=== PATIENT | female | born 1995 | race African-American/Black ===

== ENCOUNTER 2023-01-15 21:01 | Emergency (ER) | payer OTHER, SELFPAY ==
--- NOTE | 2023-01-15 21:02 | ECG_ITS ---
Test Reason : CP Blood Pressure : / mmHG Vent. Rate : 089 BPM Atrial Rate : 089 BPM P-R Int : 160 ms QRS Dur : 084 ms QT Int : 378 ms P-R-T Axes : 048 054 045 degrees QTc Int : 459 ms Normal sinus rhythm Normal ECG No previous ECGs available Referred By: Generic ED Physician Electronically Signed By:RONIT JAMES
--- NOTE | 2023-01-15 21:15 | MHC.EDTECH ---
EKG was obtained and pt brought back to waiting room
[2023-01-15 21:29] VITALS: BP 147/87; PULSE 88; RESP 16; TEMP 37; O2SAT 100; BMI 43.7
--- NOTE | 2023-01-15 21:47 | MHC.EDTECH ---
Patient was brought from waiting area,labs were obtained and sent to lab. Patient was brought back to waiting area.
[2023-01-15 21:56] LABS: Hematocrit 37.8 % (37.0-47.0); Hemoglobin 12.8 g/dl (12.0-16.0); Mean Corpuscular HGB Conc 33.9 g/dl (31.0-35.0); Mean Corpuscular Volume 85.5 fL (80.0-98.0); Mean Platelet Volume 11.5 fL (9.4-12.3); Platelet Count 242 X10*3/uL (160-400); Red Blood Count 4.42 X10*6/uL (4.20-5.50); Red Cell Distribution Width 12.5 % (11.0-16.0); White Blood Count 10.7 X10*3/uL (4.8-10.8)
[2023-01-15 22:13] LABS: Alanine Aminotransferase 15 U/L (0-31); Albumin Level 3.9 g/dL (3.5-5.0); Alkaline Phosphatase 79 U/L (39-117); Anion Gap 11 (12-20); Aspartate Amino Transferase 16 U/L (5-31); Bilirubin Total 0.1 mg/dL (0.0-1.0); Blood Urea Nitrogen 15 mg/dL (9-16); Calcium 8.8 mg/dL (8.4-10.2); Carbon Dioxide 28 mmol/L (22-29); Chloride 106 mmol/L (96-108); Creatinine Clr Calc Pharmacy 129.4; Estimated Glomerular Filt Rate > 60; Glucose Random 98 mg/dL (60-115); Potassium 3.5 mmol/L (3.3-5.1); Sodium 141 mmol/L (135-145); Total Protein 7.3 g/dL (6.5-8.0)
[2023-01-15 22:23] LABS: Troponin-I High Sensitivity < 2.7 ng/L (<3.5-17.0)
--- NOTE | 2023-01-15 22:57 | ED_ITS ---
HPI - Chest Pain General Chief Complaint: Chest Pain Stated Complaint: blurry vision, chest pain Time Seen by Provider: 01/15/23 22:56 Source: patient Mode of arrival: ambulatory Limitations: no limitations History of Present Illness HPI narrative: Patient with history of hypertension with well-controlled blood pressure complaining of frontal headache chest pain since earlier today no nausea no vomiting no photosensitivity patient never had headache before does have a family history of migraines in the mother no fever no chills no cough Related Data Previous Rx's Medication Instructions Recorded otcnjhdfzm-fkgptksgzxsnv-msyzawqu 1 tab PO Q6H PRN pain #20 tabs 01/16/23 50 mg-325 mg-40 mg tablet Allergies Allergy/AdvReac Type Severity Reaction Status Date / Time No Known Allergies Allergy Verified 01/15/23 21:28 Review of Systems Review of Systems: Yes all other systems are reviewed and are negative [facility] Past Medical History Medical History hypertension Social History Social History Alcohol intake: never Smoked in Last 30 Days: No Use of substances other than those prescribed or required for medical reasons: No Advance Directives: No Advance Directives Information Provided: No Patient : No Physical Exam Vital Signs: Vital Signs: Last Vital Signs Temp 98.5 F 01/16/23 00:33 Pulse 78 01/16/23 00:33 Resp 17 01/16/23 00:33 BP 118/72 01/16/23 00:33 Pulse Ox 97 01/16/23 00:33 O2 Del Method Room Air 01/16/23 00:33 BMI result Body Mass Index 43.7 Appearance: Alert. Oriented X3. No acute distress. Eyes: PERRLA, No Nystagmus ENT: Pharynx normal. Oral Mucosa moist no temporal artery tenderness no sinus tenderness Neck: Normal inspection. Neck supple. CVS: Normal heart rate and rhythm. Pulses normal. Respiratory: No respiratory distress. Equal air entry bilateral, no wheezing/rales/rhonchi chest wall tenderness+ Abdomen: Soft and nontender. Bowel sounds are present, Skin: Skin warm and dry. Normal skin color. Normal skin turgor. Extremities: No lower extremity edema. No calf tenderness Neuro: Oriented X 3. No motor deficit. No sensory deficit.No cerebellar signs , cranial nerves II-XII intact Medications Administered Discontinued Medications Generic Name Dose Route Start Last Admin Trade Name Chirag PRN Reason Stop Dose Admin Acetaminophen/Butalbital/Caffeine 1 tab 01/15/23 23:20 01/16/23 00:19 Butalb/Acetamin/Caff 50/325/40 Tablet PO 01/15/23 23:21 1 tab ONCE ONE Administration Ketorolac Tromethamine 60 mg 01/15/23 23:20 01/16/23 00:19 Ketorolac Tromethamine 60 Mg/2 Ml Vial IM 01/15/23 23:21 60 mg ONCE ONE Administration Medical Decision Making Medical Decision Making [facility] Narrative: Patient likely with migraine headache/tension atypical chest pain reproducible on palpation likely costochondritis patient feeling much better after Toradol will discharge patient home on Fioricet Lab Data [facility] Lab Attestation statement: I reviewed the patient's lab results. 01/15/23 21:46 01/15/23 21:46 Labs: Lab Results 01/15/23 01/15/23 01/15/23 Range/Units 21:46 21:46 21:46 WBC 10.7 (4.8-10.8) X10*3/uL RBC 4.42 (4.20-5.50) X10*6/uL Hgb 12.8 (12.0-16.0) g/dl Hct 37.8 (37.0-47.0) % MCV 85.5 (80.0-98.0) fL MCH 29.0 (27.0-33.0) pg MCHC 33.9 (31.0-35.0) g/dl RDW 12.5 (11.0-16.0) % Plt Count 242 (160-400) X10*3/uL MPV 11.5 (9.4-12.3) fL Absolute Nucleated RBC 0.000 (0.0-0.012) X10*3/uL Nucleated RBC % (auto) 0.0 (0.0-0.2) /100WBC Sodium 141 (135-145) mmol/L Potassium 3.5 (3.3-5.1) mmol/L Chloride 106 (96-108) mmol/L Carbon Dioxide 28 (22-29) mmol/L Anion Gap 11 L (12-20) BUN 15 (9-16) mg/dL Creatinine 0.80 (0.5-1.4) mg/dL Estim Creat Clear Calc 129.4 Estimated GFR > 60 Random Glucose 98 (60-115) mg/dL Calcium 8.8 (8.4-10.2) mg/dL Total Bilirubin 0.1 (0.0-1.0) mg/dL AST 16 (5-31) U/L ALT 15 (0-31) U/L Alkaline Phosphatase 79 (39-117) U/L Troponin I High Sens < 2.7 (<3.5-17.0) ng/L Total Protein 7.3 (6.5-8.0) g/dL Albumin 3.9 (3.5-5.0) g/dL Independent Interpretation I performed an independent interpretation of an: EKG Interpretation: Normal sinus rhythm heart rate 89 beats per minute normal interval normal axis no acute ST-T no acute ischemia Discharge Plan Discharge Clinical Impression: Headache, tension-type Patient Disposition: Home, Self-Care Instructions: Tension Headache (ED) Additional Instructions: Possibly you have tension headache/migraine headache Rest at home, sleeps well take medication as prescribed Prescriptions: New iggmsbcmvc-kldzeeelqwchx-xzfg 50-325-40 mg tablet 1 tab PO Q6H PRN (Reason: pain) Qty: 20 0RF
--- OUTSIDE RECORDS SUMMARY | 2023-01-15 23:15 | XMS_ITS | Continuity of Care Document ---
Author Name Unknown Organization [facility] Address [address], [address] [place] [address]- Care Team Providers Care Drawing In Machine Tender Helper Name Role Phone Rukhsana KAHN, Dolores Anderson Primary Care Physician Encounter [facility] [place] Date(s): 06/29/19 - 08/05/19 [facility] [address], [address] [place] [address]- Attending Physician: Yadi Lam MD Referring Physician: Giovanna Armando CNM Allergies, Adverse Reactions, Alerts Substance Reaction Severity Status NKA Active Immunizations Given and Recorded Vaccine Date Status Refusal Reason influenza virus vaccine, inactivated 06/29/19 Give n influenza virus vaccine, inactivated 1 04/15/14 Gi pinky influenza virus vaccine, inactivated 2 03/25/13 Gi pinky influenza virus vaccine, inactivated 3 03/20/12 Gi pinky hepatitis B adult vaccine 11/05/17 Given hepatitis B adult vaccine 02/10/15 Given Human Papillomavirus Vaccine 10/14/14 Given tetanus/diphtheria/pertussis, acel(Tdap) 06/13/10 Given 1Result Comment: [04/15/2014] Fluvirax [id number] 2Admin Note: vis given dated 12/25/12 3Admin Note: VIS 7-12 Medications Keflex monohydrate 500 mg oral capsule 1 capsule = 500 mg, By Mouth, Daily at bedtime, for 30 days, # 30 capsule, 6 Refills, Acute 01/25/20 13:02:00 EDT, 06/29/19 13:02:00 EST, Capsule, [id number], 162.56, cm, 06/29/19 9:45:00 EST, Height, 100.8, kg, 05/12/18 14:51:00 EST, Dry Weight Start Date: 06/29/19 Stop Date: 01/25/20 Status: Ordered [place] 0.65% nasal spray 2 sprays, Nares, Both, 4 times a day, # 1 each, 0 Refills, Maintenance, 04/14/19 10:38:11 EST, 2 sprays Nares, Both 4 times a day Start Date: 04/14/19 Status: Ordered Multivitamins with Folic Acid 1 mg oral tablet 1 tablet, By Mouth, Daily, # 90 tablet, 3 Refills, Maintenance, 03/30/19 14:41:49 EDT, Tablet, 1 tablet By Mouth Daily,x90 days Start Date: 03/30/19 Stop Date: 03/24/20 Status: Ordered Tylenol 325 mg oral capsule 2 capsule = 650 mg, By Mouth, Every 4 hours, PRN as needed for fever, # 20 capsule, 0 Refills, Maintenance, 06/29/19 9:47:00 EST, Capsule Start Date: 06/29/19 Status: Ordered Problem List Condition Effective Dates Status Health Status Inform ant ASCUS favor benign(Confirmed) Active Anxiety(Confirmed) 1 Active Chronic UTI(Confirmed) 2 Active Fatigue(Confirmed) Active Gastroenteritis(Confirmed) Active History of spontaneous (Confirmed) Active Headache(Confirmed) Active Herpes simplex with complication(Confirmed) 3 07/25/13 Active Migraines(Confirmed) Active 1was seeing therapist, not now, states anxiety is controlled. 2States gets them sanaz 2-3 months 3Involved the area inferior to her vulva Social History Social History Type Response Smoking Status Never (less than 100 in lifetime); Tobacco user in household: No entered on: 06/14/19 Sex
--- OUTSIDE RECORDS SUMMARY | 2023-01-15 23:15 | XMS_ITS | Continuity of Care Document ---
Author Name Unknown Organization [facility] Address [address] [place] [id number]- Care Team Providers Care Timber Setter Name Role Phone Dennis Cardoza DO Primary Care Physician [phone] Encounter [facility] Date(s): 07/19/21 - 08/18/21 [facility] [address] [place] [address]- Attending Physician: Oneil Jones Admitting Physician: AdmOneil raymundo Referring Physician: Admtr, ArBenja Allergies, Adverse Reactions, Alerts No Known Allergies Immunizations Given and Recorded Vaccine Date Status Refusal Reason SARS-CoV-2 (COVID-19) mRNA BNT-162b2 vac 02/23/21 Given SARS-CoV-2 (COVID-19) mRNA BNT-162b2 vac 02/01/21 Given tetanus/diphtheria/pertussis, acel(Tdap) 10/27/19 Given tetanus/diphtheria/pertussis, acel(Tdap) 06/13/10 Given influenza virus vaccine, inactivated 06/29/19 Give n influenza virus vaccine, inactivated 1 04/15/14 Gi pinky influenza virus vaccine, inactivated 2 03/25/13 Gi pinky influenza virus vaccine, inactivated 3 03/20/12 Gi pinky hepatitis B adult vaccine 11/05/17 Given hepatitis B adult vaccine 02/10/15 Given Human Papillomavirus Vaccine 10/14/14 Given 1Result Comment: [04/15/2014] Fluvirax [id number] 2Admin Note: vis given dated 12/25/12 3Admin Note: VIS 7-12 Medications chlorthalidone 25 mg oral tablet 1/2 tablet, By Mouth, Daily, TAKE 1/2 TABLET BY MOUTH DAILY, # 15 tablet, Refills 0, Tot. Refills 0, Maintenance, 06/22/21 15:47:00 EST, Route to Pharmacy Electronically, [id number], Partial fill upon patient request if the prescription is for... Start Date: 06/22/21 Status: Ordered [employer]e [email or web address] oral capsule 1 capsule, By Mouth, Daily, for 30 days, # 30 capsule, 11 Refills, Acute 06/30/22 15:54:00 EST, 07/05/21 15:54:00 EST, [id number], Partial fill upon patient request if the prescription is fora schedule II opioid drug., 1 capsule By Mouth Jose... Start Date: 07/05/21 Stop Date: 06/30/22 Status: Ordered flunisolide 25 mcg/inh nasal spray 2 puffs, Nares, Both, Daily, # 25 mL, 0 Refills, Maintenance, 07/19/21 15:37:00 EST, [place], [id number], Partial fill upon patient request if the prescription is for a schedule II opioid drug., 2 puffs Nares, Both Daily, 163, cm, 07/19/21 14:02... Start Date: 07/19/21 Status: Ordered ibuprofen 600 mg oral tablet 600 mg, 1, tablet, By Mouth, Every 6 hours, PRN, with food or milk, # 24 tablet, Refills 0, Tot. Refills 0, Maintenance, Pain , Moderate, 03/07/21 10:54:00 EDT, Route to Pharmacy Electronically, [id number], Partial fill upon patient request if... Start Date: 03/07/21 Status: Ordered Paragard IUD See Instructions, # 1 each, Maintenance, Inserted by Rosa Stokes MD. Lot [id number] Exp November 2025., 02/03/20 11:09:00 EDT, Supply, 162, cm, 01/03/20 13:13:00 EDT, Height, 106, kg, 12/23/19 23:02:00 EDT, Dry Weight Start Date: 02/03/20 Status: Ordered Tylenol Extra Strength 500 mg oral tablet 2 tablet = 1,000 mg, By Mouth, Every 6 hours, PRN as needed for fever, # 24 tablet, 0 Refills, Maintenance, 03/07/21 10:54:00 EDT, Tablet, [id number], Partial fill upon patient request if theprescription is for a schedule II opioid drug., 163... Start Date: 03/07/21 Status: Ordered Problem List Condition Effective Dates Status Health Status Inform ant Anxiety(Confirmed) 1 Active Choroid plexus cyst of fetus , left side [ ] MFM consult to be done at 32 week scan November 18 at 10:30(Confirmed) Active Chronic UTI(Confirmed) 2 Active Size>dates (34 cm at 24 weeks)(Confirmed) Active Fatigue(Confirmed) Active Mild bilateral intracranial ventriculomegaly on ultrasound. Right subsequently resolved. Left ventricle 12.9 mm (normal <10 mm) [ ] head ultrasound prior to discharge of baby(Confirmed) 3, 4 Active Genital herpes simplex(Confirmed) 5 12/23/19 Active High risk , antepartum(Confirmed) Active Migraines(Confirmed) Active Obese class II(Confirmed) Active Obesity(Confirmed) Active 1was seeing therapist, not now, states anxiety is controlled. 2States gets them sanaz 2-3 months 3MFM consult to be done at 32 week scan November 18 at 10:30 4Mild bilateral intracranial ventriculomegaly is seen. The right and left ventricle measured 10-11 mm (normal is < 10mm). A left sided choroid plexus cyst was seen. 5Problem added by Discern Expert Social History Social History Type Response Smoking Status Never (less than 100 in lifetime); Tobacco user in household: No entered on: 06/14/19 Sex
--- OUTSIDE RECORDS SUMMARY | 2023-01-15 23:15 | XMS_ITS | Continuity of Care Document ---
Author Name Unknown Organization [facility] Address [address] [place] [address], [address] [place] [address]- Care Team Providers Care Ratings Analyst Name Role Phone Magdalene KAHN, [facility] Primary Care Physician [phone] Encounter [facility] [place] Date(s): 01/06/20 - 01/13/20 [facility] [address] [facility], [address] [place] [address]- [facility] Attending Physician: Carole KAHN, Yadi High Allergies, Adverse Reactions, Alerts Substance Reaction Severity Status NKA Active Immunizations Given and Recorded Vaccine Date Status Refusal Reason tetanus/diphtheria/pertussis, acel(Tdap) 10/27/19 Given tetanus/diphtheria/pertussis, acel(Tdap) 06/13/10 Given influenza virus vaccine, inactivated 06/29/19 Give n influenza virus vaccine, inactivated 1 04/15/14 Gi pinky influenza virus vaccine, inactivated 2 03/25/13 Gi pinky influenza virus vaccine, inactivated 3 03/20/12 Gi pinky hepatitis B adult vaccine 11/05/17 Given hepatitis B adult vaccine 02/10/15 Given Human Papillomavirus Vaccine 10/14/14 Given 1Result Comment: [04/15/2014] Fluvirax [id number] 2Admin Note: vis given dated 12/25/12 3Admin Note: VIS 7-12 Medications Dispense 1 blood pressure cuff for monitoring BP daily and as needed. Dispense 1 blood pressure cuff for monitoring BP daily and as needed., See Instructions, # 1 each, Refills 0, Tot. Refills 0, Maintenance, Diagnosis: preeclampsia with severe features (O14.13), 12/28/19 12:03:00 EDT, Supply, Dry Weight Start Date: 12/28/19 Status: Ordered Ibuprofen Refills 0, Maintenance, 01/03/20 13:15:00 EDT Start Date: 01/03/20 Status: Ordered NIFEdipine 30 mg oral tablet, extended release 30 mg, 1, tablet, By Mouth, Daily, # 30 tablet, Refills 3, Tot. Refills 3, Maintenance, 01/03/20 14:11:00 EDT, Route to Pharmacy Electronically, [facility]/pharmacy #[id number], 162, cm, 01/03/20 13:13:00 EDT, Height, 106, kg, 12/23/19 23:02:00 EDT, Dry Weight Start Date: 01/03/20 Status: Ordered Problem List Condition Effective Dates [...] High risk , antepartum(Confirmed) Active Migraines(Confirmed) Active Obesity(Confirmed) Active 1was seeing therapist, not now, states anxiety is controlled. 2States gets them sanaz 2-3 months 3MFM consult to be done at 32 week scan November 18 at 10:30 4Mild bilateral intracranial ventriculomegaly is seen. The right and left ventricle measured 10-11 mm (normal is < 10mm). A left sided choroid plexus cyst was seen. 5Problem added by Discern Expert Vital Signs Most recent to oldest [Reference Range]: 1 Blood Pressure [90-138/55-84 mm Hg] 126/ 84mm Hg (01/06/20 10:45 AM) Blood pressure sites Arm, right (01/06/20 10:45 AM) Social History Social History Type Response Smoking Status Never (less than 100 in lifetime); Tobacco user in household: No entered on: 06/14/19 Sex
--- OUTSIDE RECORDS SUMMARY | 2023-01-15 23:15 | XMS_ITS | Continuity of Care Document ---
Author Name Unknown Organization [facility] Address [address], [address] [place] [address]- Care Team Providers Care Dental Assistant Teacher Name Role Phone Magdalene KAHN, Charmaine Primary Care Physician [place] [facility] [place] 03/04/20 [facility] [address], [address] [place] [address]- [facility] Attending Physician: Oneil Jones Admitting Physician: Oneil Joens Referring Physician: AdmtrOneil Allergies, Adverse Reactions, Alerts Substance Reaction Severity [...] Vaccine 10/14/14 Given 1Result Comment: [04/15/2014] Fluvirax [id number] 2Admin Note: vis given dated 12/25/12 3Admin Note: VIS 7-12 Medications Dispense 1 blood pressure cuff for monitoring BP daily and as needed. Dispense 1 blood pressure cuff for monitoring BP daily and as needed., See Instructions, # 1 each, Refills 0, Tot. Refills 0, Maintenance, Diagnosis: preeclampsia with severe features (O14.13), 12/28/19 12:03:00 EDT, Supply, Dry Weight Start Date: 12/28/19 Status: Ordered hydrOXYzine hydrochloride 50 mg oral tablet 1 tablet = 50 mg, By Mouth, 4 times a day, PRN for anxiety, # 60 tablet, 0 Refills, Maintenance, 02/11/20 14:54:00 EDT, Tablet, [facility]/pharmacy #[id number], 162, cm, 02/03/20 14:12:00 EDT, Height, 106, kg, 12/23/19 23:02:00 EDT, Dry Weight Start Date: 02/11/20 Status: Ordered Ibuprofen Refills 0, Maintenance, 01/03/20 13:15:00 EDT Start Date: 01/03/20 Status: Ordered NIFEdipine 30 mg oral tablet, extended release 30 mg, 1, tablet, By Mouth, Daily, # 30 tablet, Refills 3, Tot. Refills 3, Maintenance, 01/03/20 14:11:00 EDT, Route to Pharmacy Electronically, [facility]/pharmacy #[id number], 162, cm, 01/03/20 13:13:00 EDT, Height, 106, kg, 12/23/19 23:02:00 EDT, Dry Weight Start Date: 01/03/20 Status: Ordered Paragard IUD See Instructions, # 1 each, Maintenance, Inserted by Rosa Stokes MD. Lot [id number] Exp November 2025., 02/03/20 11:09:00 EDT, Supply, 162, cm, 01/03/20 13:13:00 EDT, Height, 106, kg, 12/23/19 23:02:00 EDT, Dry Weight Start Date: 02/03/20 Status: Ordered sertraline 50 mg oral tablet 1 tablet = 50 mg, By Mouth, Daily, # 90 tablet, 1 Refills, Maintenance, 02/11/20 14:53:00 EDT, Tablet, [facility]/pharmacy #[id number], 162, cm, 02/03/20 14:12:00 EDT, Height, 106, kg, 12/23/19 23:02:00 EDT, Dry Weight Start Date: 02/11/20 Status: Ordered Problem List Condition Effective Dates [...]
--- OUTSIDE RECORDS SUMMARY | 2023-01-15 23:15 | XMS_ITS | Continuity of Care Document ---
Author Name Unknown Organization [facility] Address [address] [place] [address]- Care Team Providers Care Supervisor Shop Name Role Phone Rukhsana KAHN, Dolores Anderson Primary Care Physician Encounter [facility] [place] Date(s): 06/29/19 - 08/05/19 [facility] [address] [address]- [facility] Attending Physician: Yadi Lam MD Admitting Physician: Yadi Lam MD Referring Physician: Giovanna [...] acel(Tdap) 06/13/10 Given 1Result Comment: [04/15/2014] Fluvirax [id number] 2Admin Note: vis given dated 12/25/12 3Admin [...] Date: 06/29/19 Stop Date: 01/25/20 Status: Ordered [place] 0.65% nasal spray 2 sprays, Nares, Both, [...]
--- OUTSIDE RECORDS SUMMARY | 2023-01-15 23:16 | XMS_ITS | Continuity of Care Document ---
Author Name Unknown Organization [facility] Address [address] [place] [address]- Care Team Providers Care Freight Engineer Name Role Phone Dennis Cardoza DO Primary Care Physician Encounter [facility] Date(s): 11/29/21 - 12/29/21 [facility] [address] [place] [id number] Allergies, Adverse Reactions, Alerts No Known Allergies Immunizations Given and Recorded Vaccine Date Status Refusal Reason SARS-CoV-2 (COVID-19) mRNA BNT-162b2 vac 10/18/21 Recorded SARS-CoV-2 (COVID-19) mRNA BNT-162b2 vac 02/23/21 Given [...] Vaccine 10/14/14 Given 1Result Comment: [04/15/2014] Fluvirax [id number] 2Admin Note: vis given dated 12/25/12 3Admin Note: VIS 7-12 Medications chlorthalidone 25 mg oral tablet 25 mg, 1, tablet, By Mouth, Daily, # 30 tablet, Refills 4, Tot. Refills 4, Maintenance, 12/21/21 10:51:00 EDT, Route to Pharmacy Electronically, [facility]/pharmacy #[id number], Partial fill upon patient request if the prescription is for a schedule II opioid drug... Start Date: 12/21/21 Stop Date: 05/20/22 Status: [facility] [employer] [facility] oral capsule 1 capsule, By Mouth, [...] mL, 0 Refills, Maintenance, 07/19/21 15:37:00 EST, [place], [facility]/pharmacy #[id number], Partial fill upon patient request if the prescription is for a schedule II opioid drug., 2 puffs Nares, Both Daily, 163, cm, 07/19/21 14:02... Start Date: 07/19/21 Status: Ordered FLUoxetine 10 mg oral tablet 2 tablet = 20 mg, By Mouth, Daily, Can increase to 2 tablets daily after 2 weeks, # 60 tablet, 2 Refills, Maintenance, 12/18/21 17:17:00 EDT, Tablet, [facility]/pharmacy #[id number], Partial fill upon patient request if the prescription is for a schedule II opioid... Start Date: 12/18/21 Stop Date: 03/18/22 Status: Ordered hydrOXYzine hydrochloride 25 mg oral tablet 1 tablet = 25 mg, By Mouth, 3 times a day, PRN for anxiety, for 30 days, # 90 tablet, 4 Refills, Acute 05/17/22 17:18:00 EST, 12/18/21 17:18:00 EDT, Tablet, [id number], Partial fill upon patient request if the prescription is for a schedule II... Start Date: 12/18/21 Stop Date: 05/17/22 Status: Ordered ibuprofen 600 mg oral tablet 600 mg, 1, tablet, By Mouth, Every 6 hours, PRN, with food or milk, # 24 tablet, Refills 0, Tot. Refills 0, Maintenance, Pain , Moderate, 03/07/21 10:54:00 EDT, Route to Pharmacy Electronically, [facility]/pharmacy #[id number], Partial fill upon patient request if... Start Date: 03/07/21 Status: Ordered Paragard IUD See Instructions, # 1 each, Maintenance, Inserted by Rosa Stokes MD. Lot [id number] Exp November 2025., 02/03/20 11:09:00 EDT, Supply, 162, cm, 01/03/20 13:13:00 EDT, Height, 106, kg, 12/23/19 23:02:00 EDT, Dry Weight Start Date: 02/03/20 Status: Ordered Tylenol Extra Strength 500 mg oral tablet 2 tablet = 1,000 mg, By Mouth, Every 6 hours, PRN as needed for fever, # 24 tablet, 0 Refills, Maintenance, 03/07/21 10:54:00 EDT, Tablet, [facility]/pharmacy #[id number], Partial fill upon patient request if [...] , antepartum(Confirmed) Active Migraines(Confirmed) Active Obesity(Confirmed) Active Severe obesity(Confirmed) Active 1was seeing therapist, not now, states [...]
--- OUTSIDE RECORDS SUMMARY | 2023-01-15 23:16 | XMS_ITS | Continuity of Care Document ---
Author Name Unknown Organization [facility] Address [address], [address] [place] [address]- Care Team Providers Care Pest Control Supervisor Name Role Phone Magdalene KAHN, kenton Primary Care Physician [phone] Encounter [facility] Date(s): 11/25/19 - 02/05/20 [facility] [address], [address] [place] [address]- [facility] Attending Physician: Divya KAHN, Erick Bradshaw Allergies, Adverse Reactions, Alerts Substance Reaction Severity [...] Vaccine 10/14/14 Given 1Result Comment: [04/15/2014] Fluvirax [id number] 2Admin Note: vis given dated 12/25/12 3Admin [...] 01/03/20 14:11:00 EDT, Route to Pharmacy Electronically, [facility]/pharmacy #[id number], 162, cm, 01/03/20 13:13:00 EDT, Height, 106, kg, 12/23/19 23:02:00 EDT, Dry Weight Start Date: 01/03/20 Status: Ordered Paragard IUD See Instructions, # 1 each, Maintenance, Inserted by Rosa Stokes MD. Lot [id number] Exp November 2025., 02/03/20 11:09:00 EDT, Supply, 162, cm, 01/03/20 13:13:00 EDT, Height, 106, kg, 12/23/19 23:02:00 EDT, Dry Weight Start Date: 02/03/20 Status: Ordered sertraline 25 mg oral tablet 1 tablet = 25 mg, By Mouth, Daily, # 30 tablet, 3 Refills, Maintenance, 01/20/20 16:52:00 EDT, Tablet, [facility]/pharmacy #[id number], 162, cm, 01/03/20 13:13:00 EDT, Height, 106, kg, 12/23/19 23:02:00 EDT, Dry Weight Start Date: 01/20/20 Status: Ordered Problem List Condition Effective Dates [...] controlled. 2States gets them sanaz 2-3 months 3M consult to be done at 32 week [...]
--- OUTSIDE RECORDS SUMMARY | 2023-01-15 23:16 | XMS_ITS | Continuity of Care Document ---
Author Name Unknown Organization [facility] Address [address] [place] [address]- Care Team Providers Care Crew Lead Name Role Phone Magdalene KAHN, Charmaine Primary Care Physician [phone] [facility] [facility] Date(s): 01/17/20 - 02/16/20 [facility] [address] [place] [address]- [facility] Allergies, Adverse Reactions, Alerts Substance Reaction Severity [...] Vaccine 10/14/14 Given 1Result Comment: [04/15/2014] Fluvirax [id number] 2Admin Note: vis given dated 12/25/12 3Admin [...] 0 Refills, Maintenance, 02/11/20 14:54:00 EDT, Tablet, [facility]/pharmacy #[id number], 162, cm, 02/03/20 14:12:00 EDT, Height, 106, kg, 12/23/19 23:02:00 EDT, Dry Weight Start Date: 02/11/20 Status: Ordered Ibuprofen Refills 0, Maintenance, 01/03/20 13:15:00 EDT Start Date: 01/03/20 Status: Ordered NIFEdipine 30 mg oral tablet, extended release 30 mg, 1, tablet, By Mouth, Daily, # 30 tablet, Refills 3, Tot. Refills 3, Maintenance, 01/03/20 14:11:00 EDT, Route to Pharmacy Electronically, [facility]/pharmacy #[id number], 162, cm, 01/03/20 13:13:00 EDT, Height, 106, kg, 12/23/19 23:02:00 EDT, Dry Weight Start Date: 01/03/20 Status: Ordered Paragard IUD See Instructions, # 1 each, Maintenance, Inserted by Rosa Stokes MD. Lot [id number] Exp November 2025., 02/03/20 11:09:00 EDT, Supply, 162, cm, 01/03/20 13:13:00 EDT, Height, 106, kg, 12/23/19 23:02:00 EDT, Dry Weight Start Date: 02/03/20 Status: Ordered sertraline 50 mg oral tablet 1 tablet = 50 mg, By Mouth, Daily, # 90 tablet, 1 Refills, Maintenance, 02/11/20 14:53:00 EDT, Tablet, [facility]/pharmacy #[id number], 162, cm, 02/03/20 14:12:00 EDT, Height, [...]
--- OUTSIDE RECORDS SUMMARY | 2023-01-15 23:16 | XMS_ITS | Continuity of Care Document ---
Author Name Unknown Organization [facility] Address [address] [place] [address]- Care Team Providers Care Internet Consultant Name Role Phone Magdalene KAHN, Charmaine Primary Care Physician Encounter [facility] Date(s): 08/22/20 - 09/21/20 [facility] [address] [place] [id number] Attending Physician: Oneil Jones Admitting Physician: AdmOneil raymundo Referring Physician: AdmtrOneil Allergies, Adverse Reactions, Alerts [...] Vaccine 10/14/14 Given 1Result Comment: [04/15/2014] Fluvirax [id number] 2Admin Note: vis given dated 12/25/12 3Admin Note: VIS 7-12 Medications acetaZOLAMIDE 250 mg oral tablet 250 mg, 1, tablet, By Mouth, 2 times a day, # 30 tablet, Refills 0, Tot. Refills 0, Maintenance, 08/09/20 19:10:00 EST, Route to Pharmacy Electronically, [facility]/pharmacy #[id number], Partial fill upon patientrequest if the prescription is for a schedule II op... Start Date: 08/09/20 Status: Ordered chlorthalidone 25 mg oral tablet 0.5, tablet, By Mouth, Daily, # 15 tablet, Refills 0, Tot. Refills 0, Maintenance, 09/11/20 12:39:00 EDT, Route to Pharmacy Electronically, [facility] STORE [id number], 163, cm, 08/18/20 13:27:00 EDT, Height, 110, kg, 08/09/20 17:32:00 EST, Dry Weight Start Date: 09/11/20 Status: Ordered Dispense 1 blood pressure cuff for monitoring [...] 0 Refills, Maintenance, 02/11/20 14:54:00 EDT, Tablet, [facility]/pharmacy #[id number], 162, cm, 02/03/20 14:12:00 EDT, Height, 106, kg, 12/23/19 23:02:00 EDT, Dry Weight Start Date: 02/11/20 Status: Ordered ibuprofen 800 mg oral tablet 800 mg, 1, tablet, By Mouth, 3 times a day, PRN, # 30 tablet, Refills 0, Tot. Refills 0, Maintenance, Pain , Moderate, 03/28/20 14:55:00 EDT, [id number], cm, 02/03/20 14:12:00 EDT, Height, 106, kg, ... Start Date: 03/28/20 Status: Ordered NIFEdipine 30 mg oral tablet, extended release 30 mg, 1, tablet, By Mouth, Daily, # 30 tablet, Refills 3, Tot. Refills 3, Maintenance, 01/03/20 14:11:00 EDT, Route to Pharmacy Electronically, [facility]/pharmacy #[id number], 162, cm, 01/03/20 13:13:00 EDT, Height, 106, kg, 12/23/19 23:02:00 EDT, Dry Weight Start Date: 01/03/20 Status: Ordered Paragard IUD See Instructions, # 1 each, Maintenance, Inserted by Rosa Stokes MD. Lot [id number] Exp November 2025., 02/03/20 11:09:00 EDT, Supply, 162, cm, 01/03/20 13:13:00 EDT, Height, 106, kg, 12/23/19 23:02:00 EDT, Dry Weight Start Date: 02/03/20 Status: Ordered permethrin 5% topical cream 1 application, Topically, Once, # 60 Gm, 0 Refills, Soft Stop, 05/31/20 16:52:00 EST, Cream, [facility]/pharmacy #[id number], Partial fill upon patient request if the prescription is for a schedule II opioid drug., 1 application Topically Once, 162, cm, 05/16/20 1... Start Date: 05/31/20 Status: Ordered sertraline 50 mg oral tablet 1 tablet = 50 mg, By Mouth, Daily, # 90 tablet, 1 Refills, Maintenance, 08/07/20 8:35:00 EST, Tablet, [facility]pharmacy [id number], 162, cm, 05/16/20 13:31:00 EST, Height, 106, kg, 12/23/19 23:02:00 EDT, Dry Weight Start Date: 08/07/20 Status: Ordered Problem List Condition Effective Dates [...]
--- OUTSIDE RECORDS SUMMARY | 2023-01-15 23:16 | XMS_ITS | Continuity of Care Document ---
Author Name Unknown Organization [facility] Address [address], [address] [place] [address]- Care Team Providers Care Apricot Washer Name Role Phone Magdalene KAHN, kenton Primary Care Physician Encounter [facility] Date(s): 11/25/19 - 01/29/20 [facility] [address], [address] [place] [address]- [facility] Attending Physician: Radha KAHN, Nely High Referring Physician: Erick Stokes MD Allergies, Adverse Reactions, Alerts Substance Reaction Severity [...] Vaccine 10/14/14 Given 1Result Comment: [04/15/2014] Fluvirax [id number] 2Admin Note: vis given dated 12/25/12 3Admin [...] Start Date: 12/28/19 Status: Ordered hydrOXYzine hydrochloride 25 mg oral tablet 1 tablet = 25 mg, By Mouth, 4 times a day, PRN for anxiety, # 5 tablet, 0 Refills, Maintenance, 01/20/20 16:52:00 EDT, Tablet, [facility]/pharmacy #[id number], 162, cm, 01/03/20 13:13:00 EDT, Height, 106, kg, 12/23/19 23:02:00 EDT, Dry Weight Start Date: 01/20/20 Status: Ordered Ibuprofen Refills 0, Maintenance, 01/03/20 [...] Dry Weight Start Date: 01/03/20 Status: Ordered sertraline 25 mg oral tablet 1 tablet = 25 mg, By Mouth, Daily, # 30 tablet, 3 Refills, Maintenance, 01/20/20 16:52:00 EDT, Tablet, [facility]/pharmacy #[id number], [...]
--- OUTSIDE RECORDS SUMMARY | 2023-01-15 23:16 | XMS_ITS | Continuity of Care Document ---
Author Name Unknown Organization [facility] Address [address] [place] [address]- Care Team Providers Care Manager Managed Backup Services Name Role Phone Dennis Cardoza DO Primary Care Physician [phone] Encounter [facility] [place] [place] Date(s): 01/11/21 - 02/25/21 [facility] [address] [place] [address]- Attending Physician: David Gordillo MD Admitting Physician: David Gordillo MD Allergies, Adverse Reactions, Alerts Substance Reaction [...] Vaccine 10/14/14 Given 1Result Comment: [04/15/2014] Fluvirax [id number] 2Admin Note: vis given dated 12/25/12 3Admin Note: VIS 7-12 Medications acetaZOLAMIDE 250 mg oral tablet 250 mg, 1, tablet, By Mouth, 2 times a day, # 30 tablet, Refills 0, Tot. Refills 0, Maintenance, 08/09/20 19:10:00 EST, [id number] Partial fill upon patientrequest if the prescription is for a schedule II op... Start Date: 08/09/20 Status: Ordered chlorthalidone 25 mg oral tablet 0.5, tablet, By Mouth, Daily, # 15 tablet, Refills 0, Tot. Refills 0, Maintenance, 09/11/20 12:39:00 EDT, Route to Pharmacy Electronically, [facility] STORE [id number], 163, cm, 08/18/20 13:27:00 EDT, Height, 110, [...] 0 Refills, Maintenance, 02/11/20 14:54:00 EDT, [id number], cm, 02/03/20 14:12:00 EDT, Height, 106, kg, 12/23/19 23:02:00 EDT, Dry Weight Start Date: 02/11/20 Status: Ordered ibuprofen 800 mg oral tablet 800 mg, 1, tablet, By Mouth, 3 times a day, PRN, # 30 tablet, Refills 0, Tot. Refills 0, Maintenance, Pain , Moderate, 03/28/20 14:55:00 EDT, [id number] 162, cm, 02/03/20 14:12:00 EDT, Height, 106, kg, ... Start Date: 03/28/20 Status: Ordered NIFEdipine 30 mg oral tablet, extended release 30 mg, 1, tablet, By Mouth, Daily, # 30 tablet, Refills 3, Tot. Refills 3, Maintenance, 01/03/20 14:11:00 EDT, Route to Pharmacy Electronically, [facility]/pharmacy #[id number], 162, cm, 01/03/20 13:13:00 EDT, Height, 106, kg, 12/23/19 23:02:00 EDT, Dry Weight Start Date: 01/03/20 Status: Ordered Paragard IUD See Instructions, # 1 each, Maintenance, Inserted by Rosa Stokes MD. Lot [id number] Exp November 2025., 02/03/20 11:09:00 EDT, Supply, 162, cm, 01/03/20 13:13:00 EDT, Height, 106, kg, 12/23/19 23:02:00 EDT, Dry Weight Start Date: 02/03/20 Status: Ordered permethrin 5% topical cream 1 application, Topically, Once, # 60 Gm, 0 Refills, Soft Stop, 05/31/20 16:52:00 EST, Cream, [facility]/pharmacy #[id number], Partial fill upon patient request if the prescription is for a schedule II opioid drug., 1 application Topically Once, 162, cm, 05/16/20 1... Start Date: 05/31/20 Status: Ordered sertraline 50 mg oral tablet 1 tablet = 50 mg, By Mouth, Daily, # 90 tablet, 1 Refills, Maintenance, 08/07/20 8:35:00 EST, Tablet, [facility]/pharmacy #[id number], 162, cm, 05/16/20 13:31:00 EST, Height, [...]
--- OUTSIDE RECORDS SUMMARY | 2023-01-15 23:16 | XMS_ITS | Continuity of Care Document ---
Author Name Unknown Organization [facility] Address [address] [place] [address]- Care Team Providers Care Retail Associate Name Role Phone Dennis Cardoza DO Primary Care Physician [phone] [facility]counter [facility] Date(s): 03/07/21 - 04/06/21 [facility] [address] [place] [address]- Attending Physician: Oneil Jones Admitting Physician: AdmtrOneil Referring Physician: Admtr, ArBenja Allergies, Adverse Reactions, Alerts Substance Reaction Severity [...] Vaccine 10/14/14 Given 1Result Comment: [04/15/2014] Fluvirax [id number] 2Admin Note: vis given dated 12/25/12 3Admin Note: VIS 7-12 Medications chlorthalidone 25 mg oral tablet TAKE 1/2 TABLET BY MOUTH DAILY Start Date: 03/07/21 Status: Ordered ibuprofen 600 mg oral tablet 600 mg, 1, tablet, By Mouth, Every 6 hours, PRN, with food or milk, # 24 tablet, Refills 0, Tot. Refills 0, Maintenance, Pain , Moderate, 03/07/21 10:54:00 EDT, Route to Pharmacy Electronically, [facility]/pharmacy #[id number], Partial fill upon patient request if... Start Date: 03/07/21 Status: Ordered Paragard IUD See Instructions, # 1 each, Maintenance, Inserted by Rosa Stokes MD. Lot [id number] Exp November 2025., 02/03/20 11:09:00 EDT, Supply, 162, cm, 01/03/20 13:13:00 EDT, Height, 106, kg, 12/23/19 23:02:00 EDT, Dry Weight Start Date: 02/03/20 Status: Ordered Tylenol Extra Strength 500 mg oral tablet 2 tablet = 1,000 mg, By Mouth, Every 6 hours, PRN as needed for fever, # 24 tablet, 0 Refills, Maintenance, 03/07/21 10:54:00 EDT, Tablet, [facility]/pharmacy #[id number], Partial fill upon patient request [...]
--- OUTSIDE RECORDS SUMMARY | 2023-01-15 23:16 | XMS_ITS | Continuity of Care Document ---
Author Name Unknown Organization [facility] Address [address], [address] [place] [address]- Care Team Providers Care Exhaust And Muffler Fitter Name Role Phone Magdalene KAHN, kenton Primary Care Physician Encounter [facility] Date(s): 11/25/19 - 02/12/20 [facility] [address] [place] [address]- [facility] Attending Physician: Divya KAHN, Erick Bradshaw Allergies, [...] Vaccine 10/14/14 Given 1Result Comment: [04/15/2014] Fluvirax [id number] 2Admin Note: vis given dated 12/25/12 3Admin [...] 0 Refills, Maintenance, 02/11/20 14:54:00 EDT, Tablet, [facility]/pharmacy #[id number], 162, cm, 02/03/20 14:12:00 EDT, Height, 106, kg, 12/23/19 23:02:00 EDT, Dry Weight Start Date: 02/11/20 Status: Ordered Ibuprofen Refills 0, Maintenance, 01/03/20 13:15:00 EDT Start Date: 01/03/20 Status: Ordered NIFEdipine 30 mg oral tablet, extended release 30 mg, 1, tablet, By Mouth, Daily, # 30 tablet, Refills 3, Tot. Refills 3, Maintenance, 01/03/20 14:11:00 EDT, Route to Pharmacy Electronically, [facility]/pharmacy #[id number], 162, cm, 01/03/20 13:13:00 EDT, Height, 106, kg, 12/23/19 23:02:00 EDT, Dry Weight Start Date: 01/03/20 Status: Ordered Paragard IUD See Instructions, # 1 each, Maintenance, Inserted by Rosa Stokes MD. Lot [id number] Exp November 2025., 02/03/20 11:09:00 EDT, Supply, 162, cm, 01/03/20 13:13:00 EDT, Height, 106, kg, 12/23/19 23:02:00 EDT, Dry Weight Start Date: 02/03/20 Status: Ordered sertraline 50 mg oral tablet 1 tablet = 50 mg, By Mouth, Daily, # 90 tablet, 1 Refills, Maintenance, 02/11/20 14:53:00 EDT, Tablet, [facility]/pharmacy #[id number], 162, cm, 02/03/20 14:12:00 EDT, [...]
--- OUTSIDE RECORDS SUMMARY | 2023-01-15 23:16 | XMS_ITS | Continuity of Care Document ---
Author Name Unknown Organization [facility] Address [address] [place] [address]- Care Team Providers Care Major Appliance Assembly Supervisor Name Role Phone Rukhsana KAHN, Dolores Anderson Primary Care Physician [facility]counter [facility] Date(s): 10/01/19 - 10/01/[address] [address]- [facility] Encounter Diagnosis Dyspnea(Final) - 10/01/19 Discharge Disposition: A-D/C Home Attending Physician: Enrrique Zendejas MD Admitting Physician: Enrrique Zendejas MD Referring Physician: Not on Staff, Referring MD Allergies, Adverse Reactions, Alerts Substance Reaction [...] acel(Tdap) 06/13/10 Given 1Result Comment: [04/15/2014] Fluvirax [id number] 2Admin Note: vis given dated 12/25/12 3Admin Note: VIS - Medications No Known Medications Problem List Condition Effective Dates Status Health Status Inform ant Anxiety(Confirmed) 1 Active Last pap 06/09/15 ASCUS, negat maurice 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 Right and left ventricle 10-11 mm (normal <10 mm)(Confirmed) 3, 4 Active History of spontaneous abort ion x 2(Confirmed) Active High risk , antepartum(Confirmed) Active Migraines(Confirmed) [...] left sided choroid plexus cyst was seen. Vital Signs Most recent to oldest [Reference Range]: 1 2 3 Weight 106.3 kg (10/01/19 11:00 PM) 106.3 kg (10/01/19 9:09 PM) 106.3 kg (10/01/19 8:48 PM) Oxygen Saturation [94-100 %] 99 % (10/01/19 11:00 PM) 97 % (10/01/19 8:48 PM) Pulse Rate [55-90 bpm] 98 bpm *H* (10/01/19 11:07 PM) 97 bpm *H* (10/01/19 11:00 PM) 88 bpm (10/01/19 8:48 PM) Blood Pressure [90-138/55-84 mm Hg] 119/65mm Hg (10/01/19 11:07 PM) 159/89mm Hg *H* (10/01/19 11:00 PM) 129/77mm Hg (10/01/19 8:48 PM) Respiratory Rate [16-30 br/min] 20 br/min (10/01/19 11:00 PM) 16 br/min (10/01/19 8:48 PM) Temperature [96.8-100.4 DegF] 98.5 DegF (10/01/19 8:48 PM) Liters per Minute 1 L/min (10/01/19 11:00 PM) Mode of Delivery (Oxygen) Nasal cannula (10/01/19 11:00 PM) Room air (10/01/19 8:48 PM) Blood pressure sites Arm, left (10/01/19 11:00 PM) Temperature Route Oral (10/01/19 8:48 PM) Weight Obtained Via Patient/family state d (10/01/19 8:48 PM) Social History Social History Type Response Smoking Status Never (less than 100 in lifetime); Tobacco user in household: No entered on: 06/14/19 Sex
--- OUTSIDE RECORDS SUMMARY | 2023-01-15 23:16 | XMS_ITS | Continuity of Care Document ---
Author Name Unknown Organization [facility] Address [address] [place] [address]- Care Team Providers Care Procurement Clerk Name Role Phone Magdalene KAHN, Charmaine Primary Care Physician [phone] [facility]counter [facility] Date(s): 07/05/20 - 08/04/20 [facility] [address] [place] [address]- Allergies, Adverse Reactions, Alerts Substance Reaction Severity [...] Vaccine 10/14/14 Given 1Result Comment: [04/15/2014] Fluvirax [id number] 2Admin Note: vis given dated 12/25/12 3Admin [...] 0 Refills, Maintenance, 02/11/20 14:54:00 EDT, Tablet, [facility]/pharmacy #[id number], 162, cm, 02/03/20 14:12:00 EDT, Height, 106, kg, 12/23/19 23:02:00 EDT, Dry Weight Start Date: 02/11/20 Status: Ordered ibuprofen 800 mg oral tablet 800 mg, 1, tablet, By Mouth, 3 times a day, PRN, # 30 tablet, Refills 0, Tot. Refills 0, Maintenance, Pain , Moderate, 03/28/20 14:55:00 EDT, Route to Pharmacy Electronically, [facility]/pharmacy #[id number], 162, cm, 02/03/20 14:12:00 EDT, Height, 106, kg, ... Start Date: 03/28/20 Status: Ordered NIFEdipine 30 mg oral tablet, extended release 30 mg, 1, tablet, By Mouth, Daily, # 30 tablet, Refills 3, Tot. Refills 3, Maintenance, 01/03/20 14:11:00 EDT, Route to Pharmacy Electronically, [facility]/pharmacy #[id number], 162, cm, 01/03/20 13:13:00 EDT, Height, 106, kg, 12/23/19 23:02:00 EDT, Dry Weight Start Date: 01/03/20 Status: Ordered Paragard IUD See Instructions, # 1 each, Maintenance, Inserted by Rosa Stokes MD. Lot [id number] Exp November 2025., 02/03/20 11:09:00 EDT, Supply, 162, cm, 01/03/20 13:13:00 EDT, Height, 106, kg, 12/23/19 23:02:00 EDT, Dry Weight Start Date: 02/03/20 Status: Ordered permethrin 5% topical cream 1 application, Topically, Once, # 60 Gm, 0 Refills, Soft Stop, 05/31/20 16:52:00 EST, Cream, [facility]/pharmacy #[id number], Partial fill upon patient request if the prescription is for a schedule II opioid drug., 1 application Topically Once, 162, cm, 05/16/20 1... Start Date: 05/31/20 Status: Ordered sertraline 50 mg oral tablet 1 tablet = 50 mg, By Mouth, Daily, # 90 tablet, 1 Refills, Maintenance, 02/11/20 14:53:00 EDT, Tablet, [id number], 162, cm, 02/03/20 14:12:00 EDT, Height, [...]
--- OUTSIDE RECORDS SUMMARY | 2023-01-15 23:16 | XMS_ITS | Continuity of Care Document ---
Author Name Unknown Organization [facility] Address [address] [place] [address]- Care Team Providers Care Commander Internal Affairs Name Role Phone Magdalene KAHN, Charmaine Primary Care Physician [phone] [facility]counter [facility] Date(s): 02/11/20 - 03/12/20 [facility] [address] [place] [address]- [facility] Attending Physician: Admtr, Oneil Admitting Physician: AdmtrOneil Referring Physician: Admtr, Ar8 Allergies, Adverse Reactions, Alerts Substance Reaction Severity [...] Vaccine 10/14/14 Given 1Result Comment: [04/15/2014] Fluvirax [id number] 2Admin Note: vis given dated 12/25/12 3Admin [...] 0 Refills, Maintenance, 02/11/20 14:54:00 EDT, Tablet, [facility]/pharmacy #[id number], 162, cm, 02/03/20 14:12:00 EDT, Height, 106, kg, 12/23/19 23:02:00 EDT, Dry Weight Start Date: 02/11/20 Status: Ordered Ibuprofen Refills 0, Maintenance, 01/03/20 13:15:00 EDT Start Date: 01/03/20 Status: Ordered NIFEdipine 30 mg oral tablet, extended release 30 mg, 1, tablet, By Mouth, Daily, # 30 tablet, Refills 3, Tot. Refills 3, Maintenance, 01/03/20 14:11:00 EDT, Route to Pharmacy Electronically, [facility]/pharmacy #[id number], 162, cm, 01/03/20 13:13:00 EDT, Height, 106, kg, 12/23/19 23:02:00 EDT, Dry Weight Start Date: 01/03/20 Status: Ordered Paragard IUD See Instructions, # 1 each, Maintenance, Inserted by Rosa Stokes MD. Lot [id number] Exp November 2025., 02/03/20 11:09:00 EDT, Supply, 162, cm, 01/03/20 13:13:00 EDT, Height, 106, kg, 12/23/19 23:02:00 EDT, Dry Weight Start Date: 02/03/20 Status: Ordered sertraline 50 mg oral tablet 1 tablet = 50 mg, By Mouth, Daily, # 90 tablet, 1 Refills, Maintenance, 02/11/20 14:53:00 EDT, Tablet, [facility]/pharmacy #[id number], 162, cm, 02/03/20 14:12:00 EDT, Height, [...]
--- OUTSIDE RECORDS SUMMARY | 2023-01-15 23:16 | XMS_ITS | Continuity of Care Document ---
Author Name Unknown Organization [facility] Address [address] [place] [address]- Care Team Providers Care Zone Maintenance Technician Name Role Phone Nani Dennis SYLVESTER Primary Care Physician [facility]counter [facility] Date(s): 11/15/22 - 12/18/22 [facility] [address] [place] [address]- Attending Physician: Jeaneth Rosa MD Admitting Physician: Jeaneth Rosa MD Allergies, Adverse Reactions, Alerts No Known Allergies [...] Vaccine 10/14/14 Given 1Result Comment: [04/15/2014] Fluvirax [id number] 2Admin Note: vis given dated 12/25/12 3Admin Note: VIS 7-12 Medications cetirizine 10 mg oral tablet 1 tablet = 10 mg, By Mouth, Daily, PRN for allergy symptoms, # 10 tablet, 0 Refills, Maintenance, 08/23/22 23:54:00 EDT, Tablet, [facility]/pharmacy #[id number], Partial fill upon patient request if the prescription is for a schedule II opioid drug., 163, cm, 07/03... Start Date: 08/23/22 Status: Ordered chlorthalidone 25 mg oral tablet 1, tablet, By Mouth, Daily, # 30 tablet, Refills 3, Tot. Refills 3, Maintenance, 10/15/22 10:21:00 EDT, Route to Pharmacy Electronically, [facility]/pharmacy #[id number], 163, cm, 09/21/22 20:45:00 EDT, Height, 116.1, kg, 09/21/22 20:45:00 EDT, Dry Weight Start Date: 10/15/22 Status: Ordered Diflucan 150 mg oral tablet 1 tablet = 150 mg, By Mouth, Once, # 1 tablet, 0 Refills, Soft Stop, 12/06/22 15:53:00 EDT, [facility]/pharmacy #[id number], Partial fill upon patient request if the prescription is for a schedule II opioid drug., 163, cm, 12/03/22 23:57:00 EDT, Height, 109, kg, 0... Start Date: 12/06/22 Status: Ordered EpiPen 2-Satya 0.3 mg injectable kit = 0.3 mg, Intramuscular, Once, # 1 pack/packet, 0 Refills, Soft Stop, 08/23/22 23:54:00 EDT, [facility]/pharmacy #[id number], Partial fill upon patient request if the prescription is for a schedule II opioid drug., 163, cm, 07/15/22 14:10:00 EST, Height, 112, kg,... Start Date: 08/23/22 Status: Ordered HydrOXYzine 0 Refills, Maintenance, 07/09/22 16:16:00 EST, Partial fill upon patient request if the prescription is for a schedule II opioid drug. Start Date: 07/09/22 Status: Ordered hydrOXYzine hydrochloride 25 mg oral tablet 1 tablet = 25 mg, By Mouth, 3 times a day, PRN for anxiety, # 270 tablet, 3 Refills, Maintenance, 09/16/22 15:26:00 EDT, Tablet, [facility]/pharmacy #[id number], Partial fill upon patient request if the prescription is for a schedule II opioid drug., 163, cm, 08/31... Start Date: 09/16/22 Stop Date: 03/15/23 Status: Ordered ibuprofen 800 mg oral tablet 800 mg, 1, tablet, By Mouth, 3 times a day, # 90 tablet, Refills 1, Tot. Refills 1, Maintenance, 10/22/22 10:55:00 EDT, Route to Pharmacy Electronically, [facility]/pharmacy #[id number], Partial fill upon patientrequest if the prescription is for a schedule II op... Start Date: 10/22/22 Status: Ordered Paragard IUD See Instructions, # 1 each, Maintenance, Inserted by Rosa Stokes MD. Lot [id number] Exp November 2025., 02/03/20 11:09:00 EDT, Supply, 162, cm, 01/03/20 13:13:00 EDT, Height, 106, kg, 12/23/19 23:02:00 EDT, Dry Weight Start Date: 02/03/20 Status: Ordered SUMAtriptan 50 mg oral tablet 1 tablet = 50 mg, By Mouth, Daily, PRN for migraine headache, may repeat dose after 2 hours up to amaximum of 2, # 18 tablet, 2 Refills, Maintenance, 10/22/22 11:03:00 EDT, Tablet, [facility]/pharmacy #[id number], Partial fill upon patient request if the prescrip... Start Date: 10/22/22 Status: Ordered Wellbutrin XL 150 mg/24 hours oral tablet, extended release 1 tablet = 150 mg, By Mouth, Every 24 hours, # 90 tablet, 3 Refills, Maintenance, 10/22/22 11:06:00EDT, ER Tablet, [facility]/pharmacy #[id number], Partial fill upon patient request if the prescription is for a schedule II opioid drug., 163, cm, 10/22/22 10:41:00... Start Date: 10/22/22 Status: Ordered Problem List Condition Confirmation Course Effective Dates Status Health St [facility] Informant Anxiety 1 Confirmed Active Chronic UTI 2 Confirmed Active COVID-19 3 Confirmed 04/29/22 Active Fatigue Confirmed Active Genital herpes simplex 4 Confirmed 12/23/19 Active High risk , antepartum Confirmed Active Migraines Confirmed Active Obesity Confirmed Active Polyuria Confirmed Active Severe obesity Confirmed Active 1was seeing therapist, not now, states anxiety is controlled. 2States gets them sanaz 2-3 months 3Problem added by Discern Expert 4Problem added by Discern Expert Social History Social History Type Response Smoking Status Never (less than 100 in lifetime); Tobacco user in household: No entered on: 06/14/19 Sex Patient Care team information Care Team Personnel Name: Dennis Cardoza DO Position: [facility] Resident Member Role: PCP Address: Address: [address] [place] [address] [place], [place] [address] Name: Gabbie Vasquez RN Position: [facility] SN RN Member Role: Primary Care Nurse Care Team Related Persons Name: ENRRIQUE BAZZI Address: [place] [address] Name: TREASURE VILLAGRAN Address: home [address] [place] [address] Name: BERRY BURKETT Address: home [address] [address] Name: MARIANGEL JOE Address: [address] Address: [address] [address]
--- OUTSIDE RECORDS SUMMARY | 2023-01-15 23:16 | XMS_ITS | Continuity of Care Document ---
Author Name Unknown Organization [facility] Address [address], [address] [place] [address]- Care Team Providers Care Top Coater Name Role Phone Magdalene KAHN, kenton Primary Care Physician [phone] Encounter [facility] Date(s): 12/31/19 - 01/07/20 [facility] [address], [address] [place] [address]- [facility] Attending Physician: Yadi Lam MD Referring Physician: Lyudmila Marcos MD Allergies, Adverse Reactions, Alerts Substance Reaction [...] Vaccine 10/14/14 Given 1Result Comment: [04/15/2014] Fluvirax [id number] 2Admin Note: vis given dated 12/25/12 3Admin [...] EDT, Route to Pharmacy Electronically, [facility]/pharmacy #[id number], 162, cm, 01/03/20 13:13:00 EDT, Height, 106, kg, 12/23/19 23:02:00 EDT, Dry Weight Start Date: 01/03/20 Status: Ordered Tylenol 325 mg oral capsule 2 capsule = 650 mg, By Mouth, Every 4 hours, PRN as needed for pain, # 60 capsule, 1 Refills, Acute01/08/20 6:34:00 EDT, 12/27/19 6:34:00 EDT, Capsule, [facility]/pharmacy #[id number], 162, cm, 12/25/19 9:37:00 EDT, Height, 106, kg, 12/23/19 23:02:00 EDT, Dry Weight Start Date: 12/27/19 Stop Date: 01/08/20 Status: Ordered Problem List Condition Effective Dates [...]
--- OUTSIDE RECORDS SUMMARY | 2023-01-15 23:16 | XMS_ITS | Continuity of Care Document ---
Author Name Unknown Organization [facility] [facility] Address [address], [address] [address]- Care Team Providers Care Health Occupations Teacher Name Role Phone Dennis Cardoza DO Primary Care Physician [phone] Encounter [facility] Date(s): 07/17/22 - 08/16/22 [facility] [address], [address] [place] [address]- Allergies, Adverse Reactions, Alerts No Known Allergies [...] Vaccine 10/14/14 Given 1Result Comment: [04/15/2014] Fluvirax [id number] 2Admin Note: vis given dated 12/25/12 3Admin Note: VIS 7-12 Medications amLODIPine 5 mg oral tablet 5 mg, 1, tablet, By Mouth, Daily, # 30 tablet, Refills 11, Tot. Refills 11, Maintenance, 07/09/22 16:17:00 EST, Route to Pharmacy Electronically, [facility]/pharmacy #[id number], Partial fill upon patient requestif the prescription is for a schedule II opioid brady... Start Date: 07/09/22 Status: Ordered chlorthalidone 25 mg oral tablet 1, tablet, By Mouth, Daily, # 30 tablet, Refills 4, Maintenance, 08/04/22 14:51:00 EST, Route to Pharmacy Electronically, [id number], 163, cm, 07/15/22 14:10:00 EST, Height, 112, kg, 05/16/22 20:17:00 EST, Dry Weight Start Date: 08/04/22 Status: Ordered HydrOXYzine 0 Refills, Maintenance, 07/09/22 16:16:00 EST, Partial fill upon patient request if the prescription is for a schedule II opioid drug. Start Date: 07/09/22 Status: Ordered ibuprofen 800 mg oral tablet 800 mg, 1, tablet, By Mouth, 3 times a day, for pain take with food please., # 30 tablet, Refills 0, Tot. Refills 0, Maintenance, 02/19/22 16:04:00 EDT, Route to Pharmacy Electronically, [facility]/pharmacy#[id number], Partial fill upon patient request if the pr... Start Date: 02/19/22 Status: Ordered Paragard IUD See Instructions, # 1 each, Maintenance, Inserted by Rosa Stokes MD. 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 High risk , antepartum Confirmed Active Migraines Confirmed Active Obesity Confirmed Active Severe obesity Confirmed Active 1was [...] Team Personnel Name: Dennis Cardoza DO Position: [facility] Resident Member Role: PCP Address: Address: [address] [place] [address] [place] [address]- Name: Gabbie Vasquez RN Position: [facility] SN RN Member Role: Primary Care Nurse Care Team Related Persons Name: ENRRIQUE BAZZI Address: [place] [address] Name: TREASURE VILLAGRAN Address: home [address] [place] [address] Name: BERRY BURKETT Address: home [address] [address] Name: MARIANGEL JOE Address: [address] Address: [address] [address]
--- OUTSIDE RECORDS SUMMARY | 2023-01-15 23:16 | XMS_ITS | Continuity of Care Document ---
Author Name [facility] Address [address] [place] [address]- Care Team Providers Care Director Private Name Role Phone Dennis Cardoza DO Primary Care Physician Encounter [facility] Date(s): 09/20/22 - 09/20/[address] [address]- Discharge Disposition: A-D/C Home Attending Physician: Pavan Ayers MD Admitting Physician: Pavan Ayers MD Referring Physician: Not on Staff, Referring MD Allergies, Adverse Reactions, Alerts No Known [...] Vaccine 10/14/14 Given 1Result Comment: [04/15/2014] Fluvirax [id number] 2Admin Note: vis given dated 12/25/12 3Admin Note: VIS 7-12 Medications amoxicillin 500 mg oral tablet 1 tablet = 500 mg, By Mouth, 2 times a day, for 10 days, # 20 tablet, 0 Refills, Acute 09/30/22 20:52:00 EDT, 09/20/22 20:52:00 EDT, Tablet, [facility]/pharmacy #[id number], Partial fill upon patient request if the prescription is for a schedule II opioid drug., 1... Start Date: 09/20/22 Stop Date: 09/30/22 Status: Ordered cetirizine 10 mg oral tablet 1 tablet = 10 mg, By Mouth, Daily, PRN for allergy symptoms, # 10 tablet, 0 Refills, Maintenance, 08/23/22 23:54:00 EDT, Tablet, [facility]/pharmacy #[id number], Partial fill upon patient request if the prescription is for a schedule II opioid drug., 163, cm, 07/03... Start Date: 08/23/22 Status: Ordered chlorthalidone 25 mg oral tablet 1, tablet, By Mouth, Daily, # 30 tablet, Refills 4, Maintenance, 08/04/22 14:51:00 EST, Route to Pharmacy Electronically, [id number], 163, cm, 07/15/22 14:10:00 EST, Height, 112, kg, 05/16/22 20:17:00 EST, Dry Weight Start Date: 08/04/22 Status: Ordered EpiPen 2-Satya 0.3 mg injectable kit = 0.3 mg, Intramuscular, Once, # 1 pack/packet, 0 Refills, Soft Stop, 08/23/22 23:54:00 EDT, [facility]/pharmacy #[id number], Partial fill upon patient request if [...] 3 Refills, Maintenance, 09/16/22 15:26:00 EDT, Tablet, [facility]/pharmacy #[id number], Partial fill upon patient request if the prescription is for a schedule II opioid drug., 163, cm, 08/31... Start Date: 09/16/22 Stop Date: 03/15/23 Status: Ordered Paragard IUD See Instructions, # 1 each, Maintenance, Inserted by Rosa Stokes MD. Lot [id number] Exp November 2025., 02/03/20 11:09:00 EDT, Supply, 162, cm, 01/03/20 13:13:00 EDT, Height, 106, kg, 12/23/19 23:02:00 EDT, Dry Weight Start Date: 02/03/20 Status: Ordered Wellbutrin XL 150 mg/24 hours oral tablet, extended release 1 tablet = 150 mg, By Mouth, Every 24 hours, # 30 tablet, 1 Refills, Maintenance, 09/16/22 15:25:00EDT, ER Tablet, [facility]/pharmacy #[id number], Partial fill upon patient request if the prescription is for a schedule II opioid drug., 163, cm, 09/16/22 14:27:00... Start Date: 09/16/22 Status: Ordered Problem List Condition Confirmation Course [...] Discern Expert 4Problem added by Discern Expert Results Orders for Microbiology Reports Name Date Group A Strep Screen and Culture 09/20/22 Microbiology Reports TEST:Group A Strep Screen and Culture STATUS:Auth (Verified) BODY SITE: SOURCE:THROAT COLLECTED DATE/TIME:09/20/22 7:53 PM Group A Strep Screen and Culture SPECIMEN DESCRIPTION : THROAT SWAB SPECIAL REQUESTS : NONE DIRECT EXAM : POSITIVE CULTURE : RAPID GROUP A SCREEN IS POSITIVE, CULTURE NOT INDICATED. REPORT STATUS : FINAL 09/20/2022 Vital Signs Most recent to oldest [Reference Range]: 1 2 3 Height 163 cm (09/20/22 9:08 PM) 163 cm (09/20/22 7:45 PM) 163 cm (09/20/22 7:42 PM) Weight 113.3 kg (09/20/22 9:08 PM) 113.3 kg (09/20/22 7:45 PM) Oxygen Saturation [94-100 %] 100 % (09/20/22 9:08 PM) 100 % (09/20/22 7:45 PM) Pulse Rate [55-90 bpm] 74 bpm (09/20/22 9:08 PM) 107 bpm *H* (09/20/22 7:45 PM) Body Mass Index [18.5-24.99 kg/m2] 42.64 kg/m2 *>HHI* (09/20/22 9:08 PM) Blood Pressure [90-138/55-84 mm Hg] 114/84mm Hg (09/20/22 9:08 PM) 129/84mm Hg (09/20/22 7:45 PM) Respiratory Rate [16-30 br/min] 18 br/min (09/20/22 9:08 PM) 18 br/min (09/20/22 7:45 PM) 20 br/min (09/20/22 7:42 PM) Temperature [96.8-100.4 DegF] 98.4 DegF (09/20/22 9:08 PM) 100.6 DegF *H* (09/20/22 7:45 PM) Mode of Delivery (Oxygen) Room air (09/20/22 9:08 PM) Room air (09/20/22 7:45 PM) Blood pressure sites Arm, left (09/20/22 9:08 PM) Temperature Route Oral (09/20/22 9:08 PM) Oral (09/20/22 7:45 PM) Dry Weight 113.3 kg (09/20/22 9:08 PM) 113.3 kg (09/20/22 7:45 PM) Social History Social History Type Response Smoking Status Never (less than 100 in lifetime); Tobacco user in household: No entered on: 06/14/19 Sex Note * August Graves: PERFORM Event Display: Patient Education Leaflets Authored Date: [id number] Pharyngitis: Strep (Confirmed) ?? [id number] Pharyngitis: Strep (Confirmed) You have had a positive test for strep throat. Strep throat is a bacterial infection that can be spread to others. It's spread by coughing, kissing, sharing glasses or eating utensils, or by touchingothers after touching your mouth or nose. Symptoms include: ??? Throat pain that's worse when you swallow ??? Aching all over ??? Headache ??? Swollen lymph nodes at the front of the neck ??? Red, swollen tonsils that may have white patches ??? Fever It's treated with antibiotic medicine. You should start to feel better in 1 to 2 days with treatment. Home care ??? Rest at home. Drink plenty of fluids so you won't get??dehydrated. ??? You can returnto school or work if you are feeling better, have been taking the antibiotic for at least 24 hours,and don't have a fever.? Take??antibiotic medicine for the full 10 days, even if you feel better. This is very important to make sure the infection is treated completely.??It's also important toprevent medicine-resistant germs from developing.??If you were given an antibiotic shot, you don't need any more antibiotics. ??? You may use acetaminophen??or ibuprofen to control pain or fever unless another medicine was prescribed for this. Talk with your healthcare provider before taking these m edicines if you have??chronic liver or kidney disease or if you have??had a stomach ulcer or digestive bleeding. ??? Throat lozenges or sprays help reduce pain. Gargling with warm saltwater will alsoease throat pain. Dissolve 1/2 teaspoon of salt in 1 glass of warm water. This may be useful just before meals.? Soft foods and cool or warm fluids are best. Don't eat salty or spicy foods. ?? Follow-up care Follow up with your healthcare provider if you don't get better over the next week. ?? When to get medical advice Call your healthcare provider right away if any of the following occur: ??? Fever of 100.4??F (38??C) or higher, or as directed by your healthcare provider ??? Ear pain, sinus pain, or headache that is new or gets worse ??? Painful lumps in the back of neck ??? Stiff neck ??? Lymph nodes??getting larger or becoming soft in the middle ??? You have trouble swallowing liquids or you can't??open yourmouth wide because of??throat pain ??? Signs of dehydration. These include very dark urine or no urine, sunken eyes, and dizziness. ??? Noisy breathing ??? Muffled voice ??? Rash ?? Call 911 Call 911right away if either of these occur: ??? Have trouble breathing ??? Can't swallow or talk ?? Prevention Here are steps you can take to help prevent an infection: ??? Wash your hands often with soap and clean, running water for at least 20 seconds. ??? Don???t have close contact with people who have sore throats, colds, or other upper respiratory infections. ??? Don???t smoke and stay away from secondhand smoke. ?? Last Reviewed Date: 2021 ?? 2001-3518 [employer]. All rights reserved. This information is not intended as a substitute for professional medical care. Always follow your healthcare professional's instructions. ?? Patient Care team information Care Team Personnel Name: Dennis Cardoza DO Position: [facility] Resident Member Role: PCP Address: Address: [address] [place] [address] [place] [address]- Name: Gabbie Vasquez RN Position: [facility] SN RN Member Role: Primary Care Nurse Name: Pavan Ayers MD Position: [facility] ED Medicine MD Member Role: Admitting Physician Address: Address: [address] [place] [address]- [place] [address]- Name: August Graves Position: [facility] Associate Professional Member Role: ED Physician Customer Success Manager Address: Address: [address] [place] [address] [place] [address]- Name: Pat Robledo Position: [facility] ED TA [facility] Member Role: Core Shaper Name: Macie Goldberg RN Position: [facility] ED RN W/OE and Tasks Member Role: Patient Care Provider Care Team Related Persons Name: ENRRIQUE BAZZI Address: [place] [address] Name: TREASURE VILLAGRAN Address: home [address] [place] [address] Name: BERRY BURKETT Address: home [address] [address] Name: MARIANGEL JOE Address: [address] Address: [address] [address] [place]
--- OUTSIDE RECORDS SUMMARY | 2023-01-15 23:16 | XMS_ITS | Continuity of Care Document ---
Author Name Unknown Organization [facility] Address [address] [place] [address]- Care Team Providers Care Machine Clerical Verifier Name Role Phone Rukhsana KAHN, Dolores Anderson Primary Care Physician [facility] [facility] Date(s): 05/12/19 - 07/09/[address] [address]- [facility] Attending Physician: Not on Staff, Attending MD Allergies, Adverse Reactions, Alerts Substance Reaction [...] acel(Tdap) 06/13/10 Given 1Result Comment: [04/15/2014] Fluvirax [id number] 2Admin Note: vis given dated 12/25/12 3Admin [...] Date: 06/29/19 Stop Date: 01/25/20 Status: Ordered [place] 0.65% nasal spray 2 sprays, Nares, Both, [...]
--- OUTSIDE RECORDS SUMMARY | 2023-01-15 23:16 | XMS_ITS | Continuity of Care Document ---
Author Name Unknown Organization [facility] Address [address], [address] [place] [address]- Care Team Providers Care Quarry Plant Crusher Operator Name Role Phone Magdalene KAHN, Charmaine Primary Care Physician [place] [facility] [place] 12/23/19 - 02/12/20 [facility] [place] [facility] [address], [address] [place] [address]- [facility] Attending Physician: Nely Garcia MD Referring Physician: Charmaine Del Castillo MD Allergies, Adverse Reactions, Alerts Substance Reaction [...] Vaccine 10/14/14 Given 1Result Comment: [04/15/2014] Fluvirax [id number] 2Admin Note: vis given dated 12/25/12 3Admin [...] 0 Refills, Maintenance, 02/11/20 14:54:00 EDT, Tablet, [facility]/pharmacy #[id number], 162, cm, 02/03/20 14:12:00 EDT, Height, 106, kg, 12/23/19 23:02:00 EDT, Dry Weight Start Date: 02/11/20 Status: Ordered Ibuprofen Refills 0, Maintenance, 01/03/20 13:15:00 EDT Start Date: 01/03/20 Status: Ordered NIFEdipine 30 mg oral tablet, extended release 30 mg, 1, tablet, By Mouth, Daily, # 30 tablet, Refills 3, Tot. Refills 3, Maintenance, 01/03/20 14:11:00 EDT, Route to Pharmacy Electronically, [facility]/pharmacy #[id number], 162, cm, 01/03/20 13:13:00 EDT, Height, 106, kg, 12/23/19 23:02:00 EDT, Dry Weight Start Date: 01/03/20 Status: Ordered Paragard IUD See Instructions, # 1 each, Maintenance, Inserted by Rosa Stokes MD. Lot [id number] Exp November 2025., 02/03/20 11:09:00 EDT, Supply, 162, cm, 01/03/20 13:13:00 EDT, Height, 106, kg, 12/23/19 23:02:00 EDT, Dry Weight Start Date: 02/03/20 Status: Ordered sertraline 50 mg oral tablet 1 tablet = 50 mg, By Mouth, Daily, # 90 tablet, 1 Refills, Maintenance, 02/11/20 14:53:00 EDT, Tablet, [facility]/pharmacy #[id number], 162, cm, 02/03/20 14:12:00 [...]
--- OUTSIDE RECORDS SUMMARY | 2023-01-15 23:16 | XMS_ITS | Continuity of Care Document ---
Author Name Unknown Organization [facility] Address [address] [place] [address]- Care Team Providers Care Director Of Photography Name Role Phone Magdalene KAHN, Charmaine Primary Care Physician [phone] [facility] Date(s): 08/18/20 - 09/21/20 [facility] [address] [place] [address] Attending Physician: Cynthia Arndt NP Admitting Physician: Cynthia Arndt NP Allergies, Adverse Reactions, Alerts Substance Reaction Severity [...] Vaccine 10/14/14 Given 1Result Comment: [04/15/2014] Fluvirax [id number] 2Admin Note: vis given dated 12/25/12 3Admin Note: VIS 7-12 Medications acetaZOLAMIDE 250 mg oral tablet 250 mg, 1, tablet, By Mouth, 2 times a day, # 30 tablet, Refills 0, Tot. Refills 0, Maintenance, 08/09/20 19:10:00 EST, Route to Pharmacy Electronically, [facility]/pharmacy #[id number], Partial fill upon patientrequest if the prescription is for a schedule II op... Start Date: 08/09/20 Status: Ordered chlorthalidone 25 mg oral tablet 0.5, tablet, By Mouth, Daily, # 15 tablet, Refills 0, Tot. Refills 0, Maintenance, 09/11/20 12:39:00 EDT, Route to Pharmacy Electronically, [id number], 163, cm, 08/18/20 13:27:00 EDT, Height, 110, [...] 03/28/20 14:55:00 EDT, Route to Pharmacy Electronically, [facility]/pharmacy #[id number], 162, cm, 02/03/20 14:12:00 EDT, Height, 106, kg, 12/22/... Start Date: 03/28/20 Status: Ordered NIFEdipine 30 [...] Maintenance, Inserted by Rosa Stokes MD. Lot [id number] Exp November 2025., 02/03/20 11:09:00 EDT, Supply, [...]
--- OUTSIDE RECORDS SUMMARY | 2023-01-15 23:16 | XMS_ITS | Continuity of Care Document ---
Author Name Unknown Organization [facility] Luis velez [facility] Address [address], [address], [place] [address]- Care Team Providers Care Training Lead Name Role Phone Dennis Cardoza DO Primary Care Physician [phone] Encounter [facility] Date(s): 07/15/22 - 07/22/22 [facility] Luis Gilmans [facility] [address], [address] [place], [place] [address] Attending Physician: Fady Griffith MD Referring Physician: Not on Staff, Referring [...] Vaccine 10/14/14 Given 1Result Comment: [04/15/2014] Fluvirax [id number] 2Admin Note: vis given dated 12/25/12 3Admin Note: VIS 7-12 Medications amLODIPine 5 mg oral tablet 5 mg, 1, tablet, By Mouth, Daily, # 30 tablet, Refills 11, Tot. Refills 11, Maintenance, 07/09/22 16:17:00 EST, Route to Pharmacy Electronically, [facility]/pharmacy #[id number], Partial fill upon patient requestif the prescription is for a schedule II opioid brady... Start Date: 07/09/22 Status: Ordered chlorthalidone 25 mg oral tablet 25 mg, 1, tablet, By Mouth, Daily, # 30 tablet, Refills 4, Tot. Refills 4, Maintenance, 12/21/21 10:51:00 EDT, Route to Pharmacy Electronically, [facility]/pharmacy #[id number], Partial fill upon patient request if the prescription is for a schedule II opioid drug... Start Date: 12/21/21 Stop Date: 05/20/22 Status: Ordered HydrOXYzine 0 Refills, Maintenance, 07/09/22 [...] 02/19/22 16:04:00 EDT, Route to Pharmacy Electronically, [facility]/pharmacy#[id number], Partial fill upon patient request if the pr... Start Date: 02/19/22 Status: Ordered Paragard IUD See Instructions, # 1 each, Maintenance, Inserted by Rosa Stokes MD. Lot [id number] Exp November 2025., 02/03/20 11:09:00 EDT, Supply, [...] Discern Expert 4Problem added by Discern Expert Vital Signs Most recent to oldest [Reference Range]: 1 Height 163 cm (07/15/22 2:10 PM) Weight 112.49 kg (07/15/22 2:10 PM) Body Mass Index [18.5-24.99 kg/m2] 42.34 kg/m2 *>HHI* (07/15/22 2:10 PM) Blood Pressure [90-138/55-84 mm Hg] 116/ 63mm Hg (07/15/22 2:10 PM) Blood pressure sites Arm, left (07/15/22 2:10 PM) Weight Obtained Via Standing scale (07/15/22 2:10 PM) Social History Social History Type Response Smoking Status Never (less than 100 in lifetime); Tobacco user in household: No entered on: 06/14/19 Sex Patient Care team information Care Team Personnel Name: Dennis Cardoza DO Position: [facility] Resident Member Role: PCP Address: Address: [address] [place] [address] Adult [place], [place] [address] Name: Gabbie Vasquez RN Position: [facility] SN RN Member Role: Primary Care Nurse Care Team Related Persons Name: ENRRIQUE BAZZI Address: [place] [address] Name: TREASURE VILLAGRAN Address: home [address] [place] [address] Name: BERRY BURKETT Address: home [address] [address] Name: MARIANGEL JOE Address: [address] Address: home [address] [address]
--- OUTSIDE RECORDS SUMMARY | 2023-01-15 23:16 | XMS_ITS | Continuity of Care Document ---
Author Name Unknown Organization [facility] Address [address], [address] [place] [address]- Care Team Providers Care Chip Frier Name Role Phone Dennis Cardoza DO Primary Care Physician [phone] Encounter [facility] Date(s): 12/05/22 - 12/12/22 [facility] [address], [address] [place], [place] [address] Attending Physician: Yadi Lam MD Referring Physician: Not on Staff, Referring [...] Vaccine 10/14/14 Given 1Result Comment: [04/15/2014] Fluvirax [id number] 2Admin Note: vis given dated 12/25/12 3Admin Note: VIS 7-12 Medications cetirizine 10 mg oral tablet 1 tablet = 10 mg, By Mouth, Daily, PRN for allergy symptoms, # 10 tablet, 0 Refills, Maintenance, 08/23/22 23:54:00 EDT, Tablet, [facility]/pharmacy #[id number], Partial fill upon patient request if the prescription is for a schedule II opioid drug., 163, cm, 07/03... Start Date: 08/23/22 Status: Ordered chlorthalidone 25 mg oral tablet 1, tablet, By Mouth, Daily, # 30 tablet, Refills 3, Tot. Refills 3, Maintenance, 10/15/22 10:21:00 EDT, Route to Pharmacy Electronically, [facility]/pharmacy #[id number], 163, cm, 09/21/22 20:45:00 EDT, Height, 116.1, kg, 09/21/22 20:45:00 EDT, Dry Weight Start Date: 10/15/22 Status: Ordered Diflucan 150 mg oral tablet 1 tablet = 150 mg, By Mouth, Once, # 1 tablet, 0 Refills, Soft Stop, 12/06/22 15:53:00 EDT, [facility]/pharmacy #[id number], Partial fill upon patient request if the prescription is for a schedule II opioid drug., 163, cm, 12/03/22 23:57:00 EDT, Height, 109, kg, 0... Start Date: 12/06/22 Status: Ordered EpiPen 2-Satya 0.3 mg injectable kit = 0.3 mg, Intramuscular, Once, # 1 pack/packet, 0 Refills, Soft Stop, 08/23/22 23:54:00 EDT, [facility]/pharmacy #[id number], Partial fill upon patient request [...] 3 Refills, Maintenance, 09/16/22 15:26:00 EDT, Tablet, [facility]/pharmacy #[id number], Partial fill upon patient request if the prescription is for a schedule II opioid drug., 163, cm, 08/31... Start Date: 09/16/22 Stop Date: 03/15/23 Status: Ordered ibuprofen 800 mg oral tablet 800 mg, 1, tablet, By Mouth, 3 times a day, # 90 tablet, Refills 1, Tot. Refills 1, Maintenance, 10/22/22 10:55:00 EDT, Route to Pharmacy Electronically, [facility]/pharmacy #[id number], Partial fill upon patientrequest if the prescription is for a schedule II op... Start Date: 10/22/22 Status: Ordered metroNIDAZOLE 500 mg oral tablet 1 tablet = 500 mg, By Mouth, Every 12 hours, for 7 days, # 14 tablet, 0 Refills, Acute 12/13/22 15:52:00 EDT, 12/06/22 15:52:00 EDT, [facility]/pharmacy #[id number], Partial fill upon patient request if the prescription is for a schedule II opioid drug., 163, cm,... Start Date: 12/06/22 Stop Date: 12/13/22 Status: Ordered Paragard IUD See Instructions, # 1 each, Maintenance, Inserted by Rosa Stokes MD. Lot [id number] Exp November 2025., 02/03/20 11:09:00 EDT, Supply, 162, cm, 01/03/20 13:13:00 EDT, Height, 106, kg, 12/23/19 23:02:00 EDT, Dry Weight Start Date: 02/03/20 Status: Ordered SUMAtriptan 50 mg oral tablet 1 tablet = 50 mg, By Mouth, Daily, PRN for migraine headache, may repeat dose after 2 hours up to amaximum of 2, # 18 tablet, 2 Refills, Maintenance, 10/22/22 11:03:00 EDT, Tablet, [facility]/pharmacy #[id number], Partial fill upon patient request if the prescrip... Start Date: 10/22/22 Status: Ordered Wellbutrin XL 150 mg/24 hours oral tablet, extended release 1 tablet = 150 mg, By Mouth, Every 24 hours, # 90 tablet, 3 Refills, Maintenance, 10/22/22 11:06:00EDT, ER Tablet, [id number], Partial fill upon patient [...] Team Personnel Name: Dennis Cardoza DO Position: [facility] Resident Member Role: PCP Address: Address: [address] [place] [address] Adult [place], [place] [address] Name: Gabbie Vasquez RN Position: [facility] SN RN Member Role: Primary Care Nurse Care Team Related Persons Name: ENRRIQUE BAZZI Address: [place] [address] Name: TREASURE VILLAGRAN Address: home [address] [place] [address] Name: BERRY BURKETT Address: home [address] [address] Name: MARIANGEL JOE Address: [address] Address: [address] [address]
--- OUTSIDE RECORDS SUMMARY | 2023-01-15 23:16 | XMS_ITS | Continuity of Care Document ---
Author Name Unknown Organization [facility] Luis Merritt [facility] Address [address], [address] [place] [address]- Care Team Providers Care Supervisor Newspaper Deliveries Name Role Phone Dennis Cardoza DO Primary Care Physician [phone] Encounter [facility] Date(s): 12/02/22 - 01/01/23 [facility]kevin [facility] [address], [address] [place], [place] [address] Allergies, Adverse Reactions, Alerts No Known Allergies [...] Vaccine 10/14/14 Given 1Result Comment: [04/15/2014] Fluvirax [id number] 2Admin Note: vis given dated 12/25/12 3Admin Note: VIS 7-12 Medications cetirizine 10 mg oral tablet 1 tablet = 10 mg, By Mouth, Daily, PRN for allergy symptoms, # 10 tablet, 0 Refills, Maintenance, 08/23/22 23:54:00 EDT, Tablet, [facility]/pharmacy #[id number], Partial fill upon patient request if the prescription is for a schedule II opioid drug., 163, cm, 07/03... Start Date: 08/23/22 Status: Ordered chlorthalidone 25 mg oral tablet 1, tablet, By Mouth, Daily, # 30 tablet, Refills 3, Tot. Refills 3, Maintenance, 10/15/22 10:21:00 EDT, Route to Pharmacy Electronically, [facility]/pharmacy #[id number], 163, cm, 09/21/22 20:45:00 EDT, Height, 116.1, kg, 09/21/22 20:45:00 EDT, Dry Weight Start Date: 10/15/22 Status: Ordered Diflucan 150 mg oral tablet 1 tablet = 150 mg, By Mouth, Once, # 1 tablet, 0 Refills, Soft Stop, 12/06/22 15:53:00 EDT, [facility]/pharmacy #[id number], Partial fill upon patient request if the prescription is for a schedule II opioid drug., 163, cm, 12/03/22 23:57:00 EDT, Height, 109, kg, 0... Start Date: 12/06/22 Status: Ordered EpiPen 2-Satya 0.3 mg injectable kit = 0.3 mg, Intramuscular, Once, # 1 pack/packet, 0 Refills, Soft Stop, 08/23/22 23:54:00 EDT, [facility]/pharmacy #[id number], Partial fill upon patient request if the prescription is for a schedule II opioid drug., 163, cm, 07/15/22 14:10:00 EST, Height, 112, kg,... Start Date: 08/23/22 Status: Ordered FLUoxetine 10 mg oral tablet 1 tablet = 10 mg, By Mouth, Daily, Take 10 mg (one tablet) for two weeks, then increase to 20 mg (two tablets) per day for management of panic., # 150 tablet, 0 Refills, Maintenance, 12/20/22 6:07:00EDT, Tablet, [facility]/pharmacy #[id number], Partial fill upon... Start Date: 12/20/22 Stop Date: 03/20/23 Status: Ordered hydrOXYzine hydrochloride 25 mg oral tablet 2 tablet = 50 mg, By Mouth, 3 times a day, PRN for anxiety, Take one to two tablets (25 to 50 mg) up to three times per day for management of panic., # 270 tablet, 3 Refills, Maintenance, 12/20/22 6:09:00 EDT, Tablet, [facility]/pharmacy #[id number], Partial fill... Start Date: 12/20/22 Stop Date: 12/15/23 Status: Ordered ibuprofen 800 mg oral tablet 800 mg, 1, tablet, By Mouth, 3 times a day, # 90 tablet, Refills 1, Tot. Refills 1, Maintenance, 10/22/22 10:55:00 EDT, Route to Pharmacy Electronically, [id number], Partial fill upon patientrequest if the prescription is for a schedule II op... Start Date: 10/22/22 Status: Ordered Paragard IUD See Instructions, # 1 each, Maintenance, Inserted by Rosa Stokes MD. Lot [id number] Exp November 2025., 02/03/20 11:09:00 EDT, Supply, 162, cm, 01/03/20 13:13:00 EDT, Height, 106, kg, 12/23/19 23:02:00 EDT, Dry Weight Start Date: 02/03/20 Status: Ordered SUMAtriptan 50 mg oral tablet 1 tablet = 50 mg, By Mouth, Daily, PRN for migraine headache, may repeat dose after 2 hours up to amaximum of 2, # 18 tablet, 2 Refills, Maintenance, 10/22/22 11:03:00 EDT, Tablet, [id number], Partial fill upon patient request if the prescrip... Start Date: 10/22/22 Status: Ordered Problem List Condition Confirmation Course Effective Dates Status Health St atus Informant Anxiety 1 Confirmed Active Chronic UTI 2 Confirmed Active COVID-19 3 Confirmed 04/29/22 Active Fatigue Confirmed Active Genital herpes simplex 4 Confirmed 12/23/19 Active High risk , antepartum Confirmed Active Migraines Confirmed Active Obesity Confirmed Active Panic disorder Confirmed Active Polyuria Confirmed Active PTSD (post-traumatic stress disorder) Confirmed Active Severe obesity Confirmed Active 1was [...] Team Personnel Name: Dennis Cardoza DO Position: [facility] Resident Member Role: PCP Address: Address: [address] [place] [address]- Name: Gabbie Vasquez RN Position: [facility] SN RN Member Role: Primary Care Nurse Care Team Related Persons Name: ENRRIQUE BAZZI Address: [place] [address] Name: TREASURE VILLAGRAN Address: home [address] [place] [address] Name: BERRY BURKETT Address: home [address] [address] Name: MARIANGEL JOE Address: [address] Address: [address] [address]
--- OUTSIDE RECORDS SUMMARY | 2023-01-15 23:16 | XMS_ITS | Continuity of Care Document ---
Author Name Unknown Organization [facility] Address [address] [place] [address]- Care Team Providers Care Web Services Developer Name Role Phone Magdalene KAHN, Charmaine Primary Care Physician Encounter [facility] Date(s): 05/05/20 - 06/04/20 [facility] [address] [place] [address] Allergies, Adverse Reactions, Alerts Substance Reaction Severity [...] Vaccine 10/14/14 Given 1Result Comment: [04/15/2014] Fluvirax [id number] 2Admin Note: vis given dated 12/25/12 3Admin [...] 0 Refills, Maintenance, 02/11/20 14:54:00 EDT, Tablet, [facility]/pharmacy #[id number], 162, cm, 02/03/20 14:12:00 EDT, Height, 106, kg, 12/23/19 23:02:00 EDT, Dry Weight Start Date: 02/11/20 Status: Ordered ibuprofen 800 mg oral tablet 800 mg, 1, tablet, By Mouth, 3 times a day, PRN, # 30 tablet, Refills 0, Tot. Refills 0, Maintenance, Pain , Moderate, 03/28/20 14:55:00 EDT, [id number], 162, cm, 02/03/20 14:12:00 EDT, Height, 106, kg, ... Start Date: 03/28/20 Status: Ordered NIFEdipine 30 mg oral tablet, extended release 30 mg, 1, tablet, By Mouth, Daily, # 30 tablet, Refills 3, Tot. Refills 3, Maintenance, 01/03/20 14:11:00 EDT, Route to Pharmacy Electronically, [facility]/pharmacy #[id number], 162, cm, 01/03/20 13:13:00 EDT, Height, 106, kg, 12/23/19 23:02:00 EDT, Dry Weight Start Date: 01/03/20 Status: Ordered Paragard IUD See Instructions, # 1 each, Maintenance, Inserted by Rosa Stokes MD. Lot [id number] Exp November 2025., 02/03/20 11:09:00 EDT, Supply, 162, cm, 01/03/20 13:13:00 EDT, Height, 106, kg, 12/23/19 23:02:00 EDT, Dry Weight Start Date: 02/03/20 Status: Ordered permethrin 5% topical cream 1 application, Topically, Once, # 60 Gm, 0 Refills, Soft Stop, 05/31/20 16:52:00 EST, Cream, [facility]/pharmacy #[id number], Partial fill upon [...]
--- OUTSIDE RECORDS SUMMARY | 2023-01-15 23:16 | XMS_ITS | Continuity of Care Document ---
Author Name Unknown Organization [facility] Address [address] [place] [address]- Care Team Providers Care Rx Specialist Name Role Phone Dennis Cardoza DO Primary Care Physician [phone] Encounter [facility] Date(s): 11/13/22 - 12/13/22 [facility] [address] [place] [address] Allergies, Adverse Reactions, Alerts No Known Allergies [...] Vaccine 10/14/14 Given 1Result Comment: [04/15/2014] Fluvirax [id number] 2Admin Note: vis given dated 12/25/12 3Admin Note: VIS 7-12 Medications cetirizine 10 mg oral tablet 1 tablet = 10 mg, By Mouth, Daily, PRN for allergy symptoms, # 10 tablet, 0 Refills, Maintenance, 08/23/22 23:54:00 EDT, Tablet, [facility]/pharmacy #[id number], Partial fill upon patient request if the prescription is for a schedule II opioid drug., 163, cm, 07/03... Start Date: 08/23/22 Status: Ordered chlorthalidone 25 mg oral tablet 1, tablet, By Mouth, Daily, # 30 tablet, Refills 3, Tot. Refills 3, Maintenance, 10/15/22 10:21:00 EDT, Route to Pharmacy Electronically, [facility]/pharmacy #[id number], 163, cm, 09/21/22 20:45:00 EDT, Height, 116.1, kg, 09/21/22 20:45:00 EDT, Dry Weight Start Date: 10/15/22 Status: Ordered Diflucan 150 mg oral tablet 1 tablet = 150 mg, By Mouth, Once, # 1 tablet, 0 Refills, Soft Stop, 12/06/22 15:53:00 EDT, [facility]/pharmacy #[id number], Partial fill upon patient request if the prescription is for a schedule II opioid drug., 163, cm, 12/03/22 23:57:00 EDT, Height, 109, kg, 0... Start Date: 12/06/22 Status: Ordered EpiPen 2-Satya 0.3 mg injectable kit = 0.3 mg, Intramuscular, Once, # 1 pack/packet, 0 Refills, Soft Stop, 08/23/22 23:54:00 EDT, [facility]/pharmacy #[id number], Partial fill upon patient request if [...] 3 Refills, Maintenance, 09/16/22 15:26:00 EDT, Tablet, [facility]/pharmacy #[id number], Partial fill upon patient request if the prescription is for a schedule II opioid drug., 163, cm, 08/31... Start Date: 09/16/22 Stop Date: 03/15/23 Status: Ordered ibuprofen 800 mg oral tablet 800 mg, 1, tablet, By Mouth, 3 times a day, # 90 tablet, Refills 1, Tot. Refills 1, Maintenance, 10/22/22 10:55:00 EDT, Route to Pharmacy Electronically, [facility]/pharmacy #[id number], Partial fill upon patientrequest if the prescription is for a schedule II op... Start Date: 10/22/22 Status: Ordered Paragard IUD See Instructions, # 1 each, Maintenance, Inserted by Rosa Stokes MD. Lot [id number] Exp November 2025., 02/03/20 11:09:00 EDT, Supply, 162, cm, 01/03/20 13:13:00 EDT, Height, 106, kg, 12/23/19 23:02:00 EDT, Dry Weight Start Date: 02/03/20 Status: Ordered SUMAtriptan 50 mg oral tablet 1 tablet = 50 mg, By Mouth, Daily, PRN for migraine headache, may repeat dose after 2 hours up to amaximum of 2, # 18 tablet, 2 Refills, Maintenance, 10/22/22 11:03:00 EDT, Tablet, [facility]/pharmacy #[id number], Partial fill upon patient request if the prescrip... Start Date: 10/22/22 Status: Ordered Wellbutrin XL 150 mg/24 hours oral tablet, extended release 1 tablet = 150 mg, By Mouth, Every 24 hours, # 90 tablet, 3 Refills, Maintenance, 10/22/22 11:06:00EDT, ER Tablet, [facility]/pharmacy #[id number], Partial fill upon patient request if [...] Care team information Care Team Personnel Name: Nani SYLVESTER Dennis Position: [facility] Resident Member Role: PCP Address: Address: [address] [place] [address] Adult [place], [place] [address] Name: Gabbie Vasquez RN Position: [facility] SN RN Member Role: Primary Care Nurse Care Team Related Persons Name: ENRRIQUE BAZZI Address: [place] [address] Name: TREASURE VILLAGRAN Address: home [address] [place] [address] Name: BERRY BURKETT Address: [address] [address] Name: MARIANGEL JOE Address: [address] Address: [address] [address]
--- OUTSIDE RECORDS SUMMARY | 2023-01-15 23:17 | XMS_ITS | Continuity of Care Document ---
Author Name Unknown Organization [facility] Address [address] [place] [address], [address] [place] [address]- Care Team Providers Care Photo Manager Name Role Phone Magdalene KAHN, kenton Primary Care Physician [place] [facility] 12/30/19 - 01/06/20 [facility] [address], [address] [place] [address]- [facility] Attending Physician: Carole KAHN, Yadi High Referring Physician: Karen Garnett MD Allergies, Adverse Reactions, Alerts Substance Reaction [...] Vaccine 10/14/14 Given 1Result Comment: [04/15/2014] Fluvirax [id number] 2Admin Note: vis given dated 12/25/12 3Admin [...] 01/03/20 14:11:00 EDT, Route to Pharmacy Electronically, [facility]/pharmacy #[id number], 162, cm, 01/03/20 13:13:00 EDT, Height, 106, kg, 12/23/19 23:02:00 EDT, Dry Weight Start Date: 01/03/20 Status: Ordered Tylenol 325 mg oral capsule 2 capsule = 650 mg, By Mouth, Every 4 hours, PRN as needed for pain, # 60 capsule, 1 Refills, Acute01/08/20 6:34:00 EDT, 12/27/19 6:34:00 EDT, Capsule, [facility]/pharmacy #[id number], 162, cm, 12/25/19 9:37:00 EDT, Height, [...]
--- OUTSIDE RECORDS SUMMARY | 2023-01-15 23:17 | XMS_ITS | Continuity of Care Document ---
Author Name Unknown Organization [facility] Address [address], [address] [place] [address]- Care Team Providers Care Database Engineer Name Role Phone Rukhsana KAHN, Dolores Anderson Primary Care Physician Encounter [facility] Date(s): 09/28/19 - 10/05/19 [facility] [address], [address] [place] [address]- [facility] Attending Physician: Kang Whaley MD Referring Physician: Giovanna Armando CNM Allergies, [...] acel(Tdap) 06/13/10 Given 1Result Comment: [04/15/2014] Fluvirax [id number] 2Admin Note: vis given dated 12/25/12 3Admin [...] recent to oldest [Reference Range]: 1 Height 162.56 cm (09/28/19 9:48 AM) Weight 105.90 kg (09/28/19 9:48 AM) Body Mass Index [18.5-24.99] 40.07 *>HHI* (09/28/19 9:48 AM) Blood Pressure [90-138/55-84 mm Hg] 102/ 64mm Hg (09/28/19 9:48 AM) Blood pressure sites Arm, left (09/28/19 9:48 AM) Weight Obtained Via Standing scale (09/28/19 9:48 AM) Social History Social History Type Response Smoking Status Never (less than 100 in lifetime); Tobacco user in household: No entered on: 06/14/19 Sex
--- OUTSIDE RECORDS SUMMARY | 2023-01-15 23:17 | XMS_ITS | Continuity of Care Document ---
Author Name Unknown Organization [facility] Address [address] [place] [address]- Care Team Providers Care Perinatal Technician Name Role Phone Dennis Cardoza DO Primary Care Physician [place] [facility] [place]21 - 01/09/22 [facility] [address] [place] [address]- Attending Physician: David Gordillo MD Admitting Physician: David Gordillo MD Allergies, Adverse Reactions, Alerts No Known [...] Vaccine 10/14/14 Given 1Result Comment: [04/15/2014] Fluvirax [id number] 2Admin Note: vis given dated 12/25/12 3Admin Note: VIS 7-12 Medications chlorthalidone 25 mg oral tablet 25 mg, 1, tablet, By Mouth, Daily, # 30 tablet, Refills 4, Tot. Refills 4, Maintenance, 12/21/21 10:51:00 EDT, Route to Pharmacy Electronically, [id number], Partial fill upon patient request if the prescription is for a schedule II opioid drug... Start Date: 12/21/21 Stop Date: 05/20/22 Status: [facility] oral [facility] 1 capsule, By Mouth, [...] mL, 0 Refills, Maintenance, 07/19/21 15:37:00 EST, [place], [id number], Partial fill upon patient request if the prescription is for a schedule II opioid drug., 2 puffs Nares, Both Daily, 163, cm, 07/19/21 14:02... Start Date: 07/19/21 Status: Ordered FLUoxetine 10 mg oral tablet 2 tablet = 20 mg, By Mouth, Daily, Can increase to 2 tablets daily after 2 weeks, # 60 tablet, 2 Refills, Maintenance, 12/18/21 17:17:00 EDT, Tablet, [id number], Partial fill upon [...] 03/07/21 10:54:00 EDT, Route to Pharmacy Electronically, [facility]/pharmacy #[id number], Partial fill upon patient request if... Start Date: 03/07/21 Status: Ordered Paragard IUD See Instructions, # 1 each, Maintenance, Inserted by Rosa Stokes MD. Lot [id number] Exp November 2025., 02/03/20 11:09:00 EDT, Supply, 162, cm, 01/03/20 13:13:00 EDT, Height, 106, kg, 12/23/19 23:02:00 EDT, Dry Weight Start Date: 02/03/20 Status: Ordered Tylenol Extra Strength 500 mg oral tablet 2 tablet = 1,000 mg, By Mouth, Every 6 hours, PRN as needed for fever, # 24 tablet, 0 Refills, Maintenance, 03/07/21 10:54:00 EDT, Tablet, [facility]/pharmacy #[id number], Partial fill upon patient request [...]
--- OUTSIDE RECORDS SUMMARY | 2023-01-15 23:17 | XMS_ITS | Continuity of Care Document ---
Author Name Unknown Organization [facility] Address [address] [place] [address]- Care Team Providers Care Cloth Measurer Name Role Phone Dennis Cardoza DO Primary Care Physician [facility] Date[facility]s): 02/19/21 - 03/21/21 [facility] [address] [place] [address]- Allergies, Adverse Reactions, Alerts Substance Reaction Severity [...] Vaccine 10/14/14 Given 1Result Comment: [04/15/2014] Fluvirax [id number] 2Admin Note: vis given dated 12/25/12 3Admin [...] Maintenance, Inserted by Rosa Stokes MD. Lot [id number] Exp November 2025., 02/03/20 11:09:00 EDT, Supply, [...]
--- OUTSIDE RECORDS SUMMARY | 2023-01-15 23:17 | XMS_ITS | Continuity of Care Document ---
Author Name Unknown Organization [facility] Address [address] [facility], [address] [place] [address]- Care Team Providers Care Cash Applications Coordinator Name Role Phone Dennis Cardoza DO Primary Care Physician Encounter [facility] Date(s): 12/06/22 - 01/05/23 [facility] [address] [facility], [address] [place], [place] [address] Allergies, Adverse Reactions, Alerts No Known [...] Vaccine 10/14/14 Given 1Result Comment: [04/15/2014] Fluvirax [id number] 2Admin Note: vis given dated 12/25/12 3Admin Note: VIS 7-12 Medications cetirizine 10 mg oral tablet 1 tablet = 10 mg, By Mouth, Daily, PRN for allergy symptoms, # 10 tablet, 0 Refills, Maintenance, 08/23/22 23:54:00 EDT, Tablet, [facility]/pharmacy #[id number], Partial fill upon patient request if the prescription is for a schedule II opioid drug., 163, cm, 07/03... Start Date: 08/23/22 Status: Ordered chlorthalidone 25 mg oral tablet 1, tablet, By Mouth, Daily, # 30 tablet, Refills 3, Tot. Refills 3, Maintenance, 10/15/22 10:21:00 EDT, Route to Pharmacy Electronically, [facility]/pharmacy #[id number], 163, cm, 09/21/22 20:45:00 EDT, Height, 116.1, kg, 09/21/22 20:45:00 EDT, Dry Weight Start Date: 10/15/22 Status: Ordered Diflucan 150 mg oral tablet 1 tablet = 150 mg, By Mouth, Once, # 1 tablet, 0 Refills, Soft Stop, 12/06/22 15:53:00 EDT, [facility]/pharmacy #[id number], Partial fill upon patient request if the prescription is for a schedule II opioid drug., 163, cm, 12/03/22 23:57:00 EDT, Height, 109, kg, 0... Start Date: 12/06/22 Status: Ordered EpiPen 2-Satya 0.3 mg injectable kit = 0.3 mg, Intramuscular, Once, # 1 pack/packet, 0 Refills, Soft Stop, 08/23/22 23:54:00 EDT, [facility]/pharmacy #[id number], Partial fill upon patient [...] tablet, 0 Refills, Maintenance, 12/20/22 6:07:00EDT, Tablet, [facility]/pharmacy #[id number], Partial fill upon... Start Date: 12/20/22 Stop Date: 03/20/23 Status: Ordered hydrOXYzine hydrochloride 25 mg oral tablet 2 tablet = 50 mg, By Mouth, 3 times a day, PRN for anxiety, Take one to two tablets (25 to 50 mg) up to three times per day for management of panic., # 270 tablet, 3 Refills, Maintenance, 12/20/22 6:09:00 EDT, Tablet, [facility]/pharmacy #[id number], Partial fill... Start Date: 12/20/22 Stop [...] Maintenance, Inserted by Rosa Stokes MD. Lot [id number] Exp November 2025., 02/03/20 11:09:00 EDT, Supply, [...] Team Personnel Name: Dennis Cardoza DO Position: [facility] Resident Member Role: PCP Address: Address: [address] [place] [address]- Name: Gabbie Vasquez RN Position: [facility] SN RN Member Role: Primary Care Nurse Care Team Related Persons Name: ENRRIQUE BAZZI Address: [place] [address] Name: TREASURE VILLAGRAN Address: home [address] [place] [address] Name: BERRY BURKETT Address: home [address] [address] Name: MARIANGEL JOE Address: [address] Address: home [address] [address]
--- OUTSIDE RECORDS SUMMARY | 2023-01-15 23:17 | XMS_ITS | Continuity of Care Document ---
Author Name Unknown Organization [facility] Address [address] [place] [address]- Care Team Providers Care Gas Shovel Operator Name Role Phone Magdalene KAHN, Charmaine Primary Care Physician [phone] [facility]): 02/01/20 - 03/02/20 [facility] [address] [place] [address]- [facility] Allergies, Adverse Reactions, Alerts Substance Reaction Severity [...] Vaccine 10/14/14 Given 1Result Comment: [04/15/2014] Fluvirax [id number] 2Admin Note: vis given dated 12/25/12 3Admin [...] 0 Refills, Maintenance, 02/11/20 14:54:00 EDT, Tablet, [facility]/pharmacy #[id number], 162, cm, 02/03/20 [...] 01/03/20 14:11:00 EDT, Route to Pharmacy Electronically, [facility]/pharmacy #[id number], 162, cm, 01/03/20 13:13:00 EDT, Height, 106, kg, 12/23/19 23:02:00 EDT, Dry Weight Start Date: 01/03/20 Status: Ordered Paragard IUD See Instructions, # 1 each, Maintenance, Inserted by Rosa Stokes MD. Lot [id number] Exp November 2025., 02/03/20 11:09:00 EDT, Supply, 162, cm, 01/03/20 13:13:00 EDT, Height, 106, kg, 12/23/19 23:02:00 EDT, Dry Weight Start Date: 02/03/20 Status: Ordered sertraline 50 mg oral tablet 1 tablet = 50 mg, By Mouth, Daily, # 90 tablet, 1 Refills, Maintenance, 02/11/20 14:53:00 EDT, Tablet, [facility]/pharmacy #[id number], 162, cm, 02/03/20 [...]
--- OUTSIDE RECORDS SUMMARY | 2023-01-15 23:17 | XMS_ITS | Continuity of Care Document ---
Author Name Unknown Organization [facility] Address [address] [place] [address]- Care Team Providers Care Drafter Chief Design Name Role Phone Dennis Cardoza DO Primary Care Physician [facility] Date[facility]s): 09/16/22 - 10/16/22 [facility] [address] [place] [address]- Allergies, Adverse Reactions, Alerts No Known Allergies [...] Vaccine 10/14/14 Given 1Result Comment: [04/15/2014] Fluvirax [id number] 2Admin Note: vis given dated 12/25/12 3Admin Note: VIS 7-12 Medications cetirizine 10 mg oral tablet 1 tablet = 10 mg, By Mouth, Daily, PRN for allergy symptoms, # 10 tablet, 0 Refills, Maintenance, 08/23/22 23:54:00 EDT, Tablet, [facility]/pharmacy #[id number], Partial fill upon patient request if the prescription is for a schedule II opioid drug., 163, cm, 07/03... Start Date: 08/23/22 Status: Ordered chlorthalidone 25 mg oral tablet 1, tablet, By Mouth, Daily, # 30 tablet, Refills 3, Tot. Refills 3, Maintenance, 10/15/22 10:21:00 EDT, Route to Pharmacy Electronically, [facility]/pharmacy #[id number], 163, cm, 09/21/22 20:45:00 EDT, Height, 116.1, kg, 09/21/22 20:45:00 EDT, Dry Weight Start Date: 10/15/22 Status: Ordered EpiPen 2-Satya 0.3 mg injectable kit = 0.3 mg, Intramuscular, Once, # 1 pack/packet, 0 Refills, Soft Stop, 08/23/22 23:54:00 EDT, [facility]/pharmacy #[id number], Partial fill upon patient request [...] 3 Refills, Maintenance, 09/16/22 15:26:00 EDT, Tablet, [facility]/pharmacy #[id number], Partial fill upon patient request if the prescription is for a schedule II opioid drug., 163, cm, 08/31... Start Date: 09/16/22 Stop Date: 03/15/23 Status: Ordered Paragard IUD See Instructions, # 1 each, Maintenance, Inserted by Rosa Stokes MD. Lot [id number] Exp November 2025., 02/03/20 11:09:00 EDT, Supply, 162, cm, 01/03/20 13:13:00 EDT, Height, 106, kg, 12/23/19 23:02:00 EDT, Dry Weight Start Date: 02/03/20 Status: Ordered Wellbutrin XL 150 mg/24 hours oral tablet, extended release 1 tablet = 150 mg, By Mouth, Every 24 hours, # 30 tablet, 1 Refills, Maintenance, 09/16/22 15:25:00EDT, ER Tablet, [facility]/pharmacy #[id number], Partial fill upon patient request if the [...] Team Personnel Name: Dennis Cardoza DO Position: [facility] Resident Member Role: PCP Address: Address: [address] [place] [address] [place] [address]- Name: Gabbie Vasquez RN Position: [facility] SN RN Member Role: Primary Care Nurse Care Team Related Persons Name: ENRRIQUE BAZZI Address: [place] [address] Name: TREASURE VILLAGRAN Address: home [address] [place] [address] Name: BERRY BURKETT Address: [address] [address] Name: MARIANGEL JOE Address: [address] Address: [address] [address]
--- OUTSIDE RECORDS SUMMARY | 2023-01-15 23:17 | XMS_ITS | Continuity of Care Document ---
Author Name Unknown Organization [facility] Address [address] [place] [address]- Care Team Providers Care Ms Sql Dba Name Role Phone Rukhsana KAHN, Dolores Anderson Primary Care Physician [facility]s): 10[facility]18/19 - 11/17/19 [facility] [address] [place] [address]- [facility] Attending Physician: Oneil Jones Admitting Physician: AdmOneil [...] Vaccine 10/14/14 Given 1Result Comment: [04/15/2014] Fluvirax [id number] 2Admin Note: vis given dated 12/25/12 3Admin Note: VIS 7-12 Medications ferrous sulfate 325 mg oral enteric coated tablet 325 mg, 1, tablet, By Mouth, Daily, # 90 tablet, Refills 3, Tot. Refills 3, Maintenance, 10/19/19 16:52:00 EDT, Route to Pharmacy Electronically, [facility]/pharmacy #[id number], 162.56, cm, 10/19/19 13:34:00 EDT, Height, 104.6, kg, 08/24/19 11:36:00 EDT, Dry Weight Start Date: 10/19/19 Status: Ordered Keflex monohydrate 500 mg oral capsule 1 capsule = 500 mg, By Mouth, Daily at bedtime, for 30 days, # 30 capsule, 3 Refills, Acute 02/24/20 11:23:00 EDT, 10/27/19 11:23:00 EDT, [facility]/pharmacy #[id number], 162.56, cm, 10/27/19 11:21:00 EDT, Height, 104.6, kg, 08/24/19 11:36:00 EDT, Dry Weight Start Date: 10/27/19 Stop Date: 02/24/20 Status: Ordered simethicone 80 mg oral tablet, chewable 80 mg, 1, tablet, Chew, 4 times a day, PRN, for 12 days, # 48 tablet, Refills 0, Tot. Refills 0, Acute 11/27/19 9:31:00 EDT, as needed for gas, 11/15/19 9:31:00 EDT, Route to Pharmacy Electronically,[facility]/pharmacy #[id number], 163, cm, 11/15/19 9:10:00 EDT,... Start Date: 11/15/19 Stop Date: 11/27/19 Status: Ordered Tylenol 8 Hour 650 mg oral tablet, extended release 2 tablet = 1,300 mg, By Mouth, Every 8 hours, 0 Refills, Maintenance, 10/27/19 11:21:00 EDT Start Date: 10/27/19 Status: Ordered Zofran 4 mg oral tablet 1 tablet = 4 mg, By Mouth, Every 8 hours, PRN Nausea & Vomiting, # 20 tablet, 0 Refills, Maintenance, 11/15/19 9:30:00 EDT, Tablet, [facility]/pharmacy #[id number], 163, cm, 11/15/19 9:10:00 EDT, Height, 106,kg, 11/15/19 9:08:00 EDT, Dry Weight Start Date: 11/15/19 Status: Ordered Problem List Condition Effective Dates [...] left sided choroid plexus cyst was seen. Social History Social History Type Response Smoking Status Never (less than 100 in lifetime); Tobacco user in household: No entered on: 06/14/19 Sex
--- OUTSIDE RECORDS SUMMARY | 2023-01-15 23:17 | XMS_ITS | Continuity of Care Document ---
Author Name Unknown Organization [facility]oss Address [address], [address] [place] [address]- Care Team Providers Care Cardiology Nurse Name Role Phone Magdalene KAHN, Charmaine Primary Care Physician [phone] Encounter [facility] Date(s): 12/28/19 - 01/04/20 [facility] [address] [place] [address]- [facility] Attending Physician: Carole KAHN, Yadi High [...] Vaccine 10/14/14 Given 1Result Comment: [04/15/2014] Fluvirax [id number] 2Admin Note: vis given dated 12/25/12 3Admin [...] 01/03/20 14:11:00 EDT, Route to Pharmacy Electronically, [facility]/pharmacy #[id number], 162, cm, 01/03/20 13:13:00 EDT, Height, 106, kg, 12/23/19 23:02:00 EDT, Dry Weight Start Date: 01/03/20 Status: Ordered Tylenol 325 mg oral capsule 2 capsule = 650 mg, By Mouth, Every 4 hours, PRN as needed for pain, # 60 capsule, 1 Refills, Acute01/08/20 6:34:00 EDT, 12/27/19 6:34:00 EDT, Capsule, [facility]/pharmacy #[id number], 162, cm, 12/25/19 9:37:00 EDT, Height, [...]
--- OUTSIDE RECORDS SUMMARY | 2023-01-15 23:17 | XMS_ITS | Continuity of Care Document ---
Author Name Unknown Organization [facility] ter Address [address] [place] [address]- Care Team Providers Care Park Worker Name Role Phone Dennis Cardoza DO Primary Care Physician [facility] Date[facility]s): 10/21/22 - 10/22/[address] [address]- Discharge Disposition: A-D/C Walkout Attending Physician: Not on Staff, Attending MD Admitting Physician: Not on Staff, Admitting MD Referring Physician: Not on Staff, Referring [...] Vaccine 10/14/14 Given 1Result Comment: [04/15/2014] Fluvirax [id number] 2Admin Note: vis given dated 12/25/12 3Admin Note: VIS 7-12 Medications cetirizine 10 mg oral tablet 1 tablet = 10 mg, By Mouth, Daily, PRN for allergy symptoms, # 10 tablet, 0 Refills, Maintenance, 08/23/22 23:54:00 EDT, Tablet, [facility]/pharmacy #[id number], Partial fill upon patient request if the prescription is for a schedule II opioid drug., 163, cm, 07/03... Start Date: 08/23/22 Status: Ordered chlorthalidone 25 mg oral tablet 1, tablet, By Mouth, Daily, # 30 tablet, Refills 3, Tot. Refills 3, Maintenance, 10/15/22 10:21:00 EDT, Route to Pharmacy Electronically, [facility]/pharmacy #[id number], 163, cm, 09/21/22 20:45:00 EDT, Height, 116.1, kg, 09/21/22 20:45:00 EDT, Dry Weight Start Date: 10/15/22 Status: Ordered EpiPen 2-Satya 0.3 mg injectable kit = 0.3 mg, Intramuscular, Once, # 1 pack/packet, 0 Refills, Soft Stop, 08/23/22 23:54:00 EDT, [facility]/pharmacy #[id number], Partial fill upon patient request [...] 3 Refills, Maintenance, 09/16/22 15:26:00 EDT, Tablet, [facility]/pharmacy #[id number], Partial fill upon patient request if the prescription is for a schedule II opioid drug., 163, cm, 08/31... Start Date: 09/16/22 Stop Date: 03/15/23 Status: Ordered ibuprofen 800 mg oral tablet 800 mg, 1, tablet, By Mouth, 3 times a day, # 90 tablet, Refills 1, Tot. Refills 1, Maintenance, 10/22/22 10:55:00 EDT, Route to Pharmacy Electronically, [facility]/pharmacy #[id number], Partial fill upon patientrequest if the prescription is for a schedule II op... Start Date: 10/22/22 Status: Ordered Paragard IUD See Instructions, # 1 each, Maintenance, Inserted by Rosa Stokes MD. Lot [id number] Exp November 2025., 02/03/20 11:09:00 EDT, Supply, 162, cm, 01/03/20 13:13:00 EDT, Height, 106, kg, 12/23/19 23:02:00 EDT, Dry Weight Start Date: 02/03/20 Status: Ordered SUMAtriptan 50 mg oral tablet 1 tablet = 50 mg, By Mouth, Daily, PRN for migraine headache, may repeat dose after 2 hours up to amaximum of 2, # 18 tablet, 2 Refills, Maintenance, 10/22/22 11:03:00 EDT, Tablet, [facility]/pharmacy #[id number], Partial fill upon patient request if the prescrip... Start Date: 10/22/22 Status: Ordered Wellbutrin XL 150 mg/24 hours oral tablet, extended release 1 tablet = 150 mg, By Mouth, Every 24 hours, # 90 tablet, 3 Refills, Maintenance, 10/22/22 11:06:00EDT, ER Tablet, [facility]/pharmacy #[id number], Partial fill upon patient request if the prescription is for a schedule II opioid drug., 163, cm, 10/22/22 10:41:00... Start Date: 10/22/22 Status: Ordered Problem List Condition Confirmation Course Effective Dates Status [facility] atus Informant Anxiety 1 Confirmed Active Chronic [...] Expert 4Problem added by Discern Expert Results Radiology Reports * Exam Date Time Procedure Performing Provider Status 10/21/22 11:20 AM Chest 2 Views Frontal and Lat Gianna White; Dio (Verified) Notes: (Chest 2 Views Frontal and Lat) Reason For Exam: Chest Pain;Other: RESULT: Chest 2 Views Frontal and Lat Chest 2 Views Frontal and Lat Hx of Present Illness: Pt states since Friday she has had frontal headache and blurred vision. she has hx of HTN and takes chlorthalidone regularly. reports BP at home 150 110. Reason: Chest Pain. COMPARISON: 05/16/2022, 02/05/2022. FINDINGS: LINES AND TUBES: None. LUNGS AND PLEURA: Clear lungs. Normal pulmonary vascularity. No pleural effusion. No pneumothorax. HEART, MEDIASTINUM AND ZAFAR: Heart is normal in size. Normal mediastinal and hilar contour. BONES AND SOFT TISSUES: No acute abnormality. IMPRESSION: No evidence of acute abnormality. I have personally reviewed the images and I agree with this report. WSN: [id number] Ordering Physician: Diamond Gage Dictated By: Holger Linder MD Dictated Date/Time: 10/21/22 11:30 a Reviewed By: Theo Sawant MD, V Signed By: Theo Sawant MD, V Signed Date/Time: 10/21/22 11:35 am Transcribed By: FRANCISCA Transcribed Date/Time: 10/21/22 11:26 am Vital Signs Most recent to oldest [Reference Range]: 1 2 3 Oxygen Saturation [94-100 %] 100 % (10/21/22 9:55 PM) 97 % (10/21/22 6:14 PM) 100 % (10/21/22 1:54 PM) Pulse Rate [55-90 bpm] 87 bpm (10/21/22 9:55 PM) 85 bpm (10/21/22 6:14 PM) 90 bpm (10/21/22 1:54 PM) Blood Pressure [90-138/55-84 mm Hg] 134/90mm Hg (10/21/22 9:55 PM) 137/88mm Hg (10/21/22 6:14 PM) 125/72mm Hg (10/21/22 1:54 PM) Respiratory Rate [16-30 br/min] 16 br/min (10/21/22 6:14 PM) 16 br/min (10/21/22 9:53 AM) 18 br/min (10/21/22 9:44 AM) Temperature [96.8-100.4 DegF] 98.1 DegF (10/21/22 9:55 PM) 97.8 DegF (10/21/22 6:14 PM) 98.3 DegF (10/21/22 1:54 PM) Mode of Delivery (Oxygen) Room air (10/21/22 9:55 PM) Room air (10/21/22 6:14 PM) Room air (10/21/22 12:02 PM) Blood pressure sites Arm, left (10/21/22 9:55 PM) Arm, right (10/21/22 6:14 PM) Arm, right (10/21/22 1:54 PM) Temperature Route Oral (10/21/22 9:55 PM) Oral (10/21/22 6:14 PM) Oral (10/21/22 1:54 PM) Social History Social History Type Response Smoking Status Never (less than 100 in lifetime); Tobacco user in household: No entered on: 06/14/19 Sex EKG study * Event Display: EKG Authored Date: * Event Display: ECG 12-Lead Authored Date: Please click on pdf link to open report * Event Display: ECG 12-Lead Authored Date: Ventricular Rate: 81 BPM Atrial Rate: 81 BPM P-R Interval: 170 ms QRS Duration: 74 ms Q-T Interval: 378 ms QTC Calculation(Bazett): 439 ms P [place]: 55 degrees R [place]: 48 degrees T [place]: 31 degrees Normal sinus rhythm with sinus arrhythmia Normal ECG When compared with ECG of 09-AUG-2022 22:35, No significant change was found Confirmed by MIKA HUBER DO ([id number]) on 10/21/2022 11:46:37 AM [place]: MIKA HUBER DO Laboratory * [facility] , CIS S: TRANSCRIBE Kailash KAHN, Holger T: SIGN Jese KAHN, Theo V: VERIFY Event Display: Result: Authored Date: Chest 2 Views Frontal and Lat Hx of Present Illness: Pt states since Friday she has had frontal headache and blurred vision. she has hx of HTN and takes chlorthalidone regularly. reports BP at home 150 110. Reason: Chest Pain. COMPARISON: 05/16/2022, 02/05/2022. FINDINGS: LINES AND TUBES: None. LUNGS AND PLEURA: Clear lungs. Normal pulmonary vascularity. No pleural effusion. No pneumothorax. HEART, MEDIASTINUM AND ZAFAR: Heart is normal in size. Normal mediastinal and hilar contour. BONES AND SOFT TISSUES: No acute abnormality. IMPRESSION: No evidence of acute abnormality. I have personally reviewed the images and I agree with this report. WSN: [id number] Ordering Physician: Diamond Gage Dictated By: Holger Linder MD Dictated Date/Time: 10/21/22 11:30 a Reviewed By: Theo Sawant MD, V Signed By: Theo Sawant MD, V Signed Date/Time: 10/21/22 11:35 am Transcribed By: FRANCISCA Transcribed Date/Time: 10/21/22 11:26 am Patient Care team information Care Team Personnel Name: Dennis Cardoza DO Position: S Resident Member Role: PCP Address: Address: [address] [place] [address] Name: Gabbie Vasquez RN Position: [facility] SN RN Member Role: Primary Care Nurse Care Team Related Persons Name: ENRRIQUE BAZZI Address: [place] [address] Name: TREASURE VILLAGRAN Address: home [address] [place] [address] Name: BERRY BURKETT Address: home [address] [address] Name: MARIANGEL JOE Address: [address] Address: home [address] [place] [id number]
--- OUTSIDE RECORDS SUMMARY | 2023-01-15 23:17 | XMS_ITS | Continuity of Care Document ---
Author Name Unknown Organization [facility] Address [address] [place] [address]- Care Team Providers Care News Technical Director Name Role Phone Dennis Cardoza DO Primary Care Physician [phone] Encounter [facility] Date(s): 07/15/22 - 09/08/22 [facility] [address] [place] [address]- Attending Physician: David Gordillo MD Admitting Physician: [...] Vaccine 10/14/14 Given 1Result Comment: [04/15/2014] Fluvirax [id number] 2Admin Note: vis given dated 12/25/12 3Admin Note: VIS 7-12 Medications amLODIPine 5 mg oral tablet 5 mg, 1, tablet, By Mouth, Daily, # 30 tablet, Refills 11, Tot. Refills 11, Maintenance, 07/09/22 16:17:00 EST, Route to Pharmacy Electronically, [facility]/pharmacy #[id number], Partial fill upon patient requestif the prescription is for a schedule II opioid brady... Start Date: 07/09/22 Status: Ordered cetirizine 10 mg oral tablet [...] 08/04/22 14:51:00 EST, Route to Pharmacy Electronically, [facility] ST[id number], 163, cm, 07/15/22 14:10:00 EST, Height, 112, [...] opioid drug. Start Date: 07/09/22 Status: Ordered Paragard IUD See Instructions, # 1 each, Maintenance, Inserted by Rosa Stokes MD. Lot [id number] Exp November 2025., 02/03/20 11:09:00 EDT, Supply, [...] Team Personnel Name: Dennis Cardoza DO Position: [facility] Resident Member Role: PCP Address: Address: [address] [place] [address] [place], [place] [address] Name: Gabbie Vasquez RN Position: [facility] SN RN Member Role: Primary Care Nurse Care Team Related Persons Name: ENRRIQUE BAZZI Address: [place] [address] Name: TREASURE VILLAGRAN Address: home [address] [place] [address] Name: BERRY BURKETT Address: home [address] [address] Name: MARIANGEL JOE Address: [address] Address: home [address] [address]
--- OUTSIDE RECORDS SUMMARY | 2023-01-15 23:17 | XMS_ITS | Continuity of Care Document ---
Author Name Unknown Organization [facility] Address [address] [place] [address]- Care Team Providers Care Van Helper Name Role Phone Dennis Cardoza DO Primary Care Physician Encounter [facility] Date(s): 08/28/22 - 09/28/22 [facility] [address] [place] [address]- Attending Physician: David Gordillo MD Admitting Physician: [...] Vaccine 10/14/14 Given 1Result Comment: [04/15/2014] Fluvirax [id number] 2Admin Note: vis given dated 12/25/12 3Admin Note: VIS 7-12 Medications amoxicillin 500 mg oral tablet 1 tablet = 500 mg, By Mouth, 2 times a day, for 10 days, # 20 tablet, 0 Refills, Acute 09/30/22 20:52:00 EDT, 09/20/22 20:52:00 EDT, Tablet, [facility]/pharmacy #[id number], Partial fill upon patient request if the prescription is for a schedule II opioid drug., 1... Start Date: 09/20/22 Stop Date: 09/30/22 Status: Ordered cetirizine 10 mg oral tablet 1 tablet = 10 mg, By Mouth, Daily, PRN for allergy symptoms, # 10 tablet, 0 Refills, Maintenance, 08/23/22 23:54:00 EDT, Tablet, [facility]/pharmacy #[id number], Partial fill upon patient request if the prescription is for a schedule II opioid drug., 163, cm, 07/03... Start Date: 08/23/22 Status: Ordered chlorthalidone 25 mg oral tablet 1, tablet, By Mouth, Daily, # 30 tablet, Refills 4, Maintenance, 08/04/22 14:51:00 EST, Route to Pharmacy Electronically, [facility] STORE [id number], 163, cm, 07/15/22 14:10:00 EST, Height, 112, kg, 05/16/22 20:17:00 EST, Dry Weight Start Date: 08/04/22 Status: Ordered EpiPen 2-Satya 0.3 mg injectable kit = 0.3 mg, Intramuscular, Once, # 1 pack/packet, 0 Refills, Soft Stop, 08/23/22 23:54:00 EDT, [facility]/pharmacy #[id number], Partial fill upon patient request [...] 3 Refills, Maintenance, 09/16/22 15:26:00 EDT, Tablet, [facility]/pharmacy #[id number], Partial fill upon patient request if the prescription is for a schedule II opioid drug., 163, cm, 08/31... Start Date: 09/16/22 Stop Date: 03/15/23 Status: Ordered Paragard IUD See Instructions, # 1 each, Maintenance, Inserted by Rosa Stokes MD. Lot [id number] Exp November 2025., 02/03/20 11:09:00 EDT, Supply, 162, cm, 01/03/20 13:13:00 EDT, Height, 106, kg, 12/23/19 23:02:00 EDT, Dry Weight Start Date: 02/03/20 Status: Ordered Wellbutrin XL 150 mg/24 hours oral tablet, extended release 1 tablet = 150 mg, By Mouth, Every 24 hours, # 30 tablet, 1 Refills, Maintenance, 09/16/22 15:25:00EDT, ER Tablet, [id number], Partial fill upon patient request if the [...] Team Personnel Name: Dennis Cardoza DO Position: [facility] Resident Member Role: PCP Address: Address: [address] [place] [address] [place] [address]- Name: Gabbie Vasquez RN Position: [facility] RN Member Role: Primary Care Nurse Care Team Related Persons Name: ENRRIQUE BAZZI Address: [place] [address] Name: TREASURE VILLAGRAN Address: home [address] [place] [address] Name: BERRY BURKETT Address: [address] [address] Name: MARIANGEL JOE Address: [address] Address: [address]
--- OUTSIDE RECORDS SUMMARY | 2023-01-15 23:17 | XMS_ITS | Continuity of Care Document ---
Author Name Unknown Organization [facility] Address [address] [place] [address]- Care Team Providers Care Insurance Risk Analyst Name Role Phone Dennis Cardoza DO Primary Care Physician [phone] Encounter [facility] Date(s): 09/21/22 - 09/21/[address] [address]- Discharge Disposition: A-D/C Home Attending Physician: Bernabe Lazaro MD Admitting Physician: Bernabe Lazaro MD Referring Physician: Not on Staff, Referring [...] Vaccine 10/14/14 Given 1Result Comment: [04/15/2014] Fluvirax [id number] 2Admin Note: vis given dated 12/25/12 3Admin Note: VIS 7-12 Medications amoxicillin 500 mg oral tablet 1 tablet = 500 mg, By Mouth, 2 times a day, for 10 days, # 20 tablet, 0 Refills, Acute 09/30/22 20:52:00 EDT, 09/20/22 20:52:00 EDT, Tablet, [facility]/pharmacy #[id number], Partial fill upon patient request if the prescription is for a schedule II opioid drug., 1... Start Date: 09/20/22 Stop Date: 09/30/22 Status: Ordered cetirizine 10 mg oral tablet 1 tablet = 10 mg, By Mouth, Daily, PRN for allergy symptoms, # 10 tablet, 0 Refills, Maintenance, 08/23/22 23:54:00 EDT, Tablet, [facility]/pharmacy #[id number], Partial fill upon patient request if the prescription is for a schedule II opioid drug., 163, cm, 07/03... Start Date: 08/23/22 Status: Ordered chlorthalidone 25 mg oral tablet 1, tablet, By Mouth, Daily, # 30 tablet, Refills 4, Maintenance, 08/04/22 14:51:00 EST, Route to Pharmacy Electronically, [facility] [id number], 163, cm, 07/15/22 14:10:00 EST, Height, 112, kg, 05/16/22 20:17:00 EST, Dry Weight Start Date: 08/04/22 Status: Ordered EpiPen 2-Satya 0.3 mg injectable kit = 0.3 mg, Intramuscular, Once, # 1 pack/packet, 0 Refills, Soft Stop, 08/23/22 23:54:00 EDT, [facility]/pharmacy #[id number], Partial fill upon patient request [...] 3 Refills, Maintenance, 09/16/22 15:26:00 EDT, Tablet, [facility]/pharmacy #[id number], Partial fill upon patient request if the prescription is for a schedule II opioid drug., 163, cm, 08/31... Start Date: 09/16/22 Stop Date: 03/15/23 Status: Ordered Paragard IUD See Instructions, # 1 each, Maintenance, Inserted by Rosa Stokes MD. Lot [id number] Exp November 2025., 02/03/20 11:09:00 EDT, Supply, 162, cm, 01/03/20 13:13:00 EDT, Height, 106, kg, 12/23/19 23:02:00 EDT, Dry Weight Start Date: 02/03/20 Status: Ordered Wellbutrin XL 150 mg/24 hours oral tablet, extended release 1 tablet = 150 mg, By Mouth, Every 24 hours, # 30 tablet, 1 Refills, Maintenance, 09/16/22 15:25:00EDT, ER Tablet, [facility]/pharmacy #[id number], Partial fill upon patient request if the [...] Range]: 1 2 3 Height 163 cm (09/21/22 8:45 PM) 163 cm (09/21/22 6:30 PM) 163 cm (09/21/22 3:57 PM) Weight 116.1 kg (09/21/22 8:45 PM) 116.1 kg (09/21/22 6:30 PM) 116.1 kg (09/21/22 3:57 PM) Oxygen Saturation [94-100 %] 98 % (09/21/22 6:30 PM) 98 % (09/21/22 3:57 PM) 96 % (09/21/22 3:57 PM) Pulse Rate [55-90 bpm] 99 bpm *H* (09/21/22 6:30 PM) 120 bpm *H* (09/21/22 3:57 PM) 101 bpm *H* (09/21/22 3:57 PM) Body Mass Index [18.5-24.99 kg/m2] 43.7 kg/m2 *>HHI* (09/21/22 6:30 PM) Blood Pressure [90-138/55-84 mm Hg] 135/85mm Hg (09/21/22 6:30 PM) 126/87mm Hg (09/21/22 3:57 PM) Respiratory Rate [16-30 br/min] 18 br/min (09/21/22 6:30 PM) 18 br/min (09/21/22 3:57 PM) 17 br/min (09/21/22 3:57 PM) Temperature [96.8-100.4 DegF] 99.3 DegF (09/21/22 3:57 PM) Mode of Delivery (Oxygen) Room air (09/21/22 6:30 PM) Room air (09/21/22 3:57 PM) Blood pressure sites Arm, left (09/21/22 3:57 PM) Temperature Route Oral (09/21/22 3:57 PM) Dry Weight 116.1 kg (09/21/22 8:45 PM) 116.1 kg (09/21/22 6:30 PM) 116.1 kg (09/21/22 3:57 PM) Dry Weight Obtained Via Standing scale (09/21/22 3:57 PM) Social History Social History Type Response Smoking Status Never (less than 100 in lifetime); Tobacco user in household: No entered on: 06/14/19 Sex Patient Care team information Care Team Personnel Name: Dennis Cardoza DO Position: [facility] Resident Member Role: PCP Address: Address: [address] [place] [address] [place] [address]- [place] Name: Gabbie Vasquez RN Position: [facility] SN RN Member Role: Primary Care Nurse Name: Ada Castro Position: [facility] ED OA Name: Bernabe Lazaro MD Position: [facility] ED Medicine MD Member Role: Admitting Physician Address: Address: [address] [facility] [place] [address]- [place] Name: Virginia Haines RN Position: S ED RN W/OE and Tasks Member Role: Patient Care Provider Care Team Related Persons Name: ENRRIQUE BAZZI Address: [place] [address] Name: TREASURE VILLAGRAN Address: [address] [place] [address] Name: BERRY BURKETT Address: home [address] [address] Name: MARIANGEL JOE Address: [facility] [address] Address: home [address] [address] [place]
--- OUTSIDE RECORDS SUMMARY | 2023-01-15 23:17 | XMS_ITS | Continuity of Care Document ---
Author Name Unknown Organization [facility] Address [address] [place] [address]- Care Team Providers Care Freight Claim Investigator Name Role Phone Dennis Cardoza DO Primary Care Physician [phone] Encounter [facility] Date(s): 01/18/22 - 02/17/22 [facility] [address] [place] [address]- Attending Physician: Oneil Jones Admitting Physician: AdmOneil ryamundo Referring Physician: Admtr, Oneil Allergies, Adverse Reactions, Alerts No Known Allergies [...] Vaccine 10/14/14 Given 1Result Comment: [04/15/2014] Fluvirax [id number] 2Admin Note: vis given dated 12/25/12 3Admin [...] Date: 12/21/21 Stop Date: 05/20/22 Status: Ordered [facility] oral capsule 1 capsule, By Mouth, [...] mL, 0 Refills, Maintenance, 07/19/21 15:37:00 EST, [place], [id number], Partial fill upon patient request [...] 03/07/21 10:54:00 EDT, Route to Pharmacy Electronically, [facility]/pharmacy #[id number], Partial fill upon patient request if... Start Date: 03/07/21 Status: Ordered Paragard IUD See Instructions, # 1 each, Maintenance, Inserted by Rosa Stokes MD. Lot [id number] November 2025., 02/03/20 11:09:00 EDT, Supply, 162, cm, 01/03/20 13:13:00 EDT, Height, 106, kg, 12/23/19 23:02:00 EDT, Dry Weight Start Date: 02/03/20 Status: Ordered Tylenol Extra Strength 500 mg oral tablet 2 tablet = 1,000 mg, By Mouth, Every 6 hours, PRN as needed for fever, # 24 tablet, 0 Refills, Maintenance, 03/07/21 10:54:00 EDT, Tablet, [facility]/pharmacy #[id number], Partial fill upon patient request [...] in household: No entered on: 06/14/19 Sex Care Team Personnel Name: Dennis Cardoza DO Address: [address] [place] [address]
--- OUTSIDE RECORDS SUMMARY | 2023-01-15 23:17 | XMS_ITS | Continuity of Care Document ---
Author Name Unknown Organization [facility] Address [address] [place] [address]- Care Team Providers Care Track Supervisor Name Role Phone Magdalene KAHN, Charmaine Primary Care Physician [phone] Encounter [facility] Date(s): 08/09/20 - 08/09/[address] [address]- Encounter Diagnosis Idiopathic intracranial hypertension(Final) - 08/09/20 Discharge Disposition: A-D/C Home Attending Physician: Mila Odom MD Admitting Physician: Mila Odom MD Referring Physician: Not on Staff, Referring [...] Vaccine 10/14/14 Given 1Result Comment: [04/15/2014] Fluvirax [id number] 2Admin Note: vis given dated 12/25/12 3Admin Note: VIS 7-12 Medications acetaZOLAMIDE 250 mg oral tablet 250 mg, 1, tablet, By Mouth, 2 times a day, # 30 tablet, Refills 0, Tot. Refills 0, Maintenance, 08/09/20 19:10:00 EST, Route to Pharmacy Electronically, [facility]/pharmacy #[id number], Partial fill upon patientrequest if the prescription is for a schedule II op... Start Date: 08/09/20 Status: Ordered Dispense 1 blood pressure cuff [...] 0 Refills, Maintenance, 02/11/20 14:54:00 EDT, Tablet, [facility]/pharmacy #[id number], 162, cm, 02/03/20 14:12:00 EDT, Height, 106, kg, 12/23/19 23:02:00 EDT, Dry Weight Start Date: 02/11/20 Status: Ordered ibuprofen 800 mg oral tablet 800 mg, 1, tablet, By Mouth, 3 times a day, PRN, # 30 tablet, Refills 0, Tot. Refills 0, Maintenance, Pain , Moderate, 03/28/20 14:55:00 EDT, Route to Pharmacy Electronically, [facility]/pharmacy #[id number], 162, cm, 02/03/20 14:12:00 EDT, Height, 106, kg, ... Start Date: 03/28/20 Status: Ordered NIFEdipine 30 mg oral tablet, extended release 30 mg, 1, tablet, By Mouth, Daily, # 30 tablet, Refills 3, Tot. Refills 3, Maintenance, 01/03/20 14:11:00 EDT, Route to Pharmacy Electronically, [facility]/pharmacy #[id number], 162, cm, 01/03/20 13:13:00 EDT, Height, 106, kg, 12/23/19 23:02:00 EDT, Dry Weight Start Date: 01/03/20 Status: Ordered Paragard IUD See Instructions, # 1 each, Maintenance, Inserted by Rosa Stokes MD. Lot [id number] Exp November 2025., 02/03/20 11:09:00 EDT, Supply, 162, cm, 01/03/20 13:13:00 EDT, Height, 106, kg, 12/23/19 23:02:00 EDT, Dry Weight Start Date: 02/03/20 Status: Ordered permethrin 5% topical cream 1 application, Topically, Once, # 60 Gm, 0 Refills, Soft Stop, 05/31/20 16:52:00 EST, Cream, [facility]/pharmacy #[id number], Partial fill upon patient request if the prescription is for a schedule II opioid drug., 1 application Topically Once, 162, cm, 05/16/20 1... Start Date: 05/31/20 Status: Ordered sertraline 50 mg oral tablet 1 tablet = 50 mg, By Mouth, Daily, # 90 tablet, 1 Refills, Maintenance, 08/07/20 8:35:00 EST, Tablet, [facility]/pharmacy #[id number], 162, cm, 05/16/20 13:31:00 EST, Height, [...] was seen. 5Problem added by Discern Expert Results Orders for Microbiology Reports Name Date CSF Culture w/ Gram Smear (SPINAL FLUID CULTURE) 08/09/20 Microbiology Reports TEST:Spinal Fluid Culture STATUS:Unauthenticated BODY SITE: SOURCE:CEREBR COLLECTED DATE/TIME:08/09/20 4:40 PM Spinal Fluid Culture SPECIMEN DESCRIPTION : CEREBROSPINAL FLUID SPECIAL REQUESTS : NONE GRAM STAIN : NO CELLS OR ORGANISMS SEEN REPORT STATUS : PRELIMINARY REPORT Vital Signs Most recent to oldest [Reference Range]: 1 2 3 Height 163 cm (08/09/20 5:32 PM) 163 cm (08/09/20 11:41 AM) 163 cm (08/09/20 9:50 AM) Weight 110 kg (08/09/20 5:32 PM) 110 kg (08/09/20 11:41 AM) 110 kg (08/09/20 9:50 AM) Oxygen Saturation [94-100 %] 100 % (08/09/20:32 PM) 100 % (08/09/20 11:41 AM) 99 % (08/09/20 9:50 AM) Pulse Rate [55-90 bpm] 92 bpm *H* (08/09/20 5:32 PM) 88 bpm (08/09/20 11:41 AM) 93 bpm *H* (08/09/20 9:50 AM) Body Mass Index [18.5-24.99] 41.4 *>HHI* (08/09/20 5:32 PM) 41.4 *>HHI* (08/09/20 11:41 AM) 41.4 *>HHI* (08/09/20 9:50 AM) Blood Pressure [90-138/55-84 mm Hg] 141/84mm Hg *H* (08/09/20 5:32 PM) 133/106mm Hg (08/09/20 11:41 AM) 143/96mm Hg *H* (08/09/20 9:50 AM) Respiratory Rate [16-30 br/min] 18 br/min (08/09/20 5:32 PM) 20 br/min (08/09/20 11:41 AM) 18 br/min (08/09/20 9:50 AM) Temperature [96.8-100.4 DegF] 97.6 DegF (08/09/20 5:32 PM) 98.8 DegF (08/09/20 9:50 AM) Mode of Delivery (Oxygen) Room air (3/10/21 5:32 PM) Room air (08/09/20 11:41 AM) Room air (08/09/20 9:50 AM) Blood pressure sites Arm, right (08/09/20 11:41 AM) Arm, right (08/09/20 9:50 AM) Temperature Route Oral (08/09/20 5:32 PM) Oral (08/09/20 9:50 AM) Dry Weight 110 kg (08/09/20 5:32 PM) 110 kg (08/09/20 11:41 AM) 110 kg (08/09/20 9:50 AM) Weight Obtained Via Standing scale (08/09/20 9:50 AM) Dry Weight Obtained Via Standing scale (08/09/20 9:50 AM) Social History Social History Type Response Smoking Status Never (less than 100 in lifetime); Tobacco user in household: No entered on: 06/14/19 Sex
--- OUTSIDE RECORDS SUMMARY | 2023-01-15 23:17 | XMS_ITS | Continuity of Care Document ---
Author Name Unknown Organization [facility] Address [address] [place] [address]- Care Team Providers Care Bend Up Name Role Phone Dennis Cardoza DO Primary Care Physician [phone] Encounter [facility] Date(s): 11/18/22 - 01/05/23 [facility] [address] [place] [address]- Attending Physician: Not on Staff, Attending MD Allergies, Adverse Reactions, Alerts No Known [...] Vaccine 10/14/14 Given 1Result Comment: [04/15/2014] Fluvirax [id number] 2Admin Note: vis given dated 12/25/12 3Admin Note: VIS 7-12 Medications cetirizine 10 mg oral tablet 1 tablet = 10 mg, By Mouth, Daily, PRN for allergy symptoms, # 10 tablet, 0 Refills, Maintenance, 08/23/22 23:54:00 EDT, Tablet, [facility]/pharmacy #[id number], Partial fill upon patient request if the prescription is for a schedule II opioid drug., 163, cm, 07/03... Start Date: 08/23/22 Status: Ordered chlorthalidone 25 mg oral tablet 1, tablet, By Mouth, Daily, # 30 tablet, Refills 3, Tot. Refills 3, Maintenance, 10/15/22 10:21:00 EDT, Route to Pharmacy Electronically, [facility]/pharmacy #[id number], 163, cm, 09/21/22 20:45:00 EDT, Height, 116.1, kg, 09/21/22 20:45:00 EDT, Dry Weight Start Date: 10/15/22 Status: Ordered Diflucan 150 mg oral tablet 1 tablet = 150 mg, By Mouth, Once, # 1 tablet, 0 Refills, Soft Stop, 12/06/22 15:53:00 EDT, [facility]/pharmacy #[id number], Partial fill upon patient request if the prescription is for a schedule II opioid drug., 163, cm, 12/03/22 23:57:00 EDT, Height, 109, kg, 0... Start Date: 12/06/22 Status: Ordered EpiPen 2-Satya 0.3 mg injectable kit = 0.3 mg, Intramuscular, Once, # 1 pack/packet, 0 Refills, Soft Stop, 08/23/22 23:54:00 EDT, [facility]/pharmacy #[id number], Partial fill upon patient [...] tablet, 0 Refills, Maintenance, 12/20/22 6:07:00EDT, Tablet, [facility]/pharmacy #[id number], Partial fill upon... Start Date: 12/20/22 Stop Date: 03/20/23 Status: Ordered hydrOXYzine hydrochloride 25 mg oral tablet 2 tablet = 50 mg, By Mouth, 3 times a day, PRN for anxiety, Take one to two tablets (25 to 50 mg) up to three times per day for management of panic., # 270 tablet, 3 Refills, Maintenance, 12/20/22 6:09:00 EDT, [facility]t, [id number], [facility]... Start Date: 12/20/22 Stop [...] Maintenance, Inserted by Rosa Stokes MD. Lot [id number] Exp November 2025., 02/03/20 11:09:00 EDT, Supply, [...] Team Personnel Name: Dennis Cardoza DO Position: [facility] Resident Member Role: PCP Address: Address: [address] [place] [address] [place], [place] [address] Name: Gabbie Vasqeuz RN Position: [facility] SN RN Member Role: Primary Care Nurse Care Team Related Persons Name: ENRRIQUE BAZZI Address: [place] [address] Name: TREASURE VILLAGRAN Address: [address] [place] [address] Name: BERRY BURKETT Address: home [address] [address] Name: MARIANGEL JOE Address: [address] Address: home [address] [address]
--- OUTSIDE RECORDS SUMMARY | 2023-01-15 23:17 | XMS_ITS | Continuity of Care Document ---
Author Name Unknown Organization [facility] Address [address] [place] [address]- Care Team Providers Care Sodder Name Role Phone Dennis Cardoza DO Primary Care Physician [phone] Encounter [facility] Date(s): 08/20/21 - 09/19/21 [facility] [address] [place] [address]- Allergies, Adverse Reactions, Alerts No Known Allergies [...] Vaccine 10/14/14 Given 1Result Comment: [04/15/2014] Fluvirax [id number] 2Admin Note: vis given dated 12/25/12 3Admin Note: VIS 7-12 Medications chlorthalidone 25 mg oral tablet 1/2 tablet, By Mouth, Daily, TAKE 1/2 TABLET BY MOUTH DAILY, # 15 tablet, Refills 0, Tot. Refills 0, Maintenance, 06/22/21 15:47:00 EST, Route to Pharmacy Electronically, [facility]/pharmacy #[id number], Partial fill upon patient request if the prescription is for... Start Date: 06/22/21 Status: Ordered [facility] 1 capsule, By Mouth, Daily, for 30 days, # 30 capsule, 11 Refills, Acute 06/30/22 15:54:00 EST, 07/05/21 15:54:00 EST, [facility]/pharmacy #[id number], Partial fill upon patient request if the prescription is fora schedule II opioid drug., 1 capsule By Mouth Jose... Start Date: 07/05/21 Stop Date: 06/30/22 Status: Ordered flunisolide 25 mcg/inh nasal spray 2 puffs, Nares, Both, Daily, # 25 mL, 0 Refills, Maintenance, 07/19/21 15:37:00 EST, [place], [id number], Partial fill upon patient request [...] Maintenance, Inserted by Rosa Stokes MD. Lot [id number] Exp November 2025., 02/03/20 11:09:00 EDT, Supply, [...]
--- OUTSIDE RECORDS SUMMARY | 2023-01-15 23:17 | XMS_ITS | Continuity of Care Document ---
Author Name Unknown Organization [facility] Luiskevin Merritt [facility]codes registracija vozila Address [address] [place] [address], [address] [place] [address]- Care Team Providers Care Blasting Entry Specialist Name Role Phone Rukhsana KAHN, Dolores Anderson Primary Care Physician [place] [facility] [place](s): 11/23/19 - 11/30/19 [facility] [address] [facility], [address] [place] [address]- [facility] Attending Physician: Karen Garnett MD Referring Physician: Kang Whaley MD Allergies, Adverse Reactions, Alerts Substance Reaction [...] Vaccine 10/14/14 Given 1Result Comment: [04/15/2014] Fluvirax [id number] 2Admin Note: vis given dated 12/25/12 3Admin Note: VIS 7-12 Medications ferrous sulfate 325 mg oral enteric coated tablet 325 mg, 1, tablet, By Mouth, Daily, # 90 tablet, Refills 3, Tot. Refills 3, Maintenance, 10/19/19 16:52:00 EDT, Route to Pharmacy Electronically, [facility]/pharmacy #[id number], 162.56, cm, 10/19/19 13:34:00 EDT, Height, 104.6, kg, 08/24/19 11:36:00 EDT, Dry Weight Start Date: 10/19/19 Status: Ordered Tylenol 8 Hour 650 mg oral tablet, extended release 2 tablet = 1,300 mg, By Mouth, Every 8 hours, 0 Refills, Maintenance, 10/27/19 11:21:00 EDT Start Date: 10/27/19 Status: Ordered Zofran 4 mg oral tablet 1 tablet = 4 mg, By Mouth, Every 8 hours, PRN Nausea & Vomiting, # 20 tablet, 0 Refills, Maintenance, 11/15/19 9:30:00 EDT, [facility]t, [id number], 163, cm, 11/15/19 9:10:00 EDT, Height, [...]
--- OUTSIDE RECORDS SUMMARY | 2023-01-15 23:17 | XMS_ITS | Continuity of Care Document ---
Author Name Unknown Organization [facility] Address [address] [place] [address]- Care Team Providers Care Admissions Clerk Name Role Phone Nani Dennis SYLVESTER Primary Care Physician [facility]counter [facility] Date(s): 11/29/21 - 12/29/21 [facility] [address] [place] [address]- Attending Physician: Analilia Flynn MD Admitting Physician: Analilia Flynn MD Allergies, Adverse Reactions, Alerts No Known [...] Vaccine 10/14/14 Given 1Result Comment: [04/15/2014] Fluvirax [id number] 2Admin Note: vis given dated 12/25/12 3Admin [...] Date: 12/21/21 Stop Date: 05/20/22 Status: [facility] capsule 1 capsule, By Mouth, [...] mL, 0 Refills, Maintenance, 07/19/21 15:37:00 EST, [place], [id number], Partial fill upon patient request [...] 03/07/21 10:54:00 EDT, Route to Pharmacy Electronically, [facility]/pharmacy #[id number], Partial fill upon patient request if... Start Date: 03/07/21 Status: Ordered Paragard IUD See Instructions, # 1 each, Maintenance, Inserted by Rosa Stokes MD. Lot [id number] November 2025., 02/03/20 11:09:00 EDT, Supply, 162, cm, 01/03/20 13:13:00 EDT, Height, 106, kg, 12/23/19 23:02:00 EDT, Dry Weight Start Date: 02/03/20 Status: Ordered Tylenol Extra Strength 500 mg oral tablet 2 tablet = 1,000 mg, By Mouth, Every 6 hours, PRN as needed for fever, # 24 tablet, 0 Refills, Maintenance, 03/07/21 10:54:00 EDT, Tablet, [facility]/pharmacy #[id number], Partial fill upon patient request if [...]
--- OUTSIDE RECORDS SUMMARY | 2023-01-15 23:17 | XMS_ITS | Continuity of Care Document ---
Author Name Unknown Organization [facility] Address [address] [place] [address]- Care Team Providers Care Mosquito Sprayer Name Role Phone Dennis Cardoza DO Primary Care Physician [phone] [facility]counter [facility] Date[facility]s): 02/19/22 - 03/21/22 [facility] [address] [place] [id number] Attending Physician: Oneil Jones Admitting Physician: AdmOneil raymundo Referring Physician: Admtr ArBenja Allergies, Adverse Reactions, Alerts No Known [...] Vaccine 10/14/14 Given 1Result Comment: [04/15/2014] Fluvirax [id number] 2Admin Note: vis given dated 12/25/12 3Admin [...] Date: 12/21/21 Stop Date: 05/20/22 Status: Ordered [employer] oral capsule 1 capsule, By Mouth, [...] mL, 0 Refills, Maintenance, 07/19/21 15:37:00 EST, [place], [id number], Partial fill upon patient request [...] 03/07/21 10:54:00 EDT, Route to Pharmacy Electronically, [facility]/pharmacy #[id number], Partial fill upon patient request if... Start Date: 03/07/21 Status: Ordered ibuprofen 800 mg oral tablet 800 mg, 1, tablet, By Mouth, 3 times a day, for pain take with food please., # 30 tablet, Refills 0, Tot. Refills 0, Maintenance, 02/19/22 16:04:00 EDT, Route to Pharmacy Electronically, [id number], Partial fill upon patient request if the pr... Start Date: 02/19/22 Status: Ordered Paragard IUD See Instructions, # 1 each, Maintenance, Inserted by Rosa Stokes MD. Lot [id number] Exp November 2025., 02/03/20 11:09:00 EDT, Supply, 162, cm, 01/03/20 13:13:00 EDT, Height, 106, kg, 12/23/19 23:02:00 EDT, Dry Weight Start Date: 02/03/20 Status: Ordered Tylenol Extra Strength 500 mg oral tablet 2 tablet = 1,000 mg, By Mouth, Every 6 hours, PRN as needed for fever, # 24 tablet, 0 Refills, Maintenance, 03/07/21 10:54:00 EDT, Tablet, [facility]/pharmacy #[id number], Partial fill upon patient request if theprescription is for a schedule II opioid drug., 163... Start Date: 03/07/21 Status: Ordered Problem List Condition Confirmation Course Effective Dates Status H ealth Status Informant Anxiety 1 Confirmed Active Choroid plexus cyst of fetus, left side [ ] MFM consult to be done at 32 week scan November 18 at 10:30 Confirmed Active Chronic UTI 2 Confirmed Active Size>dates (34 cm at 24 weeks) Confirmed Active Fatigue Confirmed Active Mild bilateral intracranial ventriculomegaly on ultrasound. Right subsequently resolved. Left ventricle 12.9 mm (normal <10 mm) [ ] head ultrasound prior to discharge of baby 3, 4 Confirmed Active Genital herpes simplex 5 Confirmed 12/23/19 Active High risk , antepartum [...] on: 06/14/19 Sex Patient Care team information Personnel Name: Dennis Cardoza DO Address: Address: [address] [place] [address] [place] [address]-
--- OUTSIDE RECORDS SUMMARY | 2023-01-15 23:18 | XMS_ITS | Continuity of Care Document ---
Author Name Unknown Organization [facility] Address [address] [place] [address]- Care Team Providers Care Torpedoman'S Mate Name Role Phone Dennis Cardoza DO Primary Care Physician [phone] Encounter [facility] Date(s): 07/19/21 - 08/18/21 [facility] [address] [place] [address]- Allergies, Adverse Reactions, Alerts No Known Allergies [...] Vaccine 10/14/14 Given 1Result Comment: [04/15/2014] Fluvirax [id number] 2Admin Note: vis given dated 12/25/12 3Admin Note: VIS 7-12 Medications chlorthalidone 25 mg oral tablet 1/2 tablet, By Mouth, Daily, TAKE 1/2 TABLET BY MOUTH DAILY, # 15 tablet, Refills 0, Tot. Refills 0, Maintenance, 06/22/21 15:47:00 EST, Route to Pharmacy Electronically, [facility]/pharmacy #[id number], Partial fill upon patient request if the prescription is for... Start Date: 06/22/21 Status: Ordered [facility] oral capsule 1 capsule, By Mouth, Daily, for 30 days, # 30 capsule, 11 Refills, Acute 06/30/22 15:54:00 EST, 07/05/21 15:54:00 EST, [facility]/pharmacy #[id number], Partial fill upon patient request if the prescription is fora schedule II opioid drug., 1 capsule By Mouth Jose... Start Date: 07/05/21 Stop Date: 06/30/22 Status: Ordered flunisolide 25 mcg/inh nasal spray 2 puffs, Nares, Both, Daily, # 25 mL, 0 Refills, Maintenance, 07/19/21 15:37:00 EST, [place], [id number], Partial fill upon patient request [...] 10:54:00 EDT, Route to Pharmacy Electronically, [facility]/pharmacy #[id number], Partial fill upon patient request if... Start Date: 03/07/21 Status: Ordered Paragard IUD See Instructions, # 1 each, Maintenance, Inserted by Rosa Stokes MD. Lot [id number] Exp November 2025., 02/03/20 11:09:00 EDT, Supply, 162, cm, 01/03/20 13:13:00 EDT, Height, 106, kg, 12/23/19 23:02:00 EDT, Dry Weight Start Date: 02/03/20 Status: Ordered Tylenol Extra Strength 500 mg oral tablet 2 tablet = 1,000 mg, By Mouth, Every 6 hours, PRN as needed for fever, # 24 tablet, 0 Refills, Maintenance, 03/07/21 10:54:00 EDT, Tablet, [facility]/pharmacy #[id number], Partial fill upon patient [...]
--- OUTSIDE RECORDS SUMMARY | 2023-01-15 23:18 | XMS_ITS | Continuity of Care Document ---
Author Name Unknown Organization [facility] Address [address] [place] [address]- Care Team Providers Care Electric Drill Operator Name Role Phone Cardoza Dennis SYLVESTER Primary Care Physician [phone] [facility]counter [facility] Date[facility]s): 02/18/22 - 03/20/22 [facility] [address] [place] [id number] Allergies, Adverse Reactions, Alerts No [...] Vaccine 10/14/14 Given 1Result Comment: [04/15/2014] Fluvirax [id number] 2Admin Note: vis given dated 12/25/12 3Admin Note: VIS 7-12 Medications chlorthalidone 25 mg oral tablet 25 mg, 1, tablet, By Mouth, Daily, # 30 tablet, Refills 4, Tot. Refills 4, Maintenance, 12/21/21 10:51:00 EDT, Route to Pharmacy Electronically, [facility]/pharmacy #[id number], Partial fill upon patient request if the prescription is for a schedule II opioid drug... Start Date: 12/21/21 Stop Date: 05/20/22 Status: Ordered Culturee [employer] oral capsule 1 capsule, By Mouth, [...] mL, 0 Refills, Maintenance, 07/19/21 15:37:00 EST, [place], [facility]/pharmacy #[id number], Partial fill upon patient request if [...] Maintenance, Inserted by Rosa Stokes MD. Lot [id number] Exp November 2025., 02/03/20 11:09:00 EDT, Supply, [...] Personnel Name: Dennis Cardoza DO Address: Address: [address] [place] [address]
--- OUTSIDE RECORDS SUMMARY | 2023-01-15 23:18 | XMS_ITS | Continuity of Care Document ---
Author Name Unknown Organization [facility] [employer] [employer] Address [address] [place] [address], [address] [place] [address]- Care Team Providers Care Control Specialist Name Role Phone Dolores Milian MD Primary Care Physician Encounter [facility] Date(s): 11/25/19 - 12/02/19 [facility] dax [facility] [employer] [facility] [address] [facility], [address] [place] [address]- [facility] Attending Physician: Erick Stokes MD Referring Physician: Dolores Milian MD Allergies, Adverse Reactions, Alerts Substance Reaction [...] Vaccine 10/14/14 Given 1Result Comment: [04/15/2014] Fluvirax [id number] 2Admin Note: vis given dated 12/25/12 3Admin Note: VIS 7-12 Medications ferrous sulfate 325 mg oral enteric coated tablet 325 mg, 1, tablet, By Mouth, Daily, # 90 tablet, Refills 3, Tot. Refills 3, Maintenance, 10/19/19 16:52:00 EDT, Route to Pharmacy Electronically, [facility]/pharmacy #[id number], 162.56, cm, 10/19/19 13:34:00 EDT, Height, [...] oldest [Reference Range]: 1 Height 163 cm (11/25/19 2:33 PM) Weight 105.9 kg (11/25/19 2:33 PM) Body Mass Index [18.5-24.99] 39.86 *>HHI* (11/25/19 2:33 PM) Blood Pressure [90-138/55-84 mm Hg] 120/ 59mm Hg (11/25/19 2:33 PM) Blood pressure sites Arm, right (11/25/19 2:33 PM) Weight Obtained Via Standing scale (11/25/19 2:33 PM) Social History Social History Type Response Smoking Status Never (less than 100 in lifetime); Tobacco user in household: No entered on: 06/14/19 Sex
--- OUTSIDE RECORDS SUMMARY | 2023-01-15 23:18 | XMS_ITS | Continuity of Care Document ---
Author Name Unknown Organization [facility] Address [address] [place] [address], [address] [place] [address]- Care Team Providers Care Secretary Office Clerk Name Role Phone Dolores Milian MD Primary Care Physician Encounter [facility] Date(s): 11/15/19 - 11/22/19 [facility] [employer] [facility] [address] [facility], [address] [place] [address]- [facility] Attending Physician: Lyudmila Marcos MD Referring Physician: Dolores Milian MD Allergies, [...] Vaccine 10/14/14 Given 1Result Comment: [04/15/2014] Fluvirax [id number] 2Admin Note: vis given dated 12/25/12 3Admin Note: VIS 7-12 Medications ferrous sulfate 325 mg oral enteric coated tablet 325 mg, 1, tablet, By Mouth, Daily, # 90 tablet, Refills 3, Tot. Refills 3, Maintenance, 10/19/19 16:52:00 EDT, Route to Pharmacy Electronically, [facility]/pharmacy #[id number], 162.56, cm, 10/19/19 13:34:00 EDT, Height, 104.6, kg, 08/24/19 11:36:00 EDT, Dry Weight Start Date: 10/19/19 Status: Ordered simethicone 80 mg oral tablet, chewable 80 mg, 1, tablet, Chew, 4 times a day, PRN, for 12 days, # 48 tablet, Refills 0, Tot. Refills 0, Acute 11/27/19 9:31:00 EDT, as needed for gas, 11/15/19 9:31:00 EDT, Route to Pharmacy Electronically,[facility]/pharm[facility] #[id number], 163, cm, 11/15/19 9:10:00 EDT,... Start [...] 0 Refills, Maintenance, 11/15/19 9:30:00 EDT, Tablet, [facility]/pharmacy #[id number], 163, cm, 11/15/19 9:10:00 EDT, Height, [...] recent to oldest [Reference Range]: 1 2 Height 163 cm (11/15/19 9:10 AM) 163 cm (11/15/19 9:08 AM) Weight 106 kg (11/15/19 9:08 AM) Pulse Rate [55-90 bpm] 109 bpm *H* (11/15/19 9:10 AM) Body Mass Index [18.5-24.99] 39.9 *>HHI* (11/15/19 9:08 AM) Blood Pressure [90-138/55-84 mm Hg] 130/ 87mm Hg (11/15/19 9:08 AM) Temperature [96.8-100.4 DegF] 96.4 DegF *L* (11/15/19 9:08 AM) Blood pressure sites Arm, right (11/15/19 9:08 AM) Dry Weight 106 kg (11/15/19 9:08 AM) Weight Obtained Via Standing scale (11/15/19 9:08 AM) Dry Weight Obtained Via Standing scale (11/15/19 9:08 AM) Social History Social History Type Response Smoking Status Never (less than 100 in lifetime); Tobacco user in household: No entered on: 06/14/19 Sex
--- OUTSIDE RECORDS SUMMARY | 2023-01-15 23:18 | XMS_ITS | Continuity of Care Document ---
Author Name Unknown Organization [facility] ter Address [address] [place] [address]- Care Team Providers Care Nurse'S Assistant Name Role Phone Magdalene KAHN, Charmaine Primary Care Physician Encounter [facility] Date(s): 08/07/20 - 08/07/[address] [address]- Encounter Diagnosis Headache(Final) - 08/07/20 Discharge Disposition: A-D/C Home Attending Physician: Arnold Cross MD Admitting Physician: Arnold Cross MD Referring Physician: Not on Staff, Referring [...] Vaccine 10/14/14 Given 1Result Comment: [04/15/2014] Fluvirax [id number] 2Admin Note: vis given dated 12/25/12 3Admin [...] 0 Refills, Maintenance, 02/11/20 14:54:00 EDT, Tablet, [facility]/pharmacy #[id number], 162, cm, 02/03/20 14:12:00 EDT, Height, 106, kg, 12/23/19 23:02:00 EDT, Dry Weight Start Date: 02/11/20 Status: Ordered ibuprofen 800 mg oral tablet 800 mg, 1, tablet, By Mouth, 3 times a day, PRN, # 30 tablet, Refills 0, Tot. Refills 0, Maintenance, Pain , Moderate, 03/28/20 14:55:00 EDT, Route to Pharmacy Electronically, [facility]/pharmacy #[id number], 162, cm, 02/03/20 14:12:00 EDT, Height, 106, kg, ... Start Date: 03/28/20 Status: Ordered NIFEdipine 30 mg oral tablet, extended release 30 mg, 1, tablet, By Mouth, Daily, # 30 tablet, Refills 3, Tot. Refills 3, Maintenance, 01/03/20 14:11:00 EDT, Route to Pharmacy Electronically, [facility]/pharmacy #[id number], 162, cm, 01/03/20 13:13:00 EDT, Height, 106, kg, 12/23/19 23:02:00 EDT, Dry Weight Start Date: 01/03/20 Status: Ordered Paragard IUD See Instructions, # 1 each, Maintenance, Inserted by Rosa Stokes MD. Lot [id number] Exp November 2025., 02/03/20 11:09:00 EDT, Supply, 162, cm, 01/03/20 13:13:00 EDT, Height, 106, kg, 12/23/19 23:02:00 EDT, Dry Weight Start Date: 02/03/20 Status: Ordered permethrin 5% topical cream 1 application, Topically, Once, # 60 Gm, 0 Refills, Soft Stop, 05/31/20 16:52:00 EST, Cream, [facility]/pharmacy #[id number], Partial fill upon patient request [...] 1 2 3 Oxygen Saturation [94-100 %] 96 % (08/07/20 3:09 AM) 97 % (08/07/20 1:29 AM) 97 % (08/07/20 12:56 AM) Pulse Rate [55-90 bpm] 89 bpm (08/07/20 3:09 AM) 83 bpm (08/07/20 1:29 AM) 99 bpm *H* (08/07/20 12:56 AM) Blood Pressure [90-138/55-84 mm Hg] 130/100mm Hg (08/07/20 3:09 AM) 135/102mm Hg (08/07/20 1:29 AM) 147/108mm Hg *H* (08/07/20 12:56 AM) Respiratory Rate [16-30 br/min] 20 br/min (08/07/20 3:09 AM) 19 br/min (08/07/20 1:29 AM) 20 br/min (08/07/20 12:56 AM) Temperature [96.8-100.4 DegF] 98.1 DegF (08/07/20 3:09 AM) 97.8 DegF (08/07/20 1:29 AM) 98.3 DegF (08/07/20 12:56 AM) Mode of Delivery (Oxygen) Room air (08/07/20 3:09 AM) Room air (08/07/20 1:29 AM) Room air (08/07/20 12:56 AM) Blood pressure sites Arm, right (08/07/20 3:09 AM) Arm, right (08/07/20 1:29 AM) Arm, right (08/07/20 12:56 AM) Temperature Route Oral (08/07/20 3:09 AM) Oral (08/07/20 1:29 AM) Oral (08/07/20 12:56 AM) Social History Social History Type Response Smoking Status Never (less than 100 in lifetime); Tobacco user in household: No entered on: 06/14/19 Sex
--- OUTSIDE RECORDS SUMMARY | 2023-01-15 23:18 | XMS_ITS | Continuity of Care Document ---
Author Name Unknown Organization [facility] Address [address] [place] [address]- Care Team Providers Care Transportation Attendant Name Role Phone Dennis Cardoza DO Primary Care Physician [phone] Encounter [facility] Date(s): 01/03/22 - 02/17/22 [facility] [address] [place] [address]- Attending Physician: David Gordillo MD Admitting Physician: [...] Vaccine 10/14/14 Given 1Result Comment: [04/15/2014] Fluvirax [id number] 2Admin Note: vis given dated 12/25/12 3Admin [...] Date: 12/21/21 Stop Date: 05/20/22 Status: Ordered [facility] [facility] oral capsule 1 capsule, By Mouth, [...] mL, 0 Refills, Maintenance, 07/19/21 15:37:00 EST, [place], [id number], Partial fill upon patient request [...] 03/07/21 10:54:00 EDT, Route to Pharmacy Electronically, [facility]/pharmacy #[id number], Partial fill upon patient request if... Start Date: 03/07/21 Status: Ordered Paragard IUD See Instructions, # 1 each, Maintenance, Inserted by Rosa Stokes MD. Lot [id number] Exp November 2025., 02/03/20 11:09:00 EDT, Supply, 162, cm, 01/03/20 13:13:00 EDT, Height, 106, kg, 12/23/19 23:02:00 EDT, Dry Weight Start Date: 02/03/20 Status: Ordered Tylenol Extra Strength 500 mg oral tablet 2 tablet = 1,000 mg, By Mouth, Every 6 hours, PRN as needed for fever, # 24 tablet, 0 Refills, Maintenance, 03/07/21 10:54:00 EDT, Tablet, [facility]/pharmacy #[id number], Partial fill upon patient request [...] Team Personnel Name: Dennis Cardoza DO Address: [address] [place] [address]
--- OUTSIDE RECORDS SUMMARY | 2023-01-15 23:18 | XMS_ITS | Continuity of Care Document ---
Author Name Unknown Organization [facility] Address [address] [facility], [address] [place] [address]- Care Team Providers Care Edge Grinder Machine Name Role Phone Magdalene KAHN, [facility] Primary Care Physician Encounter [facility] Date(s): 01/21/20 - 01/28/20 [facility] [address] [facility], [address] [place] [address]- [facility] Attending Physician: Carole KAHN, [facility] [employer] [...] Vaccine 10/14/14 Given 1Result Comment: [04/15/2014] Fluvirax [id number] 2Admin Note: vis given dated 12/25/12 3Admin [...] 0 Refills, Maintenance, 01/20/20 16:52:00 EDT, Tablet, [facility]/pharmacy #[id number], 162, cm, 01/03/20 13:13:00 EDT, Height, 106, kg, 12/23/19 23:02:00 EDT, Dry Weight Start Date: 01/20/20 Status: Ordered Ibuprofen Refills 0, Maintenance, 01/03/20 13:15:00 EDT Start Date: 01/03/20 Status: Ordered NIFEdipine 30 mg oral tablet, extended release 30 mg, 1, tablet, By Mouth, Daily, # 30 tablet, Refills 3, Tot. Refills 3, Maintenance, 01/03/20 14:11:00 EDT, Route to Pharmacy Electronically, [facility]/pharmacy #[id number], 162, cm, 01/03/20 13:13:00 EDT, Height, 106, kg, 12/23/19 23:02:00 EDT, Dry Weight Start Date: 01/03/20 Status: Ordered sertraline 25 mg oral tablet 1 tablet = 25 mg, By Mouth, Daily, # 30 tablet, 3 Refills, Maintenance, 01/20/20 16:52:00 EDT, Tablet, [facility]/pharmacy #[id number], 162, cm, 01/03/20 13:13:00 EDT, Height, [...] Range]: 1 Blood Pressure [90-138/55-84 mm Hg] 122/ 80mm Hg (01/21/20 10:32 AM) Blood pressure sites Arm, right (01/21/20 10:32 AM) Social History Social History Type Response Smoking Status Never (less than 100 in lifetime); Tobacco user in household: No entered on: 06/14/19 Sex
--- OUTSIDE RECORDS SUMMARY | 2023-01-15 23:18 | XMS_ITS | Continuity of Care Document ---
Author Name Unknown Organization [facility] ter Address [address] [place] [address]- Care Team Providers Care Professor Of Literature Name Role Phone Magdalene KAHN, Charmaine Primary Care Physician Encounter [facility] Date(s): 12/10/19 - 12/10/[address] [address]- [facility] Discharge Disposition: A-D/C Home Attending Physician: Nely Garcia MD Admitting Physician: Nely Garcia MD Referring Physician: Nely Garcia MD Allergies, Adverse Reactions, Alerts Substance Reaction [...] Vaccine 10/14/14 Given 1Result Comment: [04/15/2014] Fluvirax [id number] 2Admin Note: vis given dated 12/25/12 3Admin Note: VIS -12 Medications ferrous sulfate 325 mg oral enteric coated tablet 325 mg, 1, tablet, By Mouth, Daily, # 90 tablet, Refills 3, Tot. Refills 3, Maintenance, 10/19/19 16:52:00 EDT, Route to Pharmacy Electronically, [facility]/pharmacy #[id number], 162.56, cm, 10/19/19 13:34:00 EDT, Height, 104.6, kg, 08/24/19 11:36:00 EDT, Dry Weight Start Date: 10/19/19 Status: Ordered Keflex Capsule By Mouth, Maintenance, 12/08/19 13:17:00 EDT Start Date: 12/08/19 Status: Ordered Tylenol 8 Hour 650 mg [...] to discharge of baby(Confirmed) 3, 4 Active High risk , antepartum(Confirmed) Active Migraines(Confirmed) [...] oldest [Reference Range]: 1 2 3 Weight 106.0 kg (12/10/19 12:50 PM) Blood Pressure [90-138/55-84 mm Hg] 119/64mm Hg (12/10/19 2:50 PM) 123/76mm Hg (12/10/19 2:35 PM) 117/71mm Hg (12/10/19 2:20 PM) Respiratory Rate [16-30 br/min] 20 br/min (12/10/19 12:50 PM) Temperature [96.8-100.4 DegF] 98.1 DegF (12/10/19 12:50 PM) Blood pressure sites Arm, left (12/10/19 12:57 PM) Arm, left (12/10/19 12:50 PM) Temperature Route Oral (12/10/19 12:50 PM) Social History Social History Type Response Smoking Status Never (less than 100 in lifetime); Tobacco user in household: No entered on: 06/14/19 Sex
--- OUTSIDE RECORDS SUMMARY | 2023-01-15 23:18 | XMS_ITS | Continuity of Care Document ---
Author Name Unknown Organization [facility] Address [address] [place] [address]- Care Team Providers Care Contract Negotiator Name Role Phone Dennis Cardoza DO Primary Care Physician [facility]counter [facility] Date(s): 11/26/22 - 12/26/22 [facility] [address] [place] [address] Allergies, Adverse Reactions, Alerts No Known [...] Vaccine 10/14/14 Given 1Result Comment: [04/15/2014] Fluvirax [id number] 2Admin Note: vis given dated 12/25/12 3Admin Note: VIS 7-12 Medications cetirizine 10 mg oral tablet 1 tablet = 10 mg, By Mouth, Daily, PRN for allergy symptoms, # 10 tablet, 0 Refills, Maintenance, 08/23/22 23:54:00 EDT, Tablet, [facility]/pharmacy #[id number], Partial fill upon patient request if the prescription is for a schedule II opioid drug., 163, cm, 07/03... Start Date: 08/23/22 Status: Ordered chlorthalidone 25 mg oral tablet 1, tablet, By Mouth, Daily, # 30 tablet, Refills 3, Tot. Refills 3, Maintenance, 10/15/22 10:21:00 EDT, Route to Pharmacy Electronically, [facility]/pharmacy #[id number], 163, cm, 09/21/22 20:45:00 EDT, Height, 116.1, kg, 09/21/22 20:45:00 EDT, Dry Weight Start Date: 10/15/22 Status: Ordered Diflucan 150 mg oral tablet 1 tablet = 150 mg, By Mouth, Once, # 1 tablet, 0 Refills, Soft Stop, 12/06/22 15:53:00 EDT, [facility]/pharmacy #[id number], Partial fill upon patient request if the prescription is for a schedule II opioid drug., 163, cm, 12/03/22 23:57:00 EDT, Height, 109, kg, 0... Start Date: 12/06/22 Status: Ordered EpiPen 2-Satya 0.3 mg injectable kit = 0.3 mg, Intramuscular, Once, # 1 pack/packet, 0 Refills, Soft Stop, 08/23/22 23:54:00 EDT, [facility]/pharmacy #[id number], Partial fill upon patient [...] tablet, 0 Refills, Maintenance, 12/20/22 6:07:00EDT, Tablet, [facility]/pharmacy #[id number], Partial fill upon... Start Date: 12/20/22 Stop Date: 03/20/23 Status: Ordered hydrOXYzine hydrochloride 25 mg oral tablet 2 tablet = 50 mg, By Mouth, 3 times a day, PRN for anxiety, Take one to two tablets (25 to 50 mg) up to three times per day for management of panic., # 270 tablet, 3 Refills, Maintenance, 12/20/22 6:09:00 EDT, Tablet, [facility]/pharmacy #[id number], Partial fill... Start Date: 12/20/22 Stop Date: 12/15/23 Status: Ordered ibuprofen 800 mg oral tablet 800 mg, 1, tablet, By Mouth, 3 times a day, # 90 tablet, Refills 1, Tot. Refills 1, Maintenance, 10/22/22 10:55:00 EDT, Route to Pharmacy Electronically, [facility]/pharmacy #[id number], Partial fill upon patientrequest if the prescription is for a schedule II op... Start Date: 10/22/22 Status: Ordered Paragard IUD See Instructions, # 1 each, Maintenance, Inserted by Rosa Stokes MD. Lot [id number] Exp November 2025., 02/03/20 11:09:00 EDT, Supply, [...] Maintenance, 10/22/22 11:03:00 EDT, Tablet, [facility]/pharmacy #[id number], Partial fill upon patient [...] Team Personnel Name: Dennis Cardoza DO Position: [facility] Resident Member Role: PCP Address: Address: [address] [place] [address] [place] [address]- Name: Gabbie Vasquez RN Position: [facility] SN RN Member Role: Primary Care Nurse Care Team Related Persons Name: ENRRIQUE BAZZI Address: [place] [address] Name: TREASURE VILLAGRAN Address: home [address] [place] [address] Name: BERRY BURKETT Address: home [address] [address] Name: MARIANGEL JOE Address: [id number] Address: home [address] [address]
--- OUTSIDE RECORDS SUMMARY | 2023-01-15 23:18 | XMS_ITS | Continuity of Care Document ---
Author Name Unknown Organization [facility] ter Address [address] [place] [address]- Care Team Providers Care Travel Professional Name Role Phone Dennis Cardoza DO Primary Care Physician Encounter [facility] Date(s): 01/26/22 - 01/26/[address] [address]- Discharge Disposition: A-D/C Walkout Attending Physician: Not [...] Vaccine 10/14/14 Given 1Result Comment: [04/15/2014] Fluvirax [id number] 2Admin Note: vis given dated 12/25/12 3Admin [...] Date: 12/21/21 Stop Date: 05/20/22 Status: [facility] [employer] oral capsule 1 capsule, By Mouth, [...] mL, 0 Refills, Maintenance, 07/19/21 15:37:00 EST, [place], [id number], Partial fill upon patient request [...] 03/07/21 10:54:00 EDT, Route to Pharmacy Electronically, [facility]/pharmacy #[id number], Partial fill upon patient request if... Start Date: 03/07/21 Status: Ordered Paragard IUD See Instructions, # 1 each, Maintenance, Inserted by Rosa Stokes MD. Lot [id number] Exp November 2025., 02/03/20 11:09:00 EDT, Supply, 162, cm, 01/03/20 13:13:00 EDT, Height, 106, kg, 12/23/19 23:02:00 EDT, Dry Weight Start Date: 02/03/20 Status: Ordered Tylenol Extra Strength 500 mg oral tablet 2 tablet = 1,000 mg, By Mouth, Every 6 hours, PRN as needed for fever, # 24 tablet, 0 Refills, Maintenance, 03/07/21 10:54:00 EDT, Tablet, [facility]/pharmacy #[id number], Partial fill upon patient [...] [Reference Range]: 1 2 Height 163 cm (01/26/22 1:30 PM) 163 cm (01/26/22 1:26 PM) Weight 114.4 kg (01/26/22 1:30 PM) Oxygen Saturation [94-100 %] 98 % (01/26/22 1: PM) 99 % (01/26/22 1: PM) Pulse Rate [55-90 bpm] 90 bpm (01/26/22 1: PM) 107 bpm *H* (01/26/22 1: PM) Blood Pressure [90-138/55-84 mm Hg] 117/ 80mm Hg (01/26/22 1: PM) Respiratory Rate [16-30 br/min] 20 br/mi n (01/26/22 1: PM) Temperature [96.8-100.4 DegF] 98.2 DegF (01/26/22 1: PM) Mode of Delivery (Oxygen) Room air (01/26/22 1:26 PM) Room air (01/26/22 1: PM) Blood pressure sites Arm, left (01/26/22 1: PM) Temperature Route Oral (01/26/22 1:26 PM) Dry Weight 109 kg (01/26/22 1:30 PM) 109 kg (01/26/22 1:26 PM) Weight Obtained Via Standing scale (01/26/22 1:30 PM) Patient/family stated (01/26/22 1:26 PM) Dry Weight Obtained Via Patient/family s tated (01/26/22 1:26 PM) Social History Social History Type Response Smoking Status Never (less than 100 in lifetime); Tobacco user in household: No entered on: 06/14/19 Sex Care Team Personnel Name: Dennis Cardoza DO Address: [address] [place] [address] [place] [address]-
--- OUTSIDE RECORDS SUMMARY | 2023-01-15 23:18 | XMS_ITS | Continuity of Care Document ---
Author Name Unknown Organization [facility] Address [address] [place] [address]- Care Team Providers Care Certified Meeting Professional Name Role Phone Magdalene KAHN, Charmaine Primary Care Physician Encounter [facility] Date(s): 02/01/20 - 03/02/20 [facility] [address] [place] [address]- [facility] Allergies, Adverse Reactions, Alerts Substance [...] Vaccine 10/14/14 Given 1Result Comment: [04/15/2014] Fluvirax [id number] 2Admin Note: vis given dated 12/25/12 3Admin [...] Refills, Maintenance, 02/11/20 14:54:00 EDT, Tablet, [facility]/pharmacy #[id number], 162, cm, 02/03/20 14:12:00 EDT, [...] Route to Pharmacy Electronically, [facility]/pharmacy #[id number], 162, cm, 01/03/20 13:13:00 EDT, Height, 106, kg, 12/23/19 23:02:00 EDT, Dry Weight Start Date: 01/03/20 Status: Ordered Paragard IUD See Instructions, # 1 each, Maintenance, Inserted by Rosa Stokes MD. Lot [id number] Exp November 2025., 02/03/20 11:09:00 EDT, Supply, 162, cm, 01/03/20 13:13:00 EDT, Height, 106, kg, 12/23/19 23:02:00 EDT, Dry Weight Start Date: 02/03/20 Status: Ordered sertraline 50 mg oral tablet 1 tablet = 50 mg, By Mouth, Daily, # 90 tablet, 1 Refills, Maintenance, 02/11/20 14:53:00 EDT, Tablet, [facility]/pharmacy #[id number], 162, cm, 02/03/20 14:12:00 EDT, [...]
--- OUTSIDE RECORDS SUMMARY | 2023-01-15 23:18 | XMS_ITS | Continuity of Care Document ---
Author Name Unknown Organization [facility] Luis [employer] [employer] Address [address], [address] [place] [address]- Care Team Providers Care Visual Basic .Net Developer Name Role Phone Rukhsana KAHN, Dolores Anderson Primary Care Physician Encounter [facility] Date(s): 06/24/19 - 07/01/19 [facility] [address] [place] [address]- Attending Physician: Zack Shaw MD Referring Physician: Giovanna Armando CNM Allergies, [...] acel(Tdap) 06/13/10 Given 1Result Comment: [04/15/2014] Fluvirax [id number] 2Admin Note: vis given dated 12/25/12 3Admin [...] Date: 06/29/19 Stop Date: 01/25/20 Status: Ordered [place] 0.65% nasal spray 2 sprays, Nares, Both, [...]
--- OUTSIDE RECORDS SUMMARY | 2023-01-15 23:18 | XMS_ITS | Continuity of Care Document ---
Author Name Unknown Organization [facility] Luis Merritt [employer] Address [address], [address] [place] [address]- Care Team Providers Care Peer Specialist Name Role Phone Magdalene KAHN, [facility] Primary Care Physician [id number] Date(s): 12/09/19 - 12/16/19 [facility] [employer] [facility] [address], [address] [place] [address]- [facility] Attending Physician: Nely Garcia MD Referring Physician: Erick Stokes MD Allergies, Adverse Reactions, Alerts Substance Reaction Severity Status NKA Active Immunizations Given and Recorded Vaccine Date Status Refusal Reason tetanus/diphtheria/pertussis, acel(Tdap) 10/27/19 Given tetanus/diphtheria/pertussis, acel(Tdap) 06/13/10 Given influenza virus vaccine, inactivated 06/29/19 Give n influenza virus vaccine, inactivated 1 04/15/14 Gi pinky influenza virus vaccine, inactivated 2 03/25/13 Gi pinky influenza virus vaccine, inactivated 3 03/20/12 Gi ipnky hepatitis B adult vaccine 11/05/17 Given hepatitis B adult vaccine 02/10/15 Given Human Papillomavirus Vaccine 10/14/14 Given 1Result Comment: [04/15/2014] Fluvirax [id number] 2Admin Note: vis given dated 12/25/12 3Admin Note: VIS 7-12 Medications ferrous sulfate 325 mg oral enteric coated tablet 325 mg, 1, tablet, By Mouth, Daily, # 90 tablet, Refills 3, Tot. Refills 3, Maintenance, 10/19/19 16:52:00 EDT, Route to Pharmacy Electronically, [facility]/pharmacy #[id number], 162.56, cm, 10/19/19 13:34:00 EDT, Height, 104.6, [...]
--- OUTSIDE RECORDS SUMMARY | 2023-01-15 23:18 | XMS_ITS | Continuity of Care Document ---
Author Name Unknown Organization [facility] Address [address] [place] [address]- Care Team Providers Care Supervisor Research Kennel Name Role Phone Magdalene KAHN, Charmaine Primary Care Physician Encounter [facility] Date(s): 10/10/20 - 11/09/20 [facility] [address] [place] [address]- Allergies, Adverse Reactions, Alerts Substance Reaction Severity [...] Vaccine 10/14/14 Given 1Result Comment: [04/15/2014] Fluvirax [id number] 2Admin Note: vis given dated 12/25/12 3Admin Note: VIS -12 Medications acetaZOLAMIDE 250 mg oral tablet 250 mg, 1, tablet, By Mouth, 2 times a day, # 30 tablet, Refills 0, Tot. Refills 0, Maintenance, 08/09/20 19:10:00 EST, Route to Pharmacy Electronically, [facility]/pharmacy #[id number], Partial fill upon patientrequest if the prescription is for a schedule II op... Start Date: 08/09/20 Status: Ordered chlorthalidone 25 mg oral tablet 0.5, tablet, By Mouth, Daily, # 15 tablet, Refills 0, Tot. Refills 0, Maintenance, 09/11/20 12:39:00 EDT, Route to Pharmacy Electronically, [facility] STORE [id number], 163, cm, 08/18/20 13:27:00 EDT, Height, 110, [...] 0 Refills, Maintenance, 02/11/20 14:54:00 EDT, Tablet, [facility]/pharmacy #[id number], 162, cm, 02/03/20 14:12:00 EDT, Height, 106, kg, 12/23/19 23:02:00 EDT, Dry Weight Start Date: 02/11/20 Status: Ordered ibuprofen 800 mg oral tablet 800 mg, 1, tablet, By Mouth, 3 times a day, PRN, # 30 tablet, Refills 0, Tot. Refills 0, Maintenance, Pain , Moderate, 03/28/20 14:55:00 EDT, Route to Pharmacy Electronically, [facility]/pharmacy #[id number], 162, cm, 02/03/20 14:12:00 EDT, Height, 106, kg, ... Start Date: 03/28/20 Status: Ordered NIFEdipine 30 mg oral tablet, extended release 30 mg, 1, tablet, By Mouth, Daily, # 30 tablet, Refills 3, Tot. Refills 3, Maintenance, 01/03/20 14:11:00 EDT, Route to Pharmacy Electronically, [facility]/pharmacy #[id number], 162, cm, 01/03/20 13:13:00 EDT, Height, 106, kg, 12/23/19 23:02:00 EDT, Dry Weight Start Date: 01/03/20 Status: Ordered Paragard IUD See Instructions, # 1 each, Maintenance, Inserted by Rosa Stokes MD. Lot [id number] Exp November 2025., 02/03/20 11:09:00 EDT, Supply, [...]
--- OUTSIDE RECORDS SUMMARY | 2023-01-15 23:18 | XMS_ITS | Continuity of Care Document ---
Author Name Unknown Organization [facility] Address [address] [place] [address]- Care Team Providers Care Pasta Press Operator Name Role Phone Dennis Cardoza DO Primary Care Physician [phone] Encounter [facility] Date(s): 12/18/21 - 01/17/22 [facility] [address] [place] [id number] Allergies, Adverse Reactions, Alerts No [...] Vaccine 10/14/14 Given 1Result Comment: [04/15/2014] Fluvirax [id number] 2Admin Note: vis given dated 12/25/12 3Admin Note: VIS 7-12 Medications chlorthalidone 25 mg oral tablet 25 mg, 1, tablet, By Mouth, Daily, # 30 tablet, Refills 4, Tot. Refills 4, Maintenance, 12/21/21 10:51:00 EDT, Route to Pharmacy Electronically, [facility]/pharmacy #[id number], Partial fill upon patient request if the prescription is for a schedule II opioid drug... Start Date: 12/21/21 Stop Date: 05/20/22 Status: [facility] [employer] oral capsule 1 capsule, By Mouth, [...] mL, 0 Refills, Maintenance, 07/19/21 15:37:00 EST, [place], [facility]/pharmacy #[id number], Partial [...] 2 Refills, Maintenance, 12/18/21 17:17:00 EDT, Tablet, [facility]/pharmacy [...] Maintenance, Inserted by Rosa Stokes MD. Lot [id number] Exp November 2025., 02/03/20 11:09:00 EDT, Supply, [...]
--- OUTSIDE RECORDS SUMMARY | 2023-01-15 23:18 | XMS_ITS | Continuity of Care Document ---
Author Name Unknown Organization [facility] ter Address [address] [place] [address]- Care Team Providers Care Regulatory Compliance Manager Name Role Phone Dolores Milian MD Primary Care Physician Encounter [facility] Date(s): 05/19/19 - 05/19/[address] [address]- [facility] Discharge Disposition: A-D/C Home Attending Physician: Yadi Lam MD Admitting Physician: Yadi Lam MD Referring Physician: Yadi Lam MD Allergies, Adverse Reactions, Alerts Substance Reaction Severity Status NKA Active Immunizations Given and Recorded Vaccine Date Status Refusal Reason hepatitis B adult vaccine 11/05/17 Given hepatitis B adult vaccine 02/10/15 Given Human Papillomavirus Vaccine 10/14/14 Given influenza virus vaccine, inactivated 1 04/15/14 Gi pinky influenza virus vaccine, inactivated 2 03/25/13 Gi pinky influenza virus vaccine, inactivated 3 03/20/12 Gi pinky tetanus/diphtheria/pertussis, acel(Tdap) 06/13/10 Given 1Result Comment: [04/15/2014] Fluvirax [id number] 2Admin Note: vis given dated 12/25/12 3Admin Note: VIS 7-12 Medications [place] 0.65% nasal spray 2 sprays, Nares, Both, [...] Date: 03/30/19 Stop Date: 03/24/20 Status: Ordered Problem List Condition Effective Dates Status Health Status Inform ant ASCUS favor benign(Confirmed) Active Chlamydia contact, treated(Confirmed) Active Fatigue(Confirmed) Active Pelvic inflammatory disease(Confirmed) Active Gastroenteritis(Confirmed) Active History of spontaneous (Confirmed) Active Headache(Confirmed) Active 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 Active Migraines(Confirmed) Active 1Involved the area inferior to her vulva Vital Signs Most recent to oldest [Reference Range]: 1 Weight 102.2 kg (05/19/19 1:01 PM) Oxygen Saturation [94-100 %] 100 % (05/19/19 1:01 PM) Pulse Rate [55-90 bpm] 70 bpm (05/19/19 1:01 PM) Blood Pressure [90-138/55-84 mm Hg] 126/ 89mm Hg (05/19/19 1:01 PM) Respiratory Rate [16-30 br/min] 16 br/mi n (05/19/19 1:01 PM) Temperature [96.8-100.4 DegF] 98.1 DegF (05/19/19 1:01 PM) Mode of Delivery (Oxygen) Room air (05/19/19 1:01 PM) Blood pressure sites Arm, right 1 (05/19/19 1:01 PM) Temperature Route Oral (05/19/19 1:01 PM) Weight Obtained Via Standing scale (05/19/19 1:01 PM) 1Result Comment: right arm measured at 41cm Social History Social History Type Response Smoking Status Former smoker; Other : pt quit smoking 2 years ago; entered on: 11/10/14 Sex
--- OUTSIDE RECORDS SUMMARY | 2023-01-15 23:18 | XMS_ITS | Continuity of Care Document ---
Author Name Unknown Organization [facility] ter Address [address] [place] [address]- Care Team Providers Care Barrel Polisher Name Role Phone Dennis Cardoza DO Primary Care Physician Encounter [facility] Date(s): 12/03/22 - 12/04/[address] [address]- Encounter Diagnosis Upper back pain(Final) - 12/04/22 Discharge Disposition: A-D/C Home Attending Physician: Rosenda Medley DO Admitting Physician: Rosenda Medley DO Referring Physician: Not on Staff, Referring MD [...] Vaccine 10/14/14 Given 1Result Comment: [04/15/2014] Fluvirax [id number] 2Admin Note: vis given dated 7/26/13 3Admin Note: VIS 7-12 Medications cetirizine 10 mg oral tablet 1 tablet = 10 mg, By Mouth, Daily, PRN for allergy symptoms, # 10 tablet, 0 Refills, Maintenance, 08/23/22 23:54:00 EDT, Tablet, [facility]/pharmacy #[id number], Partial fill upon patient request if the prescription is for a schedule II opioid drug., 163, cm, 07/03... Start Date: 08/23/22 Status: Ordered chlorthalidone 25 mg oral tablet 1, tablet, By Mouth, Daily, # 30 tablet, Refills 3, Tot. Refills 3, Maintenance, 10/15/22 10:21:00 EDT, Route to Pharmacy Electronically, [facility]/pharmacy #[id number], 163, cm, 09/21/22 20:45:00 EDT, Height, 116.1, kg, 09/21/22 20:45:00 EDT, Dry Weight Start Date: 10/15/22 Status: Ordered EpiPen 2-Satya 0.3 mg injectable kit = 0.3 mg, Intramuscular, Once, # 1 pack/packet, 0 Refills, Soft Stop, 08/23/22 23:54:00 EDT, [facility]/pharmacy #[id number], Partial fill [...] 3 Refills, Maintenance, 09/16/22 15:26:00 EDT, Tablet, [facility]/pharmacy #[id number], Partial fill upon patient request if the prescription is for a schedule II opioid drug., 163, cm, 08/31... Start Date: 09/16/22 Stop Date: 03/15/23 Status: Ordered ibuprofen 800 mg oral tablet 800 mg, 1, tablet, By Mouth, 3 times a day, # 90 tablet, Refills 1, Tot. Refills 1, Maintenance, 10/22/22 10:55:00 EDT, Route to Pharmacy Electronically, [facility]/pharmacy #[id number], Partial fill upon patientrequest if the prescription is for a schedule II op... Start Date: 10/22/22 Status: Ordered Paragard IUD See Instructions, # 1 each, Maintenance, Inserted by Rosa Stokes MD. Lot [id number] Exp November 2025., 02/03/20 11:09:00 EDT, Supply, 162, cm, 01/03/20 13:13:00 EDT, Height, 106, kg, 12/23/19 23:02:00 EDT, Dry Weight Start Date: 02/03/20 Status: Ordered SUMAtriptan 50 mg oral tablet 1 tablet = 50 mg, By Mouth, Daily, PRN for migraine headache, may repeat dose after 2 hours up to amaximum of 2, # 18 tablet, 2 Refills, Maintenance, 10/22/22 11:03:00 EDT, Tablet, [facility]/pharmacy #[id number], Partial fill upon patient request if the prescrip... Start Date: 10/22/22 Status: Ordered Wellbutrin XL 150 mg/24 hours oral tablet, extended release 1 tablet = 150 mg, By Mouth, Every 24 hours, # 90 tablet, 3 Refills, Maintenance, 10/22/22 11:06:00EDT, ER Tablet, [facility]/pharmacy #[id number], Partial fill [...] Exam Date Time Procedure Performing Provider Status 12/04/22 12:55 AM Chest 2 Views Frontal and Lat Smyth , Armando; Auth (Verified) Notes: (Chest 2 Views Frontal and Lat) Reason For Exam: Chest Pain;Other: RESULT: Chest 2 Views Frontal and Lat Chest 2 Views Frontal and Lat Hx of Present Illness: burning chest pain with SOB; Reason: Other:; Chest Pain. COMPARISON: Multiple prior chest x-rays, the most recent of which is dated 10/21/2022. FINDINGS: LINES AND TUBES: None. LUNGS AND PLEURA: Clear lungs. Normal pulmonary vascularity. No pleural effusion. No pneumothorax. HEART, MEDIASTINUM AND ZAFAR: Heart is normal in size. Normal mediastinal and hilar contour. BONES AND SOFT TISSUES: No acute abnormality. IMPRESSION: No acute abnormality. WSN: [id number] Ordering Physician: Felix Chen MD Dictated By: Laura Glover MD Dictated Date/Time: 12/04/22 7:40 am Reviewed By: Laura Glover MD Signed By: Laura Glover MD Signed Date/Time: 12/04/22 7:40 am Transcribed By: FRANCISCA Transcribed Date/Time: 12/04/22 7:39 am Vital Signs Most recent to oldest [Reference Range]: 1 2 3 Height 163 cm (12/03/22 11:57 PM) 163 cm (12/03/22 11:33 PM) Weight 109 kg (12/03/22 11:57 PM) 109 kg (12/03/22 11:33 PM) Oxygen Saturation [94-100 %] 99 % (12/04/22 5:00 AM) 100 % (12/04/22 2:39 AM) 98 % (12/03/22 11:33 PM) Pulse Rate [55-90 bpm] 82 bpm (12/04/22 5:00 AM) 84 bpm (12/04/22 2:39 AM) 84 bpm (12/03/22 11:33 PM) Body Mass Index [18.5-24.99 kg/m2] 41.03 kg/m2 *>HHI* (12/03/22 11:33 PM) Blood Pressure [90-138/55-84 mm Hg] 132/86mm Hg (12/04/22 5:00 AM) 134/88mm Hg (12/04/22 2:39 AM) 135/89mm Hg (12/03/22 11:33 PM) Respiratory Rate [16-30 br/min] 16 br/min (12/04/22 5:00 AM) 15 br/min *L* (12/04/22 2:39 AM) 16 br/min (12/03/22 11:33 PM) Temperature [96.8-100.4 DegF] 98.0 DegF (12/03/22 11:33 PM) Mode of Delivery (Oxygen) Room air (12/03/22 11:33 PM) Room air (12/03/22 11:27 PM) Blood pressure sites Arm, right (12/03/22 11:33 PM) Temperature Route Oral (12/03/22 11:33 PM) Dry Weight 109 kg (12/03/22 11:57 PM) 109 kg (12/03/22 11:33 PM) Weight Obtained Via Patient/family state d (12/03/22 11:33 PM) Dry Weight Obtained Via Patient/family s tated (12/03/22 11:33 PM) Social History Social History Type Response Smoking Status Never (less than 100 in lifetime); Tobacco user in household: No entered on: 06/14/19 Sex EKG study * Event Display: ECG 12-Lead Authored Date: Please click on pdf link to open report * Event Display: ECG 12-Lead Authored Date: Ventricular Rate: 83 BPM Atrial Rate: 83 BPM P-R Interval: 174 ms QRS Duration: 88 ms Q-T Interval: 380 ms QTC Calculation(Bazett): 446 ms P [place]: 25 degrees R [place]: 52 degrees T [place]: 37 degrees Normal sinus rhythm Normal ECG When compared with ECG of 21-OCT-2022 09:57, No significant change was found Confirmed by ALFREDO GARCIA ([id number]) on 12/04/2022 9:00:46 AM Lamar: ALFREDO GARCIA * Event Display: EKG Authored Date: * Event Display: EKG Authored Date: * Event Display: EKG Authored Date: Patient Care team information Care Team Personnel Name: Dennis Cardoza DO Position: S Resident Member Role: PCP Address: Address: [address] [place] [address], [place] [address]- Name: Pedro YOUSIF, Gabbie Obrien Position: [facility] SN RN Member Role: Primary Care Nurse Name: Laila Stanley NP Position: [facility] Associate Professional Member Role: ED Physician Solar Photovoltaic Installer Address: Address: [address] [place] [address] [place] [address]- Name: Erick Lima RN Position: [facility] ED RN W/OE and Tasks Member Role: Patient Care Provider Name: Maribell Arnold Position: [facility] ED TA [facility] Name: Rosenda Medley DO Position: [facility] ED Medicine MD Member Role: Admitting Physician Address: Address: [address] [place] [address]- Care Team Related Persons Name: ENRRIQUE BAZZI Address: [place] [address] Name: TREASURE VILLAGRAN Address: home [address] [place] [id number] Name: BERRY BURKETT Address: home [address] [address] Name: MARIANGEL JOE Address: [id number] Address: home [address] [address]
--- OUTSIDE RECORDS SUMMARY | 2023-01-15 23:18 | XMS_ITS | Continuity of Care Document ---
Author Name Unknown Organization [facility] ter Address [address] [place] [address]- Care Team Providers Care Cabin Worker Name Role Phone Magdalene KAHN, Charmaine Primary Care Physician Encounter [facility] [place] Date(s): 12/23/19 - 12/27/[address] [address] Discharge Disposition: A-D/C Home Attending Physician: Yadi [...] Vaccine 10/14/14 Given 1Result Comment: [04/15/2014] Fluvirax [id number] 2Admin Note: vis given dated 12/25/12 3Admin Note: VIS 7-12 Medications Dispense 1 blood pressure cuff for monitoring BP daily and as needed. Dispense 1 blood pressure cuff for monitoring BP daily and as needed., See Instructions, # 1 each, Refills 0, Tot. Refills 0, Maintenance, Diagnosis: preeclampsia with severe features (O14.13), 12/26/19 10:16:00 EDT, Supply, 162, cm, 12/25/19 9:37:00... Start Date: 12/26/19 Status: Ordered docusate sodium 100 mg oral capsule 1 capsule = 100 mg, By Mouth, 2 times a day, PRN as needed for constipation, # 60 capsule, 0 Refills, Maintenance, 12/27/19 6:34:00 EDT, Capsule, [facility]/pharmacy #[id number], 162, cm, 12/25/19 9:37:00 EDT, Height, 106, kg, 12/23/19 23:02:00 EDT, Dry Weight Start Date: 12/27/19 Status: Ordered ferrous sulfate 325 mg oral enteric coated tablet 325 mg, 1, tablet, By Mouth, Daily, # 90 tablet, Refills 3, Tot. Refills 3, Maintenance, 10/19/19 16:52:00 EDT, Route to Pharmacy Electronically, [facility]/pharmacy #[id number], 162.56, cm, 10/19/19 13:34:00 EDT, Height, 104.6, kg, 08/24/19 11:36:00 EDT, Dry Weight Start Date: 10/19/19 Status: Ordered ibuprofen 600 mg oral tablet 600 mg, 1, tablet, By Mouth, Every 6 hours, PRN, # 30 tablet, Refills 1, Tot. Refills 1, Acute 01/01/20 6:34:00 EDT, Pain , Moderate, 12/27/19 6:34:00 EDT, Route to Pharmacy Electronically, [facility]/pharmacy #[id number], 162, cm, 12/25/19 9:37:00 EDT, Height, 10... Start Date: 12/27/19 Stop Date: 01/01/20 Status: Ordered Tylenol 325 mg oral capsule 2 capsule = 650 mg, By Mouth, Every 4 hours, PRN as needed for pain, # 60 capsule, 1 Refills, Acute01/08/20 6:34:00 EDT, 12/27/19 6:34:00 EDT, Capsule, [facility]/pharmacy #[id number], 162, cm, 12/25/19 9:37:00 EDT, Height, [...] oldest [Reference Range]: 1 2 3 Height 162 cm (12/27/19 9:05 AM) 162 cm (12/25/19 8:00 AM) 162 cm (12/23/19 11:02 PM) Weight 106 kg (12/23/19 11:02 PM) 107.0 kg (12/23/19 4:30 PM) Oxygen Saturation [94-100 %] 99 % (12/27/19 9:05 AM) 99 % (12/26/19 8:00 AM) 100 % (12/26/19 6:00 AM) Pulse Rate [55-90 bpm] 84 bpm (12/27/19 9:05 AM) 18 bpm *L* (12/24/19 7:00 PM) 20 bpm *L* (12/24/19 6:05 PM) Body Mass Index [18.5-24.99] 40.39 *>HHI* (12/23/19 11:02 PM) Blood Pressure [90-138/55-84 mm Hg] 131/74mm Hg (12/27/19 9:05 AM) 133/78mm Hg (12/27/19 4:36 AM) 135/88mm Hg (12/26/19 10:14 PM) Respiratory Rate [16-30 br/min] 20 br/min (12/27/19 9:05 AM) 17 br/min (12/27/19 5:01 AM) 17 br/min (12/27/19 4:36 AM) Temperature [96.8-100.4 DegF] 98.1 DegF (12/27/19 9:05 AM) 98.6 DegF (12/26/19 10:14 PM) 98.8 DegF (12/26/19 3:56 PM) Mode of Delivery (Oxygen) Room air (12/26/19 2:00 PM) Room air (12/26/19 8:00 AM) Room air (12/26/19 6:00 AM) Blood pressure sites Arm, left (12/27/19 4:36 AM) Arm, left (12/26/19 10:14 PM) Arm, left (12/26/19 3:56 PM) Temperature Route Oral (12/27/19 9:05 AM) Oral (12/26/19 10:14 PM) Oral (12/26/19 3:56 PM) Dry Weight 106 kg (12/23/19 11:02 PM) Weight Obtained Via Standing scale (12/23/19 4:30 PM) Social History Social History Type Response Smoking Status Never (less than 100 in lifetime); Tobacco user in household: No entered on: 06/14/19 Sex
--- OUTSIDE RECORDS SUMMARY | 2023-01-15 23:18 | XMS_ITS | Continuity of Care Document ---
Author Name Unknown Organization [facility] Address [address] [place] [address]- Care Team Providers Care Hand Icer Name Role Phone Dennis Cardoza DO Primary Care Physician [place] [facility] [place]11[place]21 - 02/10/21 [facility] [address] [place] [address]- Attending Physician: Not on Staff, Attending MD Allergies, Adverse Reactions, Alerts Substance Reaction Severity Status NKA Active Immunizations Given and Recorded Vaccine Date Status Refusal Reason SARS-CoV-2 (COVID-19) mRNA BNT-162b2 vac 02/01/21 Given tetanus/diphtheria/pertussis, acel(Tdap) 10/27/19 Given tetanus/diphtheria/pertussis, acel(Tdap) 06/13/10 Given influenza virus vaccine, inactivated 06/29/19 Give n influenza virus vaccine, inactivated 1 04/15/14 Gi ipnky influenza virus vaccine, inactivated 2 03/25/13 Gi pinky influenza virus vaccine, inactivated 3 03/20/12 Gi pinky hepatitis B adult vaccine 11/05/17 Given hepatitis B adult vaccine 02/10/15 Given Human Papillomavirus Vaccine 10/14/14 Given 1Result Comment: [04/15/2014] Fluvirax [id number] 2Admin Note: vis given dated 12/25/12 3Admin Note: VIS 7-12 Medications acetaZOLAMIDE 250 mg oral tablet 250 mg, 1, tablet, By Mouth, 2 times a day, # 30 tablet, Refills 0, Tot. Refills 0, Maintenance, 08/09/20 19:10:00 EST, Route to Pharmacy Electronically, [facility]/pharmacy #[id number], Partial fill upon patientrequest if the prescription is for a schedule II op... Start Date: 08/09/20 Status: Ordered chlorthalidone 25 mg oral tablet 0.5, tablet, By Mouth, Daily, # 15 tablet, Refills 0, Tot. Refills 0, Maintenance, 09/11/20 12:39:00 EDT, Route to Pharmacy Electronically, [facility] STORE [id number], 163, cm, 08/18/20 13:27:00 EDT, Height, 110, [...] 0 Refills, Maintenance, 02/11/20 14:54:00 EDT, Tablet, [facility]/pharmacy #[id number], 162, cm, 02/03/20 14:12:00 EDT, Height, 106, kg, 12/23/19 23:02:00 EDT, Dry Weight Start Date: 02/11/20 Status: Ordered ibuprofen 800 mg oral tablet 800 mg, 1, tablet, By Mouth, 3 times a day, PRN, # 30 tablet, Refills 0, Tot. Refills 0, Maintenance, Pain , Moderate, 03/28/20 14:55:00 EDT, Route to Pharmacy Electronically, [facility]/pharmacy #[id number], 162, cm, 02/03/20 14:12:00 EDT, Height, 106, kg, ... Start Date: 03/28/20 Status: Ordered NIFEdipine 30 mg oral tablet, extended release 30 mg, 1, tablet, By Mouth, Daily, # 30 tablet, Refills 3, Tot. Refills 3, Maintenance, 01/03/20 14:11:00 EDT, Route to Pharmacy Electronically, [facility]/pharmacy #[id number], 162, cm, 01/03/20 13:13:00 EDT, Height, 106, kg, 12/23/19 23:02:00 EDT, Dry Weight Start Date: 01/03/20 Status: Ordered Paragard IUD See Instructions, # 1 each, Maintenance, Inserted by Rosa Stokes MD. Lot [id number] Exp November 2025., 02/03/20 11:09:00 EDT, Supply, [...]
--- OUTSIDE RECORDS SUMMARY | 2023-01-15 23:18 | XMS_ITS | Continuity of Care Document ---
Author Name Unknown Organization [facility] Address [address] [place] [address]- Care Team Providers Care Distribution Transformer Assembler Name Role Phone Rukhsana KAHN, Dolores Anderson Primary Care Physician [facility]counter [facility] Date(s): 10/18/19 - 10/25/19 [facility] [address] [place] [address]- [facility] Encounter Diagnosis Shortness of breath due to in second trimester(Discharge Diagnosis) - 10/18/19 Attending Physician: Toby Morel MD Allergies, Adverse Reactions, Alerts Substance Reaction [...] acel(Tdap) 06/13/10 Given 1Result Comment: [04/15/2014] Fluvirax [id number] 2Admin Note: vis given dated 12/25/12 3Admin Note: VIS 7-12 Medications ferrous sulfate 325 mg oral enteric coated tablet 325 mg, 1, tablet, By Mouth, Daily, # 90 tablet, Refills 3, Tot. Refills 3, Maintenance, 10/19/19 16:52:00 EDT, Route to Pharmacy Electronically, [facility]/pharmacy #[id number], 162.56, cm, 10/19/19 13:34:00 EDT, Height, 104.6, kg, 08/24/19 11:36:00 EDT, Dry Weight Start Date: 10/19/19 Status: Ordered Problem List Condition Effective Dates [...] left sided choroid plexus cyst was seen. Diagnosis Diagnosis Type Effective Dates Health Status Cl inical Service Informant Shortness of breath due to in second trimester Discharge Diagnosis 10/18/19 Social History Social History Type Response Smoking Status Never (less than 100 in lifetime); Tobacco user in household: No entered on: 06/14/19 Sex
--- OUTSIDE RECORDS SUMMARY | 2023-01-15 23:18 | XMS_ITS | Continuity of Care Document ---
Author Name Unknown Organization [facility] Address [address] [place] [address]- Care Team Providers Care Health Care Marketing Specialist Name Role Phone Dennis Cardoza DO Primary Care Physician Encounter [facility] Date(s): 03/05/21 - 04/04/21 [facility] [address] [place] [address]- Allergies, Adverse Reactions, Alerts Substance Reaction Severity [...] Vaccine 10/14/14 Given 1Result Comment: [04/15/2014] Fluvirax [id number] 2Admin Note: vis given dated 12/25/12 3Admin [...] Maintenance, Inserted by Rosa Stokes MD. Lot [id number] Exp November 2025., 02/03/20 11:09:00 EDT, Supply, [...]
--- OUTSIDE RECORDS SUMMARY | 2023-01-15 23:18 | XMS_ITS | Continuity of Care Document ---
Author Name Unknown Organization [facility] Address [address] [address]- Care Team Providers Care Assessment Manager Name Role Phone Rukhsana KAHN, Dolores Anderson Primary Care Physician Encounter [facility] [place] Date(s): 07/06/19 - 07/16/19 [facility] [address] [place] [address]- [facility] Attending Physician: Admtr, Oneil Admitting Physician: [...] acel(Tdap) 06/13/10 Given 1Result Comment: [04/15/2014] Fluvirax [id number] 2Admin Note: vis given dated 12/25/12 3Admin Note: VIS 7-12 Medications Keflex monohydrate 500 mg oral capsule 1 capsule = 500 mg, By Mouth, Daily at bedtime, for 30 days, # 30 capsule, 6 Refills, Acute 01/25/20 13:02:00 EDT, 06/29/19 13:02:00 EST, Capsule, [id number], 162.56, cm, 06/29/19 9:45:00 EST, Height, 100.8, kg, 05/12/18 14:51:00 EST, Dry Weight Start Date: 06/29/19 Stop Date: 01/25/20 Status: Ordered [place] 0.65% nasal spray 2 sprays, Nares, Both, [...]
--- OUTSIDE RECORDS SUMMARY | 2023-01-15 23:18 | XMS_ITS | Continuity of Care Document ---
Author Name Unknown Organization [facility] [employer] Address [address] [place] [address], [address] [place] [address]- Care Team Providers Care Security Dispatcher Name Role Phone Dolores Milian MD Primary Care Physician [place] [facility] [place]14[place] - 06/21/19 [facility] [employer] [address] [facility], [address] [place] [address]- Attending Physician: Yadi Lam MD Referring Physician: Dolores Milian MD Allergies, [...] acel(Tdap) 06/13/10 Given 1Result Comment: [04/15/2014] Fluvirax [id number] 2Admin Note: vis given dated 12/25/12 3Admin Note: VIS 7-12 Medications [place] 0.65% nasal spray 2 sprays, Nares, Both, [...] 3Involved the area inferior to her vulva Vital Signs Most recent to oldest [Reference Range]: 1 Height 162.56 cm (06/14/19 9:18 AM) Weight 100 kg (06/14/19 9:18 AM) Body Mass Index [18.5-24.99] 37.84 *>HHI* (06/14/19 9:18 AM) Blood Pressure [90-138/55-84 mm Hg] 115/ 66mm Hg (06/14/19 9:18 AM) Blood pressure sites Arm, left (06/14/19 9:18 AM) Social History Social History Type Response Smoking Status Never (less than 100 in lifetime); Tobacco user in household: No entered on: 06/14/19 Sex
--- OUTSIDE RECORDS SUMMARY | 2023-01-15 23:18 | XMS_ITS | Continuity of Care Document ---
Author Name Unknown Organization [facility] Address [address] [place] [address]- Care Team Providers Care Coat Check Attendant Name Role Phone Cardoza Dennis SYLVESTER Primary Care Physician [facility]counter [facility] Date(s): 03/06/22 - 04/05/22 [facility] [address] [place] [address] Allergies, Adverse Reactions, Alerts No Known Allergies [...] Vaccine 10/14/14 Given 1Result Comment: [04/15/2014] Fluvirax [id number] 2Admin Note: vis given dated 12/25/12 3Admin Note: VIS 7-12 Medications chlorthalidone 25 mg oral tablet 25 mg, 1, tablet, By Mouth, Daily, # 30 tablet, Refills 4, Tot. Refills 4, Maintenance, 12/21/21 10:51:00 EDT, Route to Pharmacy Electronically, [facility]/pharmacy #[id number], Partial fill upon patient request if the prescription is for a schedule II opioid drug... Start Date: 12/21/21 Stop Date: 05/20/22 Status: Ordered Culturee [employer] oral capsule 1 capsule, By Mouth, [...] mL, 0 Refills, Maintenance, 07/19/21 15:37:00 EST, [place], [facility]/pharmacy #[id number], Partial fill upon patient [...] Maintenance, Inserted by Rosa Stokes MD. Lot [id number] Exp November 2025., 02/03/20 11:09:00 EDT, Supply, [...] Personnel Name: Dennis Cardoza DO Address: Address: [address] [place] [address]
--- OUTSIDE RECORDS SUMMARY | 2023-01-15 23:18 | XMS_ITS | Continuity of Care Document ---
Author Name Unknown Organization [facility] Address [address] [place] [address]- Care Team Providers Care Tax Services Professional Name Role Phone Dennis Cardoza DO Primary Care Physician Encounter [facility] Date(s): 08/29/22 - 09/28/22 [facility] [address] [place] [address]- Allergies, Adverse Reactions, Alerts No Known Allergies [...] Vaccine 10/14/14 Given 1Result Comment: [04/15/2014] Fluvirax [id number] 2Admin Note: vis given dated 12/25/12 3Admin Note: VIS 7-12 Medications amoxicillin 500 mg oral tablet 1 tablet = 500 mg, By Mouth, 2 times a day, for 10 days, # 20 tablet, 0 Refills, Acute 09/30/22 20:52:00 EDT, 09/20/22 20:52:00 EDT, Tablet, [facility]/pharmacy #[id number], Partial fill upon patient request if the prescription is for a schedule II opioid drug., 1... Start Date: 09/20/22 Stop Date: 09/30/22 Status: Ordered cetirizine 10 mg oral tablet 1 tablet = 10 mg, By Mouth, Daily, PRN for allergy symptoms, # 10 tablet, 0 Refills, Maintenance, 08/23/22 23:54:00 EDT, Tablet, [facility]/pharmacy #[id number], Partial fill upon patient request if the prescription is for a schedule II opioid drug., 163, cm, 07/03... Start Date: 08/23/22 Status: Ordered chlorthalidone 25 mg oral tablet 1, tablet, By Mouth, Daily, # 30 tablet, Refills 4, Maintenance, 08/04/22 14:51:00 EST, Route to Pharmacy Electronically, [facility] STORE [id number], 163, cm, 07/15/22 14:10:00 EST, Height, 112, kg, 05/16/22 20:17:00 EST, Dry Weight Start Date: 08/04/22 Status: Ordered EpiPen 2-Satya 0.3 mg injectable kit = 0.3 mg, Intramuscular, Once, # 1 pack/packet, 0 Refills, Soft Stop, 08/23/22 23:54:00 EDT, [facility]/pharmacy #[id number], Partial fill upon patient request [...] 3 Refills, Maintenance, 09/16/22 15:26:00 EDT, Tablet, [facility]/pharmacy #[id number], Partial fill upon patient request if the prescription is for a schedule II opioid drug., 163, cm, 08/31... Start Date: 09/16/22 Stop Date: 03/15/23 Status: Ordered Paragard IUD See Instructions, # 1 each, Maintenance, Inserted by Rosa Stokes MD. Lot [id number] Exp November 2025., 02/03/20 11:09:00 EDT, Supply, 162, cm, 01/03/20 13:13:00 EDT, Height, 106, kg, 12/23/19 23:02:00 EDT, Dry Weight Start Date: 02/03/20 Status: Ordered Wellbutrin XL 150 mg/24 hours oral tablet, extended release 1 tablet = 150 mg, By Mouth, Every 24 hours, # 30 tablet, 1 Refills, Maintenance, 09/16/22 15:25:00EDT, ER Tablet, [id number], Partial fill upon patient request if the [...] Team Personnel Name: Dennis Cardoza DO Position: [facility] Resident Member Role: PCP Address: Address: [address] [facility] [place] [address]- Name: Gabbie Vasquez RN Position: [facility] SN RN Member Role: Primary Care Nurse Care Team Related Persons Name: ENRRIQUE BAZZI Address: [place] [address] Name: TREASURE VILLAGRAN Address: home [address] [place] [address] Name: BERRY BURKETT Address: home [address] [address] Name: MARIANGEL JOE Address: [id number] Address: home [address] [address]
--- OUTSIDE RECORDS SUMMARY | 2023-01-15 23:19 | XMS_ITS | Continuity of Care Document ---
Author Name Unknown Organization [facility] [facility] Address [address] [facility], [place] [address]- Care Team Providers Care Director Of Scientific Research Name Role Phone Rukhsana KAHN, Dolores Anderson Primary Care Physician En[facility] [place] Date(s): 07/06/19 - 07/16/19 [facility] [address] [facility], [address] [place] [address]- Attending Physician: Admtr, Ar8 Admitting Physician: AdmtrOneil Referring Physician: Admtr, Ar8 [...] acel(Tdap) 06/13/10 Given 1Result Comment: [04/15/2014] Fluvirax [id number] 2Admin Note: vis given dated 12/25/12 3Admin Note: VIS 7-12 Medications Keflex monohydrate 500 mg oral capsule 1 capsule = 500 mg, By Mouth, Daily at bedtime, for 30 days, # 30 capsule, 6 Refills, Acute 01/25/20 13:02:00 EDT, 06/29/19 13:02:00 EST, [facility]aps[facility], [id number], 162.56, cm, 06/29/19 9:45:00 EST, Height, 100.8, kg, 05/12/18 14:51:00 EST, Dry Weight Start Date: 06/29/19 Stop Date: 01/25/20 Status: Ordered [place] 0.65% nasal spray 2 sprays, Nares, Both, [...]
--- OUTSIDE RECORDS SUMMARY | 2023-01-15 23:19 | XMS_ITS | Continuity of Care Document ---
Author Name Unknown Organization [facility] Address [address] [facility], [address] [place] [address]- Care Team Providers Care Field Sales Executive Name Role Phone Magdalene KAHN, Charmaine Primary Care Physician Encounter [facility] Date(s): 12/31/19 - 01/30/20 [facility] [address] [facility], [address] [place] [address]- [facility] Allergies, Adverse Reactions, Alerts Substance Reaction Severity [...] Vaccine 10/14/14 Given 1Result Comment: [04/15/2014] Fluvirax [id number] 2Admin Note: vis given dated 12/25/12 3Admin [...] Refills, Maintenance, 01/20/20 16:52:00 EDT, Tablet, [facility]/pharmacy #[id number], 162, cm, 01/03/20 13:13:00 EDT, Height, 106, kg, 12/23/19 23:02:00 EDT, Dry Weight Start Date: 01/20/20 Status: Ordered Ibuprofen Refills 0, Maintenance, 01/03/20 13:15:00 EDT Start Date: 01/03/20 Status: Ordered NIFEdipine 30 mg oral tablet, extended release 30 mg, 1, tablet, By Mouth, Daily, # 30 tablet, Refills 3, Tot. Refills 3, Maintenance, 01/03/20 14:11:00 EDT, Route to Pharmacy Electronically, [facility]/pharmacy #[id number], 162, cm, 01/03/20 13:13:00 EDT, Height, 106, kg, 12/23/19 23:02:00 EDT, Dry Weight Start Date: 01/03/20 Status: Ordered sertraline 25 mg oral tablet 1 tablet = 25 mg, By Mouth, Daily, # 30 tablet, 3 Refills, Maintenance, 01/20/20 16:52:00 EDT, Tablet, [facility]/pharmacy #[id number], 162, cm, 01/03/20 13:13:00 EDT, [...]
--- OUTSIDE RECORDS SUMMARY | 2023-01-15 23:19 | XMS_ITS | Continuity of Care Document ---
Author Name Unknown Organization [facility] Address [address] [place] [address]- Care Team Providers Care Dining Chair Seat Cushion Trimmer Name Role Phone Magdalene KAHN, Charmaine Primary Care Physician Encounter [facility] [place] Date(s): 10/13/20 - 11/12/20 [facility] [address] [place], [place] [address] Attending Physician: Oneil Jones Admitting Physician: Admtr, Oneil Referring Physician: Admtr, Ar8 Allergies, Adverse Reactions, [...] Vaccine 10/14/14 Given 1Result Comment: [04/15/2014] Fluvirax [id number] 2Admin Note: vis given dated 12/25/12 3Admin Note: VIS 7-12 Medications acetaZOLAMIDE 250 mg oral tablet 250 mg, 1, tablet, By Mouth, 2 times a day, # 30 tablet, Refills 0, Tot. Refills 0, Maintenance, 08/09/20 19:10:00 EST, Route to Pharmacy Electronically, [facility]/pharmacy #[id number], Partial fill upon patientrequest if the prescription is for a schedule II op... Start Date: 08/09/20 Status: Ordered chlorthalidone 25 mg oral tablet 0.5, tablet, By Mouth, Daily, # 15 tablet, Refills 0, Tot. Refills 0, Maintenance, 09/11/20 12:39:00 EDT, Route to Pharmacy Electronically, [facility] STORE [id number], 163, cm, 08/18/20 13:27:00 EDT, Height, 110, [...] 0 Refills, Maintenance, 02/11/20 14:54:00 EDT, Tablet, [facility]/pharmacy #[id number], 162, cm, 02/03/20 14:12:00 EDT, Height, 106, kg, 12/23/19 23:02:00 EDT, Dry Weight Start Date: 02/11/20 Status: Ordered ibuprofen 800 mg oral tablet 800 mg, 1, tablet, By Mouth, 3 times a day, PRN, # 30 tablet, Refills 0, Tot. Refills 0, Maintenance, Pain , Moderate, 03/28/20 14:55:00 EDT, Route to Pharmacy Electronically, [facility]/pharmacy #[id number], 162, cm, 02/03/20 14:12:00 EDT, Height, 106, kg, ... Start Date: 03/28/20 Status: Ordered NIFEdipine 30 mg oral tablet, extended release 30 mg, 1, tablet, By Mouth, Daily, # 30 tablet, Refills 3, Tot. Refills 3, Maintenance, 01/03/20 14:11:00 EDT, Route to Pharmacy Electronically, [facility]/pharmacy #[id number], 162, cm, 01/03/20 13:13:00 EDT, Height, 106, kg, 12/23/19 23:02:00 EDT, Dry Weight Start Date: 01/03/20 Status: Ordered Paragard IUD See Instructions, # 1 each, Maintenance, Inserted by Rosa Stokes MD. Lot [id number] Exp November 2025., 02/03/20 11:09:00 EDT, Supply, [...]
--- OUTSIDE RECORDS SUMMARY | 2023-01-15 23:19 | XMS_ITS | Continuity of Care Document ---
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 Refills 11, Maintenance, 07/09/22 16:17:00 EST, Route to Pharmacy Electronically, [facility]/pharmacy #[id number], Partial fill upon patient requestif the prescription is for a schedule II opioid brady... Start Date: 07/09/22 Status: Ordered chlorthalidone 25 mg oral tablet 25 mg, 1, tablet, By Mouth, Daily, # 30 tablet, Refills 4, Tot. Refills 4, Maintenance, 12/21/21 10:51:00 EDT, Route to Pharmacy Electronically, [facility]/pharmacy #[id number], Partial fill upon patient request [...] Maintenance, Inserted by Rosa Stokes MD. Lot [id number] Exp November 2025., 02/03/20 11:09:00 EDT, Supply, [...] Care team information Care Team Personnel Name: Cardozamarya SYLVESTER Dennis Position: [facility] Resident Member Role: PCP Address: Address: [address] [place] [address] [place] [address]- Name: Gabbie Vasquez RN Position: [facility] SN RN Member Role: Primary Care Nurse Care Team Related Persons Name: ROSE MARY ENRRIQUE Address: [place] [address] Name: TREASURE VILLAGRAN Address: home [address] [place] [address] Name: BERRY BURKETT Address: [address] [address] Name: MARIANGEL JOE Address: [address] Address: home [address] [address]
--- OUTSIDE RECORDS SUMMARY | 2023-01-15 23:19 | XMS_ITS | Continuity of Care Document ---
Author Name Unknown Organization [facility] ter Address [address] [place] [address]- Care Team Providers Care Stacker Name Role Phone Cardoza Dennis SYLVESTER Primary Care Physician Encounter [facility] Date(s): 08/09/22 - 08/10/[address] [address]- Discharge Disposition: A-D/C Home Attending Physician: Melissa Leonard MD Admitting Physician: Melissa Leonard MD Referring Physician: Not on Staff, Referring [...] Vaccine 10/14/14 Given 1Result Comment: [04/15/2014] Fluvirax [id number] 2Admin Note: vis given dated 12/25/12 3Admin Note: VIS 7-12 Medications amLODIPine 5 mg oral tablet 5 mg, 1, tablet, By Mouth, Daily, # 30 tablet, Refills 11, Tot. Refills 11, Maintenance, 07/09/22 16:17:00 EST, Route to Pharmacy Electronically, [facility]/pharmacy #[id number], Partial fill upon patient requestif the prescription is for a schedule II opioid brady... Start Date: 07/09/22 Status: Ordered chlorthalidone 25 mg oral tablet 1, tablet, By Mouth, Daily, # 30 tablet, Refills 4, Maintenance, 08/04/22 14:51:00 EST, Route to Pharmacy Electronically, [facility] [id number], 163, cm, 07/15/22 14:10:00 EST, Height, 112, [...] 02/19/22 16:04:00 EDT, Route to Pharmacy Electronically, [facility]/pharmacy#[id number], Partial fill upon patient request if the pr... Start Date: 02/19/22 Status: Ordered Paragard IUD See Instructions, # 1 each, Maintenance, Inserted by Rosa Stokes MD. Lot [id number] Exp November 2025., 02/03/20 11:09:00 EDT, Supply, [...] 3 Oxygen Saturation [94-100 %] 100 % (08/10/22 7:32 AM) 100 % (08/10/22 6:00 AM) 99 % (08/10/22 4:00 AM) Pulse Rate [55-90 bpm] 81 bpm (08/10/22 7:32 AM) 89 bpm (08/10/22 6:00 AM) 82 bpm (08/10/22 4:00 AM) Blood Pressure [90-138/55-84 mm Hg] 130/89mm Hg (08/10/22 7:32 AM) 127/82mm Hg (08/10/22 6:00 AM) 127/83mm Hg (08/10/22 4:00 AM) Respiratory Rate [16-30 br/min] 18 br/min (08/10/22 7:32 AM) 18 br/min (08/10/22 6:00 AM) 18 br/min (08/09/22 10:17 PM) Temperature [96.8-100.4 DegF] 98.1 DegF (08/10/22 7:32 AM) 97.7 DegF (08/10/22 3:06 AM) 97.7 DegF (08/10/22 1:11 AM) Mode of Delivery (Oxygen) Room air (08/10/22 7:32 AM) Room air (08/10/22 6:00 AM) Room air (08/10/22 4:00 AM) Blood pressure sites Arm, left (08/10/22 7:32 AM) Arm, left (08/10/22 6:00 AM) Arm, left (08/10/22 4:00 AM) Temperature Route Oral (08/10/22 7:32 AM) Oral (08/10/22 3:06 AM) Oral (08/10/22 1:11 AM) Social History Social History Type Response Smoking Status Never (less than 100 in lifetime); Tobacco user in household: No entered on: 06/14/19 Sex EKG study * Event Display: ECG 12-Lead Authored Date: Please click on pdf link to open report * Event Display: ECG 12-Lead Authored Date: [id number] Ventricular Rate: 86 BPM Atrial Rate: 86 BPM P-R Interval: 152 ms QRS Duration: 78 ms Q-T Interval: 372 ms QTC Calculation(Bazett): 445 ms P [place]: 44 degrees R [place]: 49 degrees T [place]: 40 degrees Normal sinus rhythm Normal ECG When compared with ECG of 16-MAY-2022 20:23, T wave amplitude has increased in Lateral leads Confirmed by ANDRIA ZARATE MD ([id number]) on 08/10/2022 3:39:22 PM Watts: ANDRIA ZARATE MD Patient Care team information Care Team Personnel Name: Dennis Cardoza DO Position: [facility] Resident Member Role: PCP Address: Address: [address] [place] [id number] Name: Pedro YOUSIF, Gabbie Obrien Position: [facility] SN RN Member Role: Primary Care Nurse Name: Ghulam Waite RN Position: [facility] ED RN W/OE and Tasks Member Role: Patient Care Provider Name: Alejandrina Cantu Position: [facility] ED TA [facility] Name: Yves Montano MD Position: [facility] Resident Member Role: ED Resident Address: Address: [address] [place] [id number] Name: Melissa Leonard MD Position: [facility] ED Medicine MD Member Role: Admitting Physician Address: Address: [address] [place] [address] Care Team Related Persons Name: ENRRIQUE BAZZI Address: [place] [address] Name: TREASURE VILLAGRAN Address: home [address] [place] [address] Name: BERRY BURKETT Address: home [address] [address] Name: MARIANGEL JOE Address: [id number] Address: home [address] [address]
--- OUTSIDE RECORDS SUMMARY | 2023-01-15 23:19 | XMS_ITS | Continuity of Care Document ---
Author Name Unknown Organization [facility] Address [address] [place] [address]- Care Team Providers Care Precision Grinder Name Role Phone Dennis Cardoza DO Primary Care Physician [facility]counter [facility] Date(s): 07/19/21 - 08/18/21 [facility] [address] [place] [address]- Allergies, Adverse Reactions, Alerts No Known Allergies [...] Vaccine 10/14/14 Given 1Result Comment: [04/15/2014] Fluvirax [id number] 2Admin Note: vis given dated 12/25/12 3Admin Note: VIS 7-12 Medications chlorthalidone 25 mg oral tablet 1/2 tablet, By Mouth, Daily, TAKE 1/2 TABLET BY MOUTH DAILY, # 15 tablet, Refills 0, Tot. Refills 0, Maintenance, 06/22/21 15:47:00 EST, Route to Pharmacy Electronically, [facility]/pharmacy #[id number], Partial fill upon patient request if the prescription is for... Start Date: 06/22/21 Status: [facility] oral capsule 1 capsule, By Mouth, Daily, for 30 days, # 30 capsule, 11 Refills, Acute 06/30/22 15:54:00 EST, 07/05/21 15:54:00 EST, [facility]/pharmacy #[id number], Partial fill upon patient request if the prescription is fora schedule II opioid drug., 1 capsule By Mouth Jose... Start Date: 07/05/21 Stop Date: 06/30/22 Status: Ordered flunisolide 25 mcg/inh nasal spray 2 puffs, Nares, Both, Daily, # 25 mL, 0 Refills, Maintenance, 07/19/21 15:37:00 EST, [place], [facility]/pharmacy #[id number], Partial fill upon patient request [...] 10:54:00 EDT, Route to Pharmacy Electronically, [facility]/pharmacy #[id number], Partial fill upon patient request if... Start Date: 03/07/21 Status: Ordered Paragard IUD See Instructions, # 1 each, Maintenance, Inserted by Rosa Stokes MD. Lot [id number] Exp November 2025., 02/03/20 11:09:00 EDT, Supply, 162, cm, 01/03/20 13:13:00 EDT, Height, 106, kg, 12/23/19 23:02:00 EDT, Dry Weight Start Date: 02/03/20 Status: Ordered Tylenol Extra Strength 500 mg oral tablet 2 tablet = 1,000 mg, By Mouth, Every 6 hours, PRN as needed for fever, # 24 tablet, 0 Refills, Maintenance, 03/07/21 10:54:00 EDT, Tablet, [facility]/pharmacy #[id number], Partial fill [...]
--- OUTSIDE RECORDS SUMMARY | 2023-01-15 23:19 | XMS_ITS | Continuity of Care Document ---
Author Name Unknown Organization [facility] Address [address] [place] [address]- Care Team Providers Care Technician Plant And Maintenance Name Role Phone Magdalene KAHN, Charmaine Primary Care Physician [facility] Date(s): 07/13/20 - 08/12/20 [facility] [address] [place] [id number] Allergies, Adverse Reactions, Alerts Substance Reaction Severity [...] Vaccine 10/14/14 Given 1Result Comment: [04/15/2014] Fluvirax [id number] 2Admin Note: vis given dated 12/25/12 3Admin Note: VIS 7-12 Medications acetaZOLAMIDE 250 mg oral tablet 250 mg, 1, tablet, By Mouth, 2 times a day, # 30 tablet, Refills 0, Tot. Refills 0, Maintenance, 08/09/20 19:10:00 EST, Route to Pharmacy Electronically, [facility]/pharmacy #[id number], Partial fill upon patientrequest if the prescription [...] 0 Refills, Maintenance, 02/11/20 14:54:00 EDT, Tablet, [facility]/pharmacy #[id number], 162, cm, 02/03/20 14:12:00 EDT, Height, 106, kg, 12/23/19 23:02:00 EDT, Dry Weight Start Date: 02/11/20 Status: Ordered ibuprofen 800 mg oral tablet 800 mg, 1, tablet, By Mouth, 3 times a day, PRN, # 30 tablet, Refills 0, Tot. Refills 0, Maintenance, Pain , Moderate, 03/28/20 14:55:00 EDT, [id number] 162, cm, 02/03/20 14:12:00 EDT, Height, 106, kg, ... Start Date: 03/28/20 Status: Ordered NIFEdipine 30 mg oral tablet, extended release 30 mg, 1, tablet, By Mouth, Daily, # 30 tablet, Refills 3, Tot. Refills 3, Maintenance, 01/03/20 14:11:00 EDT, Route to Pharmacy Electronically, [facility]/pharmacy #[id number], 162, cm, 01/03/20 13:13:00 EDT, Height, 106, kg, 12/23/19 23:02:00 EDT, Dry Weight Start Date: 01/03/20 Status: Ordered Paragard IUD See Instructions, # 1 each, Maintenance, Inserted by Rosa Stokes MD. Lot [id number] Exp November 2025., 02/03/20 11:09:00 EDT, Supply, 162, cm, 01/03/20 13:13:00 EDT, Height, 106, kg, 12/23/19 23:02:00 EDT, Dry Weight Start Date: 02/03/20 Status: Ordered permethrin 5% topical cream 1 application, Topically, Once, # 60 Gm, 0 Refills, Soft Stop, 05/31/20 16:52:00 EST, Cream, [facility]/pharmacy #[id number], Partial fill upon patient request if the prescription is for a schedule II opioid drug., 1 application Topically Once, 162, cm, 05/16/20 1... Start Date: 05/31/20 Status: Ordered sertraline 50 mg oral tablet 1 tablet = 50 mg, By Mouth, Daily, # 90 tablet, 1 Refills, Maintenance, 08/07/20 8:35:00 EST, Tablet, [facility]/pharmacy #[id number], 162, cm, 05/16/20 13:31:00 EST, Height, [...]
--- OUTSIDE RECORDS SUMMARY | 2023-01-15 23:19 | XMS_ITS | Continuity of Care Document ---
Author Name Unknown Organization [facility] Address [address] [place] [address]- Care Team Providers Care Brassiere Cup Mold Cutter Name Role Phone Dennis Cardoza DO Primary Care Physician [phone] [facility]counter [facility] Date(s): 03/07/21 - 04/06/21 [facility] [address] [place] [address]- Allergies, Adverse Reactions, Alerts Substance Reaction Severity [...] Vaccine 10/14/14 Given 1Result Comment: [04/15/2014] Fluvirax [id number] 2Admin Note: vis given dated 12/25/12 3Admin [...] Maintenance, Inserted by Rosa Stokes MD. Lot [id number] Exp November 2025., 02/03/20 11:09:00 EDT, Supply, [...]
--- OUTSIDE RECORDS SUMMARY | 2023-01-15 23:19 | XMS_ITS | Continuity of Care Document ---
Author Name Unknown Organization [facility] Address [address] [place] [address]- Care Team Providers Care Rendering Equipment Tender Name Role Phone Magdalene KAHN, Charmaine Primary Care Physician [facility] Date(s): 05/31/20 - 06/30/20 [facility] [address] [place] [id number] Allergies, Adverse Reactions, Alerts Substance Reaction Severity [...] Vaccine 10/14/14 Given 1Result Comment: [04/15/2014] Fluvirax [id number] 2Admin Note: vis given dated 12/25/12 3Admin [...] 03/28/20 14:55:00 EDT, [id number] 162, cm, 02/03/20 14:12:00 [...] Maintenance, Inserted by Rosa Stokes MD. Lot [id number] Exp November 2025., 02/03/20 11:09:00 EDT, Supply, 162, cm, 01/03/20 13:13:00 EDT, Height, 106, kg, 12/23/19 23:02:00 EDT, Dry Weight Start Date: 02/03/20 Status: Ordered permethrin 5% topical cream 1 application, Topically, Once, # 60 Gm, 0 Refills, Soft Stop, 05/31/20 16:52:00 EST, Cream, [facility]/pharmacy #[id number], Partial fill [...]
--- OUTSIDE RECORDS SUMMARY | 2023-01-15 23:19 | XMS_ITS | Continuity of Care Document ---
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 Role Phone Magdalene KAHN, Charmaine Primary Care Physician [phone] Encounter [facility] Date(s): 01/14/20 - 01/21/20 [facility] [address] [facility], [address] [place] [address]- [facility] Attending Physician: Carole KAHN, Yadi High Referring Physician: Cara Castro MD Allergies, Adverse Reactions, Alerts Substance Reaction [...] Vaccine 10/14/14 Given 1Result Comment: [04/15/2014] Fluvirax [id number] 2Admin Note: vis given dated 12/25/12 3Admin [...] 0 Refills, Maintenance, 01/20/20 16:52:00 EDT, Tablet, [facility]/pharmacy #[id number], 162, cm, 01/03/20 13:13:00 EDT, Height, 106, kg, 12/23/19 23:02:00 EDT, Dry Weight Start Date: 01/20/20 Status: Ordered Ibuprofen Refills 0, Maintenance, 01/03/20 13:15:00 EDT Start Date: 01/03/20 Status: Ordered NIFEdipine 30 mg oral tablet, extended release 30 mg, 1, tablet, By Mouth, Daily, # 30 tablet, Refills 3, Tot. Refills 3, Maintenance, 01/03/20 14:11:00 EDT, Route to Pharmacy Electronically, [facility]/pharmacy #[id number], 162, cm, 01/03/20 13:13:00 EDT, Height, 106, kg, 12/23/19 23:02:00 EDT, Dry Weight Start Date: 01/03/20 Status: Ordered sertraline 25 mg oral tablet 1 tablet = 25 mg, By Mouth, Daily, # 30 tablet, 3 Refills, Maintenance, 01/20/20 16:52:00 EDT, Tablet, [facility]/pharmacy #[id number], 162, cm, 01/03/20 13:13:00 EDT, Height, [...]
--- OUTSIDE RECORDS SUMMARY | 2023-01-15 23:19 | XMS_ITS | Continuity of Care Document ---
Author Name Unknown Organization [facility] ter Address [address] [place] [phone]- Care Team Providers Care Real Time Analyst Name Role Phone Dennis Cardoza DO Primary Care Physician [place] [facility] Date(s): 02/04/22 - 02/05/[address] [address]- Discharge Disposition: A-D/C Home Attending Physician: Jeaneth Escobar DO Admitting Physician: Jeaneth Escobar DO Referring Physician: Not on Staff, Referring [...] Vaccine 10/14/14 Given 1Result Comment: [04/15/2014] Fluvirax [id number] 2Admin Note: vis given dated 12/25/12 3Admin [...] Date: 12/21/21 Stop Date: 05/20/22 Status: Ordered [id number] [facility] oral capsule 1 capsule, By Mouth, [...] mL, 0 Refills, Maintenance, 07/19/21 15:37:00 EST, [place], [id number], Partial fill upon patient request [...] 03/07/21 10:54:00 EDT, Route to Pharmacy Electronically, [facility]/pharmacy #[id number], Partial fill upon patient request if... Start Date: 03/07/21 Status: Ordered Paragard IUD See Instructions, # 1 each, Maintenance, Inserted by Rosa Stokes MD. Lot [id number] Exp November 2025., 02/03/20 11:09:00 EDT, Supply, 162, cm, 01/03/20 13:13:00 EDT, Height, 106, kg, 12/23/19 23:02:00 EDT, Dry Weight Start Date: 02/03/20 Status: Ordered Tylenol Extra Strength 500 mg oral tablet 2 tablet = 1,000 mg, By Mouth, Every 6 hours, PRN as needed for fever, # 24 tablet, 0 Refills, Maintenance, 03/07/21 10:54:00 EDT, Tablet, [facility]/pharmacy #[id number], Partial fill upon patient request if [...] seen. 5Problem added by Discern Expert Results Radiology Reports * Exam Date Time Procedure Performing Provider Status 02/05/22 1:43 AM Chest 2 Views Frontal and Lat Armando Smyth; Auth (Verified) Notes: (Chest 2 Views Frontal and Lat) Reason For Exam: Chest Pain;Other: RESULT: Chest 2 Views Frontal and Lat Chest 2 Views Frontal and Lat Hx of Present Illness: Pt reports that she had sudden onset of left lateral cp vessel captain. Pain sharp in nature, radiated up into shoulder, into left lat neck and into left scapula. Pain presently 6 10- no change with resp's palp movement; no sob; +nausea without vomiting;; Reason: Other:; Chest Pain; Clinical Question(s): Other: COMPARISON: 11/29/2021 FINDINGS: LINES AND TUBES: None. LUNGS AND PLEURA: Clear lungs. Normal pulmonary vascularity. No pleural effusion. No pneumothorax. HEART, MEDIASTINUM AND ZAFAR: Heart is normal in size. Normal upper mediastinal and hilar contour. BONES AND SOFT TISSUES: No acute abnormality. No displaced fractures detected. IMPRESSION: No acute abnormality. WSN: [id number] Ordering Physician: Jeaneth Escobar Dictated By: Karen Castellano MD Dictated Date/Time: 02/05/22 7:07 am Reviewed By: Karen Castellano MD Signed By: Karen Castellano MD Signed Date/Time: 02/05/22 7:07 am Transcribed By: FRANCISCA Transcribed Date/Time: 02/05/22 7:03 am Vital Signs Most recent to oldest [Reference Range]: 1 2 3 Oxygen Saturation [94-100 %] 97 % (02/05/22 4:01 AM) 87 % *L* (02/05/22 2:48 AM) 100 % (02/05/22 12:45 AM) Pulse Rate [55-90 bpm] 95 bpm *H* (02/05/22 2:48 AM) 78 bpm (02/05/22 12:45 AM) 88 bpm (02/05/22 12:10 AM) Blood Pressure [90-138/55-84 mm Hg] 140/71mm Hg *H* (02/05/22 2:48 AM) 119/78mm Hg (02/05/22 12:45 AM) 130/100mm Hg (02/05/22 12:10 AM) Respiratory Rate [16-30 br/min] 18 br/min (02/05/22 12:45 AM) 20 br/min (02/05/22 12:10 AM) Temperature [96.8-100.4 DegF] 98.0 DegF (02/05/22 2:48 AM) 97.9 DegF (02/05/22 12:10 AM) Mode of Delivery (Oxygen) Room air (02/05/22 4:01 AM) Room air (02/05/22 12:45 AM) Room air (02/05/22 12:10 AM) Blood pressure sites Arm, left (02/05/22 2:48 AM) Arm, right (02/05/22 12:45 AM) Arm, right (02/05/22 12:10 AM) Temperature Route Oral (02/05/22 2:48 AM) Oral (02/05/22 12:10 AM) Social History Social History Type Response Smoking Status Never (less than 100 in lifetime); Tobacco user in household: No entered on: 06/14/19 Sex Note * BHSPowerscribe , CIS S: TRANSCRIBE Karen Castellano MD: VERIFY Event Display: Result: Authored Date: Chest 2 Views Frontal and Lat Hx of Present Illness: Pt reports that she had sudden onset of left lateral cp vessel captain. Pain sharp in nature, radiated up into shoulder, into left lat neck and into left scapula. Pain presently 6 10- no change with resp's palp movement; no sob; +nausea without vomiting;; Reason: Other:; Chest Pain; Clinical Question(s): Other: COMPARISON: 11/29/2021 FINDINGS: LINES AND TUBES: None. LUNGS AND PLEURA: Clear lungs. Normal pulmonary vascularity. No pleural effusion. No pneumothorax. HEART, MEDIASTINUM AND ZAFAR: Heart is normal in size. Normal upper mediastinal and hilar contour. BONES AND SOFT TISSUES: No acute abnormality. No displaced fractures detected. IMPRESSION: No acute abnormality. WSN: [id number] Ordering Physician: Jeaneth Escobar Dictated By: Karen Castellano MD Dictated Date/Time: 02/05/22 7:07 am Reviewed By: Karen Castellano MD Signed By: Karen Castellano MD Signed Date/Time: 02/05/22 7:07 am Transcribed By: FRANCISCA Transcribed Date/Time: 02/05/22 7:03 am Care Team Personnel Name: Dennis Cardoza DO Address: [address] [place] [address] [place], [place] [address]
--- OUTSIDE RECORDS SUMMARY | 2023-01-15 23:19 | XMS_ITS | Continuity of Care Document ---
Author Name Unknown Organization [facility] [employer] Address [address] [facility], [address] [place] [address]- Care Team Providers Care Steel Rigger Name Role Phone Rukhsana KAHN, Dolores Anderson Primary Care Physician [place] [facility] Date(s): 11/09/19 - 11/16/19 [facility] [employer] [facility] [address] [facility], [address] [place] [address]- [facility] Attending Physician: Karen Garnett MD Referring Physician: [...] Vaccine 10/14/14 Given 1Result Comment: [04/15/2014] Fluvirax [id number] 2Admin Note: vis given dated 12/25/12 3Admin Note: VIS 7-12 Medications ferrous sulfate 325 mg oral enteric coated tablet 325 mg, 1, tablet, By Mouth, Daily, # 90 tablet, Refills 3, Tot. Refills 3, Maintenance, 10/19/19 16:52:00 EDT, Route to Pharmacy Electronically, [facility]/pharmacy #[id number], 162.56, cm, 10/19/19 13:34:00 EDT, Height, 104.6, kg, 08/24/19 11:36:00 EDT, Dry Weight Start Date: 10/19/19 Status: Ordered Keflex monohydrate 500 mg oral capsule 1 capsule = 500 mg, By Mouth, Daily at bedtime, for 30 days, # 30 capsule, 3 Refills, Acute 02/24/20 11:23:00 EDT, 10/27/19 11:23:00 EDT, [facility]/pharmacy #[id number], 162.56, cm, 10/27/19 11:21:00 [...] gas, 11/15/19 9:31:00 EDT, Route to Pharmacy Electronically,[facility]/pharmacy #[id number], 163, cm, 11/15/19 9:10:00 [...] 0 Refills, Maintenance, 11/15/19 9:30:00 EDT, Tablet, [facility]/pharmacy #[id number], 163, cm, 11/15/19 9:10:00 [...]
--- OUTSIDE RECORDS SUMMARY | 2023-01-15 23:19 | XMS_ITS | Continuity of Care Document ---
Author Name Unknown Organization [facility] Address [address] [place] [address], [address] [place] [address]- Care Team Providers Care Monitoring Engineer Name Role Phone Rukhsana KAHN, Dolores Anderson Primary Care Physician [place] [facility] Date(s): 08/24/19 - 08/31/19 [facility] [address] [facility], [address] [place] [address]- Attending Physician: Zack Shaw MD Referring Physician: [...] acel(Tdap) 06/13/10 Given 1Result Comment: [04/15/2014] Fluvirax [id number] 2Admin Note: vis given dated 12/25/12 3Admin [...] Date: 06/29/19 Stop Date: 01/25/20 Status: Ordered Tylenol 325 mg oral capsule [...]
--- OUTSIDE RECORDS SUMMARY | 2023-01-15 23:19 | XMS_ITS | Continuity of Care Document ---
Author Name Unknown Organization [facility] Address [address] [facility], [address] [place] [address]- Care Team Providers Care Almond Huller Name Role Phone Magdalene KAHN, Charmaine Primary Care Physician [place] [facility] [place] 01/12/20 - 02/11/20 [facility] [address] [facility], [address] [place] [address]- [facility] Allergies, Adverse Reactions, Alerts Substance [...] Vaccine 10/14/14 Given 1Result Comment: [04/15/2014] Fluvirax [id number] 2Admin Note: vis given dated 12/25/12 3Admin [...] Refills, Maintenance, 02/11/20 14:54:00 EDT, Tablet, [facility]/pharmacy #[id number], 162, cm, 02/03/20 14:12:00 EDT, Height, 106, kg, 12/23/19 23:02:00 EDT, Dry Weight Start Date: 02/11/20 Status: Ordered Ibuprofen Refills 0, Maintenance, 01/03/20 13:15:00 EDT Start Date: 01/03/20 Status: Ordered NIFEdipine 30 mg oral tablet, extended release 30 mg, 1, tablet, By Mouth, Daily, # 30 tablet, Refills 3, Tot. Refills 3, Maintenance, 01/03/20 14:11:00 EDT, Route to Pharmacy Electronically, [facility]/pharmacy #[id number], 162, cm, 01/03/20 13:13:00 EDT, Height, 106, kg, 12/23/19 23:02:00 EDT, Dry Weight Start Date: 01/03/20 Status: Ordered Paragard IUD See Instructions, # 1 each, Maintenance, Inserted by Rosa Stokes MD. Lot [id number] Exp November 2025., 02/03/20 11:09:00 EDT, Supply, 162, cm, 01/03/20 13:13:00 EDT, Height, 106, kg, 12/23/19 23:02:00 EDT, Dry Weight Start Date: 02/03/20 Status: Ordered sertraline 50 mg oral tablet 1 tablet = 50 mg, By Mouth, Daily, # 90 tablet, 1 Refills, Maintenance, 02/11/20 14:53:00 EDT, Tablet, [facility]/pharmacy #[id number], 162, cm, 02/03/20 14:12:00 EDT, [...]
--- OUTSIDE RECORDS SUMMARY | 2023-01-15 23:19 | XMS_ITS | Continuity of Care Document ---
Author Name Unknown Organization [facility] Address [address] [place] [address]- Care Team Providers Care Asphalt Heater Operator Name Role Phone Dennis Cardoza DO Primary Care Physician Encounter [facility] Date(s): 08/28/22 - 09/27/22 [facility] [address] [place] [address]- Allergies, Adverse Reactions, Alerts No Known Allergies [...] Vaccine 10/14/14 Given 1Result Comment: [04/15/2014] Fluvirax [id number] 2Admin Note: vis given dated 12/25/12 3Admin Note: VIS 7-12 Medications amoxicillin 500 mg oral tablet 1 tablet = 500 mg, By Mouth, 2 times a day, for 10 days, # 20 tablet, 0 Refills, Acute 09/30/22 20:52:00 EDT, 09/20/22 20:52:00 EDT, Tablet, [facility]/pharmacy #[id number], Partial fill upon patient request if the prescription is for a schedule II opioid drug., 1... Start Date: 09/20/22 Stop Date: 09/30/22 Status: Ordered cetirizine 10 mg oral tablet 1 tablet = 10 mg, By Mouth, Daily, PRN for allergy symptoms, # 10 tablet, 0 Refills, Maintenance, 08/23/22 23:54:00 EDT, Tablet, [facility]/pharmacy #[id number], Partial fill upon patient request if the prescription is for a schedule II opioid drug., 163, cm, 07/03... Start Date: 08/23/22 Status: Ordered chlorthalidone 25 mg oral tablet 1, tablet, By Mouth, Daily, # 30 tablet, Refills 4, Maintenance, 08/04/22 14:51:00 EST, Route to Pharmacy Electronically, [facility] STORE [id number], 163, cm, 07/15/22 14:10:00 EST, Height, 112, kg, 05/16/22 20:17:00 EST, Dry Weight Start Date: 08/04/22 Status: Ordered EpiPen 2-Satya 0.3 mg injectable kit = 0.3 mg, Intramuscular, Once, # 1 pack/packet, 0 Refills, Soft Stop, 08/23/22 23:54:00 EDT, [facility]/pharmacy #[id number], Partial fill upon patient request if [...] 3 Refills, Maintenance, 09/16/22 15:26:00 EDT, Tablet, [facility]/pharmacy #[id number], Partial fill upon patient request if the prescription is for a schedule II opioid drug., 163, cm, 08/31... Start Date: 09/16/22 Stop Date: 03/15/23 Status: Ordered Paragard IUD See Instructions, # 1 each, Maintenance, Inserted by Rosa Stokes MD. Lot [id number] Exp November 2025., 02/03/20 11:09:00 EDT, Supply, 162, cm, 01/03/20 13:13:00 EDT, Height, 106, kg, 12/23/19 23:02:00 EDT, Dry Weight Start Date: 02/03/20 Status: Ordered Wellbutrin XL 150 mg/24 hours oral tablet, extended release 1 tablet = 150 mg, By Mouth, Every 24 hours, # 30 tablet, 1 Refills, Maintenance, 09/16/22 15:25:00EDT, ER Tablet, [id number], Partial fill upon patient request if the [...] Team Personnel Name: Dennis Cardoza DO Position: [facility] Resident Member Role: PCP Address: Address: [address] [facility] [place] [address]- Name: Gabbie Vasquez RN Position: [facility] SN RN Member Role: Primary Care Nurse Care Team Related Persons Name: ENRRIQUE BAZZI Address: [place] [address] Name: TREASURE VILLAGRAN Address: home [address] [place] [address] Name: BERRY BURKETT Address: home [address] [address] Name: MARIANGEL JOE Address: [address] Address: home [address] [address]
--- OUTSIDE RECORDS SUMMARY | 2023-01-15 23:19 | XMS_ITS | Continuity of Care Document ---
Author Name Unknown Organization [facility] [employer] Address [address] [facility], [address] [place] [address]- Care Team Providers Care Supervisor Framing Mill Name Role Phone Magdalene KAHN, [facility] Primary Care Physician [phone] Encounter [facility] Date(s): 12/31/19 - 02/02/20 [facility] [address] [facility], [address]th [place] [address]- [facility] Attending Physician: Yadi Lam MD Referring Physician: [...] Vaccine 10/14/14 Given 1Result Comment: [04/15/2014] Fluvirax [id number] 2Admin Note: vis given dated 12/25/12 3Admin [...] 01/20/20 16:52:00 EDT, Tablet, [facility]/pharmacy #[id number], [...] 01/20/20 16:52:00 EDT, Tablet, [facility]/pharmacy #[id number], [...]
--- OUTSIDE RECORDS SUMMARY | 2023-01-15 23:19 | XMS_ITS | Continuity of Care Document ---
Author Name Unknown Organization [facility] Adult [facility] Address [address] [place] [address]- Care Team Providers Care Bilingual Recruiter Name Role Phone Nani Evitaan Primary Care Physician [phone] Encounter [facility] Date(s): 01/17/21 - 02/16/21 [facility] [address] [place] [id number] Allergies, Adverse Reactions, Alerts Substance Reaction Severity [...] Vaccine 10/14/14 Given 1Result Comment: [04/15/2014] Fluvirax [id number] 2Admin Note: vis given dated 12/25/12 3Admin Note: VIS 7-12 Medications acetaZOLAMIDE 250 mg oral tablet 250 mg, 1, tablet, By Mouth, 2 times a day, # 30 tablet, Refills 0, Tot. Refills 0, Maintenance, 08/09/20 19:10:00 EST, Route to Pharmacy Electronically, [facility]/pharmacy #[id number], Partial fill upon patientrequest if the prescription is for a schedule II op... Start Date: 08/09/20 Status: Ordered chlorthalidone 25 mg oral tablet 0.5, tablet, By Mouth, Daily, # 15 tablet, Refills 0, Tot. Refills 0, Maintenance, 09/11/20 12:39:00 EDT, Route to Pharmacy Electronically, [facility] STORE 32858, 163, cm, 08/18/20 13:27:00 EDT, Height, 110, [...] 0 Refills, Maintenance, 02/11/20 14:54:00 EDT, Tablet, [facility]/pharmacy #[id number], 162, cm, 02/03/20 14:12:00 EDT, Height, 106, kg, 12/23/19 23:02:00 EDT, Dry Weight Start Date: 02/11/20 Status: Ordered ibuprofen 800 mg oral tablet 800 mg, 1, tablet, By Mouth, 3 times a day, PRN, # 30 tablet, Refills 0, Tot. Refills 0, Maintenance, Pain , Moderate, 03/28/20 14:55:00 EDT, Route to Pharmacy Electronically, [facility]/pharmacy #[id number], 162, cm, 02/03/20 14:12:00 EDT, Height, 106, kg, ... Start Date: 03/28/20 Status: Ordered NIFEdipine 30 mg oral tablet, extended release 30 mg, 1, tablet, By Mouth, Daily, # 30 tablet, Refills 3, Tot. Refills 3, Maintenance, 01/03/20 14:11:00 EDT, Route to Pharmacy Electronically, [facility]/pharmacy #[id number], 162, cm, 01/03/20 13:13:00 EDT, Height, 106, kg, 12/23/19 23:02:00 EDT, Dry Weight Start Date: 01/03/20 Status: Ordered Paragard IUD See Instructions, # 1 each, Maintenance, Inserted by Rosa Stokes MD. Lot [id number] Exp November 2025., 02/03/20 11:09:00 EDT, Supply, [...]
--- OUTSIDE RECORDS SUMMARY | 2023-01-15 23:19 | XMS_ITS | Continuity of Care Document ---
Author Name [facility] Address [address] [place] [address]- Care Team Providers Care Senior Hadoop Developer Name Role Phone Dennis Cardoza DO Primary Care Physician [phone] Encounter [facility] Date(s): 11/13/22 - 11/13/[address] [address]- Discharge Disposition: A-D/C Home Attending Physician: Gracie Hardy MD Admitting Physician: Gracie Hardy MD Referring Physician: Not on Staff, Referring [...] Vaccine 10/14/14 Given 1Result Comment: [04/15/2014] Fluvirax [id number] 2Admin Note: vis given dated 12/25/12 3Admin Note: VIS 7-12 Medications cetirizine 10 mg oral tablet 1 tablet = 10 mg, By Mouth, Daily, PRN for allergy symptoms, # 10 tablet, 0 Refills, Maintenance, 08/23/22 23:54:00 EDT, Tablet, [facility]/pharmacy #[id number], Partial fill upon patient request if the prescription is for a schedule II opioid drug., 163, cm, 07/03... Start Date: 08/23/22 Status: Ordered chlorthalidone 25 mg oral tablet 1, tablet, By Mouth, Daily, # 30 tablet, Refills 3, Tot. Refills 3, Maintenance, 10/15/22 10:21:00 EDT, Route to Pharmacy Electronically, [facility]/pharmacy #[id number], 163, cm, 09/21/22 20:45:00 EDT, Height, 116.1, kg, 09/21/22 20:45:00 EDT, Dry Weight Start Date: 10/15/22 Status: Ordered EpiPen 2-Satya 0.3 mg injectable kit = 0.3 mg, Intramuscular, Once, # 1 pack/packet, 0 Refills, Soft Stop, 08/23/22 23:54:00 EDT, [facility]/pharmacy #[id number], Partial fill upon patient [...] Refills, Maintenance, 09/16/22 15:26:00 EDT, Tablet, [facility]/pharmacy #[id number], Partial fill upon patient request if the prescription is for a schedule II opioid drug., 163, cm, 08/31... Start Date: 09/16/22 Stop Date: 03/15/23 Status: Ordered ibuprofen 800 mg oral tablet 800 mg, 1, tablet, By Mouth, 3 times a day, # 90 tablet, Refills 1, Tot. Refills 1, Maintenance, 10/22/22 10:55:00 EDT, Route to Pharmacy Electronically, [facility]/pharmacy #[id number], Partial fill upon patientrequest if the prescription is for a schedule II op... Start Date: 10/22/22 Status: Ordered Paragard IUD See Instructions, # 1 each, Maintenance, Inserted by Rosa Stokes MD. Lot [id number] Exp November 2025., 02/03/20 11:09:00 EDT, Supply, 162, cm, 01/03/20 13:13:00 EDT, Height, 106, kg, 12/23/19 23:02:00 EDT, Dry Weight Start Date: 02/03/20 Status: Ordered SUMAtriptan 50 mg oral tablet 1 tablet = 50 mg, By Mouth, Daily, PRN for migraine headache, may repeat dose after 2 hours up to amaximum of 2, # 18 tablet, 2 Refills, Maintenance, 10/22/22 11:03:00 EDT, Tablet, [facility]/pharmacy #[id number], Partial fill upon patient request if the prescrip... Start Date: 10/22/22 Status: Ordered Wellbutrin XL 150 mg/24 hours oral tablet, extended release 1 tablet = 150 mg, By Mouth, Every 24 hours, # 90 tablet, 3 Refills, Maintenance, 10/22/22 11:06:00EDT, ER Tablet, [facility]/pharmacy #[id number], Partial fill upon patient [...] Range]: 1 2 3 Height 162 cm (11/13/22 2:51 AM) 162 cm (11/13/22 2:43 AM) 162 cm (11/13/22 12:47 AM) Weight 113 kg (11/13/22 2:51 AM) 113 kg (11/13/22 2:43 AM) 113 kg (11/13/22 12:47 AM) Oxygen Saturation [94-100 %] 10 % *L* (11/13/22 12:46 AM) Pulse Rate [55-90 bpm] 78 bpm (11/13/22 12:46 AM) Body Mass Index [18.5-24.99 kg/m2] 43.06 kg/m2 *>HHI* (11/13/22 2:51 AM) 43.06 kg/m2 *>HHI* (11/13/22 2:43 AM) 43.06 kg/m2 *>HHI* (11/13/22 12:46 AM) Blood Pressure [90-138/55-84 mm Hg] 129/79mm Hg (11/13/22 12:46 AM) Respiratory Rate [16-30 br/min] 16 br/min (11/13/22 2:51 AM) 18 br/min (11/13/22 12:46 AM) Temperature [96.8-100.4 DegF] 98.2 DegF (11/13/22 2:51 AM) 97.1 DegF (11/13/22 12:46 AM) Mode of Delivery (Oxygen) Room air (11/13/22 12:46 AM) Blood pressure sites Arm, left (11/13/22 12:46 AM) Temperature Route Oral (11/13/22 2:51 AM) Temporal (11/13/22 12:46 AM) Dry Weight 113 kg (11/13/22 2:51 AM) 113 kg (11/13/22 2:43 AM) 113 kg (11/13/22 12:47 AM) Social History Social History Type Response Smoking Status Never (less than 100 in lifetime); Tobacco user in household: No entered on: 06/14/19 Sex Note * Hayley KAHN, Gracie aBrrios: PERFORM Event Display: Patient Education Leaflets Authored Date: [id number] Blurred Vision ?? [id number] Blurred Vision Blurred vision is when your vision is no longer sharp and you can???t see small details. Any changes in your vision, whether sudden or over time, should be examined by an art therapy specialist. Vision changes can be caused by many things. These include eye diseases, side effects of some medicines, or a condition such as diabetes. Never ignore vision changes. People often think that vision changes occur because they need a change in their glasses. Many people then delay seeing their healthcare provider about their vision changes. But it???s risky to delay care. If left untreated, some eye problems can lead to lasting (permanent) vision loss that can???t be corrected with glasses. This can significantly reduce quality of life. Home care Make changes in your home to reduce the risk of falling: ??? Keep walkways clear of objects you maytrip over. Use nonslip pads under rugs. ??? Brighter lighting in your home may help you see better.??? Don???t walk in poorly lit areas. ??? Be careful when stepping up and down from curbs and walking on uneven sidewalks. ?? Follow-up care Follow up with an art therapy specialist or as advised. There are 2 types of eye care providers you can consult: ??? Racebook Writer. This is a licensed healthcare provider of optometry. Optometrists go to school for 4 years post-college to specialize in primary eye care. They do routine eye exams and can alsodiagnose and treat certain eye diseases. They also prescribe glasses and contact lenses. ??? Bit Tripoler. This is a medical doctor who went to medical school and then specialized in eye care and surgery. Ophthalmologists can diagnose and treat all eye diseases, prescribe medicines, and do eye surgery. They may also prescribe glasses and contact lenses. ?? When to get medical care Call your healthcare provider right away if any of these occur: ??? Sudden change in your vision ??? Eye pain, redness, or discharge from your eyelid ??? Blurriness doesn???t get better, or it gets worse ??? Dark spots in your field of vision ??? Halos around lights ??? Dots or strings (called floaters) moving across your field of vision ??? Sudden flash of light inside your eye ??? Vision dims ??? Part or full vision loss ?? Last Reviewed Date: 2022 ?? [id number] [employer]. All rights reserved. This information is not intended as a substitute for professional medical care. Always follow your healthcare professional's instructions. ?? * Cerone MD, Gracie Barrios: PERFORM Event Display: Patient Education Leaflets Authored Date: [id number] Paresthesia ?? [id number] Paresthesia Paresthesia is a burning or prickling feeling that's sometimes felt in the hands, arms, legs or feet. It can also occur in other parts of the body. It can also feel like tingling or numbness, skin crawling, or itching. The feeling is not comfortable, but it's not painful. (The pins and needles feeling that happens when a foot or hand falls asleep is a temporary paresthesia.) Paresthesias that last or come and go may be caused by medical issues that need to be treated. These include stroke, a bulging disk pressing on a nerve, a trapped nerve, vitamin deficiencies, uncontrolled diabetes, alcohol abuse, or even certain medicines. Tests are often done. These tests may include blood tests, X-ray, CT scan, nerve conduction studies(NCS), or a muscle test (electromyography). Depending on the cause, treatment may include physical therapy. Home care ??? Tell your healthcare provider about all medicines you take. This includes prescription and zuuu-vpt-[id number] medicines, vitamins, and herbs. Ask if any of the medicines may be causing your problems. Don't make any changes to prescription medicines without talking to your healthcare provider first. ??? You may be prescribed medicines to help relieve the tingling feeling or for pain. Take all medicines as directed. ??? A numb hand or foot may be more prone to injury. To help protect it: o Always use oven mitts. o Test water with an unaffected hand or foot. o Use caution when trimming nails. File sharp areas. o Wear shoes that fit well to avoid pressure points, blisters, and ulcers. o Inspect your hands and feet carefully (including the soles of your feet and between your toes) daily. If you see red areas, sores, or other problems, tell your healthcare provider. ?? Follow-up care Follow up with your healthcare provider, or as advised. You may need more testing or evaluation. ?? When to get medical advice Call your healthcare provider right away if any of these occur: ??? Numbness or weakness of the face, one arm, or one leg ??? Slurred speech, confusion, trouble speaking, walking, or seeing ??? Severe headache, fainting spell, dizziness, or seizure ??? Chest, arm, neck, or upper back pain ??? Loss of bladder or bowel control ??? Open wound with redness, swelling, or pus ?? Last Reviewed Date: 2021 ?? [id number] [employer]. All rights reserved. This information is not intended as a substitute for professional medical care. Always follow your healthcare professional's instructions. ?? Patient Care team information Care Team Personnel Name: Dennis Cardoza DO Position: [facility] Resident Member Role: PCP Address: Address: [address] [place] [address] [place] [address]- Name: Pedro YOUSIF, Gabbie Obrien Position: [facility] SN RN Member Role: Primary Care Nurse Name: Hayley KAHN, Gracie Barrios Position: [facility] ED Medicine MD Member Role: ED Attending Physician Address: Address: [address] [place] [id number] Name: Claire Suarez Position: [facility] ED OA Member Role: ED Associate Name: Sampson Alanis RN Position: [facility] ED RN W/OE and Tasks Member Role: Patient Care Provider Care Team Related Persons Name: ENRRIQUE BAZZI Address: [place] [address] Name: TREASURE VILLAGRAN Address: home [address] [place] [address] Name: BERRY BURKETT Address: home [address] [address] Name: MARIANGEL JOE Address: [address] Address: home [address] [address]
--- OUTSIDE RECORDS SUMMARY | 2023-01-15 23:19 | XMS_ITS | Continuity of Care Document ---
Author Name Unknown Organization [facility] Address [address] [facility], [address] [place] [address]- Care Team Providers Care Compensation And Benefits Manager Name Role Phone Magdalene KAHN, kenton Primary Care Physician Encounter [facility] Date(s): 02/03/20 - 02/10/20 [facility] [address] [facility] [place] [address] Attending Physician: Divya KAHN, Erick Bradshaw Referring Physician: Karen Garnett MD Allergies, Adverse [...] Vaccine 10/14/14 Given 1Result Comment: [04/15/2014] Fluvirax [id number] 2Admin Note: vis given dated 12/25/12 3Admin [...] 14:11:00 EDT, Route to Pharmacy Electronically, [facility]/pharmacy #[id number], 162, cm, 01/03/20 13:13:00 EDT, Height, 106, kg, 12/23/19 23:02:00 EDT, Dry Weight Start Date: 01/03/20 Status: Ordered Paragard IUD See Instructions, # 1 each, Maintenance, Inserted by Rosa Stokes MD. Lot [id number] Exp November 2025., 02/03/20 11:09:00 EDT, Supply, 162, cm, 01/03/20 13:13:00 EDT, Height, 106, kg, 12/23/19 23:02:00 EDT, Dry Weight Start Date: 02/03/20 Status: Ordered sertraline 25 mg oral tablet 1 tablet = 25 mg, By Mouth, Daily, # 30 tablet, 3 Refills, Maintenance, 01/20/20 16:52:00 EDT, Tablet, [facility]/pharmacy #[id number], 162, cm, 01/03/20 13:13:00 EDT, Height, [...] recent to oldest [Reference Range]: 1 Height 162 cm (02/03/20 2:12 PM) Weight 97.1 kg (02/03/20 2:12 PM) Body Mass Index [18.5-24.99] 37 *>HHI* (02/03/20 2:12 PM) Blood Pressure [90-138/55-84 mm Hg] 142/ 72mm Hg *H* (02/03/20 2:12 PM) Blood pressure sites Arm, right (02/03/20 2:12 PM) Weight Obtained Via Standing scale (02/03/20 2:12 PM) Social History Social History Type Response Smoking Status Never (less than 100 in lifetime); Tobacco user in household: No entered on: 06/14/19 Sex
--- OUTSIDE RECORDS SUMMARY | 2023-01-15 23:19 | XMS_ITS | Continuity of Care Document ---
Author Name Unknown Organization [facility] Adult Medicine Address [address] [place] [address]- Care Team Providers Care Interactive Media Specialist Name Role Phone Magdalene KAHN, Charmaine Primary Care Physician [phone] [facility] Date(s): 05/16/20 - 06/15/20 [facility] [address] [place] [id number] Attending Physician: Admtr, Oneil Admitting Physician: AdmtrOneil [...] Vaccine 10/14/14 Given 1Result Comment: [04/15/2014] Fluvirax [id number] 2Admin Note: vis given dated 12/25/12 3Admin [...] 03/28/20 14:55:00 EDT, [id number] 162, cm, 02/03/20 14:12:00 EDT, Height, [...] Maintenance, Inserted by Rosa Stokes MD. Lot [id number] Exp November 2025., 02/03/20 11:09:00 EDT, Supply, 162, cm, 01/03/20 13:13:00 EDT, Height, 106, kg, 12/23/19 23:02:00 EDT, Dry Weight Start Date: 02/03/20 Status: Ordered permethrin 5% topical cream 1 application, Topically, Once, # 60 Gm, 0 Refills, Soft Stop, 05/31/20 16:52:00 EST, Cream, [facility]/pharmacy #[id number], Partial fill upon patient request [...]
--- OUTSIDE RECORDS SUMMARY | 2023-01-15 23:19 | XMS_ITS | Continuity of Care Document ---
Author Name Unknown Organization [facility] Address [address] [place] [address], [address] [place] [address]- Care Team Providers Care Mica Spreader Name Role Phone Rukhsana KAHN, Dolores Anderson Primary Care Physician Encounter [facility] Date(s): 10/19/19 - 10/26/19 [facility] [address] [facility] [place] [address]- [facility] Attending Physician: Yadi Lam MD Allergies, Adverse Reactions, [...] acel(Tdap) 06/13/10 Given 1Result Comment: [04/15/2014] Fluvirax [id number] 2Admin Note: vis given dated 12/25/12 3Admin Note: VIS 7-12 Medications ferrous sulfate 325 mg oral enteric coated tablet 325 mg, 1, tablet, By Mouth, Daily, # 90 tablet, Refills 3, Tot. Refills 3, Maintenance, 10/19/19 16:52:00 EDT, Route to Pharmacy Electronically, [facility]/pharmacy #[id number], 162.56, cm, 10/19/19 13:34:00 EDT, Height, 104.6, [...] oldest [Reference Range]: 1 Height 162.56 cm (10/19/19 1:34 PM) Weight 104.4 kg (10/19/19 1:34 PM) Body Mass Index [18.5-24.99] 39.51 *>HHI* (10/19/19 1:34 PM) Blood Pressure [90-138/55-84 mm Hg] 110/ 66mm Hg (10/19/19 1:34 PM) Blood pressure sites Arm, right (10/19/19 1:34 PM) Weight Obtained Via Standing scale (10/19/19 1:34 PM) Social History Social History Type Response Smoking Status Never (less than 100 in lifetime); Tobacco user in household: No entered on: 06/14/19 Sex
--- OUTSIDE RECORDS SUMMARY | 2023-01-15 23:19 | XMS_ITS | Continuity of Care Document ---
Author Name Unknown Organization [facility] Address [address] [place] [address]- Care Team Providers Care Lead Fire Protection Engineer Name Role Phone Dennis Cardoza DO Primary Care Physician [phone] Encounter [facility] Date(s): 05/14/22 - 06/21/22 [facility] [address] [place] [address]- Attending Physician: David Gordillo MD Admitting Physician: [...] Vaccine 10/14/14 Given 1Result Comment: [04/15/2014] Fluvirax [id number] 2Admin Note: vis given dated 12/25/12 3Admin [...] Date: 12/21/21 Stop Date: 05/20/22 Status: Ordered ContorionSynapt[employer] oral capsule 1 capsule, By Mouth, [...] mL, 0 Refills, Maintenance, 07/19/21 15:37:00 EST, [place], [id number], Partial fill upon patient request [...] Date: 12/18/21 Stop Date: 03/18/22 Status: Ordered ibuprofen 600 mg oral tablet [...] 02/19/22 16:04:00 EDT, Route to Pharmacy Electronically, [facility]/pharmacy#[id number], Partial fill upon patient request if the pr... Start Date: 02/19/22 Status: Ordered Paragard IUD See Instructions, # 1 each, Maintenance, Inserted by Rosa Stokes MD. Lot [id number] Exp November 2025., 02/03/20 11:09:00 EDT, Supply, 162, cm, 01/03/20 13:13:00 EDT, Height, 106, kg, 12/23/19 23:02:00 EDT, Dry Weight Start Date: 02/03/20 Status: Ordered Paxlovid 150 mg-100 mg oral tablet See Instructions, 300mg nirmatrelvir (two 150mg tablets) with 100mg ritonavir (one tablet). All 3 tablets taken together twice daily for 5 days, with or without food. Dispense: 30 tablets, # 30 tablet, 0 Refills, Maintenance, 04/29/22 5:09:00 EST, C... Start Date: 04/29/22 Status: Ordered Tylenol Extra Strength 500 mg oral tablet 2 tablet = 1,000 mg, By Mouth, Every 6 hours, PRN as needed for fever, # 24 tablet, 0 Refills, Maintenance, 03/07/21 10:54:00 EDT, Tablet, [facility]/pharmacy #[id number], Partial fill upon patient request if theprescription [...] Confirmed Active COVID-19 3 Confirmed 04/29/22 Active Size>dates (34 cm at 24 weeks) Confirmed Active Fatigue Confirmed Active Mild bilateral intracranial ventriculomegaly on ultrasound. Right subsequently resolved. Left ventricle 12.9 mm (normal <10 mm) [ ] head ultrasound prior to discharge of baby 4, 5 Confirmed Active Genital herpes simplex 6 Confirmed 12/23/19 Active High risk , antepartum Confirmed Active Migraines Confirmed Active Obesity Confirmed Active Severe obesity Confirmed Active 1was seeing therapist, not now, states anxiety is controlled. 2States gets them sanaz 2-3 months 3Problem added by Discern Expert 4MFM consult to be done at 32 week scan November 18 at 10:30 5Mild bilateral intracranial ventriculomegaly is seen. The right and left ventricle measured 10-11 mm (normal is < 10mm). A left sided choroid plexus cyst was seen. 6Problem added by Discern Expert Social History Social History Type Response Smoking Status Never (less than 100 in lifetime); Tobacco user in household: No entered on: 06/14/19 Sex Patient Care team information Care Team Personnel Name: Dennis Cardoza DO Position: [facility] Resident Member Role: PCP Address: Address: [address] [place] [address] [place] [address]- Name: Gabbie Vasquez RN Position: [facility] SN RN Member Role: Primary Care Nurse Care Team Related Persons Name: ENRRIQUE BAZZI Address: [place] [address] Name: TREASURE VILLAGRAN Address: home [address] [place] [address] Name: BERRY BURKETT Address: home [address] [address] Name: MARIANGEL JOE Address: [address] Address: home [address] [address]
--- OUTSIDE RECORDS SUMMARY | 2023-01-15 23:19 | XMS_ITS | Continuity of Care Document ---
Author Name Unknown Organization [facility] Address [address] [place] [address]- Care Team Providers Care Microsoft Access Developer Name Role Phone Dennis Cardoza DO Primary Care Physician [facility]counter [facility] Date(s): 02/14/21 - 03/16/21 [facility] [address] [place] [address]- Allergies, Adverse Reactions, Alerts Substance Reaction Severity [...] Vaccine 10/14/14 Given 1Result Comment: [04/15/2014] Fluvirax [id number] 2Admin Note: vis given dated 12/25/12 3Admin [...] 03/07/21 10:54:00 EDT, Route to Pharmacy Electronically, [facility]/pharmacy #[id number], Partial fill upon patient request if... Start Date: 03/07/21 Status: Ordered ipratropium nasal 21 mcg/inh spray 2 sprays, Nares, Both, 2 times a day, for 14 days, # 30 mL, 0 Refills, Acute 03/21/21 10:53:00 EDT,03/07/21 10:53:00 EDT, [place], [facility]/pharmacy #[id number], Partial fill upon patient request if the prescription is for a schedule II opioid drug., 2 sprays Roderick... Start Date: 03/07/21 Stop Date: 03/21/21 Status: Ordered Paragard IUD See Instructions, # 1 each, Maintenance, Inserted by Rosa Stokes MD. Lot [id number] Exp November 2025., 02/03/20 11:09:00 EDT, Supply, 162, cm, 01/03/20 13:13:00 EDT, Height, 106, kg, 12/23/19 23:02:00 EDT, Dry Weight Start Date: 02/03/20 Status: Ordered Tylenol Extra Strength 500 mg oral tablet 2 tablet = 1,000 mg, By Mouth, Every 6 hours, PRN as needed for fever, # 24 tablet, 0 Refills, Maintenance, 03/07/21 10:54:00 EDT, Tablet, [facility]/pharmacy #[id number], Partial fill upon patient [...]
--- OUTSIDE RECORDS SUMMARY | 2023-01-15 23:19 | XMS_ITS | Continuity of Care Document ---
Author Name Unknown Organization [facility] Address [address] [place] [address]- Care Team Providers Care Doughnut Icer Machine Name Role Phone Magdalene KAHN, Charmaine Primary Care Physician Encounter [facility] [place] Date(s): 12/29/19 - 12/29/[address] [address]- [facility] Encounter Diagnosis Pre-eclampsia in puerperium(Discharge Diagnosis) - 12/29/19 Discharge Disposition: A-D/C Home Attending Physician: Karen Garnett MD Admitting Physician: Karen Garnett MD Referring Physician: Karen Garnett MD Allergies, Adverse [...] Vaccine 10/14/14 Given 1Result Comment: [04/15/2014] Fluvirax [id number] 2Admin Note: vis given dated 12/25/12 3Admin Note: VIS 7-12 Medications Dispense 1 blood pressure cuff for monitoring BP daily and as needed. Dispense 1 blood pressure cuff for monitoring BP daily and as needed., See Instructions, # 1 each, Refills 0, Tot. Refills 0, Maintenance, Diagnosis: preeclampsia with severe features (O14.13), 12/28/19 12:03:00 EDT, Supply, Dry Weight Start Date: 12/28/19 Status: Ordered docusate sodium 100 mg oral capsule 1 capsule = 100 mg, By Mouth, 2 times a day, PRN as needed for constipation, # 60 capsule, 0 Refills, Maintenance, 12/27/19 6:34:00 EDT, Capsule, [facility]/pharmacy #[id number], 162, cm, 12/25/19 9:37:00 EDT, Height, 106, kg, 12/23/19 23:02:00 EDT, Dry Weight Start Date: 12/27/19 Status: Ordered ferrous sulfate 325 mg oral enteric coated tablet 325 mg, 1, tablet, By Mouth, Daily, # 90 tablet, Refills 3, Tot. Refills 3, Maintenance, 10/19/19 16:52:00 EDT, Route to Pharmacy Electronically, [facility]/pharmacy #[id number], 162.56, cm, 10/19/19 13:34:00 EDT, Height, 104.6, kg, 08/24/19 11:36:00 EDT, Dry Weight Start Date: 10/19/19 Status: Ordered ibuprofen 600 mg oral tablet 600 mg, 1, tablet, By Mouth, Every 6 hours, PRN, # 30 tablet, Refills 1, Tot. Refills 1, Acute 01/01/20 6:34:00 EDT, Pain , Moderate, 12/27/19 6:34:00 EDT, Route to Pharmacy Electronically, [facility]/pharmacy #[id number], 162, cm, 12/25/19 9:37:00 EDT, Height, 10... Start Date: 12/27/19 Stop Date: 01/01/20 Status: Ordered Tylenol 325 mg oral capsule 2 capsule = 650 mg, By Mouth, Every 4 hours, PRN as needed for pain, # 60 capsule, 1 Refills, Acute01/08/20 6:34:00 EDT, 12/27/19 6:34:00 EDT, Capsule, [facility]/pharmacy #[id number], 162, cm, 12/25/19 9:37:00 EDT, [...] was seen. 5Problem added by Discern Expert Diagnosis Diagnosis Type Effective Dates Health Status Clinical Service Informant Pre-eclampsia in puerperium Discharge Diagnosis 12/29/19 Vital Signs Most recent to oldest [Reference Range]: 1 2 3 Weight 101.3 kg (12/29/19 7:58 PM) Oxygen Saturation [94-100 %] 98 % (12/29/19 8:18 PM) 100 % (12/29/19 7:58 PM) Pulse Rate [55-90 bpm] 71 bpm (12/29/19 7:58 PM) Blood Pressure [90-138/55-84 mm Hg] 145/89mm Hg *H* (12/29/19 8:47 PM) 145/96mm Hg *H* (12/29/19 8:34 PM) 145/91mm Hg *H* (12/29/19 8:18 PM) Respiratory Rate [16-30 br/min] 16 br/min (12/29/19 7:58 PM) Temperature [96.8-100.4 DegF] 98.5 DegF (12/29/19 7:58 PM) Mode of Delivery (Oxygen) Room air (12/29/19 7:58 PM) Blood pressure sites Arm, right (12/29/19 8:47 PM) Arm, right (12/29/19 8:34 PM) Arm, right (12/29/19 8:18 PM) Temperature Route Oral (12/29/19 7:58 PM) Weight Obtained Via Standing scale (12/29/19 7:58 PM) Social History Social History Type Response Smoking Status Never (less than 100 in lifetime); Tobacco user in household: No entered on: 06/14/19 Sex
--- OUTSIDE RECORDS SUMMARY | 2023-01-15 23:20 | XMS_ITS | Continuity of Care Document ---
Author Name Unknown Organization [facility] [employer] Address [address] [place] [address]- Care Team Providers Care Junior Software Engineer Name Role Phone Dennis Cardoza DO Primary Care Physician [phone] [place] [facility] [place]02[place]22 - 01/03/23 [facility] [facility] [address] [place], [place] [address] Attending Physician: Yadi Lam MD Referring Physician: [...] Vaccine 10/14/14 Given 1Result Comment: [04/15/2014] Fluvirax [id number] 2Admin Note: vis given dated 12/25/12 3Admin Note: VIS 7-12 Medications cetirizine 10 mg oral tablet 1 tablet = 10 mg, By Mouth, Daily, PRN for allergy symptoms, # 10 tablet, 0 Refills, Maintenance, 08/23/22 23:54:00 EDT, Tablet, [facility]/pharmacy #[id number], Partial fill upon patient request if the prescription is for a schedule II opioid drug., 163, cm, 07/03... Start Date: 08/23/22 Status: Ordered chlorthalidone 25 mg oral tablet 1, tablet, By Mouth, Daily, # 30 tablet, Refills 3, Tot. Refills 3, Maintenance, 10/15/22 10:21:00 EDT, Route to Pharmacy Electronically, [facility]/pharmacy #[id number], 163, cm, 09/21/22 20:45:00 EDT, Height, 116.1, kg, 09/21/22 20:45:00 EDT, Dry Weight Start Date: 10/15/22 Status: Ordered Diflucan 150 mg oral tablet 1 tablet = 150 mg, By Mouth, Once, # 1 tablet, 0 Refills, Soft Stop, 12/06/22 15:53:00 EDT, [facility]/pharmacy #[id number], Partial fill upon patient request if the prescription is for a schedule II opioid drug., 163, cm, 12/03/22 23:57:00 EDT, Height, 109, kg, 0... Start Date: 12/06/22 Status: Ordered EpiPen 2-Satya 0.3 mg injectable kit = 0.3 mg, Intramuscular, Once, # 1 pack/packet, 0 Refills, Soft Stop, 08/23/22 23:54:00 EDT, [facility]/pharmacy #[id number], Partial fill upon [...] tablet, 0 Refills, Maintenance, 12/20/22 6:07:00EDT, Tablet, [facility]/pharmacy #[id number], Partial fill upon... Start [...] Maintenance, Inserted by Rosa Stokes MD. Lot [id number] Exp November 2025., 02/03/20 11:09:00 EDT, Supply, [...] Team Personnel Name: Dennis Cardoza DO Position: [facility] Resident Member Role: PCP Address: Address: [address] [place] [address] Adult [place], [place] [address] Name: Gabbie Vasquez RN Position: [facility] SN RN Member Role: Primary Care Nurse Care Team Related Persons Name: ENRRIQUE BAZZI Address: [place] [address] Name: TREASURE VILLAGRAN Address: home [address] [place] [address] Name: BERRY BURKETT Address: home [address] [address] Name: MARIANGEL JOE Address: [address] Address: home [address] [address]
--- OUTSIDE RECORDS SUMMARY | 2023-01-15 23:20 | XMS_ITS | Continuity of Care Document ---
Author Name Unknown Organization [facility] Address [address] [place] [address]- Care Team Providers Care General Practice Name Role Phone Dennis Cardoza DO Primary Care Physician [facility]counter [facility] Date(s): 02/23/21 - 03/25/21 [facility] [address] [place] [address]- Allergies, Adverse Reactions, Alerts Substance Reaction Severity [...] Vaccine 10/14/14 Given 1Result Comment: [04/15/2014] Fluvirax [id number] 2Admin Note: vis given dated 12/25/12 3Admin [...] Maintenance, Inserted by Rosa Stokes MD. Lot [id number] Exp November 2025., 02/03/20 11:09:00 EDT, Supply, [...]
--- OUTSIDE RECORDS SUMMARY | 2023-01-15 23:20 | XMS_ITS | Continuity of Care Document ---
Author Name Unknown Organization [facility] Address [address] [address]- Care Team Providers Care Sales Representative Printing Paper Name Role Phone Rukhsana KAHN, Dolores Anderson Primary Care Physician Encounter [facility] [place] Date(s): 06/14/19 - 07/24/19 [facility] [address] [address]- [facility] Attending Physician: Not on Staff, Attending MD Referring Physician: Carole KAHN, Yadi High Allergies, Adverse [...] acel(Tdap) 06/13/10 Given 1Result Comment: [04/15/2014] Fluvirax [id number] 2Admin Note: vis given dated 12/25/12 3Admin [...] Date: 06/29/19 Stop Date: 01/25/20 Status: Ordered Brewster 0.65% nasal spray 2 sprays, Nares, Both, [...]
--- OUTSIDE RECORDS SUMMARY | 2023-01-15 23:20 | XMS_ITS | Continuity of Care Document ---
Author Name Unknown Organization [facility] Address [address] [place] [address]- Care Team Providers Care Property Portfolio Officer Name Role Phone Magdalene KAHN, kenton Primary Care Physician Encounter [facility] Date(s): 01/03/20 - 02/02/20 [facility] [address] [place] [address]- [facility] Allergies, Adverse Reactions, Alerts Substance Reaction [...] Vaccine 10/14/14 Given 1Result Comment: [04/15/2014] Fluvirax [id number] 2Admin Note: vis given dated 12/25/12 3Admin [...] 0 Refills, Maintenance, 01/20/20 16:52:00 EDT, Tablet, [facility]/pharmacy #[id number], 162, cm, 01/03/20 13:13:00 EDT, Height, 106, kg, 12/23/19 23:02:00 EDT, Dry Weight Start Date: 01/20/20 Status: Ordered Ibuprofen Refills 0, Maintenance, 01/03/20 13:15:00 EDT Start Date: 01/03/20 Status: Ordered NIFEdipine 30 mg oral tablet, extended release 30 mg, 1, tablet, By Mouth, Daily, # 30 tablet, Refills 3, Tot. Refills 3, Maintenance, 01/03/20 14:11:00 EDT, Route to Pharmacy Electronically, [facility]/pharmacy #[id number], 162, cm, 01/03/20 13:13:00 EDT, Height, 106, kg, 12/23/19 23:02:00 EDT, Dry Weight Start Date: 01/03/20 Status: Ordered sertraline 25 mg oral tablet 1 tablet = 25 mg, By Mouth, Daily, # 30 tablet, 3 Refills, Maintenance, 01/20/20 16:52:00 EDT, Tablet, [facility]/pharmacy #[id number], 162, cm, 01/03/20 13:13:00 EDT, [...]
--- OUTSIDE RECORDS SUMMARY | 2023-01-15 23:20 | XMS_ITS | Continuity of Care Document ---
Author Name Unknown Organization [facility] Address [address] [place] [address], [address] [place] [address]- Care Team Providers Care Gas Main And Line Fitter Name Role Phone Rukhsana KAHN, Dolores Anderson Primary Care Physician [place] [facility] [place]): [place] 11/03/19 [facility] [employer] [facility] [address] [facility] [place] [address]- [facility] Attending Physician: Priti KAHN, Lyudmila High Referring Physician: Kang Whaley MD Allergies, Adverse [...] Vaccine 10/14/14 Given 1Result Comment: [04/15/2014] Fluvirax [id number] 2Admin Note: vis given dated 12/25/12 3Admin Note: VIS 7-12 Medications ferrous sulfate 325 mg oral enteric coated tablet 325 mg, 1, tablet, By Mouth, Daily, # 90 tablet, Refills 3, Tot. Refills 3, Maintenance, 10/19/19 16:52:00 EDT, Route to Pharmacy Electronically, [facility]/pharmacy #[id number], 162.56, cm, 10/19/19 13:34:00 EDT, Height, 104.6, kg, 08/24/19 11:36:00 EDT, Dry Weight Start Date: 10/19/19 Status: Ordered Keflex monohydrate 500 mg oral capsule 1 capsule = 500 mg, By Mouth, Daily at bedtime, for 30 days, # 30 capsule, 3 Refills, Acute 02/24/20 11:23:00 EDT, 10/27/19 11:23:00 EDT, [facility]/pharmacy #[id number], 162.56, cm, 10/27/19 11:21:00 EDT, Height, 104.6, kg, 08/24/19 11:36:00 EDT, Dry Weight Start Date: 10/27/19 Stop Date: 02/24/20 Status: Ordered Tylenol 8 Hour 650 mg oral tablet, extended release 2 tablet = 1,300 mg, By Mouth, Every 8 hours, 0 Refills, Maintenance, 10/27/19 11:21:00 EDT Start Date: 10/27/19 Status: Ordered Zofran 4 mg oral tablet 1 tablet = 4 mg, By Mouth, Every 6 hours, PRN Nausea & Vomiting, # 5 tablet, 0 Refills, Maintenance, 10/30/19 13:14:00 EDT, Tablet, [facility]/pharmacy #[id number], 163, cm, 10/30/19 11:03:00 EDT, Height, 104.6, kg, 08/24/19 11:36:00 EDT, Dry Weight Start Date: 10/30/19 Status: Ordered Problem List Condition Effective Dates [...] oldest [Reference Range]: 1 Height 162.56 cm (10/27/19 11:21 AM) Weight 106 kg (10/27/19 11:21 AM) Body Mass Index [18.5-24.99] 40.11 *>HHI* (10/27/19 11:21 AM) Blood Pressure [90-138/55-84 mm Hg] 128/ 67mm Hg (10/27/19 11:21 AM) Blood pressure sites Arm, right (10/27/19 11:21 AM) Weight Obtained Via Standing scale (10/27/19 11:21 AM) Social History Social History Type Response Smoking Status Never (less than 100 in lifetime); Tobacco user in household: No entered on: 06/14/19 Sex
--- OUTSIDE RECORDS SUMMARY | 2023-01-15 23:20 | XMS_ITS | Continuity of Care Document ---
Author Name Unknown Organization [facility] Address [address] [place] [address]- Care Team Providers Care Cd Mixer Name Role Phone Dennis Cardoza DO Primary Care Physician [phone] [place] [facility] [place]22 - 11/03/22 [facility] [address] [place] [address]- Attending Physician: David Gordillo MD Admitting Physician: [...] Vaccine 10/14/14 Given 1Result Comment: [04/15/2014] Fluvirax [id number] 2Admin Note: vis given dated 12/25/12 3Admin Note: VIS 7-12 Medications cetirizine 10 mg oral tablet 1 tablet = 10 mg, By Mouth, Daily, PRN for allergy symptoms, # 10 tablet, 0 Refills, Maintenance, 08/23/22 23:54:00 EDT, Tablet, [facility]/pharmacy #[id number], Partial fill upon patient request if the prescription is for a schedule II opioid drug., 163, cm, 07/03... Start Date: 08/23/22 Status: Ordered chlorthalidone 25 mg oral tablet 1, tablet, By Mouth, Daily, # 30 tablet, Refills 3, Tot. Refills 3, Maintenance, 10/15/22 10:21:00 EDT, Route to Pharmacy Electronically, [facility]/pharmacy #[id number], 163, cm, 09/21/22 20:45:00 EDT, Height, 116.1, kg, 09/21/22 20:45:00 EDT, Dry Weight Start Date: 10/15/22 Status: Ordered EpiPen 2-Satya 0.3 mg injectable kit = 0.3 mg, Intramuscular, Once, # 1 pack/packet, 0 Refills, Soft Stop, 08/23/22 23:54:00 EDT, [facility]/pharmacy #[id number], Partial fill upon patient request if [...] Refills, Maintenance, 09/16/22 15:26:00 EDT, Tablet, [facility]/pharmacy #[id number], Partial fill upon patient request if the prescription is for a schedule II opioid drug., 163, cm, 08/31... Start Date: 09/16/22 Stop Date: 03/15/23 Status: Ordered ibuprofen 800 mg oral tablet 800 mg, 1, tablet, By Mouth, 3 times a day, # 90 tablet, Refills 1, Tot. Refills 1, Maintenance, 10/22/22 10:55:00 EDT, Route to Pharmacy Electronically, [facility]/pharmacy #[id number], Partial fill upon patientrequest if the prescription is for a schedule II op... Start Date: 10/22/22 Status: Ordered Paragard IUD See Instructions, # 1 each, Maintenance, Inserted by Rosa Stokes MD. Lot [id number] Exp November 2025., 02/03/20 11:09:00 EDT, Supply, [...] S Resident Member Role: PCP Address: Address: [address] [place] [address] [place] [address]- [place] Name: Pedro YOUSIF, Gabbie Obrien Position: S SN RN Member Role: Primary Care Nurse Care Team Related Persons Name: ROSE MARY ENRRIQUE Address: [place] [address] Name: TREASURE VILLAGRAN Address: home [address] [place] [address] Name: BERRY BURKETT Address: [address] [address] Name: MARIANGEL JOE Address: [address] Address: home [address] [address]
--- OUTSIDE RECORDS SUMMARY | 2023-01-15 23:20 | XMS_ITS | Continuity of Care Document ---
Author Name Unknown Organization [facility] ter Address [address] [place] [address]- Care Team Providers Care Anesthesiologist Assistant Name Role Phone Dennis Cardoza DO Primary Care Physician [phone] [place] [facility] [place] 10[place]29/[place] - 10/29/[address] [address]- Encounter Diagnosis Shortness of breath(Final) - 10/29/21 Viral URI with cough(Final) - 10/29/21 Discharge Disposition: A-D/C Home Attending Physician: Sherley Gil MD Admitting Physician: Sherley Gil MD Referring Physician: Not on Staff, Referring [...] Vaccine 10/14/14 Given 1Result Comment: [04/15/2014] Fluvirax [id number] 2Admin Note: vis given dated 12/25/12 3Admin Note: VIS 7-12 Medications chlorthalidone 25 mg oral tablet 1/2 tablet, By Mouth, Daily, TAKE 1/2 TABLET BY MOUTH DAILY, # 15 tablet, Refills 0, Tot. Refills 0, Maintenance, 06/22/21 15:47:00 EST, Route to Pharmacy Electronically, [facility]/pharmacy #[id number], Partial fill upon patient request if the prescription is for... Start Date: 06/22/21 Status: Ordered [facility] oral capsule 1 capsule, By Mouth, [...] mL, 0 Refills, Maintenance, 07/19/21 15:37:00 EST, [place], [id number], Partial fill upon patient request [...] request if... Start Date: 03/07/21 Status: Ordered mupirocin 2% topical ointment 1 application, Topically, 2 times a day, for 14 days, apply to affected skin, # 30 Gm, 0 Refills, Acute 11/01/21 8:31:00 EDT, 10/18/21 8:31:00 EDT, Ointment, [id number], Partial fill upon patient request if the prescription is for a schedule I... Start Date: 10/18/21 Stop Date: 11/01/21 Status: Ordered Paragard IUD See Instructions, # 1 each, Maintenance, Inserted by Rosa Stokes MD. Lot [id number] Exp November 2025., 02/03/20 11:09:00 EDT, Supply, 162, cm, 01/03/20 13:13:00 EDT, Height, 106, kg, 12/23/19 23:02:00 EDT, Dry Weight Start Date: 02/03/20 Status: Ordered Tylenol Extra Strength 500 mg oral tablet 2 tablet = 1,000 mg, By Mouth, Every 6 hours, PRN as needed for fever, # 24 tablet, 0 Refills, Maintenance, 03/07/21 10:54:00 EDT, Tablet, [id number], Partial fill upon patient request if theprescription [...] Exam Date Time Procedure Performing Provider Status 10/29/21 3:40 AM Chest 2 Views Frontal and Lat Paco Martin; Dio (Verified) Notes: (Chest 2 Views Frontal and Lat) Reason For Exam: Shortness of Breath, Fever;Other: RESULT: Chest 2 Views Frontal and Lat Chest 2 Views Frontal and Lat Hx of Present Illness: pt c o lt sided chest pain x 2 days. pt dx with urti 2 days ago. pt reports increased pain with movement and deep inspiration.; Reason: Other:; Shortness of Breath, Fever; Clinical Question(s): Pneumonia COMPARISON: 10/26/2021. FINDINGS: LINES AND TUBES: None. LUNGS AND PLEURA: Clear lungs. Normal pulmonary vascularity. No pleural effusion. No pneumothorax. HEART, MEDIASTINUM AND ZAFAR: Heart is normal in size. Normal upper mediastinal and hilar contour. BONES AND SOFT TISSUES: No acute abnormality. IMPRESSION: No acute abnormality. WSN: [id number] Ordering Physician: Светлана Mancini Dictated By: Laura Palomino MD Dictated Date/Time: 10/29/21 8:12 am Reviewed By: Laura Palomino MD Signed By: Laura Palomino MD Signed Date/Time: 10/29/21 8:12 am Transcribed By: FRANCISCA Transcribed Date/Time: 10/29/21 5:29 am Vital Signs Most recent to oldest [Reference Range]: 1 2 3 Weight 119.2 kg (10/29/21 2:27 AM) 119.2 kg (10/29/21 12:59 AM) Oxygen Saturation [94-100 %] 98 % (10/29/21 4:31 AM) 98 % (10/29/21 2:27 AM) 100 % (10/29/21 12:59 AM) Pulse Rate [55-90 bpm] 74 bpm (10/29/21 4:31 AM) 81 bpm (10/29/21 2:27 AM) 90 bpm (10/29/21 12:59 AM) Blood Pressure [90-138/55-84 mm Hg] 137/112mm Hg (10/29/21 4:31 AM) 149/116mm Hg *H* (10/29/21 2:27 AM) 144/108mm Hg *H* (10/29/21 12:59 AM) Respiratory Rate [16-30 br/min] 18 br/min (10/29/21 4:31 AM) 18 br/min (10/29/21 2:27 AM) 18 br/min (10/29/21 12:59 AM) Temperature [96.8-100.4 DegF] 98.4 DegF (10/29/21 2:27 AM) 97.9 DegF (10/29/21 12:59 AM) Mode of Delivery (Oxygen) Room air (10/29/21 4:31 AM) Room air (10/29/21 2:27 AM) Room air (10/29/21 12:59 AM) Blood pressure sites Arm, right (10/29/21 12:59 AM) Temperature Route Oral (10/29/21 2:27 AM) Oral (10/29/21 12:59 AM) Dry Weight 119.2 kg (10/29/21 2:27 AM) 119.2 kg (10/29/21 12:59 AM) Weight Obtained Via Standing scale (10/29/21 12:59 AM) Social History Social History Type Response Smoking Status Never (less than 100 in lifetime); Tobacco user in household: No entered on: 06/14/19 Sex
--- OUTSIDE RECORDS SUMMARY | 2023-01-15 23:20 | XMS_ITS | Continuity of Care Document ---
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 Refills 4, Maintenance, 12/21/21 10:51:00 EDT, Route to Pharmacy Electronically, [facility]/pharmacy #[id number], Partial fill upon patient request if the prescription is for a schedule II opioid drug... Start Date: 12/21/21 Stop Date: 05/20/22 Status: Ordered [facility] oral capsule 1 capsule, By Mouth, [...] mL, 0 Refills, Maintenance, 07/19/21 15:37:00 EST, [place], [id number], Partial fill upon patient request if the prescription is for a schedule II opioid drug., 2 puffs Nares, Both Daily, 163, cm, 07/19/21 14:02... Start Date: 07/19/21 Status: Ordered FLUoxetine 10 mg oral tablet 2 tablet = 20 mg, By Mouth, Daily, Can increase to 2 tablets daily after 2 weeks, # 60 tablet, 2 Refills, Maintenance, 12/18/21 17:17:00 EDT, Tablet, [facility]/pharmacy #[id number], Partial fill upon patient [...] tablet 800 mg, 1, tablet, By Mouth, Every 8 hours, for 5 days, # 15 tablet, Refills 0, Tot. Refills 0, Acute 05/04/22 10:11:00 EST, 04/29/22 10:11:00 EST, Route to Pharmacy Electronically, [id number], Partial fill upon patient request if the prescrip... Start Date: 04/29/22 Stop Date: 05/04/22 Status: Ordered ibuprofen 800 mg oral tablet 800 mg, 1, tablet, By Mouth, 3 times a day, for pain take with food please., # 30 tablet, Refills 0, Tot. Refills 0, Maintenance, 02/19/22 16:04:00 EDT, Route to Pharmacy Electronically, [id number], Partial fill upon patient request if the pr... Start Date: 02/19/22 Status: Ordered ondansetron 4 mg oral tablet, disintegrating 1 tablet = 4 mg, By Mouth, Every 8 hours, PRN as needed for nausea/vomiting, for 3 days, # 9 tablet, 0 Refills, Acute 05/02/22 10:11:00 EST, 04/29/22 10:11:00 EST, [place] Tablet, [id number], Partial fill upon patient request if the prescription i... Start Date: 04/29/22 Stop Date: 05/02/22 Status: Ordered Paragard IUD See Instructions, # 1 each, Maintenance, Inserted by Rosa Stokes MD. Lot [id number] Exp November 2025., 02/03/20 11:09:00 EDT, Supply, [...] Refills, Maintenance, 03/07/21 10:54:00 EDT, Tablet, [id number], Partial fill upon patient request if theprescription [...] was seen. 6Problem added by Discern Expert Vital Signs Most recent to oldest [Reference Range]: 1 2 3 Oxygen Saturation [94-100 %] 100 % (04/29/22 9:14 AM) 98 % (04/29/22 6:23 AM) 98 % (04/29/22 6:18 AM) Pulse Rate [55-90 bpm] 97 bpm *H* (04/29/22 9:14 AM) 105 bpm *H* (04/29/22:23 AM) 116 bpm *H* (04/29/22 6:18 AM) Blood Pressure [90-138/55-84 mm Hg] 125/80mm Hg (04/29/22 9:14 AM) 124/65mm Hg (04/29/22:23 AM) Respiratory Rate [16-30 br/min] 18 br/min (04/29/22 9:14 AM) 18 br/min (04/29/22 6:23 AM) Temperature [96.8-100.4 DegF] 98.5 DegF (04/29/22 9:14 AM) 98.6 DegF (04/29/22:23 AM) Mode of Delivery (Oxygen) Room air (04/29/22:23 AM) Blood pressure sites Arm, left (04/29/22:23 AM) Temperature Route Oral (04/29/22 9:14 AM) Oral (04/29/22:23 AM) Social History Social History Type Response Smoking Status Never (less than 100 in lifetime); Tobacco user in household: No entered on: 06/14/19 Sex Note * Kristi Bean: PERFORM Event Display: Patient Education Leaflets Authored Date: COVID-19 Positive Self Isolation Instruction ?? 91 SELF-ISOLATION INSTRUCTIONS ?? IMPORTANT INSTRUCTIONS ABOUT SELF-ISOLATION (and quarantine) FOR PEOPLE WITH VIRUS SYMPTOMS ?? This information is for patients with Positive COVID-19 (Coronavirus). It is extremely important that you follow these instructions. ?? General Information You came to the Emergency Department with symptoms of a viral illness, including muscle aches, fevers, chills, runny nose, cough, sneezing, sore throat, vomiting or diarrhea. You were diagnosed with COVID-19, also known as the coronavirus. ?? What should you do next Most people have mild symptoms and recover on their own. Resting, staying hydrated, and sleeping are typically helpful. As of today ???s visit, you are well enough to go home and treat your symptoms with oral fluids, medicines for fevers, cough, pain, etc. You can use medication such as Acetaminophen (Tylenol) for fevers, cough and pain. There is no special medicine or vaccine for COVID-19.? However, it is very important for you to do certain things to prevent the spread of the virus. ?? We want to help you keep other people from getting this virus. Older people and people with illnesses are at high risk of severe illness. Please follow the steps below and contact your primary care physician for further help. ?? 1. Stay home except to get medical care. People who are mildly ill with COVID-19 should stay at home during their illness. In order to not infect other people, avoid contact with others both inside and outside your home. ? Do not go to work, school, or to any public areas. ??? Avoid grocery shopping if possible - have a friend or family member fiber picker food and drop it off. ??? Avoid large crowds, public transportation, ride sharing or taxis. ?? 2. Wash your hands often. Wash your hands often with soap and water for at least 20 seconds. If soap and water are not available, clean your hands with an alcohol- based hand network diagnostic support specialist that contains at least 60% alcohol, covering all surfaces of your hands and rubbing them together until they feel dry. Avoid touching your eyes, nose, and mouth with unwashed hands. ?? 3. Cover your coughs and sneezes. Cover your mouth and nose with a tissue when you cough or sneeze Throw used tissues in a lined trash can; immediately wash your hands with soap and water for at least20 seconds or clean your hands with an alcohol-based hand network diagnostic support specialist that contains at least 60 to 95% alcohol, covering all surfaces of your hands and rubbing them together until they feel dry. ?If you have to leave your house to go to a public place or see a doctor, wear a surgical mask (or bandana, or scarf) to catch your cough. ?? 4. Separate yourself from other people and animals in yourhouse for at least 14 days. If possible, stay in a specific room away from other people. If you have a separate bathroom, have one bathroom be for the sick person only. Do not handle pets or other animals. You should not share dishes, drinking glasses, cups, eating utensils, towels, or bedding with other people or pets in your home. After using these items, they should be washed thoroughly with soap and water. The elderly and people who have chronic illness have a higher risk of becoming very sick if they get COVID-19. Please try to avoid contact with people over 60 years old or anyone with chronic heart or lung disease, diabetes, or any condition that weakens their immune system (cancer, transplant patients). ?? 5. Clean all ???high-touch?? surfaces every day. ?? High touch surfaces include counters, tabletops, doorknobs, bathroom fixtures, toilets, phones, keyboards, tablets, and bedside tables. Also, clean any surfaces that may have blood, stool, or body fluids on them. Use a household cleaning spray or wipe, according to the label instructions. ?? 6. Wear a facemask. You shouldwear a facemask when you are around other people and before you enter a healthcare provider ???s office. If you are not able to wear a facemask (for example, because it causes trouble breathing), then people who live with you should not stay in the same room with you, or they should wear a facemaskif they enter your room. ?? 7. Call ahead before visiting your doctor. If you need to see your doctor, it is essential that you call first and tell them that you have or may have COVID-19. This will help the healthcare provider ???s office take steps to keep other people from getting infected or exposed. ?? When to return to the Emergency Department ?? Please return to the emergency department ifyou feel you are getting sicker, for example: worsening difficulty breathing or chest pain, if you are unable to eat or drink, if you have severe vomiting, diarrhea, weakness, fainting or near fainting.?? If possible, put on a facemask before you enter the hospital to protect other patients.?? If you feel you are sick enough to call 911, please tell them you may have COVID. ?? Medications you cantake If able, you can take Acetaminophen (Tylenol) 500mg every 4-6 hours for pain or fever. Please continue your regular medications. It is very important to stay as healthy as possible. ?? When can I go back to my regular life? Once you have NO SYMPTOMS (no fever, no cough, no runny nose) for 14 days, you can go back to work. If testing becomes available before then, you could get tested. However, you should call and confirm that you can get a test before leaving your house. ? Taking care of your mental health You might be feeling anxious, afraid, lonely or uncertain. Below is a link for a list of helpful behavioral health resources, and a few tips for taking care of your emotional health while you're quarantined. https://[employer].gov/system/files/gjk90-5461.pdf ?? Additional information can be found on the following websites: ? CDC [employer] Website General Information: https://www.cdc.gov/coronavirus/2019-ncov/faq.html ?? Important Instructions for family members and household contacts How do I take care of someone who's quarantined in my home? If you are providing carefor a person infected or suspected to be infected with COVID-19, please note the following. These instructions are also at this link: https://www.cdc.gov/coronavirus/2019-ncov/hcp/vxabfgef-xltqyja-lopwjs.html ?? Household members, intimate partners, and caregivers in a non-health care setting may have close contact (within 6 feet) with a person with symptomatic, laboratory-confirmed COVID-19 or aperson under investigation. Those in close contact should monitor their health and should call their health care provider right away if they develop symptoms suggestive of COVID-19 (e.g., fever, cough, shortness of breath). ?? Those in close contacts should also follow these recommendations: ??? Make sure that you understand and can help the patient follow their health care provider ???s instructions for medication(s) and care. You should help the patient with basic needs in the home and provide support for getting groceries, prescriptions and other personal needs. ? Monitor the patient???s symptoms. If the patient is getting sicker, call his or her health care provider and tell them that the patient has laboratory-confirmed or is under investigation for COVID-19. This will help the health care provider???s office take steps to keep other people in the office or waiting room from ge tting infected. Ask the health care provider to call the local or [facility] health department for additional guidance. If the patient has a medical emergency and you need to call 911, notify the dispatchpersonnel that the patient has, or is being evaluated for COVID-19. ? Household members shouldstay in another room or be from the patient as much as possible. Household members shoulduse a separate bedroom and bathroom, if available. ? Prohibit visitors who do not have an essential need to be in the home. ? Household members should care for any pets in the home. Do not handle pets or other animals while sick. ? Make sure that shared spaces in the home have good ai rflows, such as by an air conditioner or an opened window, weather permitting. ? Perform hand hygiene frequently. Wash your hands often with soap and water for at least 20 seconds or use an alcohol-based hand network diagnostic support specialist that contains 60 to 95% alcohol, covering all surfaces of your hands and rubbing them together until they feel dry. Soap and water should be used preferentially if hands are visibly dirty. ? Avoid touching your eyes, nose, and mouth with unwashed hands. ? You and the patient should wear a facemask if you are in the same room. ? Wear a disposable facemask andgloves when you touch or have contact with the patient???s blood, stool, or body fluids, such as saliva, sputum, nasal mucus, vomit or urine. ?? - Throw out disposable facemasks and gloves after using them. Do not reuse. ?? - When removing personal protective equipment, first remove and dispose of gloves. ?? Then, immediately clean your hands with soap and water or alcohol-based hand ? network diagnostic support specialist. Next, remove and dispose of facemask, and immediately clean your ? hands again with soap and w ater or alcohol-based hand network diagnostic support specialist. ? Avoid sharing household items with the patient. You should not share dishes, drinking glasses, cups, eating utensils, towels, bedding or other items. After the patient uses these items, you should wash them thoroughly (see below ???Wash laundry thoroughly?? ). ? Clean all high-touch surfaces, such as counters, tabletops, doorknobs, bathroom fixtures, toilets, phones, keyboards, tablets and bedside tables, every day. Also, clean any surfaces thatmay have blood, stool, or body fluids on them. ?? - Use a household cleaning spray or wipe, according to the label instructions. Labels ?? contain instructions for safe and effective use of the cleaning product including ?? precautions you should take when applying the product, such as wearing gloves ? and making sure you have good ventilation during the use of the product. ? Wash laundrythoroughly. ?? -?? Immediately remove and wash clothes or bedding that have blood, stool, or body ? fluids on them. ?? -?? Wear disposable gloves while handling soiled items and keep soiled items away ? from your body. Clean your hands (with soap and water or an alcohol-based hand ? network diagnostic support specialist) immediately after removing your gloves. ?? - Read and follow directions on labels of laundry or clothing items and detergent. In ?? general, using a normal laundry detergent according to was [employer] machine ?? instructions and dry thoroughly using the warmest temperatures recommended on ?? the clothing label. ? Place all used disposable gloves, facemasks, and other contaminated items in a lined container before disposing of them with other household waste. Clean your hands (with soapand water or an alcohol-based hand network diagnostic support specialist) immediately after handling these items. Soap and water should be used preferentially if hands are visibly dirty. ? Discuss any additional questions with your state or local health department or health care provider. ?? What do I do if I develop symptoms? You should stay home, as above, and seek medical care only if you are having difficulty breathing or other severe symptoms. ? Patient Care team information Care Team Personnel Name: Dennis Cardoza DO Position: [facility] Resident Member Role: PCP Address: Address: [address] [place] [address] Adult [place], [place] [address] Name: Gabbie Vasquez RN Position: [facility] SN RN Member Role: Primary Care Nurse Name: Kristi Bean Position: [facility] Associate Professional Member Role: ED Physician Merchandise Supervisor Address: Address: [address] [place] [id number] Name: Rodríguez Martin RN Position: [facility] ED RN W/OE and Tasks Member Role: Patient Care Provider Name: Too KAHN, Diamond Finch Position: [facility] ED Medicine MD Member Role: ED Attending Physician Address: Address: [address] [place] [id number] Care Team Related Persons Name: ENRRIQUE BAZZI Address: [place] [address] Name: TREASURE VILLAGRAN Address: home [address] [place] [address] Name: BERRY BURKETT Address: home [address] [address] Name: MARIANGEL JOE Address: [id number] Address: home [address] [address] [place]
--- OUTSIDE RECORDS SUMMARY | 2023-01-15 23:20 | XMS_ITS | Continuity of Care Document ---
Author Name Unknown Organization [facility] Address [address] [place] [address]- Care Team Providers Care Otolaryngology Rep Name Role Phone Rukhsana KAHN, Dolores Anderson Primary Care Physician Encounter [facility] [place] Date(s): 06/09/19 - 06/19/[address] [address]- [facility] Attending Physician: Oneil Jones Admitting Physician: Oneil Jones Referring Physician: AdmOneil raymundo Allergies, Adverse Reactions, Alerts Substance Reaction Severity [...] acel(Tdap) 06/13/10 Given 1Result Comment: [04/15/2014] Fluvirax [id number] 2Admin Note: vis given dated 12/25/12 3Admin Note: VIS 7-12 Medications [place] 0.65% nasal spray 2 sprays, Nares, Both, [...] to oldest [Reference Range]: 1 2 Height 162.56 cm (06/27/16 10:33 AM) 162.56 cm (06/27/16 10:26 AM) Oxygen Saturation [94-100 %] 100 % (06/27/16 10:33 AM) 100 % (06/27/16 10:26 AM) Pulse Rate [55-90 bpm] 60 bpm (06/27/16 10:33 AM) Blood Pressure [90-138/55-84 mm Hg] 98/5 4mm Hg (06/27/16 10:33 AM) Respiratory Rate [16-30 br/min] 20 br/mi n (06/27/16 10:33 AM) 20 br/min (06/27/16 10:26 AM) Temperature [96.8-100.4 DegF] 98.5 DegF (06/27/16 10:26 AM) Temperature Route Oral (06/27/16 10:26 AM) Social History Social History Type Response Smoking Status Never (less than 100 in lifetime); Tobacco user in household: No entered on: 06/14/19 Sex
--- OUTSIDE RECORDS SUMMARY | 2023-01-15 23:20 | XMS_ITS | Continuity of Care Document ---
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 Name Role Phone Rukhsana KAHN, Dolores Anderson Primary Care Physician Encounter [facility] [place] Date(s): 07/27/19 - 08/03/19 [facility] [employer] [facility] [address], [address] [place] [address]- Attending Physician: Karen Garnett MD Referring Physician: Giovanna Armando CNM Allergies, [...] acel(Tdap) 06/13/10 Given 1Result Comment: [04/15/2014] Fluvirax [id number] 2Admin Note: vis given dated 12/25/12 3Admin [...] Date: 06/29/19 Stop Date: 01/25/20 Status: Ordered [place] 0.65% nasal spray 2 sprays, Nares, Both, [...] oldest [Reference Range]: 1 Height 162.56 cm (07/27/19 9:01 AM) Weight 100.8 kg (07/27/19 9:01 AM) Body Mass Index [18.5-24.99] 38.14 *>HHI* (07/27/19 9:01 AM) Blood Pressure [90-138/55-84 mm Hg] 124/ 61mm Hg (07/27/19 9:01 AM) Blood pressure sites Arm, right (07/27/19 9:01 AM) Weight Obtained Via Standing scale (07/27/19 9:01 AM) Social History Social History Type Response Smoking Status Never (less than 100 in lifetime); Tobacco user in household: No entered on: 06/14/19 Sex
--- OUTSIDE RECORDS SUMMARY | 2023-01-15 23:20 | XMS_ITS | Continuity of Care Document ---
Author Name Unknown Organization [facility] ter Address [address] [place] [address]- Care Team Providers Care Night Shift Manager Name Role Phone Dennis Cardoza DO Primary Care Physician Encounter [facility] [place] Date(s): 10/26/21 - 10/26/[address] [address]- Encounter Diagnosis Viral syndrome(Final) - 10/26/21 Discharge Disposition: A-D/C Home Attending Physician: Charo Castellanos MD Admitting Physician: Charo Castellanos MD Referring Physician: Not on Staff, Referring [...] Vaccine 10/14/14 Given 1Result Comment: [04/15/2014] Fluvirax [id number] 2Admin Note: vis given dated 12/25/12 3Admin Note: VIS 7-12 Medications chlorthalidone 25 mg oral tablet 1/2 tablet, By Mouth, Daily, TAKE 1/2 TABLET BY MOUTH DAILY, # 15 tablet, Refills 0, Tot. Refills 0, Maintenance, 06/22/21 15:47:00 EST, Route to Pharmacy Electronically, [facility]/pharmacy #[id number], Partial fill upon patient request if the prescription is for... Start Date: 06/22/21 Status: [facility] oral [facility] 1 capsule, By Mouth, [...] mL, 0 Refills, Maintenance, 07/19/21 15:37:00 EST, [place], [id number], Partial fill upon patient request [...] schedule I... Start Date: 10/18/21 Stop Date: 6/2/22 Status: Ordered Paragard IUD See Instructions, # 1 each, Maintenance, Inserted by Rosa Stokes MD. Lot [id number] Exp November 2025., 02/03/20 11:09:00 EDT, Supply, 162, cm, 01/03/20 13:13:00 EDT, Height, 106, kg, 12/23/19 23:02:00 EDT, Dry Weight Start Date: 02/03/20 Status: Ordered Tylenol Extra Strength 500 mg oral tablet 2 tablet = 1,000 mg, By Mouth, Every 6 hours, PRN as needed for fever, # 24 tablet, 0 Refills, Maintenance, 03/07/21 10:54:00 EDT, [place], [id number], Partial fill upon patient request if theprescription [...] Exam Date Time Procedure Performing Provider Status 10/26/21 2:59 PM Chest 2 Views Frontal and Lat Sun Corley; Auth (Verified) Notes: (Chest 2 Views Frontal and Lat) Reason For Exam: Cough RESULT: Chest 2 Views Frontal and Lat Chest 2 Views Frontal and Lat HX OF PRESENT ILLNESS: pt with sob and cough x 3 days; Reason: Cough; Clinical Question(s): Pneumonia COMPARISON: None. FINDINGS: LINES AND TUBES: None. LUNGS AND PLEURA: Clear lungs. Normal pulmonary vascularity. No pleural effusion. No pneumothorax. HEART, MEDIASTINUM AND ZAFAR: Heart is normal in size. Normal mediastinal and hilar contour. BONES AND SOFT TISSUES: No acute abnormality. IMPRESSION: No evidence of acute abnormality. WSN: [id number] Ordering Physician: Becky Hoyt Dictated By: Ismael Clancy MD Dictated Date/Time: 10/26/21 3:02 pm Reviewed By: Ismael Clancy MD Signed By: Ismael Clancy MD Signed Date/Time: 10/26/21 3:02 pm Transcribed By: FRANCISCA Transcribed Date/Time: 10/26/21 3:01 pm Vital Signs Most recent to oldest [Reference Range]: 1 2 3 Weight 107 kg (10/26/21 2:00 PM) Oxygen Saturation [94-100 %] 100 % (10/26/21 5:55 PM) 95 % (10/26/21 2:00 PM) 96 % (10/26/21 1:49 PM) Pulse Rate [55-90 bpm] 96 bpm *H* (10/26/21 5:55 PM) 112 bpm *H* (10/26/21 2:00 PM) 104 bpm *H* (10/26/21 1:49 PM) Blood Pressure [90-138/55-84 mm Hg] 149/100mm Hg *H* (10/26/21 5:55 PM) 152/97mm Hg *H* (10/26/21 2:00 PM) Respiratory Rate [16-30 br/min] 18 br/min (10/26/21 2:00 PM) Temperature [96.8-100.4 DegF] 98.5 DegF (10/26/21 5:55 PM) 97.8 DegF (10/26/21 2:00 PM) Mode of Delivery (Oxygen) Room air (10/26/21 5:55 PM) Room air (10/26/21 2:00 PM) Room air (10/26/21 1:49 PM) Blood pressure sites Arm, right (10/26/21 5:55 PM) Arm, left (10/26/21 2:00 PM) Temperature Route Oral (10/26/21 5:55 PM) Oral (10/26/21 2:00 PM) Social History Social History Type Response Smoking Status Never (less than 100 in lifetime); Tobacco user in household: No entered on: 06/14/19 Sex
--- OUTSIDE RECORDS SUMMARY | 2023-01-15 23:20 | XMS_ITS | Continuity of Care Document ---
Author Name Unknown Organization [facility] ter Address [address] [place] [address]- Care Team Providers Care Nonprofit Director Name Role Phone Dennis Cardoza DO Primary Care Physician Encounter [facility] Date(s): 11/29/21 - 11/29/[address] [address]- Encounter Diagnosis Chest pain(Final) - 11/29/21 Discharge Disposition: A-D/C Home Attending Physician: Felix Chen MD Admitting Physician: Felix Chen MD Referring Physician: Not on Staff, Referring [...] Vaccine 10/14/14 Given 1Result Comment: [04/15/2014] Fluvirax [id number] 2Admin Note: vis given dated 12/25/12 3Admin Note: VIS 7-12 Medications chlorthalidone 25 mg oral tablet 1/2 tablet, By Mouth, Daily, TAKE 1/2 TABLET BY MOUTH DAILY, # 15 tablet, Refills 0, Tot. Refills 0, Maintenance, 06/22/21 15:47:00 EST, Route to Pharmacy Electronically, [facility]/pharmacy #[id number], Partial fill upon patient request if the prescription is for... Start Date: 06/22/21 Status: Ordered [facility] oral capsule 1 capsule, By Mouth, [...] mL, 0 Refills, Maintenance, 07/19/21 15:37:00 EST, [place], [facility]/pharmacy #[id number], Partial fill [...] Maintenance, Inserted by Rosa Stokes MD. Lot [id number] Exp November 2025., 02/03/20 11:09:00 EDT, Supply, 162, cm, 01/03/20 13:13:00 EDT, Height, 106, kg, 12/23/19 23:02:00 EDT, Dry Weight Start Date: 02/03/20 Status: Ordered Tylenol Extra Strength 500 mg oral tablet 2 tablet = 1,000 mg, By Mouth, Every 6 hours, PRN as needed for fever, # 24 tablet, 0 Refills, Maintenance, 03/07/21 10:54:00 EDT, Tablet, [facility]/pharmacy #[id number], Partial fill upon patient request if theprescription [...] Exam Date Time Procedure Performing Provider Status 11/29/21 6:48 PM Chest 2 Views Frontal and Lat Paco Peguero; Auth (Verified) Notes: (Chest 2 Views Frontal and Lat) Reason For Exam: Angina RESULT: Chest 2 Views Frontal and Lat Chest 2 Views Frontal and Lat Hx of Present Illness: reports frontal NICHOLSON for 3 days assoac w blurred vision, non exertional chest tightness for months, no sob, galvan, no fevers, n v d, sleeps on 3 pillows, bilateal LE swelling improved w elevation; Reason: Angina; Clinical Question(s): CHF COMPARISON: 10/29/2021 FINDINGS: LINES AND TUBES: None. LUNGS AND PLEURA: Clear lungs. Normal pulmonary vascularity. No pleural effusion. No pneumothorax. HEART, MEDIASTINUM AND ZAFAR: Heart is normal in size. Normal upper mediastinal and hilar contour. BONES AND SOFT TISSUES: No acute abnormality. IMPRESSION: No acute abnormality. WSN: [id number] Ordering Physician: Surinder Hancock Dictated By: Ismael Patterson MD Dictated Date/Time: 11/29/21 6:56 pm Reviewed By: Ismael Patterson MD Signed By: Ismael Patterson MD Signed Date/Time: 11/29/21 6:56 pm Transcribed By: FRANCISCA Transcribed Date/Time: 11/29/21 6:50 pm Vital Signs Most recent to oldest [Reference Range]: 1 2 3 Height 163 cm (11/29/21 5:52 PM) 163 cm (11/29/21 5:38 PM) Weight 118.5 kg (11/29/21 5:52 PM) 118.5 kg (11/29/21 5:38 PM) Oxygen Saturation [94-100 %] 98 % (11/29/21 9:38 PM) 100 % (11/29/21 8:38 PM) 97 % (11/29/21 5:38 PM) Pulse Rate [55-90 bpm] 84 bpm (11/29/21 9:38 PM) 98 bpm *H* (11/29/21 8:38 PM) 100 bpm *H* (11/29/21 5:38 PM) Body Mass Index [18.5-24.99] 44.6 *>HHI* (11/29/21 5:38 PM) Blood Pressure [90-138/55-84 mm Hg] 151/108mm Hg *H* (11/29/21 9:38 PM) 158/109mm Hg *H* (11/29/21 8:38 PM) 147/108mm Hg *H* (11/29/21 5:38 PM) Respiratory Rate [16-30 br/min] 20 br/min (11/29/21 9:38 PM) 20 br/min (11/29/21 8:38 PM) 18 br/min (11/29/21 5:38 PM) Temperature [96.8-100.4 DegF] 97.9 DegF (11/29/21 8:38 PM) 98.4 DegF (11/29/21 5:38 PM) Mode of Delivery (Oxygen) Room air (11/29/21 9:38 PM) Room air (11/29/21 8:38 PM) Room air (11/29/21 5:38 PM) Blood pressure sites Arm, right (11/29/21 9:38 PM) Arm, right (11/29/21 8:38 PM) Arm, right (11/29/21 5:38 PM) Temperature Route Oral (11/29/21 8:38 PM) Oral (11/29/21 5:38 PM) Dry Weight 118.5 kg (11/29/21 5:52 PM) 118.5 kg (11/29/21 5:38 PM) Weight Obtained Via Standing scale (11/29/21 5:38 PM) Dry Weight Obtained Via Standing scale (11/29/21 5:38 PM) Social History Social History Type Response Smoking Status Never (less than 100 in lifetime); Tobacco user in household: No entered on: 06/14/19 Sex
--- OUTSIDE RECORDS SUMMARY | 2023-01-15 23:20 | XMS_ITS | Continuity of Care Document ---
Author Name Unknown Organization [facility] Address [address] [place] [address], [address] [place] [address]- Care Team Providers Care Teletypesetter Name Role Phone Rukhsana KAHN, Dolores Anderson Primary Care Physician Encounter [facility] [place] Date(s): 08/24/19 - 08/31/19 [facility] [address] [facility], [address] [place] [address]- Attending Physician: Karen Garnett MD Referring Physician: [...] acel(Tdap) 06/13/10 Given 1Result Comment: [04/15/2014] Fluvirax [id number] 2Admin Note: vis given dated 12/25/12 3Admin Note: VIS 7-12 Medications Keflex monohydrate 500 mg oral capsule 1 capsule = 500 mg, By Mouth, Daily at bedtime, for 30 days, # 30 capsule, 6 Refills, Acute 01/25/20 13:02:00 EDT, 06/29/19 13:02:00 EST, [facility], [id number], 162.56, cm, 06/29/19 9:45:00 EST, Height, 100.8, kg, 12/11/18 14:51:00 EST, Dry Weight Start Date: 06/29/19 [...] oldest [Reference Range]: 1 Height 162.56 cm (08/24/19 11:36 AM) Weight 104.6 kg (08/24/19 11:36 AM) Body Mass Index [18.5-24.99] 39.58 *>HHI* (08/24/19 11:36 AM) Blood Pressure [90-138/55-84 mm Hg] 124/ 71mm Hg (08/24/19 11:36 AM) Blood pressure sites Arm, left (08/24/19 11:36 AM) Dry Weight 104.6 kg (08/24/19 11:36 AM) Weight Obtained Via Standing scale (08/24/19 11:36 AM) Dry Weight Obtained Via Standing scale (08/24/19 11:36 AM) Social History Social History Type Response Smoking Status Never (less than 100 in lifetime); Tobacco user in household: No entered on: 06/14/19 Sex
--- OUTSIDE RECORDS SUMMARY | 2023-01-15 23:20 | XMS_ITS | Continuity of Care Document ---
Author Name Unknown Organization [facility] Address [address] [place] [address]- Care Team Providers Care Trench Shovel Operator Name Role Phone Dennis Cardoza DO Primary Care Physician [phone] Encounter [facility] Date(s): 02/19/21 - 03/21/21 [facility] [address] [place] [address]- Allergies, Adverse Reactions, Alerts Substance Reaction Severity [...] Vaccine 10/14/14 Given 1Result Comment: [04/15/2014] Fluvirax [id number] 2Admin Note: vis given dated 12/25/12 3Admin [...] Maintenance, Inserted by Rosa Stokes MD. Lot [id number] Exp November 2025., 02/03/20 11:09:00 EDT, Supply, [...]
--- OUTSIDE RECORDS SUMMARY | 2023-01-15 23:20 | XMS_ITS | Continuity of Care Document ---
Author Name Unknown Organization [facility] Address [address] [place] [address]- Care Team Providers Care Pattern Drum Maker Name Role Phone Dennis Cardoza DO Primary Care Physician Encounter [facility] Date(s): 05/17/22 - 06/16/22 [facility] [address] [place] [address] Allergies, Adverse Reactions, Alerts No Known Allergies [...] Vaccine 10/14/14 Given 1Result Comment: [04/15/2014] Fluvirax [id number] 2Admin Note: vis given dated 12/25/12 3Admin [...] Date: 12/21/21 Stop Date: 05/20/22 Status: Ordered [facility] oral capsule 1 capsule, By Mouth, [...] mL, 0 Refills, Maintenance, 07/19/21 15:37:00 EST, [place], [id number], Partial fill upon patient request if the prescription is for a schedule II opioid drug., 2 puffs Nares, Both Daily, 163, cm, 07/19/21 14:02... Start Date: 07/19/21 Status: Ordered FLUoxetine 10 mg oral tablet 2 tablet = 20 mg, By Mouth, Daily, Can increase to 2 tablets daily after 2 weeks, # 60 tablet, 2 Refills, Maintenance, 12/18/21 17:17:00 EDT, Tablet, [facility]/pharmacy [...] 02/19/22 16:04:00 EDT, Route to Pharmacy Electronically, [facility]/pharmacy#[id number], Partial fill upon patient request if the pr... Start Date: 02/19/22 Status: Ordered Paragard IUD See Instructions, # 1 each, Maintenance, Inserted by Rosa Stokes MD. Lot [id number] Exp November 2025., 02/03/20 11:09:00 EDT, Supply, [...] Maintenance, 03/07/21 10:54:00 EDT, Tablet, [facility]/pharmacy #[id number], Partial fill upon patient request if theprescription [...] Team Personnel Name: Dennis Cardoza DO Position: [facility] Resident Member Role: PCP Address: Address: [address] [place] [address]- Name: Gabbie Vasquez RN Position: [facility] SN RN Member Role: Primary Care Nurse Care Team Related Persons Name: ENRRIQUE BAZZI Address: [place] [address] Name: TREASURE VILLAGRAN Address: home [address] [place] [address] Name: BERRY BURKETT Address: home [address] [address] Name: MARIANGEL JOE Address: [id number] Address: home [address] [address]
--- OUTSIDE RECORDS SUMMARY | 2023-01-15 23:20 | XMS_ITS | Continuity of Care Document ---
Author Name Unknown Organization [facility] Address [address] [place] [address]- Care Team Providers Care Admissions Officer Name Role Phone Dennis Cardoza DO Primary Care Physician Encounter [facility] [place] Date(s): 12/04/21 - 01/27/22 [facility] [address] [place] [address]- Attending Physician: David Gordillo MD Admitting Physician: [...] Vaccine 10/14/14 Given 1Result Comment: [04/15/2014] Fluvirax [id number] 2Admin Note: vis given dated 12/25/12 3Admin [...] Date: 12/21/21 Stop Date: 05/20/22 Status: [facility]dered [facility] oral capsule 1 capsule, By Mouth, [...] mL, 0 Refills, Maintenance, 07/19/21 15:37:00 EST, [place], [id number], Partial fill upon patient request [...] 03/07/21 10:54:00 EDT, Route to Pharmacy Electronically, [facility]/pharmacy #[id number], Partial fill upon patient request if... Start Date: 03/07/21 Status: Ordered Paragard IUD See Instructions, # 1 each, Maintenance, Inserted by Rosa Stokes MD. Lot [id number] Exp November 2025., 02/03/20 11:09:00 EDT, Supply, 162, cm, 01/03/20 13:13:00 EDT, Height, 106, kg, 12/23/19 23:02:00 EDT, Dry Weight Start Date: 02/03/20 Status: Ordered Tylenol Extra Strength 500 mg oral tablet 2 tablet = 1,000 mg, By Mouth, Every 6 hours, PRN as needed for fever, # 24 tablet, 0 Refills, Maintenance, 03/07/21 10:54:00 EDT, Tablet, [facility]/pharmacy #[id number], [...] Team Personnel Name: Dennis Cardoza DO Address: [address] [place] [address]
--- OUTSIDE RECORDS SUMMARY | 2023-01-15 23:20 | XMS_ITS | Continuity of Care Document ---
Author Name Unknown Organization [facility] Address [address] [place] [address]- Care Team Providers Care Electric Blasting Cap Assembler Name Role Phone Dennis Cardoza DO Primary Care Physician [place] [facility] [place] 08/29/21 - 12/08/21 [facility] [address] [place] [address]- Attending Physician: David Gordillo MD Admitting Physician: [...] Vaccine 10/14/14 Given 1Result Comment: [04/15/2014] Fluvirax [id number] 2Admin Note: vis given dated 12/25/12 3Admin Note: VIS 7-12 Medications chlorthalidone 25 mg oral tablet 1/2 tablet, By Mouth, Daily, TAKE 1/2 TABLET BY MOUTH DAILY, # 15 tablet, Refills 4, Tot. Refills 4, Maintenance, 11/30/21 18:19:00 EDT, Route to Pharmacy Electronically, [facility]/pharmacy #[id number], Partial fill upon patient request if the prescription is for... Start Date: 11/30/21 Status: Ordered [facility] oral capsule 1 capsule, By Mouth, Daily, for 30 days, # 30 capsule, 11 Refills, Acute 06/30/22 15:54:00 EST, 07/05/21 15:54:00 EST, [facility]/pharmacy #[id number], Partial fill upon patient request if the prescription is fora schedule II opioid drug., 1 capsule By Mouth Jose... Start Date: 07/05/21 Stop Date: 06/30/22 Status: Ordered flunisolide 25 mcg/inh nasal spray 2 puffs, Nares, Both, Daily, # 25 mL, 0 Refills, Maintenance, 07/19/21 15:37:00 EST, [place], [facility]/pharmacy #[id number], Partial fill upon patient request [...] 03/07/21 10:54:00 EDT, Route to Pharmacy Electronically, [facility]/pharmacy #[id number], Partial fill upon patient request if... Start Date: 03/07/21 Status: Ordered Paragard IUD See Instructions, # 1 each, Maintenance, Inserted by Rosa Stokes MD. Lot [id number] Exp November 2025., 02/03/20 11:09:00 EDT, Supply, 162, cm, 01/03/20 13:13:00 EDT, Height, 106, kg, 12/23/19 23:02:00 EDT, Dry Weight Start Date: 02/03/20 Status: Ordered Tylenol Extra Strength 500 mg oral tablet 2 tablet = 1,000 mg, By Mouth, Every 6 hours, PRN as needed for fever, # 24 tablet, 0 Refills, Maintenance, 03/07/21 10:54:00 EDT, [place], [id number], Partial fill upon patient request if theprescription [...]
--- OUTSIDE RECORDS SUMMARY | 2023-01-15 23:20 | XMS_ITS | Continuity of Care Document ---
Author Name Unknown Organization [facility] Address [address] [facility], [address] [place] [address]- Care Team Providers Care Direct Sales Professional Name Role Phone Magdalene KAHN, kenton Primary Care Physician [place] [facility] [place] - 02/19/20 [facility] [address] [facility] [place] [address]- [facility] Attending Physician: Radha KAHN, Nely High Referring [...] Vaccine 10/14/14 Given 1Result Comment: [04/15/2014] Fluvirax [id number] 2Admin Note: vis given dated 12/25/12 3Admin [...] 0 Refills, Maintenance, 02/11/20 14:54:00 EDT, Tablet, [facility]/pharmacy #[id number], 162, cm, 02/03/20 14:12:00 EDT, Height, 106, kg, 12/23/19 23:02:00 EDT, Dry Weight Start Date: 02/11/20 Status: Ordered Ibuprofen Refills 0, Maintenance, 01/03/20 13:15:00 EDT Start Date: 01/03/20 Status: Ordered NIFEdipine 30 mg oral tablet, extended release 30 mg, 1, tablet, By Mouth, Daily, # 30 tablet, Refills 3, Tot. Refills 3, Maintenance, 01/03/20 14:11:00 EDT, Route to Pharmacy Electronically, [facility]/pharmacy #[id number], 162, cm, 01/03/20 13:13:00 EDT, Height, 106, kg, 12/23/19 23:02:00 EDT, Dry Weight Start Date: 01/03/20 Status: Ordered Paragard IUD See Instructions, # 1 each, Maintenance, Inserted by Rosa Stokes MD. Lot [id number] Exp November 2025., 02/03/20 11:09:00 EDT, Supply, 162, cm, 01/03/20 13:13:00 EDT, Height, 106, kg, 12/23/19 23:02:00 EDT, Dry Weight Start Date: 02/03/20 Status: Ordered sertraline 50 mg oral tablet 1 tablet = 50 mg, By Mouth, Daily, # 90 tablet, 1 Refills, Maintenance, 02/11/20 14:53:00 EDT, Tablet, [facility]/pharmacy #[id number], 162, cm, 02/03/20 14:12:00 EDT, [...]
--- OUTSIDE RECORDS SUMMARY | 2023-01-15 23:20 | XMS_ITS | Continuity of Care Document ---
Author Name Unknown Organization [facility] Address [address] [facility], [address] [place] [address]- Care Team Providers Care Banquet Houseperson Name Role Phone Magdalene KAHN, kenton Primary Care Physician Encounter [facility] [place] Date(s): 12/23/19 - 12/30/19 [facility] [address] [facility] [place] [address]- [facility] Attending Physician: Divya KAHN, Erick Bradshaw Allergies, [...] Vaccine 10/14/14 Given 1Result Comment: [04/15/2014] Fluvirax [id number] 2Admin Note: vis given dated 12/25/12 3Admin [...] 0 Refills, Maintenance, 12/27/19 6:34:00 EDT, Capsule, [facility]/pharmacy #[id number], 162, cm, 12/25/19 9:37:00 EDT, Height, 106, kg, 12/23/19 23:02:00 EDT, Dry Weight Start Date: 12/27/19 Status: Ordered ferrous sulfate 325 mg oral enteric coated tablet 325 mg, 1, tablet, By Mouth, Daily, # 90 tablet, Refills 3, Tot. Refills 3, Maintenance, 10/19/19 16:52:00 EDT, Route to Pharmacy Electronically, [facility]/pharmacy #[id number], 162.56, cm, 10/19/19 13:34:00 EDT, Height, 104.6, kg, 08/24/19 11:36:00 EDT, Dry Weight Start Date: 10/19/19 Status: Ordered ibuprofen 600 mg oral tablet 600 mg, 1, tablet, By Mouth, Every 6 hours, PRN, # 30 tablet, Refills 1, Tot. Refills 1, Acute 01/01/20 6:34:00 EDT, Pain , Moderate, 12/27/19 6:34:00 EDT, Route to Pharmacy Electronically, [facility]/pharmacy #[id number], 162, cm, 12/25/19 9:37:00 EDT, Height, 10... Start Date: 12/27/19 Stop Date: 01/01/20 Status: Ordered Tylenol 325 mg oral capsule 2 capsule = 650 mg, By Mouth, Every 4 hours, PRN as needed for pain, # 60 capsule, 1 Refills, Acute01/08/20 6:34:00 EDT, 12/27/19 6:34:00 EDT, Capsule, [facility]/pharmacy #[id number], 162, cm, 12/25/19 9:37:00 EDT, [...]
--- OUTSIDE RECORDS SUMMARY | 2023-01-15 23:20 | XMS_ITS | Continuity of Care Document ---
Author Name Unknown Organization [facility] Address [address] [place] [address]- Care Team Providers Care Transcription Coordinator Name Role Phone Dolores Milian MD Primary Care Physician [facility]counter [facility] Date(s): 05/07/19 - 05/17/19 [facility] [address] [place] [address]- [facility] Attending Physician: AdmOneil raymundo Admitting Physician: AdmtrOneil Referring Physician: Admtr, Ar8 [...] acel(Tdap) 06/13/10 Given 1Result Comment: [04/15/2014] Fluvirax [id number] 2Admin Note: vis given dated 12/25/12 3Admin Note: VIS 7-12 Medications [place] 0.65% nasal spray 2 sprays, Nares, Both, [...] 1Involved the area inferior to her vulva Social History Social History Type Response Smoking Status Former smoker; Other : pt quit smoking 2 years ago; entered on: 11/10/14 Sex
--- OUTSIDE RECORDS SUMMARY | 2023-01-15 23:20 | XMS_ITS | Continuity of Care Document ---
Author Name Unknown Organization [facility] Address [address] [place] [address]- Care Team Providers Care Art Psychotherapist Name Role Phone Dennis Cardoza DO Primary Care Physician [phone] [facility] Date[facility]s): 11/[facility]/22 - 12/06/22 [facility] [address] [place] [address] Allergies, Adverse Reactions, Alerts No [...] Vaccine 10/14/14 Given 1Result Comment: [04/15/2014] Fluvirax [id number] 2Admin Note: vis given dated 12/25/12 3Admin Note: VIS 7-12 Medications cetirizine 10 mg oral tablet 1 tablet = 10 mg, By Mouth, Daily, PRN for allergy symptoms, # 10 tablet, 0 Refills, Maintenance, 08/23/22 23:54:00 EDT, Tablet, [facility]/pharmacy #[id number], Partial fill upon patient request if the prescription is for a schedule II opioid drug., 163, cm, 07/03... Start Date: 08/23/22 Status: Ordered chlorthalidone 25 mg oral tablet 1, tablet, By Mouth, Daily, # 30 tablet, Refills 3, Tot. Refills 3, Maintenance, 10/15/22 10:21:00 EDT, Route to Pharmacy Electronically, [facility]/pharmacy #[id number], 163, cm, 09/21/22 20:45:00 EDT, Height, 116.1, kg, 09/21/22 20:45:00 EDT, Dry Weight Start Date: 10/15/22 Status: Ordered Diflucan 150 mg oral tablet 1 tablet = 150 mg, By Mouth, Once, # 1 tablet, 0 Refills, Soft Stop, 12/06/22 15:53:00 EDT, [facility]/pharmacy #[id number], Partial fill upon patient request if the prescription is for a schedule II opioid drug., 163, cm, 12/03/22 23:57:00 EDT, Height, 109, kg, 0... Start Date: 12/06/22 Status: Ordered EpiPen 2-Satya 0.3 mg injectable kit = 0.3 mg, Intramuscular, Once, # 1 pack/packet, 0 Refills, Soft Stop, 08/23/22 23:54:00 EDT, [facility]/pharmacy #[id number], Partial fill upon [...] 3 Refills, Maintenance, 09/16/22 15:26:00 EDT, Tablet, [facility]/pharmacy #[id number], Partial fill upon patient request if the prescription is for a schedule II opioid drug., 163, cm, 08/31... Start Date: 09/16/22 Stop Date: 03/15/23 Status: Ordered ibuprofen 800 mg oral tablet 800 mg, 1, tablet, By Mouth, 3 times a day, # 90 tablet, Refills 1, Tot. Refills 1, Maintenance, 10/22/22 10:55:00 EDT, Route to Pharmacy Electronically, [facility]/pharmacy #[id number], Partial fill upon patientrequest if the prescription is for a schedule II op... Start Date: 10/22/22 Status: Ordered metroNIDAZOLE 500 mg oral tablet 1 tablet = 500 mg, By Mouth, Every 12 hours, for 7 days, # 14 tablet, 0 Refills, Acute 12/13/22 15:52:00 EDT, 12/06/22 15:52:00 EDT, [facility]/pharmacy #[id number], Partial fill upon patient request if the prescription is for a schedule II opioid drug., 163, cm,... Start Date: 12/06/22 Stop Date: 12/13/22 Status: Ordered Paragard IUD See Instructions, # 1 each, Maintenance, Inserted by Rosa Stokes MD. Lot [id number] Exp November 2025., 02/03/20 11:09:00 EDT, Supply, 162, cm, 01/03/20 13:13:00 EDT, Height, 106, kg, 12/23/19 23:02:00 EDT, Dry Weight Start Date: 02/03/20 Status: Ordered SUMAtriptan 50 mg oral tablet 1 tablet = 50 mg, By Mouth, Daily, PRN for migraine headache, may repeat dose after 2 hours up to amaximum of 2, # 18 tablet, 2 Refills, Maintenance, 10/22/22 11:03:00 EDT, Tablet, [facility]/pharmacy #[id number], Partial fill upon patient request if the prescrip... Start Date: 10/22/22 Status: Ordered Wellbutrin XL 150 mg/24 hours oral tablet, extended release 1 tablet = 150 mg, By Mouth, Every 24 hours, # 90 tablet, 3 Refills, Maintenance, 10/22/22 11:06:00EDT, ER Tablet, [facility]/pharmacy #[id number], Partial fill [...] Team Personnel Name: Dennis Cardoza DO Position: [facility] Resident Member Role: PCP Address: Address: [address] [place] [address] [place], [place] [address] Name: Gabbie Vasquez RN Position: [facility] SN RN Member Role: Primary Care Nurse Care Team Related Persons Name: ENRRIQUE BAZZI Address: [place] [address] Name: TREASURE VILLAGRAN Address: home [address] [place] [address] Name: BERRY BURKETT Address: home [address] [address] Name: MARIANGEL JOE Address: [address] Address: home [address] [address]
--- OUTSIDE RECORDS SUMMARY | 2023-01-15 23:20 | XMS_ITS | Continuity of Care Document ---
Author Name Unknown Organization [facility] [place] [employer] [facility] Address [address] [facility], [address] [place] [address]- Care Team Providers Care Electrical Machine Builder Name Role Phone Dennis Cardoza DO Primary Care Physician En[place] [facility] Date(s): 12/05/22 - 01/04/23 [facility] [employer] [facility] [address] [facility], [address] [place], [place] [address] Allergies, Adverse Reactions, Alerts No Known Allergies [...] Vaccine 10/14/14 Given 1Result Comment: [04/15/2014] Fluvirax [id number] 2Admin Note: vis given dated 12/25/12 3Admin Note: VIS 7-12 Medications cetirizine 10 mg oral tablet 1 tablet = 10 mg, By Mouth, Daily, PRN for allergy symptoms, # 10 tablet, 0 Refills, Maintenance, 08/23/22 23:54:00 EDT, Tablet, [facility]/pharmacy #[id number], Partial fill upon patient request if the prescription is for a schedule II opioid drug., 163, cm, 07/03... Start Date: 08/23/22 Status: Ordered chlorthalidone 25 mg oral tablet 1, tablet, By Mouth, Daily, # 30 tablet, Refills 3, Tot. Refills 3, Maintenance, 10/15/22 10:21:00 EDT, Route to Pharmacy Electronically, [facility]/pharmacy #[id number], 163, cm, 09/21/22 20:45:00 EDT, Height, 116.1, kg, 09/21/22 20:45:00 EDT, Dry Weight Start Date: 10/15/22 Status: Ordered Diflucan 150 mg oral tablet 1 tablet = 150 mg, By Mouth, Once, # 1 tablet, 0 Refills, Soft Stop, 12/06/22 15:53:00 EDT, [facility]/pharmacy #[id number], Partial fill upon patient request if the prescription is for a schedule II opioid drug., 163, cm, 12/03/22 23:57:00 EDT, Height, 109, kg, 0... Start Date: 12/06/22 Status: Ordered EpiPen 2-Satya 0.3 mg injectable kit = 0.3 mg, Intramuscular, Once, # 1 pack/packet, 0 Refills, Soft Stop, 08/23/22 23:54:00 EDT, [facility]/pharmacy #[id number], Partial fill upon patient request [...] tablet, 0 Refills, Maintenance, 12/20/22 6:07:00EDT, Tablet, [facility]/pharmacy #[id number], Partial fill upon... Start Date: 12/20/22 Stop Date: 03/20/23 Status: Ordered hydrOXYzine hydrochloride 25 mg oral tablet 2 tablet = 50 mg, By Mouth, 3 times a day, PRN for anxiety, Take one to two tablets (25 to 50 mg) up to three times per day for management of panic., # 270 tablet, 3 Refills, Maintenance, 12/20/22 6:09:00 EDT, Tablet, [facility]/pharmacy #[id number], Partial fill... Start Date: 12/20/22 [...] Maintenance, Inserted by Rosa Stokes MD. Lot [id number] Exp November 2025., 02/03/20 11:09:00 EDT, Supply, [...] Team Personnel Name: Dennis Cardoza DO Position: [facility] Resident Member Role: PCP Address: Address: [address] [facility] [address]- Name: Gabbie Vasquez RN Position: [facility] SN RN Member Role: Primary Care Nurse Care Team Related Persons Name: ENRRIQUE BAZZI Address: [place] [address] Name: TREASURE VILLAGRAN Address: home [address] [place] [address] Name: BERRY BURKETT Address: home [address] [address] Name: MARIANGEL JOE Address: [address] Address: home [address] [address]
--- OUTSIDE RECORDS SUMMARY | 2023-01-15 23:21 | XMS_ITS | Continuity of Care Document ---
Author Name Unknown Organization [facility] Address [address] [place] [address]- Care Team Providers Care X Ray Tech Name Role Phone Dennis Cardoza DO Primary Care Physician [phone] [facility]counter [facility] Date[facility]s): 11/14/22 - 01/04/23 [facility] [address] [place] [address]- Attending Physician: Not on Staff, Attending MD [...] Vaccine 10/14/14 Given 1Result Comment: [04/15/2014] Fluvirax [id number] 2Admin Note: vis given dated 12/25/12 3Admin [...] tablet, 0 Refills, Maintenance, 12/20/22 6:07:00EDT, Tablet, [facility]/pharmacy #[id number], Partial fill upon... Start Date: [...] Maintenance, Inserted by Rosa Stokes MD. Lot [id number] Exp November 2025., 02/03/20 11:09:00 EDT, Supply, [...] Team Personnel Name: Dennis Cardoza DO Position: [facility] Resident Member Role: PCP Address: Address: [address] [place] [address] Adult [place], [place] [address] Name: Gabbie Vasquez RN Position: [facility] SN RN Member Role: Primary Care Nurse Care Team Related Persons Name: ENRRIQUE BAZZI Address: [place] [address] Name: TREASURE VILLAGRAN Address: home [address] [place] [address] Name: BERRY BURKETT Address: home [address] [address] Name: MARIANGEL JOE Address: [address] Address: home [address] [address]
--- OUTSIDE RECORDS SUMMARY | 2023-01-15 23:21 | XMS_ITS | Continuity of Care Document ---
Author Name Unknown Organization [facility] Luis Merritt [employer] Address [address] [facility], 4[address] [place] [address]- Care Team Providers Care Stain Maker Name Role Phone Dolores Milian MD Primary Care Physician [place] [facility] Date(s): 06/29/19 - 07/06/19 [facility] [employer] [facility] [address] [facility], [address] [place] [address]- Attending Physician: Not on Staff, Attending MD Referring Physician: Dolores Milian MD Allergies, Adverse Reactions, Alerts Substance Reaction Severity Status NKA Active Immunizations Given and Recorded Vaccine Date Status Refusal Reason influenza virus vaccine, inactivated 06/29/19 Give n influenza virus vaccine, inactivated 1 04/15/14 Gi pinky influenza virus vaccine, inactivated 2 03/25/13 Gi pikny influenza virus vaccine, inactivated 3 03/20/12 Gi pinky hepatitis B adult vaccine 11/05/17 Given hepatitis B adult vaccine 02/10/15 Given Human Papillomavirus Vaccine 10/14/14 Given tetanus/diphtheria/pertussis, acel(Tdap) 06/13/10 Given 1Result Comment: [04/15/2014] Fluvirax [id number] 2Admin Note: vis given dated 12/25/12 3Admin [...] Date: 06/29/19 Stop Date: 01/25/20 Status: Ordered [place] 0.65% nasal spray 2 sprays, Nares, Both, [...] oldest [Reference Range]: 1 Height 162.56 cm (06/29/19 9:45 AM) Weight 100.81 kg (06/29/19 9:45 AM) Body Mass Index [18.5-24.99] 38.15 *>HHI* (06/29/19 9:45 AM) Blood Pressure [90-138/55-84 mm Hg] 119/ 56mm Hg (06/29/19 9:45 AM) Blood pressure sites Arm, left (06/29/19 9:45 AM) Weight Obtained Via Standing scale (06/29/19 9:45 AM) Social History Social History Type Response Smoking Status Never (less than 100 in lifetime); Tobacco user in household: No entered on: 06/14/19 Sex
--- OUTSIDE RECORDS SUMMARY | 2023-01-15 23:21 | XMS_ITS | Continuity of Care Document ---
Author Name Unknown Organization [facility] Address [address] [place] [address]- Care Team Providers Care Avionic Technician Name Role Phone Magdalene KAHN, Charmaine Primary Care Physician [facility] Date[facility]s): 12/08/19 - 01/07/20 [facility] [address] [address]- [facility] Allergies, Adverse Reactions, Alerts Substance Reaction Severity [...] Vaccine 10/14/14 Given 1Result Comment: [04/15/2014] Fluvirax [id number] 2Admin Note: vis given dated 12/25/12 3Admin [...] 14:11:00 EDT, Route to Pharmacy Electronically, [facility]/pharmacy #[id number], 162, cm, 01/03/20 13:13:00 EDT, Height, 106, kg, 12/23/19 23:02:00 EDT, Dry Weight Start Date: 01/03/20 Status: Ordered Tylenol 325 mg oral capsule 2 capsule = 650 mg, By Mouth, Every 4 hours, PRN as needed for pain, # 60 capsule, 1 Refills, Acute01/08/20 6:34:00 EDT, 12/27/19 6:34:00 EDT, Capsule, [facility]/pharmacy #[id number], 162, cm, 12/25/19 9:37:00 EDT, [...]
--- OUTSIDE RECORDS SUMMARY | 2023-01-15 23:21 | XMS_ITS | Continuity of Care Document ---
Author Name Unknown Organization [facility] Address [address] [place] [address]- Care Team Providers Care Medical Practitioners Name Role Phone Dennis Cardoza DO Primary Care Physician [phone] [facility]counter [facility] Date(s): 09/05/21 - 10/05/21 [facility] [address] [place] [address]- Allergies, Adverse Reactions, Alerts No Known Allergies [...] Vaccine 10/14/14 Given 1Result Comment: [04/15/2014] Fluvirax [id number] 2Admin Note: vis given dated 12/25/12 3Admin Note: VIS 7-12 Medications chlorthalidone 25 mg oral tablet 1/2 tablet, By Mouth, Daily, TAKE 1/2 TABLET BY MOUTH DAILY, # 15 tablet, Refills 0, Tot. Refills 0, Maintenance, 06/22/21 15:47:00 EST, Route to Pharmacy Electronically, [facility]/pharmacy #[id number], Partial fill upon patient request if the prescription is for... Start Date: 06/22/21 Status: Ordered clindamycin 1% topical gel 1 application, Topically, 2 times a day, # 30 Gm, 0 Refills, Maintenance, 09/27/21 10:53:00 EDT, Gel, [facility]/pharmacy #[id number], Partial fill upon patient request if the prescription is for a schedule II opioid drug., 1 application Topically 2 times a day, 1... Start Date: 09/27/21 Status: Ordered AbyzBlue [employer] oral capsule 1 capsule, By Mouth, [...] mL, 0 Refills, Maintenance, 07/19/21 15:37:00 EST, [place], [facility]/pharmacy #[id number], Partial fill upon patient request if [...] 03/07/21 10:54:00 EDT, Route to Pharmacy Electronically, [facility]/pharmacy #[id number], Partial fill upon patient request if... Start Date: 03/07/21 Status: Ordered Paragard IUD See Instructions, # 1 each, Maintenance, Inserted by Rosa Stokes MD. Lot [id number] Exp November 2025., 02/03/20 11:09:00 EDT, Supply, 162, cm, 01/03/20 13:13:00 EDT, Height, 106, kg, 12/23/19 23:02:00 EDT, Dry Weight Start Date: 02/03/20 Status: Ordered Tylenol Extra Strength 500 mg oral tablet 2 tablet = 1,000 mg, By Mouth, Every 6 hours, PRN as needed for fever, # 24 tablet, 0 Refills, Maintenance, 03/07/21 10:54:00 EDT, Tablet, [id number], Partial fill upon patient request if theprescription [...]
--- OUTSIDE RECORDS SUMMARY | 2023-01-15 23:21 | XMS_ITS | Continuity of Care Document ---
Author Name Unknown Organization [facility] Address [address] [place] [address]- Care Team Providers Care Dredge Pump Operator Name Role Phone Dennis Cardoza DO Primary Care Physician [facility] Date[facility]s): 10/15/21 - 11/14/21 [facility] [address] [place] [id number] Allergies, Adverse Reactions, Alerts No Known Allergies [...] Vaccine 10/14/14 Given 1Result Comment: [04/15/2014] Fluvirax [id number] 2Admin Note: vis given dated 12/25/12 3Admin Note: VIS 7-12 Medications chlorthalidone 25 mg oral tablet 1/2 tablet, By Mouth, Daily, TAKE 1/2 TABLET BY MOUTH DAILY, # 15 tablet, Refills 0, Tot. Refills 0, Maintenance, 06/22/21 15:47:00 EST, Route to Pharmacy Electronically, [id number], Partial fill upon patient request if the prescription is for... Start Date: 06/22/21 Status: Ordered Culturee Fixed - [employer] oral capsule 1 capsule, By Mouth, [...] mL, 0 Refills, Maintenance, 07/19/21 15:37:00 EST, [place], [id number], Partial fill upon patient request [...] Maintenance, Inserted by Rosa Stokes MD. Lot [id number] Exp November 2025., 02/03/20 11:09:00 EDT, Supply, [...]
--- OUTSIDE RECORDS SUMMARY | 2023-01-15 23:21 | XMS_ITS | Continuity of Care Document ---
Author Name Unknown Organization [facility] Luis Merritt [employer] Address [address] [facility], [address] [place] [address]- Care Team Providers Care Code Clerk Name Role Phone Magdalene KAHN, kenton Primary Care Physician [id number] Date[facility] 12[facility]10[facility] - 12/17/19 [facility] [employer] [facility] [address] [facility], [address] [place] [address]- [facility] Attending Physician: Yadi Lam MD Allergies, Adverse [...] Vaccine 10/14/14 Given 1Result Comment: [04/15/2014] Fluvirax [id number] 2Admin Note: vis given dated 12/25/12 3Admin Note: VIS -12 Medications ferrous sulfate 325 mg oral enteric coated tablet 325 mg, 1, tablet, By Mouth, Daily, # 90 tablet, Refills 3, Tot. Refills 3, Maintenance, 10/19/19 16:52:00 EDT, Route to Pharmacy Electronically, [facility]/pharmacy #[id number], 162.56, cm, 10/19/19 13:34:00 EDT, Height, 104.6, [...] recent to oldest [Reference Range]: 1 Weight 105.6 kg (12/10/19 11:20 AM) Blood Pressure [90-138/55-84 mm Hg] 130/ 86mm Hg (12/10/19 11:20 AM) Blood pressure sites Arm, right (12/10/19 11:20 AM) Social History Social History Type Response Smoking Status Never (less than 100 in lifetime); Tobacco user in household: No entered on: 06/14/19 Sex
--- OUTSIDE RECORDS SUMMARY | 2023-01-15 23:21 | XMS_ITS | Continuity of Care Document ---
Author Name Unknown Organization [facility] Address [address] [place] [address]- Care Team Providers Care Bag Shaker Name Role Phone Magdalene KAHN, Charmaine Primary Care Physician Encounter [facility] Date(s): 01/03/20 - 01/03/[address] [address]- [facility] Discharge Disposition: A-D/C Home Attending Physician: Karen [...] Vaccine 10/14/14 Given 1Result Comment: [04/15/2014] Fluvirax [id number] 2Admin Note: vis given dated 12/25/12 3Admin [...] Acute01/08/20 6:34:00 EDT, 12/27/19 6:34:00 EDT, Capsule, [facility]/pharmacy #[id number], 162, cm, 12/25/19 9:37:00 EDT, Height, [...] Range]: 1 2 3 Height 162 cm (01/03/20 1:13 PM) Weight 97.1 kg (01/03/20 12:40 PM) Pulse Rate [55-90 bpm] 72 bpm (01/03/20 12:40 PM) Blood Pressure [90-138/55-84 mm Hg] 126/78mm Hg (01/03/20 2:23 PM) 141/77mm Hg *H* (01/03/20 2:14 PM) 176/104mm Hg *H* (01/03/20 1:48 PM) Temperature [96.8-100.4 DegF] 98.3 DegF (01/03/20 12:40 PM) Blood pressure sites Arm, right (01/03/20 1:17 PM) Arm, right (01/03/20 12:40 PM) Temperature Route Oral (01/03/20 12:40 PM) Social History Social History Type Response Smoking Status Never (less than 100 in lifetime); Tobacco user in household: No entered on: 06/14/19 Sex
--- OUTSIDE RECORDS SUMMARY | 2023-01-15 23:21 | XMS_ITS | Continuity of Care Document ---
Author Name Unknown Organization [facility] ter Address [address] [place] [address]- Care Team Providers Care Clinic Mgr Name Role Phone Rukhsana KAHN, Dolores Anderson Primary Care Physician [facility] Date[facility]s): 10/30/19 - 10/30/[address] [address]- [facility] Discharge Disposition: A-D/C Home Attending Physician: Fermín Martin DO Admitting Physician: Fermín Martin DO Referring Physician: Fermín Martin DO Allergies, Adverse Reactions, Alerts Substance Reaction Severity [...] Vaccine 10/14/14 Given 1Result Comment: [04/15/2014] Fluvirax [id number] 2Admin Note: vis given dated 12/25/12 3Admin Note: VIS 7-12 Medications ferrous sulfate 325 mg oral enteric coated tablet 325 mg, 1, tablet, By Mouth, Daily, # 90 tablet, Refills 3, Tot. Refills 3, Maintenance, 10/19/19 16:52:00 EDT, Route to Pharmacy Electronically, [facility]/pharmacy #[id number], 162.56, cm, 10/19/19 13:34:00 EDT, Height, 104.6, kg, 08/24/19 11:36:00 EDT, Dry Weight Start Date: 10/19/19 Status: Ordered Keflex monohydrate 500 mg oral capsule 1 capsule = 500 mg, By Mouth, Daily at bedtime, for 30 days, # 30 capsule, 3 Refills, Acute 02/24/20 11:23:00 EDT, 10/27/19 11:23:00 EDT, [facility]/pharmacy #[id number], 162.56, cm, 10/27/19 11:21:00 EDT, Height, [...] 0 Refills, Maintenance, 10/30/19 13:14:00 EDT, Tablet, [id number], 163, cm, 10/30/19 11:03:00 EDT, Height, [...] [Reference Range]: 1 2 Height 163 cm (10/30/19 11:03 AM) Weight 105.1 kg (10/30/19 10:52 AM) Oxygen Saturation [94-100 %] 98 % (10/30/19 11:03 AM) Pulse Rate [55-90 bpm] 100 bpm *H* (10/30/19 11:03 AM) Blood Pressure [90-138/55-84 mm Hg] 135/ 74mm Hg (10/30/19 11:03 AM) Temperature [96.8-100.4 DegF] 97.9 DegF (10/30/19 10:52 AM) Temperature Route Oral (10/30/19 11:03 AM) Oral (10/30/19 10:52 AM) Weight Obtained Via Standing scale (10/30/19 10:52 AM) Social History Social History Type Response Smoking Status Never (less than 100 in lifetime); Tobacco user in household: No entered on: 06/14/19 Sex
--- OUTSIDE RECORDS SUMMARY | 2023-01-15 23:21 | XMS_ITS | Continuity of Care Document ---
Author Name Unknown Organization [facility] Address [address] [place] [address]- Care Team Providers Care Cargo And Ramp Services Manager Name Role Phone Dennis Cardoza DO Primary Care Physician [phone] Encounter [facility] Date(s): 05/23/22 - 07/10/22 [facility] [address] [place] [address]- Attending Physician: Not on Staff, Attending MD [...] Vaccine 10/14/14 Given 1Result Comment: [04/15/2014] Fluvirax [id number] 2Admin Note: vis given dated 12/25/12 3Admin Note: VIS 7-12 Medications amLODIPine 5 mg oral tablet 5 mg, 1, tablet, By Mouth, Daily, # 30 tablet, Refills 11, Tot. Refills 11, Maintenance, 07/09/22 16:17:00 EST, Route to Pharmacy Electronically, [facility]/pharmacy #[id number], Partial fill upon patient requestif the prescription is for a schedule II opioid brady... Start Date: 07/09/22 Status: Ordered chlorthalidone 25 mg oral tablet 25 mg, 1, tablet, By Mouth, Daily, # 30 tablet, Refills 4, Tot. Refills 4, Maintenance, 12/21/21 10:51:00 EDT, Route to Pharmacy Electronically, [facility]/pharmacy #[id number], Partial fill upon [...] 02/19/22 16:04:00 EDT, Route to Pharmacy Electronically, [facility]/pharmacy#[id number], Partial fill upon patient request if the pr... Start Date: 02/19/22 Status: Ordered Paragard IUD See Instructions, # 1 each, Maintenance, Inserted by Rosa Stokes MD. Lot [id number] Exp November 2025., 02/03/20 11:09:00 EDT, Supply, [...] CENTER Resident Member Role: PCP Address: Address: [address] [place] [address] [place] [address]- Name: Gabbie Vasquez RN Position: [facility] SN RN Member Role: Primary Care Nurse Care Team Related Persons Name: ENRRIQUE BAZZI Address: [place] [address] Name: TREASURE VILLAGRAN Address: home [address] [place] [address] Name: BERRY BURKETT Address: [address] [address] Name: MARIANGEL JOE Address: [address] Address: home [address] [address]
--- OUTSIDE RECORDS SUMMARY | 2023-01-15 23:21 | XMS_ITS | Continuity of Care Document ---
Author Name Unknown Organization [facility] Address [address] [place] [address]- Care Team Providers Care .Net Architect Name Role Phone Dennis Cardoza DO Primary Care Physician Encounter [facility] Date(s): 11/29/22 - 12/29/[address] [address] Allergies, Adverse Reactions, Alerts [...] Vaccine 10/14/14 Given 1Result Comment: [04/15/2014] Fluvirax [id number] 2Admin Note: vis given dated 12/25/12 3Admin Note: VIS 7-12 Medications cetirizine 10 mg oral tablet 1 tablet = 10 mg, By Mouth, Daily, PRN for allergy symptoms, # 10 tablet, 0 Refills, Maintenance, 08/23/22 23:54:00 EDT, Tablet, [facility]/pharmacy #[id number], Partial fill upon patient request if the prescription is for a schedule II opioid drug., 163, cm, 07/03... Start Date: 08/23/22 Status: Ordered chlorthalidone 25 mg oral tablet 1, tablet, By Mouth, Daily, # 30 tablet, Refills 3, Tot. Refills 3, Maintenance, 10/15/22 10:21:00 EDT, Route to Pharmacy Electronically, [facility]/pharmacy #[id number], 163, cm, 09/21/22 20:45:00 EDT, Height, 116.1, kg, 09/21/22 20:45:00 EDT, Dry Weight Start Date: 10/15/22 Status: Ordered Diflucan 150 mg oral tablet 1 tablet = 150 mg, By Mouth, Once, # 1 tablet, 0 Refills, Soft Stop, 12/06/22 15:53:00 EDT, [facility]/pharmacy #[id number], Partial fill upon patient request if the prescription is for a schedule II opioid drug., 163, cm, 12/03/22 23:57:00 EDT, Height, 109, kg, 0... Start Date: 12/06/22 Status: Ordered EpiPen 2-Satya 0.3 mg injectable kit = 0.3 mg, Intramuscular, Once, # 1 pack/packet, 0 Refills, Soft Stop, 08/23/22 23:54:00 EDT, [facility]/pharmacy #[id number], Partial fill upon patient [...] 0 Refills, Maintenance, 12/20/22 6:07:00EDT, Tablet, [facility]/pharmacy #[id number], Partial fill upon... Start Date: 12/20/22 Stop Date: 03/20/23 Status: Ordered hydrOXYzine hydrochloride 25 mg oral tablet 2 tablet = 50 mg, By Mouth, 3 times a day, PRN for anxiety, Take one to two tablets (25 to 50 mg) up to three times per day for management of panic., # 270 tablet, 3 Refills, Maintenance, 12/20/22 6:09:00 EDT, Tablet, [facility]/pharmacy #[id number], Partial fill... Start Date: 12/20/22 Stop Date: 12/15/23 Status: Ordered ibuprofen 800 mg oral tablet 800 mg, 1, tablet, By Mouth, 3 times a day, # 90 tablet, Refills 1, Tot. Refills 1, Maintenance, 10/22/22 10:55:00 EDT, Route to Pharmacy Electronically, [facility]/pharmacy #[id number], Partial fill upon patientrequest if the prescription is for a schedule II op... Start Date: 10/22/22 Status: Ordered Paragard IUD See Instructions, # 1 each, Maintenance, Inserted by Rosa Stokes MD. Lot [id number] Exp November 2025., 02/03/20 11:09:00 EDT, Supply, [...] Refills, Maintenance, 10/22/22 11:03:00 EDT, Tablet, [facility]/pharmacy #[id number], Partial fill upon patient [...] Personnel Name: Dennis Cardoza DO Position: [facility] Resident Member Role: PCP Address: Address: [address] [place] [address] [place], [place] [address] Name: Gabbie Vasquez RN Position: [facility] SN RN Member Role: Primary Care Nurse Care Team Related Persons Name: ENRRIQUE BAZZI Address: [place] [address] Name: TREASURE VILLAGRAN Address: home [address] [place] [address] Name: BERRY BURKETT Address: home [address] [address] Name: MARIANGEL JOE Address: [address] Address: home [address] [address]
--- OUTSIDE RECORDS SUMMARY | 2023-01-15 23:21 | XMS_ITS | Continuity of Care Document ---
Author Name Unknown Organization [facility] Address [address] [place] [id number]- Care Team Providers Care Aerosol Supervisor Name Role Phone Dennis Cardoza DO Primary Care Physician Encounter [facility] Date(s): 07/05/21 - 08/04/21 [facility] [address] [place] [address]- Allergies, Adverse Reactions, Alerts No Known Allergies [...] Vaccine 10/14/14 Given 1Result Comment: [04/15/2014] Fluvirax [id number] 2Admin Note: vis given dated 12/25/12 3Admin Note: VIS 7-12 Medications chlorthalidone 25 mg oral tablet 1/2 tablet, By Mouth, Daily, TAKE 1/2 TABLET BY MOUTH DAILY, # 15 tablet, Refills 0, Tot. Refills 0, Maintenance, 06/22/21 15:47:00 EST, Route to Pharmacy Electronically, [facility]/pharmacy #[id number], Partial fill upon patient request if the prescription is for... Start Date: 06/22/21 Status: Ordered [facility] oral capsule 1 capsule, By Mouth, Daily, for 30 days, # 30 capsule, 11 Refills, Acute 06/30/22 15:54:00 EST, 07/05/21 15:54:00 EST, [facility]/pharmacy #[id number], Partial fill upon patient request if the prescription is fora schedule II opioid drug., 1 capsule By Mouth Jose... Start Date: 07/05/21 Stop Date: 06/30/22 Status: Ordered flunisolide 25 mcg/inh nasal spray 2 puffs, Nares, Both, Daily, # 25 mL, 0 Refills, Maintenance, 07/19/21 15:37:00 EST, [place], [facility]/pharmacy #[id number], Partial fill upon patient request [...] 03/07/21 10:54:00 EDT, Route to Pharmacy Electronically, [facility]/pharmacy #[id number], Partial fill upon patient request if... Start Date: 03/07/21 Status: Ordered Paragard IUD See Instructions, # 1 each, Maintenance, Inserted by Rosa Stokes MD. Lot [id number] Exp November 2025., 02/03/20 11:09:00 EDT, Supply, 162, cm, 01/03/20 13:13:00 EDT, Height, 106, kg, 12/23/19 23:02:00 EDT, Dry Weight Start Date: 02/03/20 Status: Ordered Tylenol Extra Strength 500 mg oral tablet 2 tablet = 1,000 mg, By Mouth, Every 6 hours, PRN as needed for fever, # 24 tablet, 0 Refills, Maintenance, 03/07/21 10:54:00 EDT, Tablet, [facility]/pharmacy #[id number], Partial fill upon [...]
--- OUTSIDE RECORDS SUMMARY | 2023-01-15 23:21 | XMS_ITS | Continuity of Care Document ---
Author Name Unknown Organization [facility] [employer] Address [address] [facility], [place], [place] [address]- Care Team Providers Care Fish Conservationist Name Role Phone Dennis Cardoza DO Primary Care Physician Encounter [facility] Date(s): 06/28/22 - 07/28/22 [facility] [employer] [address] [facility] [place], [place] [address] Allergies, Adverse Reactions, Alerts No Known [...] Vaccine 10/14/14 Given 1Result Comment: [04/15/2014] Fluvirax [id number] 2Admin Note: vis given dated 12/25/12 3Admin Note: VIS 7-12 Medications amLODIPine 5 mg oral tablet 5 mg, 1, tablet, By Mouth, Daily, # 30 tablet, Refills 11, Tot. Refills 11, Maintenance, 07/09/22 16:17:00 EST, Route to Pharmacy Electronically, [facility]/pharmacy #[id number], Partial fill upon patient requestif the prescription is for a schedule II opioid brady... Start Date: 07/09/22 Status: Ordered chlorthalidone 25 mg oral tablet 25 mg, 1, tablet, By Mouth, Daily, # 30 tablet, Refills 4, Tot. Refills 4, Maintenance, 12/21/21 10:51:00 EDT, Route to Pharmacy Electronically, [facility]/pharmacy #[id number], Partial fill upon [...] 02/19/22 16:04:00 EDT, Route to Pharmacy Electronically, [facility]/pharmacy#[id number], Partial fill upon patient request if the pr... Start Date: 02/19/22 Status: Ordered Paragard IUD See Instructions, # 1 each, Maintenance, Inserted by Rosa Stokes MD. Lot [id number] Exp November 2025., 02/03/20 11:09:00 EDT, Supply, [...] HOSPITAL Resident Member Role: PCP Address: Address: [address] [place] [address] [place] [address]- Name: Gabbie Vasquez RN Position: [facility] SN RN Member Role: Primary Care Nurse Care Team Related Persons Name: ENRRIQUE BAZZI Address: [place] [address] Name: TREASURE VILLAGRAN Address: home [address] [place] [address] Name: BERRY BURKETT Address: [address] [address] Name: MARIANGEL JOE Address: [address] Address: [address] [address]
--- OUTSIDE RECORDS SUMMARY | 2023-01-15 23:21 | XMS_ITS | Continuity of Care Document ---
Author Name Unknown Organization [facility] Address [address] [place] [address]- Care Team Providers Care Pricing Strategist Name Role Phone Cardoza Dennis SYLVESTER Primary Care Physician Encounter [facility] Date(s): 08/23/22 - 08/24/[address] [address]- Discharge Disposition: A-D/C Home Attending Physician: Michelle Turner MD Admitting Physician: Michelle Turner MD Referring Physician: Not on Staff, Referring [...] Vaccine 10/14/14 Given 1Result Comment: [04/15/2014] Fluvirax [id number] 2Admin Note: vis given dated 12/25/12 3Admin Note: VIS 7-12 Medications amLODIPine 5 mg oral tablet 5 mg, 1, tablet, By Mouth, Daily, # 30 tablet, Refills 11, Tot. Refills 11, Maintenance, 07/09/22 16:17:00 EST, Route to Pharmacy Electronically, [facility]/pharmacy #[id number], Partial fill upon patient requestif the prescription is for a schedule II opioid brady... Start Date: 07/09/22 Status: Ordered cetirizine 10 mg oral tablet 1 tablet = 10 mg, By Mouth, Daily, PRN for allergy symptoms, # 10 tablet, 0 Refills, Maintenance, 08/23/22 23:54:00 EDT, Tablet, [facility]/pharmacy #[id number], Partial fill upon patient request if the prescription is for a schedule II opioid drug., 163, cm, 07/03... Start Date: 08/23/22 Status: Ordered chlorthalidone 25 mg oral tablet 1, tablet, By Mouth, Daily, # 30 tablet, Refills 4, Maintenance, 08/04/22 14:51:00 EST, Route to Pharmacy Electronically, [facility] STORE [id number], 163, cm, 07/15/22 14:10:00 EST, Height, 112, kg, 05/16/22 20:17:00 EST, Dry Weight Start Date: 08/04/22 Status: Ordered EpiPen 2-Satya 0.3 mg injectable kit = 0.3 mg, Intramuscular, Once, # 1 pack/packet, 0 Refills, Soft Stop, 08/23/22 23:54:00 EDT, [facility]/pharmacy #[id number], Partial fill upon patient request [...] 16:04:00 EDT, Route to Pharmacy Electronically, [facility]/pharmacy#[id number], Partial fill upon patient request if the pr... Start Date: 02/19/22 Status: Ordered Paragard IUD See Instructions, # 1 each, Maintenance, Inserted by Rosa Stokes MD. Lot [id number] Exp November 2025., 02/03/20 11:09:00 EDT, Supply, [...] oldest [Reference Range]: 1 2 3 Weight 114.2 kg (08/23/22 11:36 PM) 114.2 kg (08/23/22 9:25 PM) Oxygen Saturation [94-100 %] 100 % (08/24/22 12:01 AM) 100 % (08/23/22 11:36 PM) 100 % (08/23/22 9:54 PM) Pulse Rate [55-90 bpm] 100 bpm *H* (08/24/22 12:01 AM) 99 bpm *H* (08/23/22 11:36 PM) 108 bpm *H* (08/23/22 9:54 PM) Blood Pressure [90-138/55-84 mm Hg] 132/88mm Hg (08/24/22 12:01 AM) 133/87mm Hg (08/23/22 11:36 PM) 127/89mm Hg (08/23/22 9:54 PM) Respiratory Rate [16-30 br/min] 18 br/min (08/24/22 12:01 AM) 18 br/min (08/23/22 11:36 PM) 21 br/min (08/23/22 9:54 PM) Temperature [96.8-100.4 DegF] 97.9 DegF (08/23/22 11:36 PM) 98.9 DegF (08/23/22 9:25 PM) Mode of Delivery (Oxygen) Room air (08/24/22 12:01 AM) Room air (08/23/22 11:36 PM) Room air (08/23/22 9:54 PM) Blood pressure sites Arm, right (08/23/22 11:36 PM) Temperature Route Oral (08/23/22 11:36 PM) Weight Obtained Via Standing scale (08/23/22 9:25 PM) Social History Social History Type Response Smoking Status Never (less than 100 in lifetime); Tobacco user in household: No entered on: 06/14/19 Sex Note * Berry Oneill DO: PERFORM Event Display: Patient Education Leaflets Authored Date: [id number] General Allergic Reactions ?? [id number] General Allergic Reactions An allergic reaction is a set of symptoms caused by an allergen. An allergen is something that causes your immune system to react abnormally. It releases various chemicals. These include histamine. Histamine causes swelling and itching. An allergic reaction may affect the entire body. This is called a general allergic reaction.??Often symptoms affect only 1 part of the body. This is called a local allergic reaction. You are having an allergic reaction. Almost anything can cause one. Different people are allergic to different things. It's usually something that you ate or swallowed, came into contact with by getting or putting it on your skin or clothes, or something you breathed in the air. This can be very annoying and sometimes scary. Most people think of allergic reactions when they have a rash or itchy skin. Other symptoms can include: ??? Itching of the eyes, nose, and roof of the mouth ??? Runny or stuffy nose ??? Watery eyes?Sneezing or coughing? A??blocked feeling in the ear ??? Red, raised, itchy??rash called hives ??? Red and purple spots ??? Rash, redness, welts, blisters ??? Itching, burning, stinging, pain ???Dry, flaky, cracking, scaly skin Severe symptoms include: ??? Swelling of the face, lips, mouth, throat, or other parts of the body ??? Hoarse voice ??? Trouble swallowing, feeling like your throat is closing ??? Trouble breathing, wheezing ??? Nausea, vomiting, diarrhea, stomach cramps ??? Feeling faint or lightheaded, rapid heart rate Sometimes the cause of an allergic reaction may be obvious. But there are so many things that can cause a reaction that you may not be able to figure it out. The most important things to help find your allergen are to remember: ??? Where you were, such as in a forest, factory, grocery store, or paint store ??? When it started??? What you were doing at the time or just before that ??? What activities you were involved in ??? If you were exposed to anything new Below are some common causes of allergies. Some of these can cause severe general allergic reactions. Others can cause mild to moderate symptoms. But remember that almost anything can cause a reaction. You may not even be aware that you came into contact with one of these things: ??? Dust, mold, pollen ??? Plants (common ones are poison chirag and poison oak, but there are many others)? Animals ??? Foods, such as shrimp, shellfish, peanuts, tree nuts, milk products, wheat, and eggs ??? Food colorings, flavorings, and additives ??? Insect bites or stings, such as bees, mosq uitoes,??fleas, and ticks ??? Medicines, such as??penicillin, sulfa medicines, aspirin, and ibuprofen. But any medicine can cause a reaction. ??? Jewelry,??such as nickel or gold. This can be new, orsomething you???ve worn for a while, including zippers and buttons. ??? Latex, such as in gloves, clothes, toys, balloons, or some tapes. Some people allergic to latex may also have problems with foods like bananas, avocados, kiwi, papaya, or chestnuts. ??? Lotions, perfumes, cosmetics, soaps, shampoos, skincare products, nail products ??? Chemicals or dyes in clothing, linen, rocket propellant plant supervisor, hair dyes, soaps, iodine Many viruses and common colds can cause a rash (such as hives) that is not an allergic reaction. Sometimes it's hard to tell the difference between allergies, sensitivity, or??an intolerance to something. This is especially true with food. Many things can cause diarrhea, vomiting, stomach cramps, and skin irritation. Home care The goal of treatment is to help relieve the symptoms and get you feeling better. The rash will usually fade over several days. But it can sometimes last a couple of weeks. Over the next couple of days, there may be times when it gets a little worse, and then better again. Here are some things to do: ??? If you know what you are allergic to, stay away from it. Future exposures may cause similar or sometimes worse symptoms. ??? Don't wear tight clothing and stay away from anything that heats up your skin, such as hot showers or baths, and direct sunlight. Heat will make itching worse. ??? An ice pack will relieve local areas of intense itching and redness. To make an ice pack, put ice cubes in a plastic bag that seals at the top. Wrap it in a thin, clean towel. Apply the ice pack for 5 to 10 minutes. Don???t put the ice directly on the skin because it can damage the skin. ??? Oral diphenhydramine is an hpzi-gqq-scsrbgp antihistamine sold at pharmacies and grocery stores. Unless a prescription antihistamine was given, diphenhydramine may be used to reduce itching if large areas of theskin are involved.??It may make you sleepy. So be careful using it in the daytime or when going to school, working, or driving. Note: Don???t use??diphenhydramine??if you have glaucoma or if you havetrouble urinating because of an enlarged prostate. There are other antihistamines that won???t makeyou so sleepy. These are good choices for daytime use. Ask your healthcare provider or pharmacist for suggestions. ??? Don???t use??diphenhydramine??cream on your skin unless prescribed. It may causea worse reaction in some people. ??? To help prevent an infection, don't scratch the affected area.??Scratching??may make the reaction worse and??damage your skin. It can also lead to an infection. Always check the affected areas for signs of an infection. ??? Call your healthcare provider and ask what you can use to help decrease the itching. ??? To decrease your exposure to allergens, try the following: ?? o Use heat-steam to clean your home. o Use high-efficiency particulate (HEPA) vacuums and filters. o Stay away from food and pet triggers. o Kill any cockroaches and use pest control to keep infestations from happening again. o Clean your house often. ?? Follow-up care Follow up with your healthcare provider, or as advised. You may be referred to an chemical engineering professor. If youhad a severe reaction today, or if you have had several mild to medium allergic reactions in the past, ask your provider about allergy testing. This can help you find out what you are allergic to. Ifyou had a severe reaction that included dizziness, fainting, or trouble breathing or swallowing, ask your provider about carrying auto-injectable epinephrine and wearing a medical alert bracelet or necklace. You can also ask if allergy immunotherapy (such as allergy shots) may be right for you. ?? Call 911 Call 911 right away if any of these occur: ??? Trouble breathing or swallowing, wheezing ??? Cool, moist, pale skin ??? Shortness of breath ??? Hoarse voice or trouble speaking ??? Confusion? Very drowsy or trouble awakening ??? Fainting or loss of consciousness ??? Rapid heart rate ??? Feeling of dizziness or weakness or a sudden drop in blood pressure ??? Feeling of doom ??? Feeling lightheaded ??? Severe nausea or vomiting,??or diarrhea ??? Seizure ??? Swelling in the face, eyelids, lips, mouth, throat, or tongue ??? Drooling ?? When to seek medical advice Call your healthcare provider or get medical care right away if any of these occur: ??? Spreading areas of itching, redness, or swelling ??? Nausea or stomach cramps or abdominal pain ??? Symptoms that continue, get worse, or happen more than once ??? Spreading areas of redness, swelling, or itching ??? Signs of infection at the affected site: o Spreading redness o Increased pain or swelling o Fluid or colored drainage from the site o Fever of 100.4??F (38??C) or higher, or as directed by your healthcare provider ?? Last Reviewed Date: 2021 ?? [employer]. All rights reserved. This information is not intended as a substitute for professional medical care. Always follow your healthcare professional's instructions. ?? * Berry Oneill DO: PERFORM Event Display: Patient Education Leaflets Authored Date: [id number] Epinephrine Auto-Injector ?? [address] Epinephrine Auto-Injector Brands: Adrenaclick, Auvi-Q, Epipen Uses For severe allergic reaction. ?? Instructions This medicine is given as an injection into a muscle. Always inspect the medicine before using. Do not use the medicine if it contains any particles or if it has changed color. Keep this medicine at room temperature. Never use any medicine that has . Please ask your doctor, nurse, or pharmacist how to discard unused medicines safely. Check to make sure that your injector slides easily out of its carrying case before you need it in an emergency. If it does not slide out easily, check with your pharmacist about replacing your product. Ask your doctor, nurse or pharmacist to show you how to use this medicine correctly. Family, friends, and coworkers should all learn how to give this medicine to the patient. Check the medicine once a month, and replace it before it expires. ?? Cautions After using this medicine, go immediately to the nearest medical emergency room. It is very important that you always have this medicine with you in case you need to use it. DO NOTleave it at home. Tell the doctor or pharmacist if you are , planning to be , or . Ask your pharmacist if this medicine can interact with any of your other medicines. Be sure to tellthem about all the medicines you take. Ask your pharmacist how to properly throw away used needles or syringes. ?? Side Effects The following is a list of some common side effects from this medicine. Please speak with your doctor about what you should do if you experience these or other side effects. ??? agitated feeling or trouble sleeping ??? chest pain ??? dizziness ??? headaches ??? high blood pressure ??? nausea and vomiting ??? nervousness ??? rapid heartbeat ??? red, burning, or itchy skin??? sweating If you have any of the following side effects, you may be getting too much medicine. Please contactyour doctor to let them know about these side effects. ??? confusion ??? fainting ??? blurring or changes of vision ?? Extra Please speak with your doctor, nurse, or pharmacist if you have any questions about this medicine. ?? [email or web address] IMPORTANT NOTE: This document tells you briefly how to take your medicine, but it does not tell youall there is to know about it. Your doctor or pharmacist may give you other documents about your medicine. Please talk to them if you have any questions. Always follow their advice. There is a more complete description of this medicine available in [place]. Scan this code on your smartphone or tablet or use the web address below. You can also ask your pharmacist for a printout. If you have any questions, please ask your pharmacist. The display and use of this drug information is subject to Terms of Use. Copyright(c) 2022 [employer]. ?? [employer]. All rights reserved. This information is not intended as a substitute for professional medical care. Always follow your healthcare professional's instructions. ?? Patient Care team information Care Team Personnel Name: Dennis Cardoza DO Position: [facility] Resident Member Role: PCP Address: Address: [address] [place] [address] Name: Gabbie Vasquez RN Position: [facility] SN RN Member Role: Primary Care Nurse Name: Jalil Rich Position: [facility] ED [facility] Member Role: Advertising Campaign Manager Name: Amirah Womack RN Position: [facility] ED RN W/OE and Tasks Member Role: Patient Care Provider Name: Michelle Turner MD Position: [facility] ED Medicine MD Member Role: Admitting Physician Address: Address: [address] [place] [address] Name: Berry Oneill DO Position: [facility] Resident Member Role: Resident Address: Address: [address] [place] [address] Care Team Related Persons Name: ENRRIQUE BAZZI Address: [place] [address] Name: TREASURE VILLAGRAN Address: home [address] [place] [address] Name: BERRY BURKETT Address: [address] [address] Name: MARIANGEL JOE Address: [address] Address: home [address] [address]
--- OUTSIDE RECORDS SUMMARY | 2023-01-15 23:21 | XMS_ITS | Continuity of Care Document ---
Author Name Unknown Organization [facility] Address [address] [place] [address]- Care Team Providers Care Ems Instructor Name Role Phone Magdalene KAHN, Charmaine Primary Care Physician [facility]counter [facility] Date(s[facility] 08/07/20 - 09/06/20 [facility] [address] [place] [address] Allergies, Adverse Reactions, Alerts Substance Reaction [...] Vaccine 10/14/14 Given 1Result Comment: [04/15/2014] Fluvirax [id number] 2Admin Note: vis given dated 12/25/12 3Admin Note: VIS 7-12 Medications acetaZOLAMIDE 250 mg oral tablet 250 mg, 1, tablet, By Mouth, 2 times a day, # 30 tablet, Refills 0, Tot. Refills 0, Maintenance, 08/09/20 19:10:00 EST, Route to Pharmacy Electronically, [facility]/pharmacy #[id number], Partial fill upon patientrequest if the prescription is for a schedule II op... Start Date: 08/09/20 Status: Ordered chlorthalidone 25 mg oral tablet 12.5 mg, 0.5, tablet, By Mouth, Daily, # 15 tablet, Refills 0, Tot. Refills 0, Maintenance, 08/18/20 13:45:00 EDT, Route to Pharmacy Electronically, [facility]/pharmacy #[id number], Partial fill upon patient request if the prescription is for a schedule II opioid... Start Date: 08/18/20 Stop Date: 09/17/20 Status: Ordered Dispense 1 blood pressure cuff [...] 03/28/20 14:55:00 EDT, [facility] Maintenance, Inserted by Rosa Stokes MD. Lot [id number] Exp November 2025., 02/03/20 11:09:00 EDT, Supply, [...] 1 Refills, Maintenance, 08/07/20 8:35:00 EST, Tablet, [facility]/pharmacy #[id number], 162, cm, 05/16/20 13:31:00 EST, Height, [...]
--- OUTSIDE RECORDS SUMMARY | 2023-01-15 23:21 | XMS_ITS | Continuity of Care Document ---
Author Name Unknown Organization [facility] ter Address [address] [place] [address]- Care Team Providers Care Wellness Nurse Name Role Phone Dennis Cardoza DO Primary Care Physician Encounter [facility] Date(s): 01/28/22 - 01/28/[address] [address]- Discharge Disposition: A-D/C Walkout Attending Physician: Not [...] Vaccine 10/14/14 Given 1Result Comment: [04/15/2014] Fluvirax [id number] 2Admin Note: vis given dated 12/25/12 3Admin [...] Date: 12/21/21 Stop Date: 05/20/22 Status: [facility] [employer] [facility] oral capsule 1 capsule, By Mouth, [...] mL, 0 Refills, Maintenance, 07/19/21 15:37:00 EST, [place], [id number], Partial fill upon patient request [...] 03/07/21 10:54:00 EDT, Route to Pharmacy Electronically, [facility]/pharmacy #[id number], Partial fill upon patient request if... Start Date: 03/07/21 Status: Ordered Paragard IUD See Instructions, # 1 each, Maintenance, Inserted by Rosa Stokes MD. Lot [id number] Exp November 2025., 02/03/20 11:09:00 EDT, Supply, 162, cm, 01/03/20 13:13:00 EDT, Height, 106, kg, 12/23/19 23:02:00 EDT, Dry Weight Start Date: 02/03/20 Status: Ordered Tylenol Extra Strength 500 mg oral tablet 2 tablet = 1,000 mg, By Mouth, Every 6 hours, PRN as needed for fever, # 24 tablet, 0 Refills, Maintenance, 03/07/21 10:54:00 EDT, Tablet, [facility]/pharmacy #[id number], Partial fill upon patient [...] Exam Date Time Procedure Performing Provider Status 01/28/22 8:42 AM Knee 1 or 2 Views Right Franko Bender marcel; Dio (Verified) Notes: (Knee 1 or 2 Views Right) Reason For Exam: Pain RESULT: Knee 1 or 2 Views Right Examination: Right knee performed on 01/28/2022. History: Hx of Present Illness: pt felt pop in R knee while doing arobics on friday; Reason: Pain; Clinical Question(s): Fracture Findings: Frontal and lateral views of the right knee are submitted. No fractures or dislocations are demonstrated. There is no joint effusion. IMPRESSION: There is no acute osseous abnormality. WSN: [id number] Ordering Physician: Shelley Goodman Dictated By: Vera Diaz MD Dictated Date/Time: 01/28/22 8:45 am Reviewed By: Vera Diaz MD Signed By: Vera Diaz MD Signed Date/Time: 01/28/22 8:45 am Transcribed By: FRANCISCA Transcribed Date/Time: 01/28/22 8:45 am Vital Signs Most recent to oldest [Reference Range]: 1 2 Height 158 cm (01/28/22 9:44 AM) 158 cm (01/28/22 8:26 AM) Weight 116.0 kg (01/28/22 9:44 AM) 116.0 kg (01/28/22 8:26 AM) Oxygen Saturation [94-100 %] 96 % (01/28/22 8:26 AM) Pulse Rate [55-90 bpm] 75 bpm (01/28/22 8:26 AM) Body Mass Index [18.5-24.99] 46.47 *>HHI* (01/28/22 9:44 AM) 46.47 *>HHI* (01/28/22 8:26 AM) Blood Pressure [90-138/55-84 mm Hg] 116/ 75mm Hg (01/28/22 8:26 AM) Respiratory Rate [16-30 br/min] 20 br/mi n (01/28/22 8:26 AM) Temperature [96.8-100.4 DegF] 98.1 DegF (01/28/22 9:44 AM) Mode of Delivery (Oxygen) Room air (01/28/22 8:26 AM) Blood pressure sites Arm, right (01/28/22 8:26 AM) Temperature Route Oral (01/28/22 9:44 AM) Dry Weight 166.0 kg (01/28/22 9:44 AM) 166.0 kg (01/28/22 8:26 AM) Weight Obtained Via Standing scale (01/28/22 8:26 AM) Social History Social History Type Response Smoking Status Never (less than 100 in lifetime); Tobacco user in household: No entered on: 06/14/19 Sex XR Knee - right 1 or 2 Views * BHSPowerscribe , CIS S: TRANSCRIBE Vera Diaz MD: VERIFY Event Display: Result: Authored Date: [id number] Examination: Right knee performed on 01/28/2022. History: Hx of Present Illness: pt felt pop in R knee while doing arobics on friday; Reason: Pain; Clinical Question(s): Fracture Findings: Frontal and lateral views of the right knee are submitted. No fractures or dislocations are demonstrated. There is no joint effusion. IMPRESSION: There is no acute osseous abnormality. WSN: [id number] Ordering Physician: Shelley Goodman Dictated By: Vera Diaz MD Dictated Date/Time: 01/28/22 8:45 am Reviewed By: Vera Diaz MD Signed By: Vera Diaz MD Signed Date/Time: 01/28/22 8:45 am Transcribed By: FRANCISCA Transcribed Date/Time: 01/28/22 8:45 am Care Team Personnel Name: Dennis Cardoza DO Address: [address] [place] [address] [place] [address]-
--- OUTSIDE RECORDS SUMMARY | 2023-01-15 23:21 | XMS_ITS | Continuity of Care Document ---
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 Refills 4, Maintenance, 12/21/21 10:51:00 EDT, [id number], Partial fill upon patient request if the prescription is for a schedule II opioid drug... Start Date: 12/21/21 Stop Date: 05/20/22 Status: Ordered [employer] oral capsule 1 capsule, By Mouth, [...] mL, 0 Refills, Maintenance, 07/19/21 15:37:00 EST, [place], [id number], Partial fill upon patient request [...] 02/19/22 16:04:00 EDT, Route to Pharmacy Electronically, [facility]/pharmacy#[id number], Partial fill upon patient request if the pr... Start Date: 02/19/22 Status: Ordered Paragard IUD See Instructions, # 1 each, Maintenance, Inserted by Rosa Stokes MD. Lot [id number] Exp November 2025., 02/03/20 11:09:00 EDT, Supply, [...] Confirmed Active Genital herpes simplex 6 Confirmed 7/23/20 Active High risk , antepartum Confirmed Active [...] was seen. 6Problem added by Discern Expert Results Radiology Reports * Exam Date Time Procedure Performing Provider Status 05/16/22 8:47 PM Chest 2 Views Frontal and Lat Alek Velez; Dio (Verified) Notes: (Chest 2 Views Frontal and Lat) Reason For Exam: Chest Pain;Other: RESULT: Chest 2 Views Frontal and Lat Chest 2 Views Frontal and Lat INDICATION: Chest pain. Here with chest pressure It feels like someone is sitting on my chest associated shortness of breath. Associated diaphoresis. COMPARISON: 02/05/2022 FINDINGS: LINES AND TUBES: None. LUNGS AND PLEURA: Clear lungs. Normal pulmonary vascularity. No pleural effusion. No pneumothorax. HEART, MEDIASTINUM AND ZAFAR: Heart is normal in size. Normal mediastinal and hilar contour. BONES AND SOFT TISSUES: No acute abnormality. IMPRESSION: No acute abnormality. I have personally reviewed the images and I agree with this report. WSN: [id number] Ordering Physician: Lainey Meyers Dictated By: Henry Foley DO Dictated Date/Time: 05/16/22 8:55 pm Reviewed By: Frantz Richey MD Signed By: Frantz Richey MD Signed Date/Time: 05/16/22 9:00 pm Transcribed By: FRANCISCA Transcribed Date/Time: 05/16/22 8:52 pm Vital Signs Most recent to oldest [Reference Range]: 1 2 3 Height 163 cm (05/16/22 8:17 PM) Weight 112 kg (05/16/22 8:17 PM) Oxygen Saturation [94-100 %] 99 % (05/17/22 4:47 AM) 99 % (05/17/22 1:13 AM) 98 % (05/16/22 9:57 PM) Pulse Rate [55-90 bpm] 88 bpm (12/16/22 4:47 AM) 90 bpm (05/17/22 1:13 AM) 96 bpm *H* (05/16/22 9:57 PM) Body Mass Index [18.5-24.99 kg/m2] 42.15 kg/m2 *>HHI* (05/16/22 8:17 PM) Blood Pressure [90-138/55-84 mm Hg] 130/63mm Hg (05/17/22 4:47 AM) 117/81mm Hg (05/17/22 1:13 AM) 122/88mm Hg (05/16/22 9:57 PM) Respiratory Rate [16-30 br/min] 16 br/min (05/16/22 8:17 PM) Temperature [96.8-100.4 DegF] 98 DegF (05/17/22 4:47 AM) 98.4 DegF (05/17/22 1:13 AM) 98.3 DegF (05/16/22 9:57 PM) Mode of Delivery (Oxygen) Room air (05/17/22 4:47 AM) Room air (05/17/22 1:13 AM) Room air (05/16/22 9:57 PM) Blood pressure sites Arm, left (05/17/22 4:47 AM) Arm, left (05/17/22 1:13 AM) Arm, left (05/16/22 9:57 PM) Temperature Route Oral (05/17/22 4:47 AM) Oral (05/17/22 1:13 AM) Oral (05/16/22 9:57 PM) Dry Weight 112 kg (05/16/22 8:17 PM) Weight Obtained Via Standing scale (05/16/22 8:17 PM) Dry Weight Obtained Via Standing scale (05/16/22 8:17 PM) Social History Social History Type Response Smoking Status Never (less than 100 in lifetime); Tobacco user in household: No entered on: 06/14/19 Sex EKG study * Event Display: ECG 12-Lead Authored Date: Please click on pdf link to open report * Event Display: ECG 12-Lead Authored Date: Ventricular Rate: 104 BPM Atrial Rate: 104 BPM P-R Interval: 148 ms QRS Duration: 80 ms Q-T Interval: 360 ms QTC Calculation(Bazett): 473 ms P [place]: 52 degrees R [place]: 69 degrees T [place]: 69 degrees Sinus tachycardia Otherwise normal ECG When compared with ECG of 05-FEB-2022 00:16, No significant change was found Confirmed by MORENA LOWERY MD ([id number]) on 05/17/2022 1:11:45 PM [place]: MORENA LOWERY MD Note * Jeaneth Escobar DO: PERFORM, SIGN, VERIFY Event Display: Patient Education Handout Authored Date: [id number] * Jeaneth Escobar DO: PERFORM Event Display: Patient Education Leaflets Authored Date: [id number] Uncertain Causes of Chest Pain ?? [id number] Uncertain Causes of Chest Pain Chest pain can happen for a number of reasons. Sometimes the cause can't be determined. If your??condition does not seem serious, and your pain does not appear to be coming from your heart, your healthcare provider may recommend watching it closely. Sometimes the signs of a serious problem take more time to appear. Many problems not related to your heart can cause chest pain. These include: ??? Musculoskeletal. Costochondritis is an inflammation of the tissues around the ribs that can occur from trauma or overuse injuries, or a strain of the muscles of the chest wall. ??? Respiratory. Pneumonia, collapsed lung (pneumothorax), or inflammation of the lining of the chest and lungs (pleurisy). ??? Gastrointestinal. Esophageal reflux, heartburn, ulcers, or gallbladder disease. ??? Anxiety and panic disorders ??? Nerve compression and inflammation ??? Rare problems such as aortic aneurysm or aortic dissection (a swelling of the large artery coming out of the heart or a tear in the wall of the artery), or pulmonary embolism (a blood clot in the lungs). Home care After your visit, follow these recommendations: ??? Rest today and avoid strenuous activity. ??? Take any prescribed medicine as directed. ??? Be aware of any recurrent chest pain and notice any changes ?? Follow-up care Follow up with your healthcare provider if you don't start to feel better within 24 hours, or as advised. ?? Call 911 Call 911 if any of these occur: ??? A change in the type of pain: if it feels different, becomes more severe, lasts longer, or begins to spread into your shoulder, arm, neck, jaw or back ??? Shortness of breath or increased pain with breathing ??? Weakness, dizziness, or fainting ??? Rapid heartbeat ??? Crushing sensation in your chest ??? Coughing up more than a small amount of blood. ?? When to seek medical advice Call your healthcare provider right away if any of the following occur: ??? Cough with dark coloredsputum (phlegm) or small amount of blood ??? Fever of 100.4??F??(38??C) or higher, or as directed by your healthcare provider ??? Swelling, pain or redness in one leg ?? Last Reviewed Date: 2021 ?? [id number] [employer]. All rights reserved. This information is not intended as a substitute for professional medical care. Always follow your healthcare professional's instructions. ?? * BHSPowerscribe , CIS S: TRANSCRIBE Frantz Richey MD: VERIFY Henry Foley DO: SIGN Event Display: Result: Authored Date: [id number] Chest 2 Views Frontal and Lat INDICATION: Chest pain. Here with chest pressure It feels like someone is sitting on my chest associated shortness of breath. Associated diaphoresis. COMPARISON: 02/05/2022 FINDINGS: LINES AND TUBES: None. LUNGS AND PLEURA: Clear lungs. Normal pulmonary vascularity. No pleural effusion. No pneumothorax. HEART, MEDIASTINUM AND ZAFAR: Heart is normal in size. Normal mediastinal and hilar contour. BONES AND SOFT TISSUES: No acute abnormality. IMPRESSION: No acute abnormality. I have personally reviewed the images and I agree with this report. WSN: [id number] Ordering Physician: Lainey Meyers Dictated By: Henry Foley DO Dictated Date/Time: 05/16/22 8:55 pm Reviewed By: Frantz Richey MD Signed By: Frantz Richey MD Signed Date/Time: 05/16/22 9:00 pm Transcribed By: FRANCISCA Transcribed Date/Time: 05/16/22 8:52 pm Patient Care team information Care Team Personnel Name: Dennis Cardoza DO Position: [facility] Resident Member Role: PCP Address: Address: [address] [facility] [place] [address]- [place] Name: Gabbie Vasquez RN Position: [facility] SN RN Member Role: Primary Care Nurse Name: *[facility], ED Attending Position: [facility] ED Attendings Patient Name: Sandra Will RN Position: [facility] ED RN W/OE and Tasks Member Role: Patient Care Provider Name: Jeaneth Escobar DO Position: [facility] ED Medicine MD Member Role: Admitting Physician Address: Address: [address] [facility] [place] [address]- Care Team Related Persons Name: ENRRIQUE BAZZI Address: [place] [address] Name: TREASURE VILLAGRAN Address: home [address] [place] [address] Name: BERRY BURKETT Address: home [address] [address] Name: MARIANGEL JOE Address: [address] Address: home [address] [address]
--- OUTSIDE RECORDS SUMMARY | 2023-01-15 23:21 | XMS_ITS | Continuity of Care Document ---
Author Name Unknown Organization [facility] [employer] [facility] Address [address], [place], [place] [address]- Care Team Providers Care Social Work Associate Name Role Phone Dennis Cardoza DO Primary Care Physician [phone] Encounter [facility] Date(s): 07/15/22 - 08/14/22 [facility] Luiskevin SmithD[employer] [facility] [address] [place] [address]- Attending Physician: Oneil Jones Admitting Physician: Oneil Jones Referring Physician: AdmtrOneil Allergies, Adverse Reactions, Alerts No Known Allergies [...] Vaccine 10/14/14 Given 1Result Comment: [04/15/2014] Fluvirax [id number] 2Admin Note: vis given dated 12/25/12 3Admin Note: VIS 7-12 Medications amLODIPine 5 mg oral tablet 5 mg, 1, tablet, By Mouth, Daily, # 30 tablet, Refills 11, Tot. Refills 11, Maintenance, 07/09/22 16:17:00 EST, Route to Pharmacy Electronically, [facility]/pharmacy #[id number], Partial fill upon patient requestif the prescription is for a schedule II opioid brady... Start Date: 07/09/22 Status: Ordered chlorthalidone 25 mg oral tablet 1, tablet, By Mouth, Daily, # 30 tablet, Refills 4, Maintenance, 08/04/22 14:51:00 EST, Route to Pharmacy Electronically, [facility] STORE [id number], 163, cm, 07/15/22 14:10:00 EST, Height, 112, [...] 02/19/22 16:04:00 EDT, Route to Pharmacy Electronically, [facility]/pharmacy#[id number], Partial fill upon patient request if the pr... Start Date: 02/19/22 Status: Ordered Paragard IUD See Instructions, # 1 each, Maintenance, Inserted by Rosa Stokes MD. Lot [id number] Exp November 2025., 02/03/20 11:09:00 EDT, Supply, [...] Team Personnel Name: Dennis Cardoza DO Position: [facility] Resident Member Role: PCP Address: Address: [address] [place] [address] Adult [place], [place] [address] Name: Gabbie Vasquez RN Position: [facility] SN RN Member Role: Primary Care Nurse Care Team Related Persons Name: ENRRIQUE BAZZI Address: [place] [address] Name: TREASURE VILLAGRAN Address: home [address] [place] [address] Name: BERRY BURKETT Address: home [address] [address] Name: MARIANGEL JOE Address: [address] Address: home [address] [address]
[2023-01-15 23:23] VITALS: PULSE 77; RESP 18; TEMP 36.7; O2SAT 96
[2023-01-16] MEDS: Ketorolac Tromethamine 60 MG/2 ML VIAL IM (00:19)
[2023-01-16] MEDS: Butalb/Acetamin/Caff 50/325/40 TABLET 1 TAB PO (00:19)
[2023-01-16 00:33] VITALS: BP 118/72; PULSE 78; RESP 17; TEMP 36.9; O2SAT 97
== END 2023-01-16 00:53 | disposition home or self-care (01) ==
PROVIDERS: Emergency Provider Internal Medicine
DX: G44.209 Tension-type headache, unspecified, not intractable (principal); R07.89 Other chest pain; H53.8 Other visual disturbances; Z79.899 Other long term (current) drug therapy
CPT/HCPCS: 36415; 80053; 84484; 85027; 93005; 99285; J1885

== ENCOUNTER 2023-02-25 17:36 | Emergency (ER) | payer OTHER, SELFPAY ==
[2023-02-25 17:38] VITALS: BP 115/84; PULSE 85; RESP 18; TEMP 36.7; O2SAT 99; BMI 40.8
--- NOTE | 2023-02-25 17:38 | ED.GENADULT ---
HPI - General Adult General Chief complaint: Allergic Reaction Stated complaint: Allergic reaction Related Data Previous Rx's ?Medication ?Instructions ?Recorded obcurofkkz-phhbvgjzvoecr-xppwkbzf 1 tab PO Q6H PRN pain #20 tabs 01/16/23 50 mg-325 mg-40 mg tablet Allergies Allergy/AdvReac Type Severity Reaction Status Date / Time No Known Allergies Allergy Verified 01/15/23 21:28 PMFSH Past Medical History Medical History hypertension Social History Social History Alcohol intake: never Advance Directives: No Advance Directives Information Provided: No Physical Exam ED Vital Signs: BMI result Body Mass Index 40.8 Course Course Course Narrative: This is an RME: Additional HPI, ROS, PE not included below will be deferred to primary provider. 28 y o female presenting for evaluation of itchy sore throat, tingling in her mouth and heaviness in her tongue x1 hour s/p eating cinnamon donuts at the [employer]. 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 No previous history of allergies. Denies shortness of breath, chest pain, abdominal pain, nausea or vomiting. Plan -- MANUEL Jackman Discharge Plan Discharge Clinical Impression: Eloped from emergency department Patient Disposition: Left W/O Completing Treatment Prescriptions: No Action dgwwdhvqkk-lpwxxdhogrkei-lgof 50-325-40 mg tablet 1 tab PO Q6H PRN (Reason: pain) Qty: 20 0RF Discharge Date/Time: 02/25/23 21:49
--- OUTSIDE RECORDS SUMMARY | 2023-02-25 21:49 | XMS_ITS | Continuity of Care Document ---
Author Name Unknown Organization [facility] ter Address [address] [place] [id number]- Care Team Providers Care Senior Buyer Name Role Phone Dennis Cardoza DO Primary Care Physician Encounter [facility] Date(s): 01/30/23 - 01/30/[address] [address]- Encounter Diagnosis Leg pain, left(Final) - 01/30/23 Discharge Disposition: A-D/C Home Attending Physician: Karma Franco MD Admitting Physician: Karma Franco MD Referring Physician: Not on Staff, Referring [...] Vaccine 10/14/14 Given 1Result Comment: [04/15/2014] Fluvirax [id number] 2Admin Note: vis given dated 12/25/12 3Admin Note: VIS 7-12 Medications cetirizine 10 mg oral tablet 1 tablet = 10 mg, By Mouth, Daily, PRN for allergy symptoms, # 10 tablet, 0 Refills, Maintenance, 08/23/22 23:54:00 EDT, Tablet, [facility]/pharmacy #[id number], Partial fill upon patient request if the prescription is for a schedule II opioid drug., 163, cm, 07/03... Start Date: 08/23/22 Status: Ordered chlorthalidone 25 mg oral tablet 1, tablet, By Mouth, Daily, # 30 tablet, Refills 3, Tot. Refills 3, Maintenance, 10/15/22 10:21:00 EDT, Route to Pharmacy Electronically, [facility]/pharmacy #[id number], 163, cm, 09/21/22 20:45:00 EDT, Height, 116.1, kg, 09/21/22 20:45:00 EDT, Dry Weight Start Date: 10/15/22 Status: Ordered Diflucan 150 mg oral tablet 1 tablet = 150 mg, By Mouth, Once, # 1 tablet, 0 Refills, Soft Stop, 12/06/22 15:53:00 EDT, [facility]/pharmacy #[id number], Partial fill upon patient request if the prescription is for a schedule II opioid drug., 163, cm, 12/03/22 23:57:00 EDT, Height, 109, kg, 0... Start Date: 12/06/22 Status: Ordered EpiPen 2-Satya 0.3 mg injectable kit = 0.3 mg, Intramuscular, Once, # 1 pack/packet, 0 Refills, Soft Stop, 08/23/22 23:54:00 EDT, [facility]/pharmacy #[id number], Partial fill upon patient [...] tablet, 0 Refills, Maintenance, 12/20/22 6:07:00EDT, Tablet, [facility]/pharmacy #[id number], Partial fill upon... Start Date: [...] Maintenance, Inserted by Rosa Stokes MD. Lot [id number] Exp November 2025., 02/03/20 11:09:00 EDT, Supply, [...] (post-traumatic stress disorder) Confirmed Active Severe obesity (BMI 35.0-39.9) with comorbidity Confirmed Active 1was seeing therapist, not now, states anxiety is controlled. 2States gets them sanaz 2-3 months 3Problem added by Discern Expert 4Problem added by Discern Expert Results Radiology Reports * Exam Date Time Procedure Performing Provider Status 01/30/23 1:57 PM US Doppler Ext Lower Venous Left Gretel Patiño; Auth (Verified) Notes: (US Doppler Ext Lower Venous Left) Reason For Exam: Pain in limb;Other: RESULT: US Doppler Ext Lower Venous Left US Doppler Ext Lower Venous Left Reason: Other:; Pain in limb; Clinical Question(s): Thrombus COMPARISON: None IMAGING TECHNIQUE: Ultrasound of the veins from the groin through the calf was performed using grayscale, color, and spectral Doppler ultrasound assessing for complete compressibility and normal flowcharacteristics. FINDINGS: Common femoral vein: Patent. No thrombosis. Femoral vein: Patent. No thrombosis. Popliteal vein: Patent. No thrombosis. Gastrocnemius veins: The visualized portions are patent without evidence of thrombosis. Peroneal veins: The visualized portions are patent without evidence of thrombosis. Posterior tibial veins: The visualized portions are patent without evidence of thrombosis. Contralateral common femoral vein: Patent. No thrombosis. OTHER FINDINGS: None. IMPRESSION: No evidence of deep venous thrombosis. WSN: [id number] Ordering Physician: Karma Franco MD Dictated By: Ghulam Bonner MD Dictated Date/Time: 01/30/23 2:12 pm Reviewed By: Ghulam Bonner MD Signed By: Ghulam Bonner MD Signed Date/Time: 01/30/23 2:12 pm Transcribed By: FRANCISCA Transcribed Date/Time: 01/30/23 2:11 pm Vital Signs Most recent to oldest [Reference Range]: 1 2 3 Height 163 cm (01/30/23 4:18 PM) 163 cm (01/30/23 3:37 PM) 163 cm (01/30/23 12:31 PM) Oxygen Saturation [94-100 %] 100 % (01/30/23 3:37 PM) 100 % (01/30/23 2:38 PM) 100 % (01/30/23 12:31 PM) Pulse Rate [55-90 bpm] 85 bpm (01/30/23 3:37 PM) 81 bpm (01/30/23 2:38 PM) 89 bpm (01/30/23 12:31 PM) Blood Pressure [90-138/55-84 mm Hg] 129/82mm Hg (01/30/23 3:37 PM) 123/77mm Hg (01/30/23 2:38 PM) 115/80mm Hg (01/30/23 12:31 PM) Respiratory Rate [16-30 br/min] 20 br/min (01/30/23 3:37 PM) 16 br/min (01/30/23 2:38 PM) 18 br/min (01/30/23 12:31 PM) Temperature [96.8-100.4 DegF] 98.9 DegF (01/30/23 3:37 PM) 98.5 DegF (01/30/23 2:38 PM) 98.6 DegF (01/30/23 12:31 PM) Mode of Delivery (Oxygen) Room air (01/30/23 3:37 PM) Room air (01/30/23 2:38 PM) Room air (01/30/23 12:31 PM) Blood pressure sites Arm, right (01/30/23 3:37 PM) Arm, right (01/30/23 2:38 PM) Arm, left (01/30/23 12:31 PM) Temperature Route Oral (01/30/23 3:37 PM) Oral (01/30/23 2:38 PM) Oral (01/30/23 12:31 PM) Dry Weight 109 kg (01/30/23 4:18 PM) 109 kg (01/30/23 3:37 PM) 109 kg (01/30/23 12:31 PM) Dry Weight Obtained Via Patient/family s tated (01/30/23 12:31 PM) Social History Social History Type Response Smoking Status Never (less than 100 in lifetime); Tobacco user in household: No entered on: 06/14/19 Sex Patient Care team information Care Team Personnel Name: Dennis Cardoza DO Position: [facility] Resident Member Role: PCP Address: Address: [address] [place] [address] [place] [address]- Name: Gabbie Vasquez RN Position: S SN RN Member Role: Primary Care Nurse Name: Laila Stanley NP Position: [facility] Associate Professional Member Role: ED Physician Wheel Mill Operator Address: Address: [address] [place] [id number]- Name: Ely Toth RN Position: [facility] ED RN W/OE and Tasks Member Role: Patient Care Provider Name: Karma Franco MD Position: [facility] ED Medicine MD Member Role: Admitting Physician Address: Address: [address] [place] [address]- Care Team Related Persons Name: ENRRIQUE BAZZI Address: [place] [address] Name: TREASURE VILLAGRAN Address: [address] [place] [address] Name: BERRY BURKETT Address: home [address] [address] Name: MARIANGEL JOE Address: [facility] [address] Address: home [address] [address] [place]
--- OUTSIDE RECORDS SUMMARY | 2023-02-25 21:50 | XMS_ITS | Continuity of Care Document ---
Author Name Unknown Organization [facility] Address [address] [place] [id number]- Care Team Providers Care Electronic Prepress Operator Name Role Phone Dennis Cardoza DO Primary Care Physician Encounter [facility] Date(s): 12/24/22 - 02/09/23 [facility] [address] [place] [id number]- Attending Physician: David Gordillo MD Admitting Physician: [...] Vaccine 10/14/14 Given 1Result Comment: [04/15/2014] Fluvirax [id number] 2Admin Note: vis given dated 12/25/12 3Admin Note: VIS 7-12 Medications cetirizine 10 mg oral tablet 1 tablet = 10 mg, By Mouth, Daily, PRN for allergy symptoms, # 10 tablet, 0 Refills, Maintenance, 08/23/22 23:54:00 EDT, Tablet, [facility]/pharmacy #[id number], Partial fill upon patient request if the prescription is for a schedule II opioid drug., 163, cm, 07/03... Start Date: 08/23/22 Status: Ordered chlorthalidone 25 mg oral tablet 1, tablet, By Mouth, Daily, # 30 tablet, Refills 3, Tot. Refills 3, Maintenance, 10/15/22 10:21:00 EDT, Route to Pharmacy Electronically, [facility]/pharmacy #[id number], 163, cm, 09/21/22 20:45:00 EDT, Height, 116.1, kg, 09/21/22 20:45:00 EDT, Dry Weight Start Date: 10/15/22 Status: Ordered Diflucan 150 mg oral tablet 1 tablet = 150 mg, By Mouth, Once, # 1 tablet, 0 Refills, Soft Stop, 12/06/22 15:53:00 EDT, [facility]/pharmacy #[id number], Partial fill upon patient request if the prescription is for a schedule II opioid drug., 163, cm, 12/03/22 23:57:00 EDT, Height, 109, kg, 0... Start Date: 12/06/22 Status: Ordered EpiPen 2-Satya 0.3 mg injectable kit = 0.3 mg, Intramuscular, Once, # 1 pack/packet, 0 Refills, Soft Stop, 08/23/22 23:54:00 EDT, [facility]/pharmacy #[id number], Partial fill upon patient request [...] 0 Refills, Maintenance, 12/20/22 6:07:00EDT, Tablet, [facility]/pharmacy #[id number], Partial fill upon... Start Date: [...] Maintenance, Inserted by Rosa Stokes MD. Lot [id number] Exp November 2025., 02/03/20 11:09:00 EDT, Supply, [...] Refills, Maintenance, 10/22/22 11:03:00 EDT, Tablet, [facility]/pharmacy #[id number], Partial fill upon patient request [...] Team Personnel Name: Nani SYLVESTER Dennis Position: [facility] Resident Member Role: PCP Address: Address: [address] [place] [address] [place], [place] [address] Name: Gabbie Vasquez RN Position: [facility] SN RN Member Role: Primary Care Nurse Care Team Related Persons Name: ENRRIQUE BAZZI Address: [place] [address] Name: TREASURE VILLAGRAN Address: home [address] [place] [address] Name: BERRY BURKETT Address: home [address] [address] Name: MARIANGEL JOE Address: [address] Address: home [address] [address]
--- OUTSIDE RECORDS SUMMARY | 2023-02-25 21:51 | XMS_ITS | Continuity of Care Document ---
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 Name Role Phone Dennis Cardoza DO Primary Care Physician Encounter [facility] Date(s): 12/31/22 - 01/30/23 [facility] [address] [place] [id number]- Allergies, Adverse Reactions, Alerts No Known Allergies [...] Vaccine 10/14/14 Given 1Result Comment: [04/15/2014] Fluvirax [id number] 2Admin Note: vis given dated 12/25/12 3Admin Note: VIS 7-12 Medications cetirizine 10 mg oral tablet 1 tablet = 10 mg, By Mouth, Daily, PRN for allergy symptoms, # 10 tablet, 0 Refills, Maintenance, 08/23/22 23:54:00 EDT, Tablet, [facility]/pharmacy #[id number], Partial fill upon patient request if the prescription is for a schedule II opioid drug., 163, cm, 07/03... Start Date: 08/23/22 Status: Ordered chlorthalidone 25 mg oral tablet 1, tablet, By Mouth, Daily, # 30 tablet, Refills 3, Tot. Refills 3, Maintenance, 10/15/22 10:21:00 EDT, Route to Pharmacy Electronically, [facility]/pharmacy #[id number], 163, cm, 09/21/22 20:45:00 EDT, Height, 116.1, kg, 09/21/22 20:45:00 EDT, Dry Weight Start Date: 10/15/22 Status: Ordered Diflucan 150 mg oral tablet 1 tablet = 150 mg, By Mouth, Once, # 1 tablet, 0 Refills, Soft Stop, 12/06/22 15:53:00 EDT, [facility]/pharmacy #[id number], Partial fill upon patient request if the prescription is for a schedule II opioid drug., 163, cm, 12/03/22 23:57:00 EDT, Height, 109, kg, 0... Start Date: 12/06/22 Status: Ordered EpiPen 2-Satya 0.3 mg injectable kit = 0.3 mg, Intramuscular, Once, # 1 pack/packet, 0 Refills, Soft Stop, 08/23/22 23:54:00 EDT, [facility]/pharmacy #[id number], Partial fill upon [...] tablet, 0 Refills, Maintenance, 12/20/22 6:07:00EDT, Tablet, [facility]/pharmacy #[id number], Partial fill upon... [...] 3 Refills, Maintenance, 12/20/22 6:09:00 EDT, Tablet, [facility]/pharmacy #[id number], Partial fill... Start Date: 12/20/22 Stop Date: 12/15/23 Status: Ordered ibuprofen 800 mg oral tablet 800 mg, 1, tablet, By Mouth, 3 times a day, # 90 tablet, Refills 1, Tot. Refills 1, Maintenance, 10/22/22 10:55:00 EDT, Route to Pharmacy Electronically, [facility]/pharmacy #[id number], Partial fill upon patientrequest if the prescription is for a schedule II op... Start Date: 10/22/22 Status: Ordered Paragard IUD See Instructions, # 1 each, Maintenance, Inserted by Rosa Stokes MD. Lot [id number] Exp November 2025., 02/03/20 11:09:00 EDT, Supply, 162, cm, 01/03/20 13:13:00 EDT, Height, 106, kg, 12/23/19 23:02:00 EDT, Dry Weight Start Date: 02/03/20 Status: Ordered SUMAtriptan 50 mg oral tablet 1 tablet = 50 mg, By Mouth, Daily, PRN for migraine headache, may repeat dose after 2 hours up to amaximum of 2, # 18 tablet, 2 Refills, Maintenance, 10/22/22 11:03:00 EDT, Tablet, [facility]/pharmacy #[id number], Partial fill upon [...] Team Personnel Name: Dennis Cardoza DO Position: [facility] Resident Member Role: PCP Address: Address: [address] [place] [address] [place] [address]- Name: Gabbie Vasquez RN Position: [facility] SN RN Member Role: Primary Care Nurse Care Team Related Persons Name: ENRRIQUE BAZZI Address: [place] [address] Name: TREASURE VILLAGRAN Address: home [address] [place] [address] Name: BERRY BURKETT Address: [address] [address] Name: MARIANGEL JOE Address: [address] Address: [address] [address]
== END 2023-02-25 21:49 | disposition left against medical advice (07) ==
PROVIDERS: Emergency Provider Emergency Medicine
DX: J02.8 Acute pharyngitis due to other specified organisms (principal)
CPT/HCPCS: 99281

== ENCOUNTER 2023-09-17 18:11 | Emergency (ER) | payer OTHER, SELFPAY ==
[2023-09-17 18:46] VITALS: BP 121/83; PULSE 95; RESP 18; TEMP 36.2; O2SAT 97; BMI 44.6
--- NOTE | 2023-09-17 18:46 | ED_ITS ---
HPI - General Adult General Chief complaint: Back Pain/Injury Stated complaint: sharp pain in R side to back Source: patient Mode of arrival: ambulatory Limitations: no limitations History of Present Illness HPI narrative: 28 year old female with no significant pmhx presents to the ED today for evaluation of left flank pain that began earlier today. Admits that while sitting in her chair at work, she began to have sudden, sharp left flank pain. This pain does not radiate. It no longer feels sharp, now reports heavy, pressure sensation to the left flank. She does have a history of renal stones along with pyelonephritis however states that this feels different. She has never required lithotripsy for stones. Admits to starting ozempic 4 days ago for weight loss which she injects into her abdomen. Since starting ozempic, has endorses minimal nausea and vomiting. Denies chance of . Denies injury or trauma. Did not take OTC pain meds prior to arrival. Denies fever, chills, chest pain, sob, abdominal pain, dysuria, hematuria. Related Data Previous Rx's ?Medication ?Instructions ?Recorded angbewiydn-epasmpwfazvcf-hfnshiiw 1 tab PO Q6H PRN pain #20 tabs 01/16/23 50 mg-325 mg-40 mg tablet Allergies Allergy/AdvReac Type Severity Reaction Status Date / Time No Known Allergies Allergy Verified 09/17/23 18:51 Review of Systems 2 Review of Systems: Constitutional: No fever, chills, fatigue, night sweats, weight changes ENT/Mouth: No ear pain, hearing loss, nasal congestion, sinus pain, rhinorrhea, sore throat Eyes: No eye pain, swelling, redness, vision changes, discharge Cardio: No chest pain, palpitations, CRUZ, orthopnea, peripheral edema Pulm: No SOB, cough, sputum, wheezing, dyspnea, hemoptysis GI: No nausea, vomiting, hematemesis, abdominal pain, diarrhea, constipation, hematochezia, melena : No irregular bleeding, dysuria, frequency, urgency, hesitancy, hematuria, +flank pain, No urinary flow changes, urinary incontinence or retention MSK: No back pain, neck pain, joint pain, myalgias Skin: No lesions, rashes Neuro: No weakness, numbness, paresthesias, LOC, dizziness, headache Psych: No anxiety/panic, depression, SI/HI, AH/VH All other systems reviewed and are negative. [facility] Past Medical History Attestation statement: The following information was validated with the patient. Source: old records reviewed and nursing notes reviewed Medical History hypertension Social History Social History Alcohol intake: never Advance Directives: No Advance Directives Information Provided: No Physical Exam ED Vital Signs: Vital Signs - 24 hr 09/17/23 18:46 Temperature 97.2 F Pulse Rate 95 Respiratory Rate 18 Blood Pressure 121/83 Pulse Oximetry 97 BMI result Body Mass Index 44.6 vital signs stable, afebrile. Const General: cooperative, healthy appearing, comfortable and no acute distress Orientation/consciousness: patient oriented x3 Limitations: no limitations HENMT Head: Yes normal to inspection, Yes No palpable skull fracture present, Yes normocephalic and Yes atraumatic Eyes General: appearance normal, both eyes and all related structures Conjunctivae: conjunctivae normal Sclerae: sclerae normal Pupils: Equal, round and reactive pupils present Neck Neck: Yes normal visual inspection, Yes full ROM and Yes no lymphadenopathy Resp Effort & Inspection: normal respiratory effort and able to speak in complete sentences Auscultation: clear to auscultation bilaterally Cardio Rate: regular rate Rhythm: regular rhythm GI Other: + abd soft, nd/nt, no rebound tenderness or guarding. normoactive bs x4. negative polo sign. Other: + left cvat Back/Spine/Pelvis Other: No midline spinous tenderness or step off deformity. No paraspinal muscle tenderness. Skin General skin exam: no rashes or lesions noted Neuro General: patient oriented x3 Cranial nerves: Yes Equal, round and reactive pupils present Extrem General: Yes normal to inspection Course Course Course Narrative: RME:?28 yo female here w/ constant sharp left flank pain that began while sitting at work today. worse with breathing. denies fever, chills, chest pain, sob, dysuria, hematuria. no chance of preg. started ozepmic injections in her abdomen this week. hx of renal stones and pyelo. this does not feel similar. labs, UA ordered +/- imaging per primary provider Full HPI, ROS and PE to be performed by the primary ED provider. Reevaluation(s) Reevaluation #1: CBC without leukocytosis or left shift. no anemia. h&h stable. Chemistry without acute electrolyte abnormality requiring intervention. normal renal function. elevated liver enzymes with ALT 121 and AST 67. Lipase wnl > unlikely pancreatitis. bHcg negative. Urine without infection. UA with moderate amount of blood and RBCs. Patient is not currently on menstrual period. Concern for renal stone. will order CT abd/pelvis. Patient left the ED without completing treatment. Medical Decision Making Medical Decision Making [facility] Narrative: 28 year old female with no significant pmhx presents to the ED today for evaluation of left flank pain that began earlier today. Vital signs stable, afebrile. Nontoxic appearing and in no acute distress. Abdomen is soft, ND/NT, no rebound or guarding, normoactive bs x4. there is left cvat. No midline spinous tenderness or step off deformity. No paraspinal muscle tenderness. Skin warm, dry, intact. Differential diagnosis includes contusion, hydronephrosis, pyelonephritis, UTI, renal colic, neprholithiasis, ozempic adverse effect. unlikely acs, arrhythmia, cholelithiasis, cholecystitis, cholangitis, pancreatitis, spinal fracture or subluxation, cauda equina, epidural abscess. Labs, UA obtained in triage. Plan for CT abd/pelvis to r/o stone. Differential Diagnosis Differential Diagnoses: The differential diagnosis associated with the presentation includes as above. Admission/Observation not indicated Lab Data [facility] Lab Attestation statement: I reviewed the patient's lab results. as above. 09/17/23 19:13 09/17/23 19:13 Labs: Lab Results 09/17/23 Range/Units 19:13 WBC 10.1 (4.8-10.8) X10*3/uL RBC 5.06 (4.20-5.50) X10*6/uL Hgb 14.9 (12.0-16.0) g/dl Hct 43.5 (37.0-47.0) % MCV 86.0 (80.0-98.0) fL MCH 29.4 (27.0-33.0) pg MCHC 34.3 (31.0-35.0) g/dl RDW 12.6 (11.0-16.0) % Plt Count 291 (160-400) X10*3/uL MPV 11.4 (9.4-12.3) fL Immature Gran % (Auto) 0.4 (0.0-0.4) % Neut % (Auto) 62.4 (45-73) % Lymph % (Auto) 26.8 (20-40) % [place] % (Auto) 7.9 (2-11) % Eos % (Auto) 1.8 (0-4) % Baso % (Auto) 0.7 (0-2) % Lymph # (Auto) 2.7 (1.2-4.9) X10*3/uL [place] # (Auto) 0.8 (0.1-1.2) X10*3/uL Eos # (Auto) 0.2 (0.0-0.4) X10*3/uL Baso # (Auto) 0.1 (0.0-0.2) X10*3/uL Abs Immat Gran (auto) 0.04 H (0.00-0.03) X10*3/uL Absolute Neuts (auto) 6.3 (2.0-8.3) x10*3/uL Absolute Nucleated RBC 0.000 (0.0-0.012) X10*3/uL Nucleated RBC % (auto) 0.0 (0.0-0.2) /100WBC Sodium 137 (135-145) mmol/L Potassium 3.6 (3.3-5.1) mmol/L Chloride 100 (96-108) mmol/L Carbon Dioxide 27 (22-29) mmol/L Anion Gap 14 (12-20) BUN 15 (9-16) mg/dL Creatinine 0.83 (0.5-1.4) mg/dL Estim Creat Clear Calc 125.1 Estimated GFR > 60 Random Glucose 92 (60-115) mg/dL Calcium 9.6 D (8.4-10.2) mg/dL Magnesium 2.1 (1.6-2.6) mg/dL Total Bilirubin 0.5 (0.0-1.0) mg/dL AST 67 H (5-31) U/L ALT 121 H (0-31) U/L Alkaline Phosphatase 90 (39-117) U/L Total Protein 8.4 H (6.5-8.0) g/dL Albumin 4.4 (3.5-5.0) g/dL Lipase 19 (8-78) U/L Beta HCG, Quant < 2 mIU/mL Urine Color Yellow Urine Appearance Clear Urine pH 6.5 (5.0-9.0) Ur Specific Keyser 1.025 (1.005-1.025) Urine Protein Negative (Neg-Trace) mg/dL Urine Glucose (UA) Negative (Negative) mg/dL Urine Ketones 15 (Negative) mg/dL Urine Blood Moderate (2+) H (Negative) Urine Nitrite Negative (Negative) Ur Leukocyte Esterase Trace H (Negative) Urine RBC 6-10 H (0-2) /HPF Urine WBC 0-5 (0-5) /HPF Ur Squamous Epith Cells 3-5 (0-2) /HPF Urine Bacteria Trace (None Seen) Hyaline Casts 0-2 (0-2) /LPF External Record Review External record reviewed: Inpatient record Tests considered The following testing was considered but not selected: I considered obtaining ct abd pelvis however patient left the ED without completing treatment/ before this could be ordered. Prescription Management I considered prescription management with: Pain Medication Chronic Conditions Patient?s care impacted by: Other (obesity) Social Determinants Patient?s care significantly limited by Social Determinants of Health including: Other Social Determinant of Health Critical Care Time Critical Care Time Critical Care Time: No Discharge Plan Discharge Clinical Impression: Acute left flank pain Patient Disposition: Left W/O Completing Treatment Prescriptions: No Action ekazidptnc-dtxtxierqxzxk-nyid 50-325-40 mg tablet 1 tab PO Q6H PRN (Reason: pain) Qty: 20 0RF Discharge Date/Time: 09/17/23 22:34
--- OUTSIDE RECORDS SUMMARY | 2023-09-17 19:18 | XMS_ITS | Continuity of Care Document ---
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 Name Role Phone Cardoza Dennis SYLVESTER Primary Care Physician Encounter [facility] Date(s): 06/25/23 - 06/25/[address] [address]- Encounter Diagnosis Headache(Final) - 06/25/23 Discharge Disposition: A-D/C Home Attending Physician: Adriel KAHN, Curtis Veras Admitting Physician: Adriel KAHN, Curtis Veras Referring Physician: Not on Staff, Referring MD [...] Vaccine 10/14/14 Given 1Result Comment: [04/15/2014] Fluvirax [id number] 2Admin Note: vis given dated 12/25/12 3Admin Note: VIS 7-12 Medications cetirizine 10 mg oral tablet 1 tablet = 10 mg, By Mouth, Daily, PRN for allergy symptoms, # 10 tablet, 0 Refills, Maintenance, 08/23/22 23:54:00 EDT, Tablet, [facility]/pharmacy #[id number], Partial fill upon patient request if the prescription is for a schedule II opioid drug., 163, cm, 07/03... Start Date: 08/23/22 Status: Ordered chlorthalidone 25 mg oral tablet 1, tablet, By Mouth, Daily, # 30 tablet, Refills 3, Tot. Refills 3, Maintenance, 04/07/23 10:07:00 EST, Route to Pharmacy Electronically, [facility]/pharmacy #[id number], 162, cm, 03/29/23 15:45:00 EDT, Height, 110.5, kg, 03/29/23 15:45:00 EDT, Dry Weight Start Date: 04/07/23 Status: Ordered Diflucan 150 mg oral tablet 1 tablet = 150 mg, By Mouth, Once, # 1 tablet, 0 Refills, Soft Stop, 12/06/22 15:53:00 EDT, [facility]/pharmacy #[id number], Partial fill upon patient request if the prescription is for a schedule II opioid drug., 163, cm, 12/03/22 23:57:00 EDT, Height, 109, kg, 0... Start Date: 12/06/22 Status: Ordered EpiPen 2-Satya 0.3 mg injectable kit = 0.3 mg, Intramuscular, Once, # 1 pack/packet, 0 Refills, Soft Stop, 08/23/22 23:54:00 EDT, [facility]/pharmacy #[id number], Partial fill upon patient request if the prescription is for a schedule II opioid drug., 163, cm, 07/15/22 14:10:00 EST, Height, 112, kg,... Start Date: 08/23/22 Status: Ordered Flonase 50 mcg/inh nasal spray 1 sprays = 50 mcg, Nares, Both, 2 times a day, # 3 each, 0 Refills, Maintenance, 06/23/23 10:51:00 EST, [place], [facility]/pharmacy #[id number], Partial fill upon patient request if the prescription is for a schedule II opioid drug., 1 sprays Nares, Both 2 times a... Start Date: 06/23/23 Stop Date: 09/21/23 Status: Ordered fluconazole 150 mg oral tablet 1 tablet = 150 mg, By Mouth, Once, # 1 tablet, 0 Refills, Soft Stop, 05/28/23 10:23:00 EST, Tablet,[facility]/pharmacy #[id number], Partial fill upon patient request if the prescription is for a schedule II opioid drug., 162, cm, 05/23/23 14:35:00 EST, Height, 11... Start Date: 05/28/23 Status: Ordered FLUoxetine 10 mg oral tablet 1 tablet = 10 mg, By Mouth, Daily, Take 10 mg (one tablet) for two weeks, then increase to 20 mg (two tablets) per day for management of panic., # 150 tablet, 0 Refills, Maintenance, 12/20/22 6:07:00EDT, Tablet, [facility]/pharmacy #[id number], Partial fill upon... Start Date: 12/20/22 Stop Date: 03/20/23 Status: Ordered hydrOXYzine hydrochloride 25 mg oral tablet 2 tablet = 50 mg, By Mouth, 3 times a day, PRN for anxiety, Take one to two tablets (25 to 50 mg) up to three times per day for management of panic., # 270 tablet, 3 Refills, Maintenance, 12/20/22 6:09:00 EDT, Tablet, [facility]/pharmacy #[id number], Partial fill... Start Date: 12/20/22 Stop Date: 12/15/23 Status: Ordered ibuprofen 800 mg oral tablet 1, tablet, By Mouth, 3 times a day, # 90 tablet, Refills 1, Tot. Refills 1, Maintenance, 05/23/23 15:08:00 EST, Route to Pharmacy Electronically, [facility]/pharmacy #[id number], 162, cm, 05/23/23 14:35:00 EST, Height, 110.5, kg, 03/29/23 15:45:00 EDT, Dry Weight Start Date: 05/23/23 Status: Ordered Paragard IUD See Instructions, # 1 each, Maintenance, Inserted by Rosa Stokes MD. Lot [id number] Exp November 2025., 02/03/20 11:09:00 EDT, Supply, 162, cm, 01/03/20 13:13:00 EDT, Height, 106, kg, 12/23/19 23:02:00 EDT, Dry Weight Start Date: 02/03/20 Status: Ordered prochlorperazine 10 mg oral tablet 1 tablet = 10 mg, By Mouth, 3 times a day, PRN Headache, for 5 days, # 15 tablet, 0 Refills, Acute 06/30/23 20:49:00 EST, 06/25/23 20:49:00 EST, Tablet, [facility]/pharmacy #[id number], Partial fill upon patient request if the prescription is for a schedule II opi... Start Date: 06/25/23 Stop Date: 06/30/23 Status: Ordered SUMAtriptan 50 mg oral tablet [...] Range]: 1 2 3 Height 163 cm (06/25/23 5:47 PM) Weight 120.1 kg (06/25/23 5:47 PM) Oxygen Saturation [94-100 %] 99 % (06/25/23 9:00 PM) 99 % (06/25/23 8:00 PM) 99 % (06/25/23 5:47 PM) Pulse Rate [55-90 bpm] 79 bpm (06/25/23 9:00 PM) 78 bpm (06/25/23 8:00 PM) 90 bpm (06/25/23 5:47 PM) Blood Pressure [90-138/55-84 mm Hg] 133/90mm Hg (06/25/23 9:00 PM) 113/66mm Hg (06/25/23 8:00 PM) 127/89mm Hg (06/25/23 5:47 PM) Respiratory Rate [16-30 br/min] 18 br/min (06/25/23 9:00 PM) 16 br/min (06/25/23 8:00 PM) 18 br/min (06/25/23 5:47 PM) Temperature [96.8-100.4 DegF] 97.3 DegF (06/25/23 8:00 PM) 99 DegF (06/25/23 5:47 PM) Mode of Delivery (Oxygen) Room air (06/25/23 9:00 PM) Room air (06/25/23 8:00 PM) Room air (06/25/23 5:47 PM) Blood pressure sites Arm, right (06/25/23 9:00 PM) Arm, right (06/25/23 8:00 PM) Arm, left (06/25/23 5:47 PM) Temperature Route Oral (06/25/23 8:00 PM) Oral (06/25/23 5:47 PM) Dry Weight 120.1 kg (06/25/23 5:47 PM) Weight Obtained Via Standing scale (06/25/23 5:47 PM) Dry Weight Obtained Via Standing scale (06/25/23 5:47 PM) Social History Social History Type Response Smoking Status Never (less than 100 in lifetime); Tobacco user in household: No entered on: 06/14/19 Sex Note * Adriel KAHN, Curtis Veras: PERFORM Event Display: Patient Education Leaflets Authored Date: [id number] Migraine Headache ?? [id number] Migraine Headache A migraine headache is an often severe type of headache. It's different from other types of headaches in that symptoms other than pain occur with it. For instance, a classic migraine headache means visual symptoms (or aura) such as flashes of light, blind spots, or other vision changes, warn you a headache is coming on. Nausea and vomiting, lightheadedness, sensitivity to light or sound, and other visual disturbances are common migraine symptoms.??The pain may last from a few hours to several days. It's not clear why migraines occur, but certain factors called triggers can raise the risk of having a migraine attack.??A migraine may be triggered by emotional stress??or depression, or by hormone changes during the menstrual cycle. Other triggers include certain control pills, overuse of migraine medicines, alcohol or caffeine, and foods with tyramine, such as aged cheese and wine. Eyestrain, weather changes, missed meals,??or too little or too much sleep can also trigger a migraine. Home care Follow these tips when taking care of yourself at home: ??? Don???t drive yourself home if you weregiven pain medicine for your headache or are having visual symptoms. Instead, have someone else drive you home. Try to sleep when you get home. You should feel much better when you wake up. ??? Cold can help ease migraine symptoms. Put an ice pack wrapped in a thin towel on your forehead or at the base of your skull. Put heat on the back of your neck to help ease any neck spasm. ??? Drink only clear liquids or eat a light diet until your symptoms get better. This will help you prevent nausea and vomiting. ?? How to prevent migraines Pay attention to what seems to trigger your headache. Try to stay away from the triggers when you can. If you have headaches often, consider keeping a headache diary. In it, write down what you were doing, feeling, or eating in the hours before each headache. Show this to your healthcare provider to help find the cause of your headaches. If stress seems to be a trigger for your headaches, figure out what is causing stress in your life.Learn new ways to handle your stress. Ideas include regular exercise, biofeedback, self-hypnosis, yoga, and meditation. Talk with your provider to find out more information about managing stress. Many books and digital media are also available on this subject. Tyramine is a substance found in many foods. It can trigger a migraine in some people. These foods contain tyramine: ??? Chocolate ??? Yogurt ??? All cheeses, but especially aged cheeses ??? Smoked or pickled fish and meat, including lopez, caviar, bologna, pepperoni, and salami ??? Liver ??? Avocados ??? Bananas??? Figs ??? Raisins ??? Red wine Try staying away from these foods for 1 to 2 months to see if you have fewer headaches. ?? How to treat future headaches ??? Take time out at the first sign of a headache, if possible. Find a quiet, dark, comfortable place to sit or lie down. Let yourself relax or sleep. ??? Put an ice pack wrapped in a thin towel on your forehead or on the area of greatest pain. A heating pad and massage may help if you are having a muscle spasm and tightness in your neck. ??? If you have been prescribed a medicine to stop a migraine headache, use this at the first warning sign of the headache for best results. First signs may be an aura or pain. ??? If you have been prescribed a medicine to prevent the headaches, it's important to take the medicine as directed. Many of these medicines may take a few weeks to start preventing headaches, so it's important to not give up on them right away. If you continue to have just as many headaches after taking these medicines for a while, talk with your healthcare provider to see if the dose needs to be changed or if a different medicine is advised. ??? If you need to take medicine often for your migraine, talk with your provider about other ways to prevent your headaches. ?? Follow-up care Follow up with your healthcare provider, or as advised. Talk with your provider if you have frequent headaches. They can figure out a treatment plan. Ask if you can have medicine to take at home the next time you get a bad headache. This may keep you from having to visit the emergency department inthe future. You may need to see a headache specialist (neurologist) if you continue to have headache s. ?? When to get medical care Call your healthcare provider right away??if any of these occur: ??? Your head pain gets worse, or doesn???t get better within 24 hours ??? You can???t keep liquids down (repeated vomiting) ??? Pain in your sinuses, ears, or throat ??? Fever of 100.4?? F (38?? C) or higher, or as advised by your provider ??? Stiff neck ??? Extreme drowsiness, confusion, or fainting ??? Dizziness, or dizziness with spinning sensation (vertigo) ??? Weakness or trouble feeling in an arm or leg, or on one side of your face ??? Trouble talking or seeing ?? Last Reviewed Date: 2021 ?? 9241-1921 [employer]. All rights reserved. This information is not intended as a substitute for professional medical care. Always follow your healthcare professional's instructions. ?? Patient Care team information Care Team Personnel Name: Dennis Cardoza DO Position: [facility] Resident Member Role: PCP Address: Address: [address] [place] [address] Adult [place], [place] [address] Name: Gabbie Vasquez RN Position: [facility] SN RN Member Role: Primary Care Nurse Care Team Related Persons Name: ENRRIQUE BAZZI Address: [place] [address] Name: TREASURE VILLAGRAN Address: home [address] [place] [address] Name: BERRY BURKETT Address: home [address] [address] Name: MARIANGEL JOE Address: [facility] [address] Address: home [address] [address]
--- OUTSIDE RECORDS SUMMARY | 2023-09-17 19:18 | XMS_ITS | Continuity of Care Document ---
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 Role Phone Cardoza Dennis SYLVESTER Primary Care Physician [phone] Encounter [facility] Date(s): 07/03/23 - 08/02/23 [facility] [address] [place] [address]- Attending Physician: Oneil Jones Admitting Physician: AdmtrOneil Referring Physician: Admtr, Ar8 Allergies, Adverse Reactions, Alerts No Known Allergies [...] Vaccine 10/14/14 Given 1Result Comment: [04/15/2014] Fluvirax [id number] 2Admin Note: vis given dated 12/25/12 3Admin Note: VIS 7-12 Medications amitriptyline 10 mg oral tablet 10 mg, 1, tablet, By Mouth, Daily at bedtime, # 14 tablet, Refills 0, Tot. Refills 0, Maintenance, 07/03/23 16:17:00 EST, Route to Pharmacy Electronically, [facility]/pharmacy #[id number], Partial fill upon patient request if the prescription is for a schedule II... Start Date: 07/03/23 Stop Date: 07/17/23 Status: Ordered cetirizine 10 mg oral tablet 1 tablet = 10 mg, By Mouth, Daily, PRN for allergy symptoms, # 10 tablet, 0 Refills, Maintenance, 08/23/22 23:54:00 EDT, Tablet, [facility]/pharmacy #[id number], Partial fill upon patient request if the prescription is for a schedule II opioid drug., 163, cm, 07/03... Start Date: 08/23/22 Status: Ordered chlorthalidone 25 mg oral tablet 1, tablet, By Mouth, Daily, # 30 tablet, Refills 3, Tot. Refills 3, Maintenance, 04/07/23 10:07:00 EST, Route to Pharmacy Electronically, [facility]/pharmacy #[id number], 162, cm, 03/29/23 15:45:00 EDT, Height, 110.5, kg, 03/29/23 15:45:00 EDT, Dry Weight Start Date: 04/07/23 Status: Ordered Diflucan 150 mg oral tablet 1 tablet = 150 mg, By Mouth, Once, # 1 tablet, 0 Refills, Soft Stop, 12/06/22 15:53:00 EDT, [facility]/pharmacy #[id number], Partial fill upon patient request if the prescription is for a schedule II opioid drug., 163, cm, 12/03/22 23:57:00 EDT, Height, 109, kg, 0... Start Date: 12/06/22 Status: Ordered EpiPen 2-Satya 0.3 mg injectable kit = 0.3 mg, Intramuscular, Once, # 1 pack/packet, 0 Refills, Soft Stop, 08/23/22 23:54:00 EDT, [facility]/pharmacy #[id number], Partial fill upon patient request if the prescription is for a schedule II opioid drug., 163, cm, 07/15/22 14:10:00 EST, Height, 112, kg,... Start Date: 08/23/22 Status: Ordered Flonase 50 mcg/inh nasal spray 1 sprays = 50 mcg, Nares, Both, 2 times a day, # 3 each, 0 Refills, Maintenance, 06/23/23 10:51:00 EST, [place], [facility]/pharmacy #[id number], Partial fill upon patient request if the prescription is for a schedule II opioid drug., 1 sprays Nares, Both 2 times a... Start Date: 06/23/23 Stop Date: 09/21/23 Status: Ordered fluconazole 150 mg oral tablet 1 tablet = 150 mg, By Mouth, Once, # 1 tablet, 0 Refills, Soft Stop, 05/28/23 10:23:00 EST, Tablet,[facility]/pharmacy #[id number], Partial fill upon patient request [...] tablet, 0 Refills, Maintenance, 12/20/22 6:07:00EDT, Tablet, [facility]/pharmacy #[id number], Partial fill upon... Start Date: 12/20/22 Stop Date: 03/20/23 Status: Ordered hydrOXYzine hydrochloride 25 mg oral tablet 2 tablet = 50 mg, By Mouth, 3 times a day, PRN for anxiety, Take one to two tablets (25 to 50 mg) up to three times per day for management of panic., # 270 tablet, 3 Refills, Maintenance, 12/20/22 6:09:00 EDT, Tablet, [facility]/pharmacy #[id number], Partial fill... Start Date: 12/20/22 Stop Date: 12/15/23 Status: Ordered ibuprofen 800 mg oral tablet 1, tablet, By Mouth, 3 times a day, # 90 tablet, Refills 1, Tot. Refills 1, Maintenance, 05/23/23 15:08:00 EST, Route to Pharmacy Electronically, [facility]/pharmacy #[id number], 162, cm, 05/23/23 14:35:00 EST, Height, 110.5, kg, 03/29/23 15:45:00 EDT, Dry Weight Start Date: 05/23/23 Status: Ordered Paragard IUD See Instructions, # 1 each, Maintenance, Inserted by Rosa Stokes MD. Lot [id number] Exp November 2025., 02/03/20 11:09:00 EDT, Supply, [...] Refills, Maintenance, 10/22/22 11:03:00 EDT, Tablet, [id number], Partial fill upon patient request if the [...] Team Personnel Name: Dennis Cardoza DO Position: [facility] Resident Member Role: PCP Address: Address: [address] [place] [address] [place] [address]- Name: Gabbie Vasquez RN Position: [facility] SN RN Member Role: Primary Care Nurse Care Team Related Persons Name: ENRRIQUE BAZZI Address: [place] [address] Name: TREASURE VILLAGRAN Address: home [address] [place] [address] Name: BERRY BURKETT Address: home [address] [facility] [address] [place] [address] Name: TATYANA, MIKHAL Address: [address] Address: home [address] [address]
--- OUTSIDE RECORDS SUMMARY | 2023-09-17 19:18 | XMS_ITS | Continuity of Care Document ---
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 Name Role Phone Cardoza Dennis SYLVESTER Primary Care Physician Encounter [facility] Date(s): 01/31/23 - 03/02/23 [facility] [address] [place] [address]- Attending Physician: Oneil Jones Admitting Physician: AdmOneil [...] Vaccine 10/14/14 Given 1Result Comment: [04/15/2014] Fluvirax [id number] 2Admin Note: vis given dated 12/25/12 3Admin Note: VIS 7-12 Medications cetirizine 10 mg oral tablet 1 tablet = 10 mg, By Mouth, Daily, PRN for allergy symptoms, # 10 tablet, 0 Refills, Maintenance, 08/23/22 23:54:00 EDT, Tablet, [facility]/pharmacy #[id number], Partial fill upon patient request if the prescription is for a schedule II opioid drug., 163, cm, 07/03... Start Date: 08/23/22 Status: Ordered chlorthalidone 25 mg oral tablet 1, tablet, By Mouth, Daily, # 30 tablet, Refills 3, Tot. Refills 3, Maintenance, 10/15/22 10:21:00 EDT, Route to Pharmacy Electronically, [facility]/pharmacy #[id number], 163, cm, 09/21/22 20:45:00 EDT, Height, 116.1, kg, 09/21/22 20:45:00 EDT, Dry Weight Start Date: 10/15/22 Status: Ordered Diflucan 150 mg oral tablet 1 tablet = 150 mg, By Mouth, Once, # 1 tablet, 0 Refills, Soft Stop, 12/06/22 15:53:00 EDT, [facility]/pharmacy #[id number], Partial fill upon patient request if the prescription is for a schedule II opioid drug., 163, cm, 12/03/22 23:57:00 EDT, Height, 109, kg, 0... Start Date: 12/06/22 Status: Ordered EpiPen 2-Satya 0.3 mg injectable kit = 0.3 mg, Intramuscular, Once, # 1 pack/packet, 0 Refills, Soft Stop, 08/23/22 23:54:00 EDT, [facility]/pharmacy #[id number], Partial fill [...] tablet, 0 Refills, Maintenance, 12/20/22 6:07:00EDT, Tablet, [facility]/pharmacy #[id number], Partial fill upon... Start Date: [...] Maintenance, Inserted by Rosa Stokes MD. Lot [id number] Exp November 2025., 02/03/20 11:09:00 EDT, Supply, 162, cm, 01/03/20 13:13:00 EDT, Height, 106, kg, 12/23/19 23:02:00 EDT, Dry Weight Start Date: 02/03/20 Status: Ordered SUMAtriptan 50 mg oral tablet 1 tablet = 50 mg, By Mouth, Daily, PRN for migraine headache, may repeat dose after 2 hours up to amaximum of 2, # 18 tablet, 2 Refills, Maintenance, 10/22/22 11:03:00 EDT, Tablet, [facility]/pharmacy #[id number], [...] Team Personnel Name: Nani SYLVESTER Dennis Position: [facility] Resident Member Role: PCP Address: Address: [address] [place] [address] [place], [place] [address] Name: Gabbie Vasquez RN Position: [facility] SN RN Member Role: Primary Care Nurse Care Team Related Persons Name: ENRRIQUE BAZZI Address: [place] [address] Name: TREASURE VILLAGRAN Address: home [address] [place] [address] Name: BERRY BURKETT Address: home [address] [address] Name: MARIANGEL JOE Address: [address] Address: home [address] [address]
--- OUTSIDE RECORDS SUMMARY | 2023-09-17 19:18 | XMS_ITS | Continuity of Care Document ---
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 Name Role Phone Dennis Cardoza DO Primary Care Physician [phone] Encounter [facility] Date(s): 05/30/23 - 06/29/23 [facility] [address], [address] [place] [address]- Attending Physician: Oneil Jones Admitting Physician: AdmOneil raymundo Referring Physician: Admtr, ArBneja Allergies, Adverse Reactions, Alerts No Known Allergies [...] Vaccine 10/14/14 Given 1Result Comment: [04/15/2014] Fluvirax [id number] 2Admin Note: vis given dated 12/25/12 3Admin [...] each, 0 Refills, Maintenance, 06/23/23 10:51:00 EST, [place], [facility]/pharmacy #[id number], Partial fill upon patient [...] Maintenance, Inserted by Rosa Stokes MD. Lot [id number] Exp November 2025., 02/03/20 11:09:00 EDT, Supply, [...] Confirmation Course Effective Dates Status Health St at Informant Anxiety 1 Confirmed Active Chronic UTI [...] Name: Dennis Cardoza DO Position: [facility] Resident Member Role: PCP Address: Address: [address] [place] [address] [place] [address]- Name: Gabbie Vasquez RN Position: [facility] RN Member Role: Primary Care Nurse Care Team Related Persons Name: ENRRIQUE BAZZI Address: [place] [address] Name: TREASURE VILLAGRAN Address: [address] [place] [address] Name: BERRY BURKETT Address: home [address] [address] Name: MARIANGEL JOE Address: [address] Address: [address]
--- OUTSIDE RECORDS SUMMARY | 2023-09-17 19:18 | XMS_ITS | Continuity of Care Document ---
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 Role Phone Cardoza Dennis SYLVESTER Primary Care Physician [phone] Encounter [facility] Date(s): 04/25/23 - 05/25/23 [facility] [address] [place] [address]- Attending Physician: Oneil Jones Admitting Physician: AdmtrOneil [...] Vaccine 10/14/14 Given 1Result Comment: [04/15/2014] Fluvirax [id number] 2Admin Note: vis given dated 12/25/12 3Admin Note: VIS 7-12 Medications cetirizine 10 mg oral tablet 1 tablet = 10 mg, By Mouth, Daily, PRN for allergy symptoms, # 10 tablet, 0 Refills, Maintenance, 08/23/22 23:54:00 EDT, Tablet, [facility]/pharmacy #[id number], Partial fill upon patient request if the prescription is for a schedule II opioid drug., 163, cm, 07/03... Start Date: 08/23/22 Status: Ordered chlorthalidone 25 mg oral tablet 1, tablet, By Mouth, Daily, # 30 tablet, Refills 3, Tot. Refills 3, Maintenance, 04/07/23 10:07:00 EST, Route to Pharmacy Electronically, [facility]/pharmacy #[id number], 162, cm, 03/29/23 15:45:00 EDT, Height, 110.5, kg, 03/29/23 15:45:00 EDT, Dry Weight Start Date: 04/07/23 Status: Ordered Diflucan 150 mg oral tablet 1 tablet = 150 mg, By Mouth, Once, # 1 tablet, 0 Refills, Soft Stop, 12/06/22 15:53:00 EDT, [facility]/pharmacy #[id number], Partial fill upon patient request if the prescription is for a schedule II opioid drug., 163, cm, 12/03/22 23:57:00 EDT, Height, 109, kg, 0... Start Date: 12/06/22 Status: Ordered EpiPen 2-Satya 0.3 mg injectable kit = 0.3 mg, Intramuscular, Once, # 1 pack/packet, 0 Refills, Soft Stop, 08/23/22 23:54:00 EDT, [facility]/pharmacy #[id number], Partial fill upon patient [...] tablet, 0 Refills, Maintenance, 12/20/22 6:07:00EDT, Tablet, [facility]/pharmacy #[id number], Partial fill upon... Start Date: 12/20/22 Stop Date: 03/20/23 Status: Ordered hydrOXYzine hydrochloride 25 mg oral tablet 2 tablet = 50 mg, By Mouth, 3 times a day, PRN for anxiety, Take one to two tablets (25 to 50 mg) up to three times per day for management of panic., # 270 tablet, 3 Refills, Maintenance, 12/20/22 6:09:00 EDT, Tablet, [facility]/pharmacy #[id number], Partial fill... Start Date: 12/20/22 Stop Date: 12/15/23 Status: Ordered ibuprofen 800 mg oral tablet 1, tablet, By Mouth, 3 times a day, # 90 tablet, Refills 1, Tot. Refills 1, Maintenance, 05/23/23 15:08:00 EST, Route to Pharmacy Electronically, [facility]/pharmacy #[id number], 162, cm, 05/23/23 14:35:00 EST, Height, 110.5, kg, 03/29/23 15:45:00 EDT, Dry Weight Start Date: 05/23/23 Status: Ordered Paragard IUD See Instructions, # 1 each, Maintenance, Inserted by Rosa Stokes MD. Lot [id number] Exp November 2025., 02/03/20 11:09:00 EDT, Supply, 162, cm, 01/03/20 13:13:00 EDT, Height, 106, kg, 12/23/19 23:02:00 EDT, Dry Weight Start Date: 02/03/20 Status: Ordered SUMAtriptan 50 mg oral tablet 1 tablet = 50 mg, By Mouth, Daily, PRN for migraine headache, may repeat dose after 2 hours up to amaximum of 2, # 18 tablet, 2 Refills, Maintenance, 10/22/22 11:03:00 EDT, Tablet, [facility]/pharmacy #[id number], Partial fill upon patient [...] Team Personnel Name: Dennis Cardoza DO Position: [facility] Resident Member Role: PCP Address: Address: [address] [place] [address] Adult [place], [place] [address] Name: Gabbie Vasquez RN Position: [facility] SN RN Member Role: Primary Care Nurse Care Team Related Persons Name: ENRRIQUE BAZZI Address: [place] [address] Name: TREASURE VILLAGRAN Address: home [address] [place] [address] Name: BERRY BURKETT Address: home [address] [address] Name: MARIANGEL JOE Address: [address] Address: home [address] [address]
--- OUTSIDE RECORDS SUMMARY | 2023-09-17 19:18 | XMS_ITS | Continuity of Care Document ---
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 Role Phone Nani SYLVESTER Dennis Primary Care Physician Encounter [facility] Date(s): 12/20/22 - 03/02/23 [facility] [address] [place] [id number] Attending Physician: David Gordillo MD Admitting Physician: [...] Vaccine 10/14/14 Given 1Result Comment: [04/15/2014] Fluvirax [id number] 2Admin Note: vis given dated 12/25/12 3Admin Note: VIS 7-12 Medications cetirizine 10 mg oral tablet 1 tablet = 10 mg, By Mouth, Daily, PRN for allergy symptoms, # 10 tablet, 0 Refills, Maintenance, 08/23/22 23:54:00 EDT, Tablet, [facility]/pharmacy #[id number], Partial fill upon patient request if the prescription is for a schedule II opioid drug., 163, cm, 07/03... Start Date: 08/23/22 Status: Ordered chlorthalidone 25 mg oral tablet 1, tablet, By Mouth, Daily, # 30 tablet, Refills 3, Tot. Refills 3, Maintenance, 10/15/22 10:21:00 EDT, Route to Pharmacy Electronically, [facility]/pharmacy #[id number], 163, cm, 09/21/22 20:45:00 EDT, Height, 116.1, kg, 09/21/22 20:45:00 EDT, Dry Weight Start Date: 10/15/22 Status: Ordered Diflucan 150 mg oral tablet 1 tablet = 150 mg, By Mouth, Once, # 1 tablet, 0 Refills, Soft Stop, 12/06/22 15:53:00 EDT, [facility]/pharmacy #[id number], Partial fill upon patient request if the prescription is for a schedule II opioid drug., 163, cm, 12/03/22 23:57:00 EDT, Height, 109, kg, 0... Start Date: 12/06/22 Status: Ordered EpiPen 2-Satya 0.3 mg injectable kit = 0.3 mg, Intramuscular, Once, # 1 pack/packet, 0 Refills, Soft Stop, 08/23/22 23:54:00 EDT, [facility]/pharmacy #[id number], Partial fill upon patient request [...] tablet, 0 Refills, Maintenance, 12/20/22 6:07:00EDT, Tablet, [facility]/pharmacy #[id number], Partial fill upon... Start Date: 12/20/22 Stop Date: 03/20/23 Status: Ordered hydrOXYzine hydrochloride 25 mg oral tablet 2 tablet = 50 mg, By Mouth, 3 times a day, PRN for anxiety, Take one to two tablets (25 to 50 mg) up to three times per day for management of panic., # 270 tablet, 3 Refills, Maintenance, 12/20/22 6:09:00 EDT, Tablet, [facility]/pharmacy #[id number], Partial fill... Start Date: 12/20/22 Stop [...] Maintenance, Inserted by Rosa Stokes MD. Lot [id number] Exp November 2025., 02/03/20 11:09:00 EDT, Supply, 162, cm, 01/03/20 13:13:00 EDT, Height, 106, kg, 12/23/19 23:02:00 EDT, Dry Weight Start Date: 02/03/20 Status: Ordered SUMAtriptan 50 mg oral tablet 1 tablet = 50 mg, By Mouth, Daily, PRN for migraine headache, may repeat dose after 2 hours up to amaximum of 2, # 18 tablet, 2 Refills, Maintenance, 10/22/22 11:03:00 EDT, Tablet, [facility]/pharmacy #[id number], Partial fill upon patient request [...] Team Personnel Name: Dennis Cardoza DO Position: [facility] Resident Member Role: PCP Address: Address: [address] [place] [address] Adult [place], [place] [address] Name: Gabbie Vasquez RN Position: [facility] SN RN Member Role: Primary Care Nurse Care Team Related Persons Name: ENRRIQUE BAZZI Address: [place] [address] Name: TREASURE VILLAGRAN Address: home [address] [place] [address] Name: BERRY BURKETT Address: home [address] [address] Name: MARIANGEL JOE Address: [address] Address: home [address] [address]
[2023-09-17 19:19] LABS: MANUAL DIFF FLAG NO
--- OUTSIDE RECORDS SUMMARY | 2023-09-17 19:19 | XMS_ITS | Continuity of Care Document ---
Author Organization [facility] Address [address], [address] [place] [address]- Care Team Providers Care Health Care Coach Name Role Phone Dennis Cardoza DO Primary Care Physician [phone] Encounter [facility] Date(s): 05/23/23 - 05/30/23 [facility] Luis SmithAdhyster[facility] [address] [place], [place] [address] Attending Physician: Lizabeth Loya MD Referring Physician: Dennis Cardoza DO Allergies, Adverse Reactions, Alerts No Known Allergies [...] Vaccine 10/14/14 Given 1Result Comment: [04/15/2014] Fluvirax [id number] 2Admin Note: vis given dated 12/25/12 3Admin Note: VIS 7-12 Medications cetirizine 10 mg oral tablet 1 tablet = 10 mg, By Mouth, Daily, PRN for allergy symptoms, # 10 tablet, 0 Refills, Maintenance, 08/23/22 23:54:00 EDT, Tablet, [facility]/pharmacy #[id number], Partial fill upon patient request if the prescription is for a schedule II opioid drug., 163, cm, 07/03... Start Date: 08/23/22 Status: Ordered chlorthalidone 25 mg oral tablet 1, tablet, By Mouth, Daily, # 30 tablet, Refills 3, Tot. Refills 3, Maintenance, 04/07/23 10:07:00 EST, Route to Pharmacy Electronically, [facility]/pharmacy #[id number], 162, cm, 03/29/23 15:45:00 EDT, Height, 110.5, kg, 03/29/23 15:45:00 EDT, Dry Weight Start Date: 04/07/23 Status: Ordered Diflucan 150 mg oral tablet 1 tablet = 150 mg, By Mouth, Once, # 1 tablet, 0 Refills, Soft Stop, 12/06/22 15:53:00 EDT, [facility]/pharmacy #[id number], Partial fill upon patient request if the prescription is for a schedule II opioid drug., 163, cm, 12/03/22 23:57:00 EDT, Height, 109, kg, 0... Start Date: 12/06/22 Status: Ordered EpiPen 2-Satya 0.3 mg injectable kit = 0.3 mg, Intramuscular, Once, # 1 pack/packet, 0 Refills, Soft Stop, 08/23/22 23:54:00 EDT[id number] fill upon patient request if the prescription is for a schedule II opioid drug., 163, cm, 07/15/22 14:10:00 EST, Height, 112, kg,... Start Date: 08/23/22 Status: Ordered fluconazole 150 mg oral tablet 1 tablet = 150 mg, By Mouth, Once, # 1 tablet, 0 Refills, Soft Stop, 05/28/23 10:23:00 EST, Tablet,[facility]/pharmacy #[id number], Partial fill upon patient request if [...] tablet, 0 Refills, Maintenance, 12/20/22 6:07:00EDT, Tablet, [facility]/pharmacy #[id number], Partial fill upon... Start Date: 12/20/22 Stop Date: 03/20/23 Status: Ordered hydrOXYzine hydrochloride 25 mg oral tablet 2 tablet = 50 mg, By Mouth, 3 times a day, PRN for anxiety, Take one to two tablets (25 to 50 mg) up to three times per day for management of panic., # 270 tablet, 3 Refills, Maintenance, 12/20/22 6:09:00 EDT, Tablet, [facility]/pharmacy #[id number], Partial fill... Start Date: 12/20/22 Stop Date: 12/15/23 Status: Ordered ibuprofen 800 mg oral tablet 1, tablet, By Mouth, 3 times a day, # 90 tablet, Refills 1, Tot. Refills 1, Maintenance, 05/23/23 15:08:00 EST, Route to Pharmacy Electronically, [facility]/pharmacy #[id number], 162, cm, 05/23/23 14:35:00 EST, Height, 110.5, kg, 03/29/23 15:45:00 EDT, Dry Weight Start Date: 05/23/23 Status: Ordered metroNIDAZOLE 500 mg oral tablet 1 tablet = 500 mg, By Mouth, Every 12 hours, for 7 days, # 14 tablet, 0 Refills, Acute 06/04/23 10:24:00 EST, 05/28/23 10:24:00 EST, Tablet, [facility]/pharmacy #[id number], Partial fill upon patient request if the prescription is for a schedule II opioid drug., 1... Start Date: 05/28/23 Stop Date: 06/04/23 Status: Ordered Paragard IUD See Instructions, # 1 each, Maintenance, Inserted by Rosa Stokes MD. Lot [id number] Exp November 2025., 02/03/20 11:09:00 EDT, Supply, [...] Refills, Maintenance, 10/22/22 11:03:00 EDT, Tablet, [facility]/pharmacy #[id number], Partial fill upon patient request if the [...] oldest [Reference Range]: 1 Height 162 cm (05/23/23 2:35 PM) Weight 117.72 kg (05/23/23 2:35 PM) Pulse Rate [55-90 bpm] 94 bpm *H* (05/23/23 2:35 PM) Body Mass Index [18.5-24.99 kg/m2] 44.86 kg/m2 *>HHI* (05/23/23 2:35 PM) Blood Pressure [90-138/55-84 mm Hg] 130/ 72mm Hg (05/23/23 2:35 PM) Blood pressure sites Arm, right (05/23/23 2:35 PM) Weight Obtained Via Standing scale (05/23/23 2:35 PM) Social History Social History Type Response Smoking Status Never (less than 100 in lifetime); Tobacco user in household: No entered on: 06/14/19 Sex Patient Care team information Care Team Personnel Name: Dennis Cardoza DO Position: [facility] Resident Member Role: PCP Address: Address: [address] [place] [address] [place] [address]- Name: Gabbie Vasquez RN Position: [facility] SN RN Member Role: Primary Care Nurse Care Team Related Persons Name: ROSE MARYENRRIQUE GILLESPIE Address: [place] [address] Name: TREASURE VILLAGRAN Address: home [address] [place] [address] Name: BERRY BURKETT Address: home [address] [address] Name: MARIANGEL JOE Address: [address] Address: home [address] [address]
--- OUTSIDE RECORDS SUMMARY | 2023-09-17 19:19 | XMS_ITS | Continuity of Care Document ---
Author Organization [facility] Address [address] [place] [address]- Care Team Providers Care Ore Tester Name Role Phone Evita Cardoza DOan Primary Care Physician [phone] Encounter [facility] Date(s): 04/01/23 - 05/25/23 [facility] [address] [place] [address]- Attending Physician: David Gordillo MD Admitting Physician: [...] Vaccine 10/14/14 Given 1Result Comment: [04/15/2014] Fluvirax [id number] 2Admin Note: vis given dated 12/25/12 3Admin Note: VIS 7-12 Medications cetirizine 10 mg oral tablet 1 tablet = 10 mg, By Mouth, Daily, PRN for allergy symptoms, # 10 tablet, 0 Refills, Maintenance, 08/23/22 23:54:00 EDT, Tablet, [facility]/pharmacy #[id number], Partial fill upon patient request if the prescription is for a schedule II opioid drug., 163, cm, 07/03... Start Date: 08/23/22 Status: Ordered chlorthalidone 25 mg oral tablet 1, tablet, By Mouth, Daily, # 30 tablet, Refills 3, Tot. Refills 3, Maintenance, 04/07/23 10:07:00 EST, Route to Pharmacy Electronically, [facility]/pharmacy #[id number], 162, cm, 03/29/23 15:45:00 EDT, Height, 110.5, kg, 03/29/23 15:45:00 EDT, Dry Weight Start Date: 04/07/23 Status: Ordered Diflucan 150 mg oral tablet 1 tablet = 150 mg, By Mouth, Once, # 1 tablet, 0 Refills, Soft Stop, 12/06/22 15:53:00 EDT, [facility]/pharmacy #[id number], Partial fill upon patient request if the prescription is for a schedule II opioid drug., 163, cm, 12/03/22 23:57:00 EDT, Height, 109, kg, 0... Start Date: 12/06/22 Status: Ordered EpiPen 2-Satya 0.3 mg injectable kit = 0.3 mg, Intramuscular, Once, # 1 pack/packet, 0 Refills, Soft Stop, 08/23/22 23:54:00 EDT, [facility]/pharmacy #[id number], Partial fill upon patient [...] tablet, 0 Refills, Maintenance, 12/20/22 6:07:00EDT, Tablet, [facility]/pharmacy #[id number], Partial fill upon... Start Date: 12/20/22 Stop Date: 03/20/23 Status: Ordered hydrOXYzine hydrochloride 25 mg oral tablet 2 tablet = 50 mg, By Mouth, 3 times a day, PRN for anxiety, Take one to two tablets (25 to 50 mg) up to three times per day for management of panic., # 270 tablet, 3 Refills, Maintenance, 12/20/22 6:09:00 EDT, Tablet, [facility]/pharmacy #[id number], Partial fill... Start Date: 12/20/22 Stop Date: 12/15/23 Status: Ordered ibuprofen 800 mg oral tablet 1, tablet, By Mouth, 3 times a day, # 90 tablet, Refills 1, Tot. Refills 1, Maintenance, 05/23/23 15:08:00 EST, Route to Pharmacy Electronically, [facility]/pharmacy #[id number], 162, cm, 05/23/23 14:35:00 EST, Height, 110.5, kg, 03/29/23 15:45:00 EDT, Dry Weight Start Date: 05/23/23 Status: Ordered Paragard IUD See Instructions, # 1 each, Maintenance, Inserted by Rosa Stokes MD. Lot [id number] Exp November 2025., 02/03/20 11:09:00 EDT, Supply, 162, cm, 01/03/20 13:13:00 EDT, Height, 106, kg, 12/23/19 23:02:00 EDT, Dry Weight Start Date: 02/03/20 Status: Ordered SUMAtriptan 50 mg oral tablet 1 tablet = 50 mg, By Mouth, Daily, PRN for migraine headache, may repeat dose after 2 hours up to amaximum of 2, # 18 tablet, 2 Refills, Maintenance, 10/22/22 11:03:00 EDT, Tablet, [facility]/pharmacy #[id number], Partial fill upon patient [...] Team Personnel Name: Dennis Cardoza DO Position: [facility] Resident Member Role: PCP Address: Address: [address] [place] [id number] Name: Gabbie Vasquez RN Position: [facility] SN RN Member Role: Primary Care Nurse Care Team Related Persons Name: ENRRIQUE BAZZI Address: [place] [address] Name: TREASURE VILLAGRAN Address: home [address] [place] [address] Name: BERRY BURKETT Address: home [address] [address] Name: MARIANGEL JOE Address: [id number] Address: home [address] [address]
--- OUTSIDE RECORDS SUMMARY | 2023-09-17 19:19 | XMS_ITS | Continuity of Care Document ---
Author Organization [facility] Address [address] [place] [address]- Care Team Providers Care Cutter Apprentice Hand Name Role Phone Nani SYLVESTER Dennis Primary Care Physician [phone] Encounter [facility] Date(s): 08/06/23 - 09/05/23 [facility] [address] [place] [phone] Allergies, Adverse Reactions, Alerts No Known Allergies [...] Vaccine 10/14/14 Given 1Result Comment: [04/15/2014] Fluvirax [id number] 2Admin Note: vis given dated 12/25/12 3Admin Note: VIS 7-12 Medications amitriptyline 10 mg oral tablet 10 mg, 1, tablet, By Mouth, Daily at bedtime, # 14 tablet, Refills 0, Tot. Refills 0, Maintenance, 07/03/23 16:17:00 EST, Route to Pharmacy Electronically, [facility]/pharmacy #[id number], Partial fill upon patient request if the prescription is for a schedule II... Start Date: 07/03/23 Stop Date: 07/17/23 Status: Ordered cetirizine 10 mg oral tablet 1 tablet = 10 mg, By Mouth, Daily, PRN for allergy symptoms, # 10 tablet, 0 Refills, Maintenance, 08/23/22 23:54:00 EDT, Tablet, [facility]/pharmacy #[id number], Partial fill upon patient request if the prescription is for a schedule II opioid drug., 163, cm, 07/03... Start Date: 08/23/22 Status: Ordered chlorthalidone 25 mg oral tablet 1, tablet, By Mouth, Daily, # 30 tablet, Refills 3, Tot. Refills 3, Maintenance, 04/07/23 10:07:00 EST, Route to Pharmacy Electronically, [facility]/pharmacy #[id number], 162, cm, 03/29/23 15:45:00 EDT, Height, 110.5, kg, 03/29/23 15:45:00 EDT, Dry Weight Start Date: 04/07/23 Status: Ordered Diflucan 150 mg oral tablet 1 tablet = 150 mg, By Mouth, Once, # 1 tablet, 0 Refills, Soft Stop, 12/06/22 15:53:00 EDT, [facility]/pharmacy #[id number], Partial fill upon patient request if the prescription is for a schedule II opioid drug., 163, cm, 12/03/22 23:57:00 EDT, Height, 109, kg, 0... Start Date: 12/06/22 Status: Ordered EpiPen 2-Satya 0.3 mg injectable kit = 0.3 mg, Intramuscular, Once, # 1 pack/packet, 0 Refills, Soft Stop, 08/23/22 23:54:00 EDT, [facility]/pharmacy #[id number], Partial fill upon patient request if the prescription is for a schedule II opioid drug., 163, cm, 07/15/22 14:10:00 EST, Height, 112, kg,... Start Date: 08/23/22 Status: Ordered Flonase 50 mcg/inh nasal spray 1 sprays = 50 mcg, Nares, Both, 2 times a day, # 3 each, 0 Refills, Maintenance, 06/23/23 10:51:00 EST, [place], [facility]/pharmacy #[id number], Partial fill upon patient request if the prescription is for a schedule II opioid drug., 1 sprays Nares, Both 2 times a... Start Date: 06/23/23 Stop Date: 09/21/23 Status: Ordered fluconazole 150 mg oral tablet 1 tablet = 150 mg, By Mouth, Once, # 1 tablet, 0 Refills, Soft Stop, 05/28/23 10:23:00 EST, Tablet,[facility]/pharmacy #[id number], Partial fill upon patient [...] tablet, 0 Refills, Maintenance, 12/20/22 6:07:00EDT, Tablet, [facility]/pharmacy #[id number], Partial fill upon... Start Date: 12/20/22 Stop Date: 03/20/23 Status: Ordered hydrOXYzine hydrochloride 25 mg oral tablet 2 tablet = 50 mg, By Mouth, 3 times a day, PRN for anxiety, Take one to two tablets (25 to 50 mg) up to three times per day for management of panic., # 270 tablet, 3 Refills, Maintenance, 12/20/22 6:09:00 EDT, Tablet, [facility]/pharmacy #[id number], Partial fill... Start Date: 12/20/22 Stop Date: 12/15/23 Status: Ordered ibuprofen 800 mg oral tablet 1, tablet, By Mouth, 3 times a day, # 90 tablet, Refills 1, Tot. Refills 1, Maintenance, 05/23/23 15:08:00 EST, Route to Pharmacy Electronically, [facility]/pharmacy #[id number], 162, cm, 05/23/23 14:35:00 EST, Height, 110.5, kg, 03/29/23 15:45:00 EDT, Dry Weight Start Date: 05/23/23 Status: Ordered ondansetron 4 mg oral tablet, disintegrating 1 tablet = 4 mg, By Mouth, Every 8 hours, PRN as needed for nausea/vomiting, # 12 tablet, 0 Refills, Maintenance, 09/02/23 1:46:00 EDT, DIS Tablet, [id number], Partial fill upon patient request if the prescription is for a schedule II opioid d... Start Date: 09/02/23 Status: Ordered Paragard IUD See Instructions, # 1 each, Maintenance, Inserted by Rosa Stokes MD. Lot [id number] Exp November 2025., 02/03/20 11:09:00 EDT, Supply, [...] Team Personnel Name: Dennis Cardoza DO Position: [facility] Resident Member Role: PCP Address: Address: [address] [place] [address] [place] [address]- Name: Gabbie Vasquez RN Position: [facility] SN RN Member Role: Primary Care Nurse Care Team Related Persons Name: ENRRIQUE BAZZI Address: [place] [address] Name: TREASURE VILLAGRAN Address: home [address] [place] [address] Name: BERRY BURKETT Address: home [address] [address] Name: MARIANGEL JOE Address: [address] Address: home [address] [address]
--- OUTSIDE RECORDS SUMMARY | 2023-09-17 19:19 | XMS_ITS | Continuity of Care Document ---
Author Organization [facility] Address [address] [place] [address]- Care Team Providers Care Loom Inspector Name Role Phone Dennis Cardoza DO Primary Care Physician [phone] Encounter [facility] Date(s): 09/01/23 - 09/02/[address] [address]- Discharge Disposition: A-D/C Home Attending Physician: Kang Mejia DO Admitting Physician: Kang Mejia DO Referring Physician: Not on Staff, Referring [...] Vaccine 10/14/14 Given 1Result Comment: [04/15/2014] Fluvirax [id number] 2Admin Note: vis given dated 12/25/12 3Admin Note: VIS 7-12 Medications amitriptyline 10 mg oral tablet 10 mg, 1, tablet, By Mouth, Daily at bedtime, # 14 tablet, Refills 0, Tot. Refills 0, Maintenance, 07/03/23 16:17:00 EST, Route to Pharmacy Electronically, [facility]/pharmacy #[id number], Partial fill [...] 04/07/23 10:07:00 EST, Route to Pharmacy Electronically, [facility]/pharmacy #[id number], 162, cm, 03/29/23 15:45:00 EDT, [...] each, 0 Refills, Maintenance, 06/23/23 10:51:00 EST, [place], [facility]/pharmacy #[id number], Partial fill upon patient request if the prescription is for a schedule II opioid drug., 1 sprays Nares, Both 2 times a... Start Date: 06/23/23 Stop Date: 09/21/23 Status: Ordered fluconazole 150 mg oral tablet 1 tablet = 150 mg, By Mouth, Once, # 1 tablet, 0 Refills, Soft Stop, 05/28/23 10:23:00 EST, Tablet,[facility]/pharmacy #[id number], Partial fill upon [...] 05/23/23 15:08:00 EST, Route to Pharmacy Electronically, [facility]/pharmacy #[id number], 162, cm, 05/23/23 14:35:00 EST, [...] Maintenance, Inserted by Rosa Stokes MD. Lot [id number] Exp November 2025., 02/03/20 11:09:00 EDT, Supply, [...] [Reference Range]: 1 2 Height 163 cm (09/01/23 11:37 PM) Weight 119.3 kg (09/01/23 11:37 PM) Oxygen Saturation [94-100 %] 98 % (09/02/23 1:30 AM) 95 % (09/01/23 11:37 PM) Pulse Rate [55-90 bpm] 91 bpm *H* (09/02/23 1:30 AM) 85 bpm (09/01/23 11:37 PM) Blood Pressure [90-138/55-84 mm Hg] 125/ 72mm Hg (09/02/23 1:30 AM) 136/87mm Hg (09/01/23 11:37 PM) Respiratory Rate [16-30 br/min] 17 br/mi n (09/02/23 1:30 AM) 16 br/min (09/01/23 11:37 PM) Temperature [96.8-100.4 DegF] 97.9 DegF (09/01/23 11:37 PM) Mode of Delivery (Oxygen) Room air (09/02/23 1:30 AM) Room air (09/01/23 11:37 PM) Blood pressure sites Arm, left (09/02/23 1:30 AM) Arm, left (09/01/23 11:37 PM) Temperature Route Oral (09/01/23 11:37 PM) Dry Weight 119.3 kg (09/01/23 11:37 PM) Weight Obtained Via Standing scale (09/01/23 11:37 PM) Dry Weight Obtained Via Standing scale (09/01/23 11:37 PM) Social History Social History Type Response Smoking Status Never (less than 100 in lifetime); Tobacco user in household: No entered on: 06/14/19 Sex EKG study * Event Display: ECG 12-Lead Authored Date: Please click on pdf link to open report * Event Display: ECG 12-Lead Authored Date: Ventricular Rate: 86 BPM Atrial Rate: 86 BPM P-R Interval: 144 ms QRS Duration: 82 ms Q-T Interval: 376 ms QTC Calculation(Bazett): 449 ms P Hubbard: 48 degrees R Hubbard: 52 degrees T Hubbard: 44 degrees Normal sinus rhythm Normal ECG When compared with ECG of 02-AUG-2023 01:00, No significant change was found Confirmed by JOANNA AVILES MD ([id number]) on 09/02/2023 7:19:15 PM [place]: JOANNA AVILES MD Patient Care team information Care Team Personnel Name: Dennis Cardoza DO Position: [facility] Resident Member Role: PCP Address: Address: [address] [facility] [place] [address]- Name: Gabbie Vasquez RN Position: [facility] SN RN Member Role: Primary Care Nurse Care Team Related Persons Name: ENRRIQUE BAZZI Address: [place] [address] Name: TREASURE VILLAGRAN Address: home [address] [place] [address] Name: BERRY BURKETT Address: home [address] [address] Name: MARIANGEL JOE Address: [address] Address: home [address] [address]
--- OUTSIDE RECORDS SUMMARY | 2023-09-17 19:19 | XMS_ITS | Continuity of Care Document ---
Author Organization [facility] Address [address] [place] [address]- Care Team Providers Care Digital Operations Analyst Name Role Phone Cardoza Dennis SYLVESTER Primary Care Physician [facility] Date[facility]s): 01/30/23 - 03/01/23 [facility] [address] [place] [id number] Attending Physician: Not on Staff, Attending MD [...] Vaccine 10/14/14 Given 1Result Comment: [04/15/2014] Fluvirax [id number] 2Admin Note: vis given dated 12/25/12 3Admin Note: VIS 7-12 Medications cetirizine 10 mg oral tablet 1 tablet = 10 mg, By Mouth, Daily, PRN for allergy symptoms, # 10 tablet, 0 Refills, Maintenance, 08/23/22 23:54:00 EDT, Tablet, [facility]/pharmacy #[id number], Partial fill upon patient request if the prescription is for a schedule II opioid drug., 163, cm, 07/03... Start Date: 08/23/22 Status: Ordered chlorthalidone 25 mg oral tablet 1, tablet, By Mouth, Daily, # 30 tablet, Refills 3, Tot. Refills 3, Maintenance, 10/15/22 10:21:00 EDT, Route to Pharmacy Electronically, [facility]/pharmacy #[id number], 163, cm, 09/21/22 20:45:00 EDT, Height, 116.1, kg, 09/21/22 20:45:00 EDT, Dry Weight Start Date: 10/15/22 Status: Ordered Diflucan 150 mg oral tablet 1 tablet = 150 mg, By Mouth, Once, # 1 tablet, 0 Refills, Soft Stop, 12/06/22 15:53:00 EDT, [facility]/pharmacy #[id number], Partial fill upon patient request if the prescription is for a schedule II opioid drug., 163, cm, 12/03/22 23:57:00 EDT, Height, 109, kg, 0... Start Date: 12/06/22 Status: Ordered EpiPen 2-Satya 0.3 mg injectable kit = 0.3 mg, Intramuscular, Once, # 1 pack/packet, 0 Refills, Soft Stop, 08/23/22 23:54:00 EDT, [facility]/pharmacy #[id number], Partial fill upon [...] tablet, 0 Refills, Maintenance, 12/20/22 6:07:00EDT, Tablet, [facility]/pharmacy #[id number], Partial fill upon... Start Date: 12/20/22 Stop Date: 03/20/23 Status: Ordered hydrOXYzine hydrochloride 25 mg oral tablet 2 tablet = 50 mg, By Mouth, 3 times a day, PRN for anxiety, Take one to two tablets (25 to 50 mg) up to three times per day for management of panic., # 270 tablet, 3 Refills, Maintenance, 12/20/22 6:09:00 EDT, Tablet, [facility]/pharmacy #[id number], Partial fill... Start Date: 12/20/22 Stop Date: 12/15/23 Status: Ordered ibuprofen 800 mg oral tablet 800 mg, 1, tablet, By Mouth, 3 times a day, # 90 tablet, Refills 1, Tot. Refills 1, Maintenance, 10/22/22 10:55:00 EDT, Route to Pharmacy Electronically, [facility]/pharmacy #[id number], Partial fill upon patientrequest if the prescription is for a schedule II op... Start Date: 10/22/22 Status: Ordered Paragard IUD See Instructions, # 1 each, Maintenance, Inserted by Rosa Stokes MD. Lot [id number] Exp November 2025., 02/03/20 11:09:00 EDT, Supply, 162, cm, 01/03/20 13:13:00 EDT, Height, 106, kg, 12/23/19 23:02:00 EDT, Dry Weight Start Date: 02/03/20 Status: Ordered SUMAtriptan 50 mg oral tablet 1 tablet = 50 mg, By Mouth, Daily, PRN for migraine headache, may repeat dose after 2 hours up to amaximum of 2, # 18 tablet, 2 Refills, Maintenance, 10/22/22 11:03:00 EDT, Tablet, [facility]/pharmacy #[id number], Partial fill upon [...] Team Personnel Name: Dennis Cardoza DO Position: [facility] Resident Member Role: PCP Address: Address: [address] [place] [address] [place] [address]- Name: Gabbie Vasquez RN Position: [facility] SN RN Member Role: Primary Care Nurse Care Team Related Persons Name: ENRRIQUE BAZZI Address: [place] [address] Name: TREASURE VILLAGRAN Address: home [address] [place] [address] Name: BERYR BURKETT Address: home [address] [address] Name: MARIANGEL JOE Address: [address] Address: home [address] [address]
[2023-09-17 19:20] LABS: Appearance Urine Clear; Color Urine Yellow; Glucose Urine UA Negative (Negative); Leukocyte Esterase Urine Trace (Negative); Nitrite Urine Negative (Negative); PH 6.5 (5.0-9.0); Specific Gravity - Urine 1.025 (1.005-1.025); UMIC TRIGGER UACC YES; Urine Blood Moderate (2+) (Negative); Urine Ketones 15 mg/dL (Negative); Urine Protein Negative (Neg-Trace)
--- OUTSIDE RECORDS SUMMARY | 2023-09-17 19:21 | XMS_ITS | Continuity of Care Document ---
Author Organization [facility] Address [address] [facility] [address] [facility], [address], [place] [address]- Care Team Providers Care Manager Business Intelligence Name Role Phone Dennis Cardoza DO Primary Care Physician Encounter [facility] Date(s): 05/23/23 - 06/29/23 [facility] Luis Gilmans [facility] [address] [facility], [address] [place] [address]- Attending Physician: Lizabeth Loya MD Allergies, Adverse Reactions, Alerts No Known [...] Vaccine 10/14/14 Given 1Result Comment: [04/15/2014] Fluvirax [id number] 2Admin Note: vis given dated 12/25/12 3Admin [...] 04/07/23 10:07:00 EST, Route to Pharmacy Electronically, [facility]/pharmacy #[id number], 162, cm, 03/29/23 15:45:00 EDT, Height, 110.5, kg, 03/29/23 15:45:00 EDT, Dry Weight Start Date: 04/07/23 Status: Ordered Diflucan 150 mg oral tablet 1 tablet = 150 mg, By Mouth, Once, # 1 tablet, 0 Refills, Soft Stop, 12/06/22 15:53:00 EDT, [id number] Partial fill upon patient request if [...] each, 0 Refills, Maintenance, 06/23/23 10:51:00 EST, [place], [facility]/pharmacy #[id number], Partial fill upon patient request if the prescription is for a schedule II opioid drug., 1 sprays Nares, Both 2 times a... Start Date: 06/23/23 Stop Date: 09/21/23 Status: Ordered fluconazole 150 mg oral tablet 1 tablet = 150 mg, By Mouth, Once, # 1 tablet, 0 Refills, Soft Stop, 05/28/23 10:23:00 EST, Tablet,[facility]/pharmacy #[id number], Partial fill upon patient [...] tablet, 0 Refills, Maintenance, 12/20/22 6:07:00EDT, Tablet, [facility]/pharmacy #[id number], Partial fill upon... Start Date: 12/20/22 Stop Date: 03/20/23 Status: Ordered hydrOXYzine hydrochloride 25 mg oral tablet 2 tablet = 50 mg, By Mouth, 3 times a day, PRN for anxiety, Take one to two tablets (25 to 50 mg) up to three times per day for management of panic., # 270 tablet, 3 Refills, Maintenance, 12/20/22 6:09:00 EDT, Tablet, [facility]/pharmacy #[id number], Partial fill... Start Date: 12/20/22 Stop Date: 12/15/23 Status: Ordered ibuprofen 800 mg oral tablet 1, tablet, By Mouth, 3 times a day, # 90 tablet, Refills 1, Tot. Refills 1, Maintenance, 05/23/23 15:08:00 EST, Route to Pharmacy Electronically, [facility]/pharmacy #[id number], 162, cm, 05/23/23 14:35:00 EST, Height, 110.5, kg, 03/29/23 15:45:00 EDT, Dry Weight Start Date: 05/23/23 Status: Ordered Paragard IUD See Instructions, # 1 each, Maintenance, Inserted by Rosa Stokes MD. Lot [id number] Exp November 2025., 02/03/20 11:09:00 EDT, Supply, [...] Team Personnel Name: Dennis Cardoza DO Position: [facility] Resident Member Role: PCP Address: Address: [address] [place] [address]- Name: Gabbie Vasquez RN Position: [facility] RN Member Role: Primary Care Nurse Care Team Related Persons Name: ENRRIQUE BAZZI Address: [place] [address] Name: TREASURE VILLAGRAN Address: home [address] [place] [address] Name: BERRY BURKETT Address: home [address] [address] Name: MARIANGEL JOE Address: Address: home [address] [address]
--- OUTSIDE RECORDS SUMMARY | 2023-09-17 19:21 | XMS_ITS | Continuity of Care Document ---
Author Organization [facility] Address [address] [facility], [address], [place] [address]- Care Team Providers Care Logistics Account Manager Name Role Phone Dennis Cardoza DO Primary Care Physician Encounter [facility] Date(s): 03/10/23 - 04/09/23 [facility] Luis Gilmans [facility] [address] [facility] [address] [facility], [address] [place], [place] [address] Attending Physician: Oneil Jones Admitting Physician: AdmOneil [...] Vaccine 10/14/14 Given 1Result Comment: [04/15/2014] Fluvirax [id number] 2Admin Note: vis given dated 12/25/12 3Admin Note: VIS 7-12 Medications cetirizine 10 mg oral tablet 1 tablet = 10 mg, By Mouth, Daily, PRN for allergy symptoms, # 10 tablet, 0 Refills, Maintenance, 08/23/22 23:54:00 EDT, Tablet, [facility]/pharmacy #[id number], Partial fill upon patient request if the prescription is for a schedule II opioid drug., 163, cm, 07/03... Start Date: 08/23/22 Status: Ordered chlorthalidone 25 mg oral tablet 1, tablet, By Mouth, Daily, # 30 tablet, Refills 3, Tot. Refills 3, Maintenance, 04/07/23 10:07:00 EST, Route to Pharmacy Electronically, [facility]/pharmacy #[id number], 162, cm, 03/29/23 15:45:00 EDT, Height, 110.5, kg, 03/29/23 15:45:00 EDT, Dry Weight Start Date: 04/07/23 Status: Ordered Diflucan 150 mg oral tablet 1 tablet = 150 mg, By Mouth, Once, # 1 tablet, 0 Refills, Soft Stop, 12/06/22 15:53:00 EDT, [facility]/pharmacy #[id number], Partial fill upon patient request if the prescription is for a schedule II opioid drug., 163, cm, 12/03/22 23:57:00 EDT, Height, 109, kg, 0... Start Date: 12/06/22 Status: Ordered EpiPen 2-Satya 0.3 mg injectable kit = 0.3 mg, Intramuscular, Once, # 1 pack/packet, 0 Refills, Soft Stop, 08/23/22 23:54:00 EDT, [facility]/pharmacy #[id number], Partial fill upon patient request [...] tablet, 0 Refills, Maintenance, 12/20/22 6:07:00EDT, Tablet, [facility]/pharmacy #[id number], Partial fill upon... Start Date: [...] a day, # 90 tablet, Refills 1, Maintenance, 03/23/23 13:47:00 EDT, Route to Pharmacy Electronically, [id number], 163, cm, 01/30/23 16:18:00 EDT, Height, 109, kg, 01/30/23 16:18:00 EDT, Dry Weight Start Date: 03/23/23 Status: Ordered Paragard IUD See Instructions, # 1 each, Maintenance, Inserted by Rosa Stokes MD. Lot [id number] Exp November 2025., 02/03/20 11:09:00 EDT, Supply, 162, cm, 01/03/20 13:13:00 EDT, Height, 106, kg, 12/23/19 23:02:00 EDT, Dry Weight Start Date: 02/03/20 Status: Ordered SUMAtriptan 50 mg oral tablet 1 tablet = 50 mg, By Mouth, Daily, PRN for migraine headache, may repeat dose after 2 hours up to amaximum of 2, # 18 tablet, 2 Refills, Maintenance, 10/22/22 11:03:00 EDT, Tablet, [facility]/pharmacy #[id number], Partial fill upon patient request [...] Team Personnel Name: Nani SYLVESTER Dennis Position: [facility] Resident Member Role: PCP Address: Address: [address] [place] [address] Adult [place], [place] [address] Name: Gabbie Vasquez RN Position: [facility] SN RN Member Role: Primary Care Nurse Care Team Related Persons Name: ENRRIQUE BAZZI Address: [place] [address] Name: TREASURE VILLAGRAN Address: home [address] [place] [address] Name: BERRY BURKETT Address: home [address] [address] Name: MARIANGEL JOE Address: [address] Address: home [address] [address]
--- OUTSIDE RECORDS SUMMARY | 2023-09-17 19:21 | XMS_ITS | Continuity of Care Document ---
Author Organization [facility] Address [address] [facility], [address] [address]- Care Team Providers Care Instrument Man Name Role Phone Dennis Cardoza DO Primary Care Physician [facility]counter [facility] Date(s): 05/22/23 - 06/21/23 [facility] Luis [facility] [address] [facility] [place], [place] [address] Allergies, Adverse Reactions, Alerts No [...] Vaccine 10/14/14 Given 1Result Comment: [04/15/2014] Fluvirax [id number] 2Admin Note: vis given dated 12/25/12 3Admin [...] 04/07/23 10:07:00 EST, Route to Pharmacy Electronically, [facility]/pharmacy #[id number], 162, cm, 03/29/23 15:45:00 EDT, Height, 110.5, kg, 03/29/23 15:45:00 EDT, Dry Weight Start Date: 04/07/23 Status: Ordered Diflucan 150 mg oral tablet 1 tablet = 150 mg, By Mouth, Once, # 1 tablet, 0 Refills, Soft Stop, 12/06/22 15:53:00 EDT, [facility]/pharmacy #[id number], Partial fill upon [...] Nares, Both, 2 times a day, # 16 Gm, 0 Refills, Maintenance, 06/21/23 21:46:00 EST, [place], [facility]/pharmacy #[id number], Partial fill upon patient request if the prescription is for a schedule II opioid drug., 1 sprays Nares, Both 2 times a d... Start Date: 06/21/23 Status: Ordered fluconazole 150 mg oral tablet 1 tablet = 150 mg, By Mouth, Once, # 1 tablet, 0 Refills, Soft Stop, 05/28/23 10:23:00 EST, Tablet,[facility]/pharmacy #[id number], Partial fill upon patient request [...] tablet, 0 Refills, Maintenance, 12/20/22 6:07:00EDT, Tablet, [facility]/pharmacy #[id number], Partial fill upon... Start Date: 12/20/22 Stop Date: 03/20/23 Status: Ordered hydrOXYzine hydrochloride 25 mg oral tablet 2 tablet = 50 mg, By Mouth, 3 times a day, PRN for anxiety, Take one to two tablets (25 to 50 mg) up to three times per day for management of panic., # 270 tablet, 3 Refills, Maintenance, 12/20/22 6:09:00 EDT, Tablet, [facility]/pharmacy #[id number], Partial fill... Start Date: 12/20/22 Stop Date: 12/15/23 Status: Ordered ibuprofen 800 mg oral tablet 1, tablet, By Mouth, 3 times a day, # 90 tablet, Refills 1, Tot. Refills 1, Maintenance, 05/23/23 15:08:00 EST, [id number] 162, cm, 05/23/23 14:35:00 EST, Height, 110.5, kg, 03/29/23 15:45:00 EDT, Dry Weight Start Date: 05/23/23 Status: Ordered Paragard IUD See Instructions, # 1 each, Maintenance, Inserted by Rosa Stokes MD. Lot [id number] Exp November 2025., 02/03/20 11:09:00 EDT, Supply, [...] Refills, Maintenance, 10/22/22 11:03:00 EDT, Tablet, [id number], Partial fill upon patient request if the [...] Resident Member Role: PCP Address: Address: [address] [place] [address] [place] [address]- Name: Gabbie Vasquez RN Position: [facility] RN Member Role: Primary Care Nurse Care Team Related Persons Name: ENRRIQUE BAZZI Address: [place] [address] Name: TREASURE VILLAGRAN Address: home [address] [place] [address] Name: BERRY BURKETT Address: home [address] [address] Name: MARIANGEL JOE Address: [address] Address: home [address] [address]
--- OUTSIDE RECORDS SUMMARY | 2023-09-17 19:21 | XMS_ITS | Continuity of Care Document ---
Author Organization [facility] Address [address] [place] [address]- Care Team Providers Care Manager Internet Name Role Phone Nani SYLVESTER Dennis Primary Care Physician [phone] Encounter [facility] Date(s): 06/23/23 - 07/23/23 [facility] [address] [place] [address]- Allergies, Adverse Reactions, Alerts No Known Allergies [...] Vaccine 10/14/14 Given 1Result Comment: [04/15/2014] Fluvirax [id number] 2Admin Note: vis given dated 12/25/12 3Admin Note: VIS 7-12 Medications amitriptyline 10 mg oral tablet 10 mg, 1, tablet, By Mouth, Daily at bedtime, # 14 tablet, Refills 0, Tot. Refills 0, Maintenance, 07/03/23 16:17:00 EST, [facility], [id number], [...] each, 0 Refills, Maintenance, 06/23/23 10:51:00 EST, [place], [facility]/pharmacy #[id number], Partial fill upon patient [...] Maintenance, Inserted by Rosa Stokes MD. Lot [id number] Exp November 2025., 02/03/20 11:09:00 EDT, Supply, [...] Name: Dennis Cardoza DO Position: [facility] Resident Member Role: PCP Address: Address: [address] [facility] [place] [address]- Name: Gabbie Vasquez RN Position: [facility] SN RN Member Role: Primary Care Nurse Care Team Related Persons Name: ENRRIQUE BAZZI Address: [place] [address] Name: TREASURE VILLAGRAN Address: home [address] [place] [address] Name: BERRY BURKETT Address: home [address] [address] Name: MARIANGEL JOE Address: [address] Address: home [address] [address]
--- OUTSIDE RECORDS SUMMARY | 2023-09-17 19:21 | XMS_ITS | Continuity of Care Document ---
Author Organization [facility] Address [address] [place] [address]- Care Team Providers Care Concreting Supervisor Name Role Phone Dennis Cardoza DO Primary Care Physician [phone] Encounter [facility] Date(s): 04/07/23 - 05/07/23 [facility] [address] [place] [address] Allergies, Adverse Reactions, Alerts No [...] Vaccine 10/14/14 Given 1Result Comment: [04/15/2014] Fluvirax [id number] 2Admin Note: vis given dated 12/25/12 3Admin Note: VIS 7-12 Medications cetirizine 10 mg oral tablet 1 tablet = 10 mg, By Mouth, Daily, PRN for allergy symptoms, # 10 tablet, 0 Refills, Maintenance, 08/23/22 23:54:00 EDT, Tablet, [facility]/pharmacy #[id number], Partial fill upon patient request if the prescription is for a schedule II opioid drug., 163, cm, 07/03... Start Date: 08/23/22 Status: Ordered chlorthalidone 25 mg oral tablet 1, tablet, By Mouth, Daily, # 30 tablet, Refills 3, Tot. Refills 3, Maintenance, 04/07/23 10:07:00 EST, Route to Pharmacy Electronically, [facility]/pharmacy #[id number], 162, cm, 03/29/23 15:45:00 EDT, Height, 110.5, kg, 03/29/23 15:45:00 EDT, Dry Weight Start Date: 04/07/23 Status: Ordered Diflucan 150 mg oral tablet 1 tablet = 150 mg, By Mouth, Once, # 1 tablet, 0 Refills, Soft Stop, 12/06/22 15:53:00 EDT, [facility]/pharmacy #[id number], Partial fill upon patient request if the prescription is for a schedule II opioid drug., 163, cm, 12/03/22 23:57:00 EDT, Height, 109, kg, 0... Start Date: 12/06/22 Status: Ordered EpiPen 2-Satya 0.3 mg injectable kit = 0.3 mg, Intramuscular, Once, # 1 pack/packet, 0 Refills, Soft Stop, 08/23/22 23:54:00 EDT, [facility]/pharmacy #[id number], Partial fill upon patient request [...] 0 Refills, Maintenance, 12/20/22 6:07:00EDT, Tablet, [facility]/pharmacy #[id number], Partial fill upon... Start Date: 12/20/22 Stop Date: 03/20/23 Status: Ordered hydrOXYzine hydrochloride 25 mg oral tablet 2 tablet = 50 mg, By Mouth, 3 times a day, PRN for anxiety, Take one to two tablets (25 to 50 mg) up to three times per day for management of panic., # 270 tablet, 3 Refills, Maintenance, 12/20/22 6:09:00 EDT, Tablet, [facility]/pharmacy #[id number], Partial fill... Start Date: 12/20/22 Stop Date: 12/15/23 Status: Ordered ibuprofen 800 mg oral tablet 1, tablet, By Mouth, 3 times a day, # 90 tablet, Refills 1, Maintenance, 03/23/23 13:47:00 EDT, Route to [facility]ically, [id number], 163, cm, 01/30/23 16:18:00 EDT, Height, 109, kg, 01/30/23 16:18:00 EDT, Dry Weight Start Date: 03/23/23 Status: Ordered Paragard IUD See Instructions, # 1 each, Maintenance, Inserted by Rosa Stokes MD. Lot [id number] Exp November 2025., 02/03/20 11:09:00 EDT, Supply, [...] Team Personnel Name: Dennis Cardoza DO Position: [facility] Resident Member Role: PCP Address: Address: [address] [place] [address] Adult [place], [place] [address] Name: Gabbie Vasquez RN Position: [facility] SN RN Member Role: Primary Care Nurse Care Team Related Persons Name: ENRRIQUE BAZZI Address: [place] [address] Name: TREASURE VILLAGRAN Address: home [address] [place] [address] Name: BERRY BURKETT Address: home [address] [address] Name: MARIANGEL JOE Address: [address] Address: home [address] [address]
[2023-09-17 19:22] LABS: Bacteria Urine Trace (None Seen); Hyaline Casts Urine 0-2 /LPF (0-2); WBC Urine 0-5 /HPF (0-5)
--- OUTSIDE RECORDS SUMMARY | 2023-09-17 19:22 | XMS_ITS | Continuity of Care Document ---
Author Organization [facility] Address [address] [place] [address]- Care Team Providers Care Arranging Funeral Director Name Role Phone Nani SYLVESTERDennis Primary Care Physician [place] [facility] [place]01[place]23 - 07/31/23 [facility] [address] [place] [id number]- Allergies, Adverse Reactions, Alerts No Known Allergies [...] Vaccine 10/14/14 Given 1Result Comment: [04/15/2014] Fluvirax [id number] 2Admin Note: vis given dated 12/25/12 3Admin [...] 0 Refills, Maintenance, 08/23/22 23:54:00 EDT, Tablet, [facility]/pharmacy #[id number], Partial fill upon patient request if the prescription is for a schedule II opioid drug., 163, cm, 07/03... Start Date: 08/23/22 Status: Ordered chlorthalidone 25 mg oral tablet 1, tablet, By Mouth, Daily, # 30 tablet, Refills 3, Tot. Refills 3, Maintenance, 04/07/23 10:07:00 EST, Route to Pharmacy Electronically, [facility]/pharmacy #[id number], 162, cm, 03/29/23 15:45:00 EDT, Height, 110.5, kg, 03/29/23 15:45:00 EDT, Dry Weight Start Date: 04/07/23 Status: Ordered Diflucan 150 mg oral tablet 1 tablet = 150 mg, By Mouth, Once, # 1 tablet, 0 Refills, Soft Stop, 12/06/22 15:53:00 EDT, [facility]/pharmacy #[id number], Partial fill upon patient request if the prescription is for a schedule II opioid drug., 163, cm, 12/03/22 23:57:00 EDT, Height, 109, kg, 0... Start Date: 12/06/22 Status: Ordered EpiPen 2-Satya 0.3 mg injectable kit = 0.3 mg, Intramuscular, Once, # 1 pack/packet, 0 Refills, Soft Stop, 08/23/22 23:54:00 EDT, [facility]/pharmacy #[id number], Partial fill upon patient request if the prescription is for a schedule II opioid drug., 163, cm, 07/15/22 14:10:00 EST, Height, 112, kg,... Start Date: 08/23/22 Status: Ordered Flonase 50 mcg/inh nasal spray 1 sprays = 50 mcg, Nares, Both, 2 times a day, # 3 each, 0 Refills, Maintenance, 06/23/23 10:51:00 EST, [place], [facility]/pharmacy #[id number], Partial fill upon patient request if the prescription is for a schedule II opioid drug., 1 sprays Nares, Both 2 times a... Start Date: 06/23/23 Stop Date: 09/21/23 Status: Ordered fluconazole 150 mg oral tablet 1 tablet = 150 mg, By Mouth, Once, # 1 tablet, 0 Refills, Soft Stop, 05/28/23 10:23:00 EST, Tablet,[facility]/pharmacy #[id number], Partial fill upon patient [...] tablet, 0 Refills, Maintenance, 12/20/22 6:07:00EDT, Tablet, [facility]/pharmacy #[id number], Partial fill upon... Start Date: 12/20/22 Stop Date: 03/20/23 Status: Ordered hydrOXYzine hydrochloride 25 mg oral tablet 2 tablet = 50 mg, By Mouth, 3 times a day, PRN for anxiety, Take one to two tablets (25 to 50 mg) up to three times per day for management of panic., # 270 tablet, 3 Refills, Maintenance, 12/20/22 6:09:00 EDT, Tablet, [facility]/pharmacy #[id number], Partial fill... Start Date: 12/20/22 Stop Date: 12/15/23 Status: Ordered ibuprofen 800 mg oral tablet 1, tablet, By Mouth, 3 times a day, # 90 tablet, Refills 1, Tot. Refills 1, Maintenance, 05/23/23 15:08:00 EST, Route to Pharmacy Electronically, [facility]/pharmacy #[id number], 162, cm, 05/23/23 14:35:00 EST, Height, 110.5, kg, 03/29/23 15:45:00 EDT, Dry Weight Start Date: 05/23/23 Status: Ordered Paragard IUD See Instructions, # 1 each, Maintenance, Inserted by Rosa Stokes MD. Lot [id number] Exp November 2025., 02/03/20 11:09:00 EDT, Supply, [...] Resident Member Role: PCP Address: Address: [address] [facility] [place] [address]- Name: Gabbie Vasquez RN Position: [facility] SN RN Member Role: Primary Care Nurse Care Team Related Persons Name: ENRRIQUE BAZZI Address: [place] [address] Name: TREASURE VILLAGRAN Address: home [address] [place] [address] Name: BERRY BURKETT Address: home [address] [address] Name: MARIANGEL JOE Address: [address] Address: home [address] [address]
--- OUTSIDE RECORDS SUMMARY | 2023-09-17 19:22 | XMS_ITS | Continuity of Care Document ---
Author Organization [facility] Address [address] [place] [address]- Care Team Providers Care Strip Polisher Name Role Phone Cardoza Dennis SYLVESTER Primary Care Physician [phone] Encounter [facility] Date(s): 01/30/23 - 03/01/23 [facility] [address] [place] [id number] [place] Allergies, Adverse Reactions, Alerts No Known Allergies [...] Vaccine 10/14/14 Given 1Result Comment: [04/15/2014] Fluvirax [id number] 2Admin Note: vis given dated 12/25/12 3Admin Note: VIS 7-12 Medications cetirizine 10 mg oral tablet 1 tablet = 10 mg, By Mouth, Daily, PRN for allergy symptoms, # 10 tablet, 0 Refills, Maintenance, 08/23/22 23:54:00 EDT, Tablet, [facility]/pharmacy #[id number], Partial fill upon patient request if the prescription is for a schedule II opioid drug., 163, cm, 07/03... Start Date: 08/23/22 Status: Ordered chlorthalidone 25 mg oral tablet 1, tablet, By Mouth, Daily, # 30 tablet, Refills 3, Tot. Refills 3, Maintenance, 10/15/22 10:21:00 EDT, Route to Pharmacy Electronically, [facility]/pharmacy #[id number], 163, cm, 09/21/22 20:45:00 EDT, Height, 116.1, kg, 09/21/22 20:45:00 EDT, Dry Weight Start Date: 10/15/22 Status: Ordered Diflucan 150 mg oral tablet 1 tablet = 150 mg, By Mouth, Once, # 1 tablet, 0 Refills, Soft Stop, 12/06/22 15:53:00 EDT, [facility]/pharmacy #[id number], Partial fill upon patient request if the prescription is for a schedule II opioid drug., 163, cm, 12/03/22 23:57:00 EDT, Height, 109, kg, 0... Start Date: 12/06/22 Status: Ordered EpiPen 2-Satya 0.3 mg injectable kit = 0.3 mg, Intramuscular, Once, # 1 pack/packet, 0 Refills, Soft Stop, 08/23/22 23:54:00 EDT, [facility]/pharmacy #[id number], Partial fill upon [...] 0 Refills, Maintenance, 12/20/22 6:07:00EDT, Tablet, [facility]/pharmacy #[id number], Partial fill upon... Start [...] Refills, Maintenance, 12/20/22 6:09:00 EDT, Tablet, [facility]/pharmacy #[id number], Partial fill... Start Date: 12/20/22 Stop Date: 12/15/23 Status: Ordered ibuprofen 800 mg oral tablet 800 mg, 1, tablet, By Mouth, 3 times a day, # 90 tablet, Refills 1, Tot. Refills 1, Maintenance, 10/22/22 10:55:00 EDT, Route to Pharmacy Electronically, [facility]/pharmacy #[id number], Partial fill upon patientrequest if the prescription is for a schedule II op... Start Date: 10/22/22 Status: Ordered Paragard IUD See Instructions, # 1 each, Maintenance, Inserted by Rosa Stokes MD. Lot [id number] Exp November 2025., 02/03/20 11:09:00 EDT, Supply, [...] Maintenance, 10/22/22 11:03:00 EDT, Tablet, [facility]/pharmacy #[id number], Partial fill upon [...] Team Personnel Name: Dennis Cardoza DO Position: [facility] Resident Member Role: PCP Address: Address: [address] [place] [address] Adult [place], [place] [address] [place] Name: Gabbie Vasquez RN Position: [facility] SN RN Member Role: Primary Care Nurse Care Team Related Persons Name: ENRRIQUE BAZZI Address: [place] [address] Name: TREASURE VILLAGRAN Address: home [address] [place] [address] Name: BERRY BURKETT Address: home [address] [address] Name: MARIANGEL JOE Address: [address] Address: home [address] [address]
--- OUTSIDE RECORDS SUMMARY | 2023-09-17 19:22 | XMS_ITS | Continuity of Care Document ---
Author Organization [facility] Address [address], [place], [place] [address]- Care Team Providers Care Outside Energy Sales Representatives Name Role Phone Dennis Cardoza DO Primary Care Physician [phone] Encounter [facility] Date(s): 05/28/23 - 06/27/23 [facility] [address] [place], [place] [address] Allergies, Adverse Reactions, Alerts [...] Vaccine 10/14/14 Given 1Result Comment: [04/15/2014] Fluvirax [id number] 2Admin Note: vis given dated 12/25/12 3Admin Note: VIS 7-12 Medications cetirizine 10 mg oral tablet 1 tablet = 10 mg, By Mouth, Daily, PRN for allergy symptoms, # 10 tablet, 0 Refills, Maintenance, 08/23/22 23:54:00 EDT, Tablet, [facility]/pharmacy #[id number], Partial fill upon patient request if the prescription is for a schedule II opioid drug., 163, cm, 07/03... Start Date: 08/23/22 Status: Ordered chlorthalidone 25 mg oral tablet 1, tablet, By Mouth, Daily, # 30 tablet, Refills 3, Tot. Refills 3, Maintenance, 04/07/23 10:07:00 EST, Route to Pharmacy Electronically, [facility]/pharmacy #[id number], 162, cm, 03/29/23 15:45:00 EDT, Height, 110.5, kg, 03/29/23 15:45:00 EDT, Dry Weight Start Date: 04/07/23 Status: Ordered Diflucan 150 mg oral tablet 1 tablet = 150 mg, By Mouth, Once, # 1 tablet, 0 Refills, Soft Stop, 12/06/22 15:53:00 EDT, [facility]/pharmacy #[id number], Partial fill upon patient request if the prescription is for a schedule II opioid drug., 163, cm, 12/03/22 23:57:00 EDT, Height, 109, kg, 0... Start Date: 12/06/22 Status: Ordered EpiPen 2-Satya 0.3 mg injectable kit = 0.3 mg, Intramuscular, Once, # 1 pack/packet, 0 Refills, Soft Stop, 08/23/22 23:54:00 EDT, [facility]/pharmacy #[id number], Partial fill upon patient request if the prescription is for a schedule II opioid drug., 163, cm, 07/15/22 14:10:00 EST, Height, 112, kg,... Start Date: 08/23/22 Status: Ordered Flonase 50 mcg/inh nasal spray 1 sprays = 50 mcg, Nares, Both, 2 times a day, # 3 each, 0 Refills, Maintenance, 06/23/23 10:51:00 EST, [place], [facility]/pharmacy #[id number], Partial fill upon patient request if the prescription is for a schedule II opioid drug., 1 sprays Nares, Both 2 times a... Start Date: 06/23/23 Stop Date: 09/21/23 Status: Ordered fluconazole 150 mg oral tablet 1 tablet = 150 mg, By Mouth, Once, # 1 tablet, 0 Refills, Soft Stop, 05/28/23 10:23:00 EST, Tablet,[facility]/pharmacy #[id number], Partial fill upon patient request [...] tablet, 0 Refills, Maintenance, 12/20/22 6:07:00EDT, Tablet, [facility]/pharmacy #[id number], Partial fill upon... Start Date: 12/20/22 Stop Date: 03/20/23 Status: Ordered hydrOXYzine hydrochloride 25 mg oral tablet 2 tablet = 50 mg, By Mouth, 3 times a day, PRN for anxiety, Take one to two tablets (25 to 50 mg) up to three times per day for management of panic., # 270 tablet, 3 Refills, Maintenance, 12/20/22 6:09:00 EDT, Tablet, [facility]/pharmacy #[id number], Partial fill... Start Date: 12/20/22 Stop Date: 12/15/23 Status: Ordered ibuprofen 800 mg oral tablet 1, tablet, By Mouth, 3 times a day, # 90 tablet, Refills 1, Tot. Refills 1, Maintenance, 05/23/23 15:08:00 EST, [id number] 162, cm, 05/23/23 14:35:00 EST, Height, 110.5, kg, 03/29/23 15:45:00 EDT, Dry Weight Start Date: 05/23/23 Status: Ordered Paragard IUD See Instructions, # 1 each, Maintenance, Inserted by Rosa Stokes MD. Lot [id number] Exp November 2025., 02/03/20 11:09:00 EDT, Supply, [...] Name: Dennis Cardoza DO Position: [facility] Resident Member Role: PCP Address: Address: [address] [facility] [place] [address]- Name: Gabbie Vasquez RN Position: [facility] SN RN Member Role: Primary Care Nurse Care Team Related Persons Name: ENRRIQUE BAZZI Address: [place] [address] Name: TREASURE VILLAGRAN Address: home [address] [place] [address] Name: BERRY BURKETT Address: home [address] [address] Name: MARIANGEL JOE Address: [address] Address: home [address] [address]
--- OUTSIDE RECORDS SUMMARY | 2023-09-17 19:22 | XMS_ITS | Continuity of Care Document ---
Author Organization [facility] Address [address], [address], [place] [address]- Care Team Providers Care Industrial Engineering Professor Name Role Phone Dennis Cardoza DO Primary Care Physician Encounter [facility] [place] Date(s): 03/06/23 - 04/09/23 [facility] [address], [address] [place], [place] [address] Attending Physician: Not on Staff, Attending MD Referring Physician: Dennis Cardoza DO Allergies, [...] Vaccine 10/14/14 Given 1Result Comment: [04/15/2014] Fluvirax [id number] 2Admin Note: vis given dated 12/25/12 3Admin Note: VIS 7-12 Medications cetirizine 10 mg oral tablet 1 tablet = 10 mg, By Mouth, Daily, PRN for allergy symptoms, # 10 tablet, 0 Refills, Maintenance, 08/23/22 23:54:00 EDT, Tablet, [facility]/pharmacy #[id number], Partial fill upon patient request if the prescription is for a schedule II opioid drug., 163, cm, 07/03... Start Date: 08/23/22 Status: Ordered chlorthalidone 25 mg oral tablet 1, tablet, By Mouth, Daily, # 30 tablet, Refills 3, Tot. Refills 3, Maintenance, 04/07/23 10:07:00 EST, Route to Pharmacy Electronically, [facility]/pharmacy #[id number], 162, cm, 03/29/23 15:45:00 EDT, Height, 110.5, kg, 03/29/23 15:45:00 EDT, Dry Weight Start Date: 04/07/23 Status: Ordered Diflucan 150 mg oral tablet 1 tablet = 150 mg, By Mouth, Once, # 1 tablet, 0 Refills, Soft Stop, 12/06/22 15:53:00 EDT, [facility]/pharmacy #[id number], Partial fill upon patient request if the prescription is for a schedule II opioid drug., 163, cm, 12/03/22 23:57:00 EDT, Height, 109, kg, 0... Start Date: 12/06/22 Status: Ordered EpiPen 2-Satya 0.3 mg injectable kit = 0.3 mg, Intramuscular, Once, # 1 pack/packet, 0 Refills, Soft Stop, 08/23/22 23:54:00 EDT, [facility]/pharmacy #[id number], Partial fill upon patient request [...] tablet, 0 Refills, Maintenance, 12/20/22 6:07:00EDT, Tablet, [facility]/pharmacy #[id number], Partial fill upon... Start Date: 12/20/22 Stop Date: 03/20/23 Status: Ordered hydrOXYzine hydrochloride 25 mg oral tablet 2 tablet = 50 mg, By Mouth, 3 times a day, PRN for anxiety, Take one to two tablets (25 to 50 mg) up to three times per day for management of panic., # 270 tablet, 3 Refills, Maintenance, 12/20/22 6:09:00 EDT, Tablet, [facility]/pharmacy #[id number], Partial fill... Start Date: 12/20/22 Stop Date: 12/15/23 Status: Ordered ibuprofen 800 mg oral tablet 1, tablet, By Mouth, 3 times a day, # 90 tablet, Refills 1, Maintenance, 03/23/23 13:47:00 EDT, Route to Pharmacy Electronically, [id number], 163, cm, 01/30/23 16:18:00 EDT, Height, 109, kg, 01/30/23 16:18:00 EDT, Dry Weight Start Date: 03/23/23 Status: Ordered Paragard IUD See Instructions, # 1 each, Maintenance, Inserted by Rosa Stokes MD. Lot [id number] Exp November 2025., 02/03/20 11:09:00 EDT, Supply, 162, cm, 01/03/20 13:13:00 EDT, Height, 106, kg, 12/23/19 23:02:00 EDT, Dry Weight Start Date: 02/03/20 Status: Ordered SUMAtriptan 50 mg oral tablet 1 tablet = 50 mg, By Mouth, Daily, PRN for migraine headache, may repeat dose after 2 hours up to amaximum of 2, # 18 tablet, 2 Refills, Maintenance, 10/22/22 11:03:00 EDT, Tablet, [facility]/pharmacy #[id number], Partial fill upon patient request [...] Team Personnel Name: Nani SYLVESTER Dennis Position: [facility] Resident Member Role: PCP Address: Address: [address] [place] [id number] Name: Gabbie Vasquez RN Position: [facility] SN RN Member Role: Primary Care Nurse Care Team Related Persons Name: ENRRIQUE BAZZI Address: [place] [address] Name: TREASURE VILLAGRAN Address: home [address] [place] [address] Name: BERRY BURKETT Address: home [address] [address] Name: MARIANGEL JOE Address: [address] Address: home [address] [address]
--- NOTE | 2023-09-17 19:23 | MHC.EDTECH ---
Patient blood drawn and urine sample collected and sent to lab .
--- OUTSIDE RECORDS SUMMARY | 2023-09-17 19:23 | XMS_ITS | Continuity of Care Document ---
Author Organization [facility] Address [address] [place] [address]- Care Team Providers Care Head Of Store Operations Name Role Phone Nani SYLVESTERDennis Primary Care Physician [phone] Encounter [facility] Date(s): 06/13/23 - 07/13/23 [facility] [address] [place] [address]- Allergies, Adverse Reactions, Alerts No Known Allergies [...] Vaccine 10/14/14 Given 1Result Comment: [04/15/2014] Fluvirax [id number] 2Admin Note: vis given dated 12/25/12 3Admin Note: VIS 7-12 Medications amitriptyline 10 mg oral tablet 10 mg, 1, tablet, By Mouth, Daily at bedtime, # 14 tablet, Refills 0, Tot. Refills 0, Maintenance, 07/03/23 16:17:00 EST, [facility] 04/07/23 10:07:00 EST, Route to Pharmacy Electronically, [facility]/pharmacy #[id number], 162, cm, 03/29/23 15:45:00 EDT, Height, 110.5, kg, 03/29/23 15:45:00 EDT, Dry Weight Start Date: 04/07/23 Status: Ordered Diflucan 150 mg oral tablet 1 tablet = 150 mg, By Mouth, Once, # 1 tablet, 0 Refills, Soft Stop, 12/06/22 15:53:00 EDT, [facility]/pharmacy #[id number], Partial fill [...] each, 0 Refills, Maintenance, 06/23/23 10:51:00 EST, [place], [facility]/pharmacy #[id number], Partial fill upon patient request if the prescription is for a schedule II opioid drug., 1 sprays Nares, Both 2 times a... Start Date: 06/23/23 Stop Date: 09/21/23 Status: Ordered fluconazole 150 mg oral tablet 1 tablet = 150 mg, By Mouth, Once, # 1 tablet, 0 Refills, Soft Stop, 05/28/23 10:23:00 EST, Tablet,[facility]/pharmacy #[id number], Partial fill upon patient [...] tablet, 0 Refills, Maintenance, 12/20/22 6:07:00EDT, Tablet, [facility]/pharmacy #[id number], Partial fill upon... Start Date: 12/20/22 Stop Date: 03/20/23 Status: Ordered hydrOXYzine hydrochloride 25 mg oral tablet 2 tablet = 50 mg, By Mouth, 3 times a day, PRN for anxiety, Take one to two tablets (25 to 50 mg) up to three times per day for management of panic., # 270 tablet, 3 Refills, Maintenance, 12/20/22 6:09:00 EDT, Tablet, [facility]/pharmacy #[id number], Partial fill... Start Date: 12/20/22 Stop Date: 12/15/23 Status: Ordered ibuprofen 800 mg oral tablet 1, tablet, By Mouth, 3 times a day, # 90 tablet, Refills 1, Tot. Refills 1, Maintenance, 05/23/23 15:08:00 EST, Route to Pharmacy Electronically, [facility]/pharmacy #[id number], 162, cm, 05/23/23 14:35:00 EST, Height, 110.5, kg, 03/29/23 15:45:00 EDT, Dry Weight Start Date: 05/23/23 Status: Ordered Paragard IUD See Instructions, # 1 each, Maintenance, Inserted by Rosa Stokse MD. Lot [id number] Exp November 2025., 02/03/20 11:09:00 EDT, Supply, [...] Resident Member Role: PCP Address: Address: [address] [facility] [place] [address]- Name: Gabbie Vasquez RN Position: [facility] SN RN Member Role: Primary Care Nurse Care Team Related Persons Name: ENRRIQUE BAZZI Address: [place] [address] Name: TREASURE VILLAGRAN Address: home [address] [place] [address] Name: BERRY BURKETT Address: home [address] [address] Name: MARIANGEL JOE Address: [address] Address: home [address] [address]
--- OUTSIDE RECORDS SUMMARY | 2023-09-17 19:23 | XMS_ITS | Continuity of Care Document ---
Author Organization [facility] ter Address [address] [place] [address]- Care Team Providers Care Hose Seamer Name Role Phone Cardoza Dennis SYLVESTER Primary Care Physician Encounter [facility] Date(s): 08/02/23 - 08/02/[address] [address]- Encounter Diagnosis Headache(Final) - 08/02/23 Discharge Disposition: A-D/C Home Attending Physician: April Umaña MD Admitting Physician: April Umaña MD Referring Physician: Not on Staff, Referring [...] Vaccine 10/14/14 Given 1Result Comment: [04/15/2014] Fluvirax [id number] 2Admin Note: vis given dated 12/25/12 3Admin Note: VIS 7-12 Medications amitriptyline 10 mg oral tablet 10 mg, 1, tablet, By Mouth, Daily at bedtime, # 14 tablet, Refills 0, Tot. Refills 0, Maintenance, 07/03/23 16:17:00 EST, Route to Pharmacy Electronically, [facility]/pharmacy #[id number], Partial fill [...] each, 0 Refills, Maintenance, 06/23/23 10:51:00 EST, [place], [facility]/pharmacy #[id number], Partial fill [...] Maintenance, Inserted by Rosa Stokes MD. Lot [id number] Exp November 2025., 02/03/20 11:09:00 EDT, Supply, [...] Refills, Maintenance, 10/22/22 11:03:00 EDT, Tablet, [id number], Partial fill upon patient request if the [...] Exam Date Time Procedure Performing Provider Status 08/02/23 1:30 AM Chest 2 Views Frontal and Lat Armando Smyth; Auth (Verified) Notes: (Chest 2 Views Frontal and Lat) Reason For Exam: Chest Pain;Other: RESULT: Chest 2 Views Frontal and Lat Chest 2 Views Frontal and Lat Hx of Present Illness: headache and blurred vision earlier now resolved, pt c o L jaw pain and chest pain x30 min; Reason: Other:; Chest Pain; Clinical Question(s): Other: COMPARISON: Multiple prior chest x-rays, the most recent of which is dated 03/29/2023. FINDINGS: LINES AND TUBES: None. LUNGS AND PLEURA: Low lung volumes on the lateral view. No focal infiltrate or evidence of pulmonary vascular congestion. No pleural effusion. No pneumothorax. HEART, MEDIASTINUM AND ZAFAR: Heart is normal in size. Normal mediastinal and hilar contour. BONES AND SOFT TISSUES: No acute abnormality. IMPRESSION: No acute pulmonary process WSN: [id number] Ordering Physician: Bernabe Enciso Dictated By: Laura Glover MD Dictated Date/Time: 08/02/23 5:19 am Reviewed By: Laura Glover MD Signed By: Laura Glover MD Signed Date/Time: 08/02/23 5:19 am Transcribed By: FRANCISCA Transcribed Date/Time: 08/02/23 5:18 am Vital Signs Most recent to oldest [Reference Range]: 1 2 Height 163 cm (08/02/23 4:53 AM) 163 cm (08/02/23 12:45 AM) Weight 120.8 kg (08/02/23 4:53 AM) 120.8 kg (08/02/23 12:45 AM) Oxygen Saturation [94-100 %] 97 % (08/02/23:53 AM) 98 % (08/02/23 12:45 AM) Pulse Rate [55-90 bpm] 80 bpm (08/02/23 4:53 AM) 76 bpm (08/02/23 12:45 AM) Body Mass Index [18.5-24.99 kg/m2] 45.47 kg/m2 *>HHI* (08/02/23 4:53 AM) 45.47 kg/m2 *>HHI* (08/02/23 12:45 AM) Blood Pressure [90-138/55-84 mm Hg] 125/ 80mm Hg (08/02/23 4:53 AM) 128/93mm Hg (08/02/23 12:45 AM) Respiratory Rate [16-30 br/min] 18 br/mi n (08/02/23:53 AM) 16 br/min (08/02/23 12:45 AM) Temperature [96.8-100.4 DegF] 98.4 DegF (08/02/23 12:45 AM) Mode of Delivery (Oxygen) Room air (08/02/23 4:53 AM) Room air (08/02/23 12:45 AM) Blood pressure sites Arm, right (08/02/23 4:53 AM) Arm, left (08/02/23 12:45 AM) Temperature Route Oral (08/02/23 12:45 AM) Dry Weight 120.8 kg (08/02/23 4:53 AM) 120.8 kg (08/02/23 12:45 AM) Weight Obtained Via Standing scale (08/02/23 12:45 AM) Dry Weight Obtained Via Standing scale (08/02/23 12:45 AM) Social History Social History Type Response Smoking Status Never (less than 100 in lifetime); Tobacco user in household: No entered on: 06/14/19 Sex EKG study * Event Display: ECG 12-Lead Authored Date: Please click on pdf link to open report * Event Display: ECG 12-Lead Authored Date: Ventricular Rate: 72 BPM Atrial Rate: 72 BPM P-R Interval: 174 ms QRS Duration: 86 ms Q-T Interval: 408 ms QTC Calculation(Bazett): 446 ms P Olympia: 37 degrees R Olympia: 48 degrees T Olympia: 41 degrees Normal sinus rhythm Normal ECG When compared with ECG of 27-JUN-2023 17:14, No significant change was found Confirmed by ISMAEL FUNES ([id number]) on 08/02/2023 10:39:56 AM Distant: ISMAEL FUNES Patient Care team information Care Team Personnel Name: Cardozamarya SYLVESTER Dennis Position: [facility] Resident Member Role: PCP Address: Address: [address] [place] [id number] Name: Gabbie Vasquez RN Position: [facility] SN RN Member Role: Primary Care Nurse Care Team Related Persons Name: ENRRIQUE BAZZI Address: [place] [address] Name: TREASURE VILLAGRAN Address: home [address] [place] [address] Name: BERRY BURKETT Address: home [address] [address] Name: MARIANGEL JOE Address: [id number] Address: home [address] [address]
--- OUTSIDE RECORDS SUMMARY | 2023-09-17 19:23 | XMS_ITS | Continuity of Care Document ---
[facility] Address [address] [facility], [address] [address]- Care Team Providers Care Guidance Director Name Role Phone Dennis Cardoza DO Primary Care Physician Encounter [facility] Date(s): 03/06/23 - 04/05/23 [facility] Luis Gilmans [facility] [address] [facility] [address] [place], [place] [address] Allergies, Adverse Reactions, Alerts No Known [...] Vaccine 10/14/14 Given 1Result Comment: [04/15/2014] Fluvirax [id number] 2Admin Note: vis given dated 12/25/12 3Admin Note: VIS 7-12 Medications cetirizine 10 mg oral tablet 1 tablet = 10 mg, By Mouth, Daily, PRN for allergy symptoms, # 10 tablet, 0 Refills, Maintenance, 08/23/22 23:54:00 EDT, Tablet, [facility]/pharmacy #[id number], Partial fill upon patient request if the prescription is for a schedule II opioid drug., 163, cm, 07/03... Start Date: 08/23/22 Status: Ordered chlorthalidone 25 mg oral tablet 1, tablet, By Mouth, Daily, # 30 tablet, Refills 3, Tot. Refills 3, Maintenance, 10/15/22 10:21:00 EDT, Route to Pharmacy Electronically, [facility]/pharmacy #[id number], 163, cm, 09/21/22 20:45:00 EDT, Height, 116.1, kg, 09/21/22 20:45:00 EDT, Dry Weight Start Date: 10/15/22 Status: Ordered Diflucan 150 mg oral tablet 1 tablet = 150 mg, By Mouth, Once, # 1 tablet, 0 Refills, Soft Stop, 12/06/22 15:53:00 EDT, [facility]/pharmacy #[id number], Partial fill upon patient request if the prescription is for a schedule II opioid drug., 163, cm, 12/03/22 23:57:00 EDT, Height, 109, kg, 0... Start Date: 12/06/22 Status: Ordered EpiPen 2-Satya 0.3 mg injectable kit = 0.3 mg, Intramuscular, Once, # 1 pack/packet, 0 Refills, Soft Stop, 08/23/22 23:54:00 EDT, [facility]/pharmacy #[id number], Partial fill upon patient request [...] 0 Refills, Maintenance, 12/20/22 6:07:00EDT, Tablet, [facility]/pharmacy #[id number], Partial fill upon... Start Date: 12/20/22 Stop Date: 03/20/23 Status: Ordered hydrOXYzine hydrochloride 25 mg oral tablet 2 tablet = 50 mg, By Mouth, 3 times a day, PRN for anxiety, Take one to two tablets (25 to 50 mg) up to three times per day for management of panic., # 270 tablet, 3 Refills, Maintenance, 12/20/22 6:09:00 EDT, Tablet, [facility]/pharmacy #[id number], Partial fill... Start Date: 12/20/22 Stop Date: 12/15/23 Status: Ordered ibuprofen 800 mg oral tablet 1, tablet, By Mouth, 3 times a day, # 90 tablet, Refills 1, Maintenance, 03/23/23 13:47:00 EDT, Route to [facility]acy Electronically[id number], 163, cm, 01/30/23 16:18:00 EDT, Height, 109, kg, 01/30/23 16:18:00 EDT, Dry Weight Start Date: 03/23/23 Status: Ordered Paragard IUD See Instructions, # 1 each, Maintenance, Inserted by Rosa Stokes MD. Lot [id number] Exp November 2025., 02/03/20 11:09:00 EDT, Supply, [...] Resident Member Role: PCP Address: Address: [address] [place] [address] [place], [place] [address] Name: Gabbie Vasquez RN Position: [facility] SN RN Member Role: Primary Care Nurse Care Team Related Persons Name: ENRRIQUE BAZZI Address: [place] [address] Name: TREASURE VILLAGRAN Address: home [address] [place] [address] Name: BERRY BURKETT Address: home [address] [address] Name: MARIANGEL JOE Address: [id number] Address: home [address] [address]
--- OUTSIDE RECORDS SUMMARY | 2023-09-17 19:24 | XMS_ITS | Continuity of Care Document ---
Author Organization [facility] ter Address [address] [place] [address]- Care Team Providers Care Sales Agent Trading Stamps Name Role Phone Dennis Cardoza DO Primary Care Physician [phone] Encounter [facility] Date(s): 06/27/23 - 06/27/[address] [address]- Encounter Diagnosis Headache(Final) - 06/27/23 Discharge Disposition: A-D/C Home Attending Physician: Cy Guido MD Admitting Physician: Cy Guido MD Referring Physician: Not on Staff, Referring [...] Vaccine 10/14/14 Given 1Result Comment: [04/15/2014] Fluvirax [id number] 2Admin Note: vis given dated 12/25/12 3Admin Note: VIS 7-12 Medications cetirizine 10 mg oral tablet 1 tablet = 10 mg, By Mouth, Daily, PRN for allergy symptoms, # 10 tablet, 0 Refills, Maintenance, 08/23/22 23:54:00 EDT, Tablet, [facility]/pharmacy #[id number], Partial fill upon patient request if the prescription is for a schedule II opioid drug., 163, cm, 07/03... Start Date: 08/23/22 Status: Ordered chlorthalidone 25 mg oral tablet 1, tablet, By Mouth, Daily, # 30 tablet, Refills 3, Tot. Refills 3, Maintenance, 04/07/23 10:07:00 EST, Route to Pharmacy Electronically, [facility]/pharmacy #[id number], 162, cm, 03/29/23 15:45:00 EDT, Height, 110.5, kg, 03/29/23 15:45:00 EDT, Dry Weight Start Date: 04/07/23 Status: Ordered Diflucan 150 mg oral tablet 1 tablet = 150 mg, By Mouth, Once, # 1 tablet, 0 Refills, Soft Stop, 12/06/22 15:53:00 EDT, [facility]/pharmacy #[id number], Partial fill upon patient request if the prescription is for a schedule II opioid drug., 163, cm, 12/03/22 23:57:00 EDT, Height, 109, kg, 0... Start Date: 12/06/22 Status: Ordered EpiPen 2-Satya 0.3 mg injectable kit = 0.3 mg, Intramuscular, Once, # 1 pack/packet, 0 Refills, Soft Stop, 08/23/22 23:54:00 EDT, [facility]/pharmacy #[id number], Partial fill upon patient request if the prescription is for a schedule II opioid drug., 163, cm, 07/15/22 14:10:00 EST, Height, 112, kg,... Start Date: 08/23/22 Status: Ordered Flonase 50 mcg/inh nasal spray 1 sprays = 50 mcg, Nares, Both, 2 times a day, # 3 each, 0 Refills, Maintenance, 06/23/23 10:51:00 EST, [place], [facility]/pharmacy #[id number], Partial fill upon patient request if the prescription is for a schedule II opioid drug., 1 sprays Nares, Both 2 times a... Start Date: 06/23/23 Stop Date: 09/21/23 Status: Ordered fluconazole 150 mg oral tablet 1 tablet = 150 mg, By Mouth, Once, # 1 tablet, 0 Refills, Soft Stop, 05/28/23 10:23:00 EST, Tablet,[facility]/pharmacy #[id number], Partial fill upon patient request if [...] tablet, 0 Refills, Maintenance, 12/20/22 6:07:00EDT, Tablet, [facility]/pharmacy #[id number], Partial fill upon... Start Date: 12/20/22 Stop Date: 03/20/23 Status: Ordered hydrOXYzine hydrochloride 25 mg oral tablet 2 tablet = 50 mg, By Mouth, 3 times a day, PRN for anxiety, Take one to two tablets (25 to 50 mg) up to three times per day for management of panic., # 270 tablet, 3 Refills, Maintenance, 12/20/22 6:09:00 EDT, Tablet, [facility]/pharmacy #[id number], Partial fill... Start Date: 12/20/22 Stop Date: 12/15/23 Status: Ordered ibuprofen 800 mg oral tablet 1, tablet, By Mouth, 3 times a day, # 90 tablet, Refills 1, Tot. Refills 1, Maintenance, 05/23/23 15:08:00 EST, Route to Pharmacy Electronically, [facility]/pharmacy #[id number], 162, cm, 05/23/23 14:35:00 EST, Height, 110.5, kg, 03/29/23 15:45:00 EDT, Dry Weight Start Date: 05/23/23 Status: Ordered Paragard IUD See Instructions, # 1 each, Maintenance, Inserted by Rosa Stokes MD. Lot [id number] Exp November 2025., 02/03/20 11:09:00 EDT, Supply, [...] states anxiety is controlled. 2States gets them asnaz 2-3 months 3Problem added by Discern Expert 4Problem added by Discern Expert Results Radiology Reports * Exam Date Time Procedure Performing Provider Status 06/27/23 10:[address] Head Venogram Cyndee Conroy; Auth ( Verified) Notes: (CT Head Venogram) Reason For Exam: Headache(s) RESULT: CT Head Venogram CT Head Venogram Hx of Present Illness: presents w NICHOLSON and facial tingling extedneing to chest,; Reason: Headache(s);Clinical Question(s): Venous Sinus Thrombosis; Order Comment: / Venous Sinus Thrombosis TECHNIQUE: After administration of intravenous contrast, CT venogram of the head was performed. 100mL of Omnipaque 300 was administered intravenously. 3D and MIP reconstruction images were reformatted and used in the interpretation. Iterative reconstruction techniques are used to optimize dose andimage quality. COMPARISONS: Simultaneously perform noncontrast CT of the head. CT head 08/09/2020. FINDINGS: The superior sagittal sinus and bilateral transverse sinuses, sigmoid sinuses, and jugular bulbs are patent and normal in caliber. The right transverse and sigmoid sinuses are dominant. The internal cerebral veins, basal veins of Viridiana, vein of Edy, and straight sinus are patent. Cavernous sinuses demonstrate symmetric contour and enhancement. No filling defect or occlusion in the visualized major cortical veins. Other findings: Visualized intracranial structures are unremarkable. Extracranial soft tissues and bones are unremarkable. IMPRESSION: Normal CT venogram of head. No evidence of dural venous sinus thrombosis. I have personally reviewed the images and I agree with this report. WSN: [id number] Ordering Physician: Magaly Escalante Dictated By: Charmaine Yoder MD Dictated Date/Time: 06/27/23 11:15 p Reviewed By: Amador Quiroz MD Signed By: Amador Quiroz MD Signed Date/Time: 06/27/23 11:20 pm Transcribed By: FARNCISCA Transcribed Date/Time: 06/27/23 10:44 pm * Exam Date Time Procedure Performing Provider Status 06/27/23 10:[address] Head/Brain W/O Contrast Damian Conroy; Dio (Verified) Notes: (CT Head/Brain W/O Contrast) Reason For Exam: headache;Other: RESULT: CT Head/Brain W/O Contrast CT Head/Brain W/O Contrast INDICATION: Hx of Present Illness: presents w NICHOLSON and facial tingling extedneing to chest,; Reason: Other:; headache; Clinical Question(s): Other: TECHNIQUE: Noncontrast head CT using axial technique and reconstructed in axial and coronal planes.Iterative reconstruction techniques are used to optimize dose and image quality. COMPARISON: None. FINDINGS: Language Pathologist view findings, lines and tubes: None. BRAIN AND EXTRA-AXIAL SPACES: No parenchymal hemorrhage, midline shift, or mass effect. Lund-white matter differentiation is wellpreserved. No acute infarct. Ventricles, sulci, and basilar cisterns are normal. No white matter lesions. No subarachnoid hemorrhage. No subdural or epidural collection. CALVARIUM, SKULL BASE, AND SOFT TISSUES: No fractures or suspicious bony lesions. The paranasal sinuses and mastoid air cells are clear. Visualized orbits and globes are intact. The extracranial soft tissues are unremarkable. IMPRESSION: No acute intracranial pathology. WSN: [id number] Ordering Physician: Hay Zheng Dictated By: Amador Quiroz MD Dictated Date/Time: 06/27/23 10:23 p Reviewed By: Amador Quiroz MD Signed By: Amador Quiroz MD Signed Date/Time: 06/27/23 10:23 pm Transcribed By: FRANCISCA Transcribed Date/Time: 06/27/23 10:20 pm Vital Signs Most recent to oldest [Reference Range]: 1 2 3 Height 163 cm (06/27/23 11:42 PM) 163 cm (06/27/23 9:20 PM) 163 cm (06/27/23 4:51 PM) Weight 111.2 kg (06/27/23 11:42 PM) 111.2 kg (06/27/23 9:20 PM) 111.2 kg (06/27/23 4:51 PM) Oxygen Saturation [94-100 %] 99 % (06/27/23 11:42 PM) 100 % (06/27/23 9:20 PM) 100 % (06/27/23 6:04 PM) Pulse Rate [55-90 bpm] 84 bpm (06/27/23 11:42 PM) 84 bpm (06/27/23 9:20 PM) 80 bpm (06/27/23 6:04 PM) Body Mass Index [18.5-24.99 kg/m2] 41.85 kg/m2 *>HHI* (06/27/23 9:20 PM) 41.85 kg/m2 *>HHI* (06/27/23 4:51 PM) Blood Pressure [90-138/55-84 mm Hg] 130/83mm Hg (06/27/23 11:42 PM) 129/88mm Hg (06/27/23 9:20 PM) 123/80mm Hg (06/27/23 6:04 PM) Respiratory Rate [16-30 br/min] 17 br/min (06/27/23 11:42 PM) 18 br/min (06/27/23 9:20 PM) 18 br/min (06/27/23 6:04 PM) Temperature [96.8-100.4 DegF] 98.4 DegF (06/27/23 9:20 PM) 98.5 DegF (06/27/23 6:04 PM) 98.4 DegF (06/27/23 4:51 PM) Mode of Delivery (Oxygen) Room air (06/27/23 11:42 PM) Room air (06/27/23 9:20 PM) Room air (06/27/23 6:04 PM) Blood pressure sites Arm, right (06/27/23 11:42 PM) Arm, right (06/27/23 9:20 PM) Arm, right (06/27/23 6:04 PM) Temperature Route Oral (06/27/23 9:20 PM) Oral (06/27/23 6:04 PM) Oral (06/27/23 4:51 PM) Dry Weight 111.2 kg (06/27/23 11:42 PM) 111.2 kg (06/27/23 9:20 PM) 111.2 kg (06/27/23 4:51 PM) Social History Social History Type Response Smoking Status Never (less than 100 in lifetime); Tobacco user in household: No entered on: 06/14/19 Sex Patient Care team information Care Team Personnel Name: Dennis Cardoza DO Position: [facility] Resident Member Role: PCP Address: Address: [address] [place] [address] [place] [address]- Name: Gabbie Vasquez RN Position: [facility] SN RN Member Role: Primary Care Nurse Care Team Related Persons Name: ENRRIQUE BAZZI Address: [place] [address] Name: TREASURE VILLAGRAN Address: home [address] [place] [address] Name: BERRY BURKETT Address: home [address] [address] Name: MARIANGEL JOE Address: [id number] Address: home [address] [address]
[2023-09-17 19:31] LABS: Basophils Absolute Auto 0.1 X10*3/uL (0.0-0.2); Basophils Percent Auto 0.7 % (0-2); Eosinophils Absolute Auto 0.2 X10*3/uL (0.0-0.4); Eosinophils Percent Auto 1.8 % (0-4); Hematocrit 43.5 % (37.0-47.0); Hemoglobin 14.9 g/dl (12.0-16.0); Imm Gran Abs Auto 0.04 X10*3/uL (0.00-0.03); Imm Gran Pct Auto 0.4 % (0.0-0.4); Lymphocytes Absolute Auto 2.7 X10*3/uL (1.2-4.9); Lymphocytes Percent Auto 26.8 % (20-40); Mean Corpuscular HGB Conc 34.3 g/dl (31.0-35.0); Mean Corpuscular Hemoglobin 29.4 pg (27.0-33.0); Mean Platelet Volume 11.4 fL (9.4-12.3); Monocytes Absolute Auto 0.8 X10*3/uL (0.1-1.2); Monocytes Percent Auto 7.9 % (2-11); Neutrophils Absolute Auto 6.3 x10*3/uL (2.0-8.3); Neutrophils Percent Auto 62.4 % (45-73); Platelet Count 291 X10*3/uL (160-400); Red Blood Count 5.06 X10*6/uL (4.20-5.50); Red Cell Distribution Width 12.6 % (11.0-16.0); White Blood Count 10.1 X10*3/uL (4.8-10.8)
[2023-09-17 19:34] LABS: Alanine Aminotransferase 121 U/L (0-31); Albumin Level 4.4 g/dL (3.5-5.0); Alkaline Phosphatase 90 U/L (39-117); Anion Gap 14 (12-20); Aspartate Amino Transferase 67 U/L (5-31); Bilirubin Total 0.5 mg/dL (0.0-1.0); Blood Urea Nitrogen 15 mg/dL (9-16); Calcium 9.6 mg/dL (8.4-10.2); Carbon Dioxide 27 mmol/L (22-29); Chloride 100 mmol/L (96-108); Creatinine Clr Calc Pharmacy 125.1; Estimated Glomerular Filt Rate > 60; Glucose Random 92 mg/dL (60-115); Lipase 19 U/L (8-78); Magnesium 2.1 mg/dL (1.6-2.6); Potassium 3.6 mmol/L (3.3-5.1); Sodium 137 mmol/L (135-145); Total Protein 8.4 g/dL (6.5-8.0)
[2023-09-17 19:41] LABS: HCG Quantitative < 2 mIU/mL
== END 2023-09-17 22:34 | disposition left against medical advice (07) ==
PROVIDERS: Physician Assistant Medical; Emergency Provider Emergency Medicine
DX: R10.32 Left lower quadrant pain (principal); Z79.899 Other long term (current) drug therapy
CPT/HCPCS: 36415; 80053; 81001; 83690; 83735; 84702; 85025; 99282; 99283